=== PATIENT | female | born 1935 | race Caucasian/White ===

== ENCOUNTER 2017-08-26 08:40 | Emergency (ER) | payer MEDICARE, OTHER ==
--- NOTE | 2017-08-26 09:28 | RAD ---
indication: Trauma to forehead COMPARISON: None A CT scan of the brain and c-spine was performed without intravenous contrast enhancement. Contiguous axial sections were obtained from the lung apices through the vertex. BRAIN: The ventricles, cisterns and sulci exhibit age-appropriate symmetrical involutional changes. No significant focal abnormality or mass effect is seen. There is mild periventricular and subcortical white matter hypoattenuation most consistent with mild microvascular disease. Otherwise the yeung-white differentiation is adequately maintained. There is no intracranial hemorrhage. No significant bony abnormality is present. The mastoid air cells are appropriately aerated. The visualized paranasal sinuses are clear. C-SPINE: On the sagittal view there is straightening of the normal cervical lordosis. The vertebral bodies and facet joints are otherwise appropriately aligned. The dens is intact. There is narrowing not widening of the atlantodental interval. Degenerative changes include coarse calcification of the ligament surrounding the dens. There is loss of intervertebral disc height and marginal osteophyte formation. The most severe degenerative changes are seen at C5/C6 and C6/C7 where there is a tour-ro-[id number] degree of endplate sclerosis. There is no hyperdense material in the cervical canal to indicate hemorrhage. The visualized musculature and soft tissues are normal. There is no gross lymphadenopathy visualized. The visualized lung apices exhibit centrilobular emphysematous changes. IMPRESSION: 1. No calvarial fracture or acute intracranial hemorrhage. 2. No acute fracture or dislocation of the cervical spine. 3. Age-appropriate chronic and degenerative changes as described in the body of the report.
[2017-08-26 10:02] VITALS: BP 153/83
--- NOTE | 2017-08-26 15:10 | ED ---
Head Injury - HPI Summary HPI Summary: Patient is a 82-year-old female who presents emergency department for head injury that occurred early this morning. Patient states she got up to go to the bathroom around 0200 when she fell asleep on the toilet. Patient states she fell asleep and fell forward and was awoken by fall. She states she struck her head on a stand. Patient denies loss of consciousness. She denies recent illness, fever, chest pain, shortness breath, lightheadedness, dizziness, abdominal pain and vomiting, diarrhea. Patient complains of some mild neck pain and contusion to forehead. She is anticoagulated with Coumadin for a history of A. fib. She states she just had her INR checked and it was 2.6. Symptoms are mild to moderate in severity. No current modifying factors. - History Of Current Complaint Chief Complaint: EDHeadInjury Stated Complaint: HEAD INJURY Time Seen by Provider: 08/26/17 08:47 Hx Obtained From: Patient Pain Intensity: 0 Pain Scale Used: 0-10 Numeric - Allergies/Home Medications Allergies/Adverse Reactions: Allergies Allergy/AdvReac Type Severity Reaction Status Date / Time amoxicillin [From Augmentin] Allergy Rash Verified 08/26/17 09:08 clavulanic acid Allergy Rash Verified 08/26/17 09:08 [From Augmentin] lisinopril Allergy Coughing Verified 08/26/17 09:08 metronidazole Allergy Rash Verified 08/26/17 09:08 omeprazole [From Prilosec] Allergy Diarrhea Verified 08/26/17 09:08 PMH/Surg Hx/FS Hx/Imm Hx Previously Healthy: Yes Endocrine/Hematology History: Reports: Hx Anticoagulant Therapy, Hx Diabetes - DM I insulin pump, Hx Thyroid Disease - Graves' disease + thyroidectomy 1971, hypothyroid Cardiovascular History: Reports: Hx Deep Vein Thrombosis - 1971 (right) calf, secondary to control pills, Hx Hypercholesterolemia, Hx Hypertension Denies: Hx Pacemaker/ICD Respiratory History: Reports: 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, Hx Pulmonary Embolism - secondary to control pills, Hx Sleep Apnea - hold on CPAP d/t eye surgery, Other Respiratory Problems/Disorders - ex- smoker QUIT 16 YEARS AGO; Patient uses oxygen at night GI History: Reports: Other GI Disorders - s/p appendectomy History: Reports: Other Problems/Disorders - hematuria Denies: Hx Renal Disease Musculoskeletal History: Reports: Hx Back Problems - lower back disc problems, Hx Osteoporosis Sensory History: Reports: Hx Cataracts, Hx Contacts or Glasses, Other Sensory Impairments - bilateral corneal transplants Denies: Hx Hearing Aid Opthamlomology History: Reports: Hx Cataracts, Hx Contacts or Glasses, Other Sensory Impairments - bilateral corneal transplants Psychiatric History: Denies: Hx Panic Disorder - Cancer History Cancer Type, Location and Year: BASAL CELL Hx Chemotherapy: No Hx Radiation Therapy: No - Surgical History Surgery Procedure, Year, and Place: 1971 thyroidectomy,. basal cell carcinoma removed (left) cruz, basal cell carcinoma removed scalp,. X2,. & 12/18 cornea transplant,. 12/21 [facility] [place]- lap appendectomy,. 2008 retina detachment & repair (right) eye-42 BAND SCLERAL BUCKLE-SILICONE -OK UP TO 3T- INFO IN OTH OP REPORTS. HERNIA REPAIR Infectious Disease History: No Infectious Disease History: Denies: Traveled Outside the [place] in Last 30 Days - Social History Occupation: Retired Lives: With Family Alcohol Use: Daily Substance Use Type: Reports: None Hx Tobacco Use: Yes Smoking Status (MU): Former Smoker Review of Systems Constitutional: Negative Eyes: Negative ENT: Negative Cardiovascular: Negative Negative: Palpitations, Chest Pain Respiratory: Negative Negative: Shortness Of Breath, Cough Gastrointestinal: Negative Genitourinary: Negative Positive: Other - neck pain Positive: Other - contusion forehead Positive: Headache. Negative: Weakness, Paresthesia, Numbness, Syncope All Other Systems Reviewed And Are Negative: Yes Physical Exam Triage Information Reviewed: Yes Vital Signs On Initial Exam: Initial Vitals Temp Pulse Resp BP Pulse Ox 97.4 F 83 19 156/72 92 08/26/17 08:41 08/26/17 08:41 08/26/17 08:41 08/26/17 08:41 08/26/17 08:41 Vital Signs Reviewed: Yes Appearance: Positive: Well-Appearing - Patient sitting on bed in no acute distress. Well appearing. Pleasant. Daughter present. Skin: Positive: Warm, Dry Head/Face: Positive: Other - Small superficial contusion noted to the left upper forehead. No laceration. Eyes: Positive: Normal, EOMI, KERRY Neck: Positive: Supple, Other: - No midline tenderness. Pain with rotation. Respiratory/Lung Sounds: Positive: Clear to Auscultation, Breath Sounds Present Cardiovascular: Positive: Normal, RRR Musculoskeletal: Positive: Normal, Strength/ROM Intact Neurological: Positive: Normal, CN Intact II-III Psychiatric: Positive: Affect/Mood Appropriate Diagnostics - Vital Signs Vital Signs Temp Pulse Resp BP Pulse Ox 08/26/17 10:01 97.4 F 72 20 153/83 94 08/26/17 09:00 83 19 95 08/26/17 08:51 79 26 156/86 93 08/26/17 08:41 97.4 F 83 19 156/72 92 - Laboratory Lab Statement: Any lab studies that have been ordered have been reviewed, and results considered in the medical decision making process. Head Injury Course/Dx Course Of Treatment: Patient presenting to the ER for minor head and neck injury. No neurological deficits. Stable vital signs. She is very well- appearing on exam. Did obtain CT scan given anticoagulation. CT scan of head and neck are negative for acute medical injuries, reading per radiology. Results discussed. Advised Tylenol for pain as directed. To follow-up with PCP and return to the ear symptoms change or worsen. Patient and daughter understand and agree with plan. - Diagnoses Provider Diagnoses: Head contusion, Cervical strain Discharge - Sign-Out/Discharge Documenting (check all that apply): Patient Departure - Discharge Plan Condition: Good Disposition: HOME Patient Education Materials: Cervical Strain (ED), Head Injury (ED) Referrals: Marcelo Sesay MD [Primary Care Provider] - Additional Instructions: Follow up with your PCP Return to ER if symptoms change or worsen - Billing Disposition and Condition Condition: GOOD Disposition: Home
== END 2017-08-26 10:01 | disposition home or self-care (01) ==
LOC: ED 08:40
DX: S00.93XA Contusion of unspecified part of head, initial encounter (principal); S16.1XXA Strain of muscle, fascia and tendon at neck level, initial encounter; W18.12XA Fall from or off toilet with subsequent striking against object, initial encounter; Y92.002 Bathroom of unspecified non-institutional (private) residence as the place of occurrence of the external cause; I48.91 Unspecified atrial fibrillation; E10.9 Type 1 diabetes mellitus without complications; Z79.01 Long term (current) use of anticoagulants; Z96.41 Presence of insulin pump (external) (internal); Z79.4 Long term (current) use of insulin; Z86.718 Personal history of other venous thrombosis and embolism; Z87.891 Personal history of nicotine dependence; Z88.3 Allergy status to other anti-infective agents; Z88.8 Allergy status to other drugs, medicaments and biological substances
CPT/HCPCS: 70450; 72125; 99282

== ENCOUNTER 2018-01-16 16:56 | Inpatient (IN) | payer MEDICARE, OTHER ==
[2018-01-16] MEDS ORDERED: NS 0.9% 1000 ML* 1,000 ML IV ONE (17:18)
--- NOTE | 2018-01-16 17:24 | ED ---
Lower Extremity - HPI Summary HPI Summary: Patient is a 82 y/o F brought in by ambulance after patient slipped and fell on ice today. She reports pain at left leg and left hip. EMS reports good neurovascular exam, BG of 170. PMHx of afib, blood clot in lungs, and diabetes. Fall was unwitnessed. No head injury, no neck pain is reported. Patient is on Coumadin. She rates pain 6/10. On triage, it is noted that position flat, pillow under left hip alleviates Sx, nothing is noted to aggravate Sx. Home medications and allergies are reviewed. - History of Current Complaint Chief Complaint: EDHipPelvisInjury Stated Complaint: FALL/LT HIP INJURY Time Seen by Provider: 01/16/18 17:15 Hx Obtained From: Patient Mechanism Of Injury: Fall From A Standing Position Onset of Pain: Prior to Arrival Onset/Duration: Still Present Severity Currently: Moderate - 6/10 Pain Intensity: 6 Pain Scale Used: 0-10 Numeric - 6/10 Timing: Constant Location: Is Discrete @ - left leg, left hip Associated Signs And Symptoms: Positive: Other - Negative - neck pain, head injury Aggravating Factor(s): Nothing Alleviating Factor(s): Rest, Elevation - Allergies/Home Medications Allergies/Adverse Reactions: Allergies Allergy/AdvReac Type Severity Reaction Status Date / Time amoxicillin [From Augmentin] Allergy Rash Verified 01/16/18 17:21 clavulanic acid Allergy Rash Verified 01/16/18 17:21 [From Augmentin] lisinopril Allergy Coughing Verified 01/16/18 17:21 metronidazole Allergy Rash Verified 01/16/18 17:21 omeprazole [From Prilosec] Allergy Diarrhea Verified 01/16/18 17:21 PMH/Surg Hx/FS Hx/Imm Hx Endocrine/Hematology History: Reports: Hx Anticoagulant Therapy, Hx Diabetes - DM I insulin pump, Hx Thyroid Disease - Graves' disease + thyroidectomy 1971, hypothyroid Cardiovascular History: Reports: Hx Deep Vein Thrombosis - 1971 (right) calf, secondary to control pills, Hx Hypercholesterolemia, Hx Hypertension Denies: Hx Pacemaker/ICD Respiratory History: Reports: 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, Hx Pulmonary Embolism - secondary to control pills, Hx Sleep Apnea - hold on CPAP d/t eye surgery, Other Respiratory Problems/Disorders - ex- smoker QUIT 16 YEARS AGO; Patient uses oxygen at night GI History: Reports: Other GI Disorders - s/p appendectomy History: Reports: Other Problems/Disorders - hematuria Denies: Hx Renal Disease Musculoskeletal History: Reports: Hx Back Problems - lower back disc problems, Hx Osteoporosis Sensory History: Reports: Hx Cataracts, Hx Contacts or Glasses, Other Sensory Impairments - bilateral corneal transplants Opthamlomology History: Reports: Hx Cataracts, Hx Contacts or Glasses, Other Sensory Impairments - bilateral corneal transplants Psychiatric History: Denies: Hx Panic Disorder - Cancer History Cancer Type, Location and Year: BASAL CELL Hx Chemotherapy: No Hx Radiation Therapy: No - Surgical History Surgery Procedure, Year, and Place: 1971 thyroidectomy,. basal cell carcinoma removed (left) cruz, basal cell carcinoma removed scalp,. X2,. & 12/18 cornea transplant,. 12/21 [facility] [place] appendectomy,. 2008 retina detachment & repair (right) eye-42 BAND SCLERAL BUCKLE-SILICONE -OK UP TO 3T- INFO IN OTH OP REPORTS. HERNIA REPAIR Infectious Disease History: No Infectious Disease History: Denies: Traveled Outside the [place] in Last 30 Days - Family History Known Family History: Negative: Blood Disorder - Social History Alcohol Use: Daily Substance Use Type: Reports: None Hx Tobacco Use: Yes Smoking Status (MU): Former Smoker Review of Systems Positive: Other - POSITIVE - MECHANICAL FALL . Negative: Fever - on vitals, temp is 98.1 F Positive: Other - POSITIVE - LEFT HIP PAIN, LEFT LEG PAIN; NEGATIVE - NECK PAIN Neurological: Other - NEGATIVE - HEAD INJURY All Other Systems Reviewed And Are Negative: Yes Physical Exam - Summary Physical Exam Summary: Appearance: Well-appearing, Well-nourished, lying in bed comfortably Skin: Warm, dry, no obvious rash Eyes: sclera anicteric, no conjunctival pallor ENT: mucous membranes moist, pharynx appears normal Neck: Supple, nontender Respiratory: Clear to auscultation, no signs of respiratory distress Cardiovascular: Normal S1, S2. No murmurs. Normal distal pulses in tibial and radial bilaterally. Abdomen: Soft, nontender, normal active bowel sounds present Musculoskeletal: Left proximal thigh, swelling consistent with femoral shaft fracture. No signs of head trauma. Neurological: A&Ox3, awake and alert, mentation is normal, speech is fluent and appropriate Psychiatric: affect is normal, does not appear anxious or depressed Triage Information Reviewed: Yes Vital Signs On Initial Exam: Initial Vitals Temp Pulse Resp BP Pulse Ox 98.1 F 92 16 162/88 94 01/16/18 17:10 01/16/18 17:10 01/16/18 17:10 01/16/18 17:10 01/16/18 17:10 Vital Signs Reviewed: Yes Diagnostics - Vital Signs Vital Signs Temp Pulse Resp BP Pulse Ox 01/16/18 17:13 92 94 01/16/18 17:11 92 162/88 93 01/16/18 17:10 98.1 F 92 16 162/88 94 - Laboratory Result Diagrams: 01/17/18 05:22 01/17/18 05:22 Lab Statement: Any lab studies that have been ordered have been reviewed, and results considered in the medical decision making process. - Radiology CXR Radiology Interpretation Completed By: ED Physician Summary of Radiographic Findings: NAD Left Femur X-ray Radiology Interpretation Completed By: ED Physician Summary of Radiographic Findings: subtrochanteric fractureof left hip - CT pelvic ct CT Interpretation Completed By: Radiologist Summary of CT Findings: PELVIC CT IMPRESSION: Comminuted and displaced fracture involving the intertrochanteric region of the. left proximal femur. Study obtained to assist with surgical planning. THIS REPORT WAS REVIEWED BY ED PHYSICIAN. - EKG 1733 Cardiac Rate: NL - rate of 91 bpm EKG Rhythm: Sinus Rhythm Summary of EKG Findings: Normal EKG: NSR at 91 BPM, P waves, QRS complex, and T waves are within normal limits, T waves and intervals are normal, no ischemic changes. This is a normal EKG Lower Extremity Course/Dx - Course Course Of Treatment: Patient is a 82 y/o F brought in by ambulance after patient slipped and fell on ice today. She reports pain at left thigh and left hip. EMS reports good neurovascular exam, BG of 170. PMHx of afib, blood clot in lungs, and diabetes. Fall was unwitnessed. She was able to call for help on her cell phone. No head injury, no neck pain is reported. Patient is on Coumadin. On physical exam, left proximal thigh, swelling consistent with femoral shaft fracture. No signs of head trauma. Labs showed RBC 3.93, MCH 33, INR 2.54, BUN/creatinine ratio 23.9, glucose 151, blood type O negative. Normal EKG: NSR at 91 BPM, P waves, QRS complex, and T waves are within normal limits, T waves and intervals are normal, no ischemic changes. This is a normal EKG. During ED course, patient received fluids, morphine, zofran and Vitamin K Oral Solution 5 mg PO ONCE ONE. CXR was NAD, Left femur x-ray showed subtrochanteric fracture of left hip. PELVIC CT IMPRESSION: Comminuted and displaced fracture involving the intertrochanteric region of the. left proximal femur. Study obtained to assist with surgical planning. Dr. Rollins was consulted on patient's case at 1822, recommends admission to hospitalist. 1849 - Dr. Sesay was consulted on patient's case as he is patient's PCP, asks that patient be admitted to hospitalist. 1850 - Dr. Mcwilliams was consulted on patient's case. Dr. Mcwilliams accepts patient for admission. - Diagnoses Provider Diagnoses: Hip fracture, left, Warfarin anticoagulation - Physician Notifications Discussed Care Of Patient With: Lazarus Rollins Time Discussed With Above Provider: 18:22 Instructed by Provider To: Other - Dr. Rollins was consulted on patient's case at 182, recommends admission to hospitalist. 1849 - Dr. Sesay was consulted on patient's case as he is patient's PCP, asks that patient be admitted to hospitalist. 1850 - Dr. Mcwilliams was consulted on patient's case. Dr. Mcwilliams accepts patient for admission. Discharge - Sign-Out/Discharge Documenting (check all that apply): Patient Departure - admit All imaging exams completed and their final reports reviewed: Yes - Discharge Plan Condition: Stable Disposition: ADMITTED TO [facility] - Billing Disposition and Condition Condition: STABLE Disposition: Admitted to [facility] - Attestation Statements Document Initiated by Marilynnibe: Yes Documenting Scribe: TRINY BLANCA Provider For Whom Naheed is Documenting (Include Credential): STU BRIONES MD Scribe Attestation: ITRINY , scribed for STU BRIONES MD on 01/17/18 at 1020. Scribe Documentation Reviewed: Yes Provider Attestation: The documentation as recorded by the TRINY pollock accurately reflects the service I personally performed and the decisions made by me, STU BRIONES MD Status of Scribe Document: Viewed
[2018-01-16] MEDS ORDERED: Morphine VIAL* 4 MG/ML VIAL (1 ml vial) IV ONE ×2 (17:28→19:31)
[2018-01-16 17:34] LABS: ABS Basophils 0.1 10^3/ul (0-0.2); ABS Eosinophils 0.1 10^3/ul (0-0.6); ABS Lymphocytes 1.9 10^3/ul (1.0-4.8); ABS Monocytes 0.6 10^3/ul (0-0.8); ABS Nucleated RBC 0 10^3/ul; Eosinophil % 2.1 %; Hematocrit 38 % (35-47); Hemoglobin 12.8 g/dl (12.0-16.0); Mean Corpuscular HGB Conc 34 g/dl (31-36); Mean Corpuscular Hemoglobin 33 pg (27-31); Mean Corpuscular Volume 97 fL (80-97); Nucleated Red Blood Cells % 0.2; Platelet Count 270 10^3/ul (150-450); Red Blood Count 3.93 10^6/ul (4.00-5.40); Red Cell Distribution Width 13 % (10.5-15); White Blood Count 5.7 10^3/ul (3.5-10.8)
[2018-01-16 17:43] LABS: INR 2.54 (0.77-1.02)
[2018-01-16 17:53] LABS: EGFR Non-African American 58.7 (>60)
[2018-01-16] MEDS ORDERED: Phytonadione Oral Solution* 5 MG/25 ML UDC PO ONE (18:20)
[2018-01-16] MEDS ORDERED: Al Hydrox/Mg Hydrox/Simet LIQ* 30 ML UDC PO PRN (20:01)
[2018-01-16] MEDS ORDERED: Dextrose 50% Syringe 50 ML* 25 GM/50 ML SYRINGE IV PUSH PRN (20:06)
[2018-01-16] MEDS ORDERED: NS 0.9% 1000 ML* 1,000 ML IV SCH (20:15)
[2018-01-16] MEDS ORDERED: Albuterol 2.5 MG/3 ML NEB.SOL* (0.083%) INH PRN (20:25)
[2018-01-16] MEDS ORDERED: Albuterol/Ipratropium NEB.SOL* Albuterol 2.5 MG/Ipratropium 0.5 MG 3 ML INH PRN (20:25)
[2018-01-16] MEDS: Mometasone 220 MCG MDI INH SCH (21:00)
[2018-01-16] MEDS ORDERED: Insulin GLARGINE(*) 1 UNITS UNIT SUBCUT SCH (21:00)
[2018-01-16] MEDS ORDERED: Ondansetron INJ* 2 MG/ML VIAL IV ONE (21:17)
[2018-01-16] MEDS ORDERED: Ondansetron INJ* 2 MG/ML VIAL ONE (21:19)
[2018-01-16] MEDS: Morphine VIAL* 4 MG/ML VIAL (1 ml vial) IV PRN (23:57)
[2018-01-17] MEDS ORDERED: Insulin LISPRO* 1 UNITS UNIT SUBCUT ONE (01:11)
[2018-01-17] MEDS ORDERED: Dextrose 50% Syringe 50 ML* 25 GM/50 ML SYRINGE IV PUSH PRN ×2 (01:11→09:12)
--- NOTE | 2018-01-17 02:48 | HP ---
CC: Marcelo Sesay MD * HISTORY AND PHYSICAL: DATE OF ADMISSION: 01/16/18 TIME OF EVALUATION: 1999. PRIMARY CARE PHYSICIAN: Marcelo Sesay MD CHIEF COMPLAINT: Fall with left hip injury. HISTORY OF PRESENT ILLNESS: This is an 82-year-old female who is independent of her ADLs, with a past medical history of type 1 diabetes, on insulin pump; and atrial fibrillation, on anticoagulation, who presented to the emergency room after slipping on the ice on her driveway and landing on her left side. The patient was found to have had a left hip fracture. Ortho was contacted. They recommended admission for further management. The patient is very upset and stressed. She cannot provide her entire history. She knows that she has diabetes and atrial fibrillation, but could not elaborate much more. She is very worried about her and having the ability to manage him at home with his dementia as he is home alone right now. She did state she was in her usual state of health. She denied any presyncopal symptoms. She denies hitting her head, no loss of consciousness. She denies any other pain after falling. She states she has been having some issues with short of breath and having some dyspnea on exertion. She is planning to follow up with Dr. Sesay to see if she should go back to follow up with Cardiology. She states every now and then, she had some nagging in her chest when she gets upset. No chest pain at this time. She can ambulate up and down the stairs, but she does get short of breath when she does that. She denies any recent stress test. She denies any nausea, vomiting, diarrhea. No abdominal pain. No urinary symptoms. No recent changes in her medications or weight changes. Otherwise, review of systems negative. In the emergency room, the patient had labs, imaging. She was given 2 units of FFP, vitamin K 5 mg, 1 L of normal saline, 10 mg of morphine and referred to the hospitalist service for further evaluation. PAST MEDICAL HISTORY: 1. History of paroxysmal atrial fibrillation, on Coumadin. 2. Type 1 diabetic, on insulin pump. 3. History of Graves' disease, status post thyroidectomy in 1971, now with hypothyroidism. 4. History of DVT in 1971 and a PE secondary to control pills. 5. History of hyperlipidemia. 6. Hypertension. 7. History of COPD, on oxygen at bedtime. 8. History of obstructive sleep apnea, is not on CPAP. 9. History of appendectomy. 10. History of chronic low back pain. 11. History of osteoporosis. 12. History of cataract. 13. History of bilateral corneal transplants. MEDICATIONS: The patient is not sure what medications she takes. There is no med rec in there. She does take warfarin and she is on insulin pump, which she had discontinued in the emergency room. ALLERGIES: AMOXICILLIN, CLAVULANIC ACID, LISINOPRIL, METRONIDAZOLE, OMEPRAZOLE. FAMILY HISTORY: Mother from cancer at age 92. Father unknown. SOCIAL HISTORY: The patient lives at home with her , who has early onset dementia. She helps care for him. She is independent of her ADLs. She quit smoking 20 years ago, 2 pack per day for 45 years. She drinks 1 to 2 glasses of wine in the evening. Her daughter and her [id number] are healthcare proxy. Code status is full code. REVIEW OF SYSTEMS: A 14-point review of systems as mentioned in the HPI, otherwise negative. PHYSICAL EXAMINATION GENERAL: No acute distress, appears mildly anxious, concerned about her . VITALS: Temp 98.8, pulse rate is 95, respiratory rate 20, oxygen saturation 98 % on room air, blood pressure 145/79. HEENT: Head normocephalic. Pupils are equal and reactive. She has erythema on her bilateral eye lids. Oropharynx: Mucous membranes are moist. NECK: Supple. No lymphadenopathy. RESPIRATORY: Diminished breath sounds. No wheezes, rhonchi, or rales. CARDIAC: Regular rate and rhythm. Soft systolic murmur heard throughout. ABDOMEN: Soft, nontender and nondistended. EXTREMITIES: The patient with significant lower extremity varicosities. Her left lower extremity is short and externally rotated. +1 DPs. Sensation is intact. She is able to move her toes. NEUROLOGIC: Alert and oriented x3. No gross focal neurologic deficits. DIAGNOSTIC STUDIES/LAB DATA: White count 5.7, hemoglobin 12.8, hematocrit 38, platelets 270. INR is 2.54. Sodium 136, potassium 3.9, chloride 100, bicarb 29 , BUN 22, creatinine 0.92, glucose 151. RADIOGRAPHIC DATA: EKG shows sinus rhythm with LVH. Some nonspecific ST changes. Chest x-ray shows some mild prominent interstitial markings compared to prior x - ray. Femur film has been canceled awaiting film of CT of the pelvis. ASSESSMENT AND PLAN: This is an 82-year-old female with past medical history of diabetes; atrial fibrillation, on anticoagulation, who presents to the emergency room after having a mechanical fall. Mechanical fall. Assessment: Awaiting on the CAT scan. The film for her femur appeared to be canceled. The orthopedic surgeon, Dr. Davidson, and the ER doc stated that she suffered a left hip fracture. Regarding preoperative evaluation, she has an INR of 2.54, that needs to be reversed. She did get 2 units of FFP and vitamin K down in the emergency room. Her EKG shows nonspecific ST changes and chest x- ray on my wet read showed some findings of possible increase in interstitial markings, which may be contributed to her shortness of breath. There is also concern for this new onset of dyspnea on exertion. Plan: Need to get her med rec and more thorough cardiac history. Dr. Sesay will be taking over in the morning. He can review this. I am going to put in for an echo, trops x2, and consider Cardiology evaluation in the morning depending on her work up and further history. If her INR has normalized, potentially she could go tomorrow afternoon if she is optimized preoperatively. We will repeat her labs and her INRs as well in the morning. We will continue pain management , bowel regimen, and place a Morgan catheter for her hip fracture and follow up with Orthopedics. Will start NPO status in AM. CHRONIC MEDICAL PROBLEMS: 1. Diabetes, on insulin pump. I discussed continuing her on the insulin pump. She got very stressed about being able to change it while lying flat and not having all of the equipment that she needs to change it out tomorrow. She got very tearful about this. So I discussed stopping the insulin pump and we will place her on lispro and Lantus and monitor her sugars that way. We will continue her on a diabetic diet until she is n.p.o. in the morning and we will start her on gentle IV fluids. 2. Chronic medical problems, as mentioned need to get a home med rec list so her current medications can be started accordingly. We will continue her on her inhaler regimens. 3. FEN. Consistent carbohydrate diet, n.p.o. starting in the morning. 4. DVT prophylaxis. The patient is therapeutic with her Coumadin and we will place her on SCDs as we are reversing this. 5. Code status is full code. TIME SPENT: Greater than 60 minutes spent doing the history and physical, more than half the time spent in direct patient contact. [id number]/CPS #: [id number] DEANGELO
[2018-01-17] MEDS ORDERED: Magnesium Sulfate 2 GM IV* 2 GM/50 ML BAG IVPB ONE (03:41)
[2018-01-17] MEDS ORDERED: Metoprolol Tartrate IV* 1 MG/ML 5 ML VIAL IV PRN (03:58)
[2018-01-17] MEDS: Morphine VIAL* 4 MG/ML VIAL (1 ml vial) IV PRN ×3 (04:45→19:30)
[2018-01-17 05:31] LABS: ABS Basophils 0 10^3/ul (0-0.2); ABS Eosinophils 0 10^3/ul (0-0.6); ABS Lymphocytes 0.8 10^3/ul (1.0-4.8); ABS Monocytes 0.9 10^3/ul (0-0.8); ABS Neutrophils 6.8 10^3/ul (1.5-7.7); ABS Nucleated RBC 0 10^3/ul; Eosinophil % 0 %; Hematocrit 29 % (35-47); Hemoglobin 9.9 g/dl (12.0-16.0); Mean Corpuscular HGB Conc 34 g/dl (31-36); Mean Corpuscular Hemoglobin 33 pg (27-31); Mean Corpuscular Volume 96 fL (80-97); Mean Platelet Volume 7.5 fL (7.4-10.4); Nucleated Red Blood Cells % 0; Platelet Count 219 10^3/ul (150-450); Red Blood Count 3.03 10^6/ul (4.00-5.40); Red Cell Distribution Width 13 % (10.5-15); White Blood Count 8.4 10^3/ul (3.5-10.8)
[2018-01-17 05:36] LABS: INR 1.7 (0.77-1.02)
[2018-01-17 05:50] LABS: EGFR Non-African American 81.9 (>60)
[2018-01-17] MEDS ORDERED: Potassium Chlor TAB* 10 MEQ TAB.ER PO ONE (06:17)
[2018-01-17] MEDS: Mometasone 220 MCG MDI INH SCH ×2 (07:40→21:05)
[2018-01-17] MEDS: Ondansetron INJ* 2 MG/ML VIAL IV PRN ×2 (07:53→19:31)
[2018-01-17] MEDS: Insulin LISPRO* 1 UNITS UNIT SUBCUT SCH ×7 (08:53→22:02)
--- NOTE | 2018-01-17 08:53 | PN ---
Subjective - Subjective Reason for Note: Progress Note History: Internal medicine/endocrinology note: Lucy Costa is an 82 year old WF who is a primary care and endocrine patient of [facility]. She has T1D that is labile and uses an insulin pump. She has COPD. She also has chronic atrial fibrillation and is anticoagulated with warfarin She fell on ice and fractured her left hip. She is hoping to have surgery today. She was given some vitamin K to reverse her warfarin. This morning she has pain and nausea from the opioid. Active Problems: Active Problems Anemia (Acute) D64.9 Fracture, intertrochanteric, left femur (Acute) S72.142A Uncontrolled type 1 diabetes mellitus (Acute) E10.65 Warfarin anticoagulation (Acute) Z79.01 Anxiety disorder (Chronic) F41.9 Atrial fibrillation (Chronic) I48.91 COPD (chronic obstructive pulmonary disease) (Chronic) J44.9 Charcot's arthropathy (Chronic) M14.60 Diabetic retinopathy (Chronic) E11.319 Emphysema of lung (Chronic) J43.9 Essential hypertension (Chronic) I10 History of falling (Chronic) Z91.81 Hypercholesteremia (Chronic) E78.00 Insulin pump status (Chronic) Z96.41 Osteoarthritis (Chronic) M19.90 Primary hypothyroidism (Chronic) E03.9 Psoriasis (Chronic) L40.9 Sleep apnea (Chronic) G47.30 Type 1 diabetes, uncontrolled, with retinopathy (Chronic) E10.319, E10.65 Current Medications: Current Medications Acetaminophen (Tylenol Tab*) 650 mg PO Q4H PRN PRN Reason: FEVER/PAIN Al Hydrox/Mg Hydrox/Simethicone (Maalox Plus*) 30 ml PO Q6H PRN PRN Reason: INDIGESTION Albuterol (Ventolin 2.5 Mg/3 Ml Neb.Jennifer*) 2.5 mg INH Q4H PRN PRN Reason: SOB/WHEEZING Albuterol/Ipratropium (Duoneb (Albuterol 2.5 Mg/Ipratropium 0.5 Mg)) 1 neb INH Q4H PRN PRN Reason: SOB/WHEEZING Dextrose (D50w Syringe 50 Ml*) 12.5 gm IV PUSH .FOR FS < 60 - SS PRN PRN Reason: FS < 60 Docusate Sodium (Colace Cap*) 100 mg PO BID PRN PRN Reason: CONSTIPATION Sodium Chloride (Ns 0.9% 1000 Ml*) 1,000 mls @ 100 mls/hr IV PER RATE [facility] Last Admin: 01/17/18 01:43 Dose: 100 mls/hr Insulin Glargine (Lantus(*)) 10 units SUBCUT Q24H [facility] Last Admin: 01/17/18 01:27 Dose: 10 units Insulin Human Lispro (Humalog*) 0 units SUBCUT AC [facility]; Protocol Metoprolol Tartrate (Lopressor Iv*) 5 mg IV Q4HR PRN PRN Reason: HEART RATE/PULSE Last Admin: 01/17/18 04:09 Dose: 5 mg Mometasone Furoate (Asmanex 220 Mcg Mdi *) 2 puff INH RT.BID [facility] Last Admin: 01/17/18 07:40 Dose: 2 puff Morphine Sulfate (Morphine Vial*) 4 mg IV Q4H PRN PRN Reason: PAIN Last Admin: 01/17/18 04:45 Dose: 4 mg Ondansetron HCl (Zofran Inj*) 4 mg IV Q4H PRN PRN Reason: NAUSEA/VOMITING Last Admin: 01/17/18 07:53 Dose: 4 mg Oxycodone/Acetaminophen (Percocet 5/325 Tab*) 1 tab PO Q4H PRN PRN Reason: Pain Senna (Senokot Tab*) 1 tab PO BID PRN PRN Reason: CONSTIPATION - Review of Systems Constitutional Symptoms: No: Fever Pulmonary: Positive: COPD Negative: Cough, Sputum, Respiratory Distress, Shortness of Breath Cardiology: Negative: Chest Pain, Shortness of Breath, Palpitations, Swelling of Ankles Gastroenterology: Positive: Nausea, Vomiting Negative: Abdominal Pain, Change in Bowel Habits Genital - Urinary: Negative: Dysuria Psychiatry: Positive: Anxiety Home Medications: Home Medications Medication Instructions Recorded Confirmed Type Albuterol/Ipratropium INH(NF) 2 puff .SEE ORDER Q4HR PRN 04/05/12 08/26/17 History [Combivent Inhaler*] Alendronate Sodium [Fosamax] 70 mg PO SEE INSTRUCTIONS 04/05/12 08/26/17 History Aspirin [Aspir-81] 81 mg PO DAILY 04/05/12 08/26/17 History Brimonidine P 0.15%(NF) [Alphagan 0.15 % OP SEE INSTRUCTIONS 04/05/12 08/26/17 History P] Cholecalciferol [Vitamin D3] 2,000 unit PO DAILY 04/05/12 08/26/17 History Citalopram TAB* [Celexa TAB*] 20 mg PO DAILY 04/05/12 08/26/17 History Dapsone 25 mg PO DAILY 04/05/12 08/26/17 History Fluticasone HFA 220 mcg(NF) 2 puff .SEE ORDER DAILY 04/05/12 08/26/17 History [Flovent Hfa 220 Mcg*] Irbesartan TAB* [Avapro TAB*] 300 mg PO QPM 04/05/12 08/26/17 History Levothyroxine TAB* [Synthroid TAB*] 137 mcg PO QAM 04/05/12 08/26/17 History Multivit-Mins/FA/Lycop/Lut/Ala 1 tab PO DAILY 04/05/12 08/26/17 History [Multi-Betic] Simvastatin 10 mg PO BEDTIME 04/05/12 08/26/17 History Subcutaneous Insulin Pump [Insulin 1 kit SUBCUT QID 04/05/12 08/26/17 History Pump [id number] Black] Timolol 0.25% OPHTH.SOLN* 1 drop .SEE ORDER BID 04/05/12 08/26/17 History [Timoptic Ophth.soln 0.25%*] Warfarin TAB(*) [Coumadin(*)] 5 mg PO SEE INSTRUCTIONS 04/05/12 08/26/17 History Warfarin TAB(*) [Coumadin(*)] 7.5 mg PO SEE INSTRUCTIONS 04/05/12 08/26/17 History dilTIAZem HCl [Dilt-Xr] 180 mg PO DAILY 04/05/12 08/26/17 History prednisoLONE 1% OPHTH.SUSP* [Pred 1 drop .SEE ORDER DAILY 04/05/12 08/26/17 History Forte 1%*] zzInsulin GLARGINE(*) [Lantus(*)] 18 units .SEE ORDER SEE 04/05/12 08/26/17 History INSTRUCTIONS Allergies: Allergies Allergy/AdvReac Type Severity Reaction Status Date / Time amoxicillin [From Augmentin] Allergy Rash Verified 01/16/18 17:21 clavulanic acid Allergy Rash Verified 01/16/18 17:21 [From Augmentin] lisinopril Allergy Coughing Verified 01/16/18 17:21 metronidazole Allergy Rash Verified 01/16/18 17:21 omeprazole [From Prilosec] Allergy Diarrhea Verified 01/16/18 17:21 Objective - Vital Signs Vital Signs: Vital Signs 01/16/18 01/16/18 01/16/18 17:10 17:11 17:13 Temperature 98.1 F Pulse Rate 92 92 92 Respiratory 16 Rate Blood Pressure 162/88 162/88 (mmHg) O2 Sat by Pulse 94 93 94 Oximetry 01/16/18 01/16/18 01/16/18 17:35 17:58 18:00 Temperature Pulse Rate 88 89 Respiratory 18 Rate Blood Pressure 140/78 (mmHg) O2 Sat by Pulse 94 95 Oximetry 01/16/18 01/16/18 01/16/18 18:11 18:41 19:00 Temperature Pulse Rate 95 100 108 Respiratory Rate Blood Pressure 156/81 162/85 (mmHg) O2 Sat by Pulse 97 95 98 Oximetry 01/16/18 01/16/18 01/16/18 19:41 20:00 20:06 Temperature Pulse Rate 104 103 Respiratory 20 Rate Blood Pressure 145/79 (mmHg) O2 Sat by Pulse 94 94 Oximetry 01/16/18 01/16/18 01/16/18 20:11 20:41 21:00 Temperature Pulse Rate 106 109 110 Respiratory Rate Blood Pressure 134/65 141/77 (mmHg) O2 Sat by Pulse 90 98 97 Oximetry 01/16/18 01/16/18 01/16/18 21:11 21:40 21:41 Temperature Pulse Rate 109 105 104 Respiratory Rate Blood Pressure 127/72 120/57 123/60 (mmHg) O2 Sat by Pulse 98 99 98 Oximetry 01/16/18 01/16/18 01/16/18 21:52 22:00 22:11 Temperature Pulse Rate 105 102 105 Respiratory Rate Blood Pressure 125/65 123/60 (mmHg) O2 Sat by Pulse 98 97 99 Oximetry 01/16/18 01/16/18 01/16/18 22:23 22:49 23:26 Temperature 97.4 F 97.9 F 98.2 F Pulse Rate 105 106 108 Respiratory 18 16 16 Rate Blood Pressure 123/60 127/64 126/53 (mmHg) O2 Sat by Pulse 99 98 98 Oximetry 01/16/18 01/17/18 01/17/18 23:57 00:37 00:39 Temperature 97.8 F Pulse Rate 111 Respiratory 16 16 16 Rate Blood Pressure 111/46 (mmHg) O2 Sat by Pulse 96 Oximetry 01/17/18 01/17/18 01/17/18 01:29 01:35 03:36 Temperature 97.9 F Pulse Rate 114 109 Respiratory 16 16 14 Rate Blood Pressure 104/45 120/61 (mmHg) O2 Sat by Pulse 95 Oximetry 01/17/18 01/17/18 01/17/18 04:45 06:08 07:06 Temperature Pulse Rate 101 Respiratory 16 12 Rate Blood Pressure (mmHg) O2 Sat by Pulse 97 Oximetry - Intake and Output Intake and Output: Intake & Output 01/14/18 01/15/18 01/16/18 01/17/18 11:59 11:59 11:59 11:59 Intake Total 1723 Output Total 1000 Balance 723 Weight 138 lb Intake: IV Fluids 1723 FF Plasma 599 NS (0.9%) 124 Oral 0 Output: Morgan 1000 ADLs: Meal Record Start: 01/16/18 20: 57 Freq: Status: Active Protocol: Created 01/16/18 20:57 System (Rec: 01/16/18 20:57 System [id number]) Intake and Output Start: 01/16/18 17: 13 Freq: Status: Active Protocol: Created 01/16/18 17:13 System (Rec: 01/16/18 17:13 System [id number]) Intake and Output Start: 01/16/18 20: 57 Freq: DAILY@0600,1400,2200 Status: Active Protocol: Created 01/16/18 20:57 System (Rec: 01/16/18 20:57 System [id number]) Document 01/17/18 05:56 [id number] (Rec: 01/17/18 05:57 [id number] [facility]-M17) - Physical Exam General Physical Exam Comment: alert and oriented, warm and well perfused. Nauseated General: No Cyanosis, No Anemia, No Jaundice, No Clubbing Lungs and Chest: Yes: Chest Expansion Full, Chest Expansion Symetrica, Percussion Note Resonant. No: Vessicular Breath Sounds - emphysematous, Crackles, Wheezes Heart Rate and Rhythm: Irregular Additional Cardiovascular: Yes: Normal Heart Sounds. No: Heart Murmur, Pedal Edema Abdominal Exam: Yes: Soft, Bowel Sounds Present. No: Distention, Abdominal Mass , Hepatomegaly, Abdominal Tenderness - Extremities Cranial Nerves II-XII Intact: Yes Limbs: Normal Power - Neuro Orientation: A/O x3 Speech: Normal Results - Results Lab Results: Laboratory Results - last 24 hr 01/16/18 01/16/18 01/16/18 17:22 17:22 17:22 WBC 5.7 RBC 3.93 L Hgb 12.8 Hct 38 MCV 97 MCH 33 H MCHC 34 RDW 13 Plt Count 270 MPV 8.0 Neut % (Auto) 53.7 Lymph % (Auto) 33.0 Crane % (Auto) 10.3 Eos % (Auto) 2.1 Baso % (Auto) 0.9 Absolute Neuts (auto) 3.0 Absolute Lymphs (auto) 1.9 Absolute Monos (auto) 0.6 Absolute Eos (auto) 0.1 Absolute Basos (auto) 0.1 Absolute Nucleated RBC 0 Nucleated RBC % 0.2 INR (Anticoag Therapy) 2.54 H Sodium 136 Potassium 3.9 Chloride 100 L Carbon Dioxide 29 Anion Gap 7 BUN 22 Creatinine 0.92 Est GFR ( Amer) 71.1 Est GFR (Non-Af Amer) 58.7 BUN/Creatinine Ratio 23.9 H Glucose 151 H POC Glucose (mg/dL) Calcium 9.4 Magnesium 1.8 L Troponin I 0.01 Blood Type 01/16/18 01/17/18 01/17/18 17:22 00:45 02:28 WBC RBC Hgb Hct MCV MCH MCHC RDW Plt Count MPV Neut % (Auto) Lymph % (Auto) Crane % (Auto) Eos % (Auto) Baso % (Auto) Absolute Neuts (auto) Absolute Lymphs (auto) Absolute Monos (auto) Absolute Eos (auto) Absolute Basos (auto) Absolute Nucleated RBC Nucleated RBC % INR (Anticoag Therapy) Sodium Potassium Chloride Carbon Dioxide Anion Gap BUN Creatinine Est GFR ( Amer) Est GFR (Non-Af Amer) BUN/Creatinine Ratio Glucose POC Glucose (mg/dL) 314 H 312 H Calcium Magnesium Troponin I Blood Type O Negative 01/17/18 01/17/18 01/17/18 03:41 05:22 05:22 WBC 8.4 RBC 3.03 L Hgb 9.9 L Hct 29 L MCV 96 MCH 33 H MCHC 34 RDW 13 Plt Count 219 MPV 7.5 Neut % (Auto) 80.3 Lymph % (Auto) 9.0 Crane % (Auto) 10.3 Eos % (Auto) 0 Baso % (Auto) 0.4 Absolute Neuts (auto) 6.8 Absolute Lymphs (auto) 0.8 L Absolute Monos (auto) 0.9 H Absolute Eos (auto) 0 Absolute Basos (auto) 0 Absolute Nucleated RBC 0 Nucleated RBC % 0 INR (Anticoag Therapy) Sodium 135 Potassium 3.5 Chloride 103 Carbon Dioxide 28 Anion Gap 4 BUN 23 Creatinine 0.69 Est GFR ( Amer) 99.1 Est GFR (Non-Af Amer) 81.9 BUN/Creatinine Ratio 33.3 H Glucose 174 H POC Glucose (mg/dL) 236 H Calcium 8.7 Magnesium Troponin I Blood Type 01/17/18 01/17/18 05:22 07:44 WBC RBC Hgb Hct MCV MCH MCHC RDW Plt Count MPV Neut % (Auto) Lymph % (Auto) Crane % (Auto) Eos % (Auto) Baso % (Auto) Absolute Neuts (auto) Absolute Lymphs (auto) Absolute Monos (auto) Absolute Eos (auto) Absolute Basos (auto) Absolute Nucleated RBC Nucleated RBC % INR (Anticoag Therapy) 1.70 H Sodium Potassium Chloride Carbon Dioxide Anion Gap BUN Creatinine Est GFR ( Amer) Est GFR (Non-Af Amer) BUN/Creatinine Ratio Glucose POC Glucose (mg/dL) 239 H Calcium Magnesium Troponin I Blood Type Radiology Results: Patient Name: LUCY COSTA Medical Record#: [id number] Ordering Physician: Norberto Patterson MD Acct.#: [id number] : 1935 Age: 82 Sex: F Location: SURGICAL STAY UNIT Exam Date: 01/16/181717 ADM Status: ADM IN Order Information: CHEST 1 VW Accession Number: [id number] CPT: 24054 Indication: LEFT hip fracture. Preoperative assessment. Comparison: April 14, 2014 Technique: Supine AP 1753 hours Report: Elevated lung volumes and coarse interstitial markings as well as patchy rarefaction of interstitial markings. Grossly clear pleural spaces. Cardiomegaly. Prominent central pulmonary vasculature with peripheral attenuation. No thoracic fractures visualized. IMPRESSION: #. Stigmata of advanced chronic obstructive pulmonary disease and probable pulmonary arterial hypertension. <Electronically signed by Riley Garcia MD in OV> 01/17/18634 Dictated By: Riley Garcia MD Dictated Date/Time: 01/17/18634 Transcribed Date/Time: 01/17/18632 Copy to: CC:Marcelo Sesay MD; Stephanie Davidson MD; Rachelle Rehman DO; Norberto Patterson MD Imaging - [facility] [address] [address] ph ([phone]) ph ([phone]) ph ([phone]) Patient Name: LUCY COSTA Medical Record#: [id number] Ordering Physician: Norberto Patterson MD Acct.#: [id number] : 1935 Age: 82 Sex: F Location: SURGICAL STAY UNIT Exam Date: 01/16/181823 ADM Status: ADM IN Order Information: CT PELVIS W/O Accession Number: [id number] CPT: 92277 EXAM: CT Pelvis Without Intravenous Contrast, Skeletal EXAM DATE/TIME: 01/16/2018 8:57 PM CLINICAL HISTORY: 82 years old, female; Signs and symptoms; Other: Known left hip FX; Additional info: Fracture, assess for preop: Left hip TECHNIQUE: Axial computed tomography images of the pelvis without intravenous contrast. Exam focused on the skeletal structures. All CT scans at this facility use at least one of these dose optimization techniques: automated exposure control; mA and/or kV adjustment per patient size (includes targeted exams where dose is matched to clinical indication); or iterative reconstruction. Coronal and sagittal reformatted images were created and reviewed. COMPARISON: PEL/TRANS US PELVIS/TRANSVAG 09/27/2013 11:12 AM FINDINGS: Bladder: Morgan catheter in place. Vasculature: Atherosclerotic calcification. Bones/joints: Comminuted and displaced fracture involving the intertrochanteric region of the left proximal femur. Small enchondroma present adjacent to the fracture. No other acute fractures. Degenerative changes of the lower lumbosacral spine. Soft tissues: Soft tissue swelling adjacent to the fracture. Small fat containing inguinal hernias bilaterally. IMPRESSION: Comminuted and displaced fracture involving the intertrochanteric region of the left proximal femur. Study obtained to assist with surgical planning. To contact [facility] with a general question: Operations Center - [phone] For direct physician to physician contact: Physician Hotline - [phone] [facility] ([facility] Facility ID #[id number]) <Electronically signed by Manohar Jay MD in OV> 01/16/182140 Dictated By: Manohar Jay MD Dictated Date/Time: 01/16/182140 Transcribed Date/Time: EKG Report: 01/17/18 Atrial fibrillation rapid rate 141 QTc 507 QRS axis 73 long QTc Assessment - Problem List Assessment: Patient Problems Anemia (Acute) Fracture, intertrochanteric, left femur (Acute) Uncontrolled type 1 diabetes mellitus (Acute) Warfarin anticoagulation (Acute) Anxiety disorder (Chronic) Atrial fibrillation (Chronic) COPD (chronic obstructive pulmonary disease) (Chronic) Charcot's arthropathy (Chronic) Diabetic retinopathy (Chronic) Emphysema of lung (Chronic) Essential hypertension (Chronic) History of falling (Chronic) Hypercholesteremia (Chronic) Insulin pump status (Chronic) Osteoarthritis (Chronic) Primary hypothyroidism (Chronic) Psoriasis (Chronic) Sleep apnea (Chronic) Type 1 diabetes, uncontrolled, with retinopathy (Chronic) Sleep apnea assessment (Chronic) Plan: intertrochanteric, left femur (Acute) She is due for surgery today. She has some medical problems requiring close attention and I recommend she is sent to the ICU following surgery. She requires no further cardiovascular risk stratification. Anemia - may require transfusion. Uncontrolled T1D Insulin pump status (Chronic) Her insulin pump has been removed. I will adjust her to a basal/bolus regimen based upon her usual insulin pump basal rate and boluses Warfarin anticoagulation (Acute) She has received vitamin K. 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 Charcot's arthropathy (Chronic) no problems with her feet at present Diabetic retinopathy (Chronic) secondary diagnosis Essential hypertension (Chronic) Her BP is on target History of falling (Chronic) She will need rehab after surgery - a great candidate for PMRU Hypercholesteremia (Chronic) secondary diagnosis Osteoarthritis (Chronic) secondary diagnosis Primary hypothyroidism (Chronic) secondary diagnosis Psoriasis (Chronic) secondary diagnosis Sleep apnea (Chronic) can't tolerate CPAP. May need this following surgery per COPD Type 1 diabetes, uncontrolled, with retinopathy (Chronic) ongoing She requires no further risk stratification prior to surgery. I recommend anesthesiology are aware of her emphysema/sleep apnea. We will watch her cardiac rate. I will write instructions for T1D management.I discussed the above with the patient and she agrees with the management plan
[2018-01-17] MEDS ORDERED: Insulin GLARGINE(*) 1 UNITS UNIT SUBCUT SCH (09:10)
--- NOTE | 2018-01-17 10:12 | CONS ---
ORTHOPEDIC CONSULTATION REPORT: DATE OF CONSULT: 01/16/18 CHIEF COMPLAINT: Left hip pain. HISTORY OF PRESENT ILLNESS: Mrs. Hudson is an 82-year-old female who fell on some ice in her driveway today, landing on the left side. She immediately had 10/10 pain in the left hip. Any attempt to st and or bear weight increased her pain. She was brought to [facility] [place] by ambulance. She i s noted to have a comminuted fracture of the proximal femur and Orthopedics is consulted. 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 PAST SURGICAL HISTORY: Corneal transplant, appendectomy, thyroidectomy. CURRENT MEDICATIONS: 1. Coumadin unknown dose. 2. Insulin pump unknown dose. Hospitalist team is working on her home medication list from Dr. Sesay's office. ALLERGIES: AMOXICILLIN, CLAVULANIC ACID, LISINOPRIL, METRONIDAZOLE, OMEPRAZOLE. FAMILY HISTORY: Maternal cancer. SOCIAL HISTORY: The patient lives with her . She cares for her who recently had the onset of quite severe dementia and she is concerned about him. She is normally an independent ambulat or and independent of ADLs. She has a 2-pack history of smoking cigarettes for 45 years but quit 20 years ago. She has 2 alcoholic beverages per day. Her daughter and [id number] are healthcare p roxies. Full code status. REVIEW OF SYSTEMS: Positive for left hip pain, anxiety. Negative for fevers, chills, chest pain, sh ortness of breath, nausea, vomiting, headache, or dizziness. Otherwise, the patient reports review of systems is negative or not relevant. PHYSICAL EXAM: Vitals at the time of physical exam show pulse of 104, blood pressure 145/79, O2 satu ration 94% on room air. General: The patient is a thin female, in no apparent distress. Alert and oriented x3, anxious mood with appropriate affect. Gait and balance are not assessed. HEENT: Atrau matic, normocephalic. Pupils equal and reactive to light. Chest: Unlabored breathing. Bilateral up per extremities: The patient's skin is intact. No abrasions or open wounds. Forward flexion at the shoulders causes no pain. No bony tenderness to palpation. 2+ palpable radial pulses. 5/[address] rength. Right lower extremity: The patient's skin is intact. No visible deformity. No bony tendern ess to palpation. Distally, she can dorsiflex and plantarflex. 2+ palpable DP pulse. Significant va ricosities. Full sensation to light touch. Left lower extremity: The patient has a visible signific ant deformity and swelling along the proximal femur. Tenderness to palpation here. Thigh is swollen but compressible. Distally, no bony tenderness to palpation. She dorsiflexes and plantarflexes. Ful l sensation to light touch in all nerve distributions. 2+ palpable DP pulse. Extensive varicosities. RADIOGRAPHS: Multiple views of the patient's left femur are reviewed. These show a displaced commin uted proximal femur fracture that is intertrochanteric, involves the greater trochanter in multiple p ieces and extends nearly to the subtrochanteric region. Radiographs of the distal femur show no exte nsion distally at the knee. Pelvis CT has been requested. ASSESSMENT AND PLAN: Mrs. Hudson is an 82-year-old female with multiple medical comorbidities. She i s an independent community ambulator who had a fall on some ice today. She has significant osteoporo sis and a comminuted displaced fracture of the left proximal femur. At this time, I see no other obv ious areas of orthopedic trauma. The patient is being admitted to the hospitalist currently. She wi ll be optimized for surgery. Current INR is 2.45 and they will attempt to reverse this. The patient may need further cardiac workup before we proceed. Dr. Rehman plans to contact Dr. Sesay for final alee nevaeh. For now, she will be on bedrest, made comfortable with p.r.n. analgesia. A Morgan catheter should be placed. We will obtain a CT scan of the pelvis for better understanding of the fracture pattern for preop planning. Dr. Rollins is the orthopedic surgeon on-call. We have discussed this case and he is tentatively saba diallo to schedule her for a long cephalomedullary device in the left femur on 01/18/18. Orthopedic team to follow. [id number]/[facility] #: [id number]
[2018-01-17] MEDS ORDERED: Phytonadione Oral Solution* 5 MG/25 ML UDC PO ONE (10:32)
--- NOTE | 2018-01-17 10:32 | PN ---
Progress Note - Progress Note Date of Service: 01/17/18 SOAP: Subjective: []Patient seen and examined at bedside. She is comfortable at rest. Denies CP, SOB, dizziness. She has slight nausea and lacks an appetite. Objective: []General: NAD LLE: Skin envelope intact. Sensation intact distally, DP2+ Calves supple and nontender without erythema, edema or palpable cords Assessment: []comminuted displaced fracture of the left proximal femur. Plan: [] -bedrest -p.r.n. analgesia. -Plan for long cephalomedullary device in the left femur on 01/18/[address] Rollins at approx 1330 01/18/18 - Dr Sesay has optimized her for surgery, I have made him aware that she will go to surgery tomorrow. - DVT prophylaxis: I will give her 5mg Vit K today as her INR remains elevated and heparin DVT prophylaxis until midnight when her anticoag will be held - Diet: She may eat as tolerated today, we will keep her on IV fluids as she has not been eating and drinking well. No change in insulin or fluids ordered by Dr Sesay - 6am 01/18 repeat pt/inr, H&H, plt, bmp Vital Signs Temp 97.9 F 01/17/18 01:35 Pulse 101 01/17/18 07:06 Resp 18 01/17/18 09:33 BP 120/61 01/17/18 03:36 Pulse Ox 97 01/17/18 07:06 Intake & Output 01/16/18 01/17/18 01/17/18 18:59 06:59 18:59 Intake Total 1723 Output Total 1000 Balance 723 Weight 138 lb 138 lb Intake: IV Fluids 1723 FF Plasma 599 NS (0.9%) 124 Oral 0 Output: Morgan 1000 Laboratory Last Values WBC 8.4 10^3/ul (3.5-10.8) 01/17/18 05:22 RBC 3.03 10^6/ul (4.00-5.40) L 01/17/18 05:22 Hgb 9.9 g/dl (12.0-16.0) L 01/17/18 05:22 Hct 29 % (35-47) L 01/17/18 05:22 MCV 96 fL (80-97) 01/17/18 05:22 MCH 33 pg (27-31) H 01/17/18 05:22 MCHC 34 g/dl (31-36) 01/17/18 05:22 RDW 13 % (10.5-15) 01/17/18 05:22 Plt Count 219 10^3/ul (150-450) 01/17/18 05:22 MPV 7.5 fL (7.4-10.4) 01/17/18 05:22 Neut % (Auto) 80.3 % 01/17/18 05:22 Lymph % (Auto) 9.0 % 01/17/18 05:22 [place] % (Auto) 10.3 % 01/17/18 05:22 Eos % (Auto) 0 % 01/17/18 05:22 Baso % (Auto) 0.4 % 01/17/18 05:22 Absolute Neuts (auto) 6.8 10^3/ul (1.5-7.7) 01/17/18 05:22 Absolute Lymphs (auto) 0.8 10^3/ul (1.0-4.8) L 01/17/18 05:22 Absolute Monos (auto) 0.9 10^3/ul (0-0.8) H 01/17/18 05:22 Absolute Eos (auto) 0 10^3/ul (0-0.6) 01/17/18 05:22 Absolute Basos (auto) 0 10^3/ul (0-0.2) 01/17/18 05:22 Absolute Nucleated RBC 0 10^3/ul 01/17/18 05:22 Nucleated RBC % 0 01/17/18 05:22 INR (Anticoag Therapy) 1.70 (0.77-1.02) H 01/17/18 05:22 Sodium 135 mmol/L (135-145) 01/17/18 05:22 Potassium 3.5 mmol/L (3.5-5.0) 01/17/18 05:22 Chloride 103 mmol/L (101-111) 01/17/18 05:22 Carbon Dioxide 28 mmol/L (22-32) 01/17/18 05:22 Anion Gap 4 mmol/L (2-11) 01/17/18 05:22 BUN 23 mg/dL (6-24) 01/17/18 05:22 Creatinine 0.69 mg/dL (0.51-0.95) 01/17/18 05:22 Est GFR ( Amer) 99.1 (>60) 01/17/18 05:22 Est GFR (Non-Af Amer) 81.9 (>60) 01/17/18 05:22 BUN/Creatinine Ratio 33.3 (8-20) H 01/17/18 05:22 Glucose 174 mg/dL (70-100) H 01/17/18 05:22 POC Glucose (mg/dL) 239 mg/dL (70-100) H 01/17/18 07:44 Calcium 8.7 mg/dL (8.6-10.3) 01/17/18 05:22 Magnesium 1.8 mg/dL (1.9-2.7) L 01/16/18 17:22 Troponin I 0.01 ng/mL (<0.04) 01/16/18 17:22 Blood Type O Negative 01/16/18 17:22
[2018-01-17] MEDS: D5LR 1000 ML BAG* 1,000 ML IV SCH ×2 (10:56→21:31)
[2018-01-17 11:18] LABS: ABS Basophils 0 10^3/ul (0-0.2); ABS Eosinophils 0 10^3/ul (0-0.6); ABS Lymphocytes 1.1 10^3/ul (1.0-4.8); ABS Neutrophils 5.8 10^3/ul (1.5-7.7); ABS Nucleated RBC 0 10^3/ul; Eosinophil % 0 %; Hematocrit 29 % (35-47); Hemoglobin 10.1 g/dl (12.0-16.0); Lymphocyte % 14.3 %; Mean Corpuscular HGB Conc 35 g/dl (31-36); Mean Corpuscular Hemoglobin 33 pg (27-31); Mean Corpuscular Volume 96 fL (80-97); Mean Platelet Volume 7.5 fL (7.4-10.4); Nucleated Red Blood Cells % 0; Platelet Count 246 10^3/ul (150-450); Red Blood Count 3.03 10^6/ul (4.00-5.40); Red Cell Distribution Width 13 % (10.5-15); White Blood Count 7.9 10^3/ul (3.5-10.8)
[2018-01-17] MEDS: oxyCODONE/Acetamin 5/325 MG* TAB PO PRN ×3 (11:23→21:47)
[2018-01-17 11:29] LABS: INR 1.7 (0.77-1.02)
[2018-01-17 11:35] LABS: EGFR Non-African American 77.9 (>60)
[2018-01-17] MEDS: Heparin VIAL(*) 5000 UNITS/ML VIAL (FIVE THOUSAND) SUBCUT SCH ×2 (14:29→21:48)
--- NOTE | 2018-01-17 14:51 | ECHO ---
Patient: LUCY COSTA Rec#: [id number] : 1935 Date: 01/17/2018 Age: 82y Height: 162.56 cm / 64.0 in Weight: 62.6 kg / 138.0 lbs Sex: F BSA: 1.67 Room#: 351 Admit Date#: 01/17/2018 Type: Inpatient Referring: Rachelle Rehman Reading: Porsha Zayas MD Accredited Farm Manager: Nanette Banerjee RDCS CC: Marcelo Sesay MD Transthoracic Echocardiogram Indication: SOB BP: 120/61 HR: 101 Rhythm: Tachycardia Findings History: PAF,DM,PE and DVT in the past('72),HLD,HTN,COPD,KIMI,former smoker,murmur. Technical Comments: The study was technically limited due to the patient's inability to lay in the left lateral decubitus position. Due to fractured hip. Completed at 0915. Left Ventricle: The left ventricular chamber size is decreased. Mild to moderate concentric left ventricular hypertrophy is observed. Global left ventricular wall motion and contractility are within normal limits. The left ventricle appears hyperdynamic. The estimated ejection fraction is 60-65%. Abnormal left ventricular diastolic function is observed. The left ventricular diastolic filling pattern is consistent with elevated left ventricular end-diastolic pressure. Left Atrium: The left atrial chamber size is normal. Right Ventricle: The right ventricular cavity size is normal. The right ventricular global systolic function is normal. Right Atrium: The right atrial cavity size is normal. There is evidence of an atrial septal aneurysm. Aortic Valve: The aortic valve is trileaflet. The aortic valve leaflets are mildly thickened. Mild aortic leaflet calcification is visualized. Systolic excursion of the aortic valve cusps is reduced. There is mild aortic stenosis. The mean gradient of the aortic valve is 10.66 mmHg. The aortic valve area, by VTI's, is calculated at 1.2 cm2. The highest aortic valve velocity was obtained with the standard probe from the A5C view. Mitral Valve: The mitral valve leaflets are mildly thickened. There is mild mitral regurgitation. There is no evidence of mitral stenosis. Tricuspid Valve: The tricuspid valve leaflets are normal. There is moderate tricuspid regurgitation. The tricuspid regurgitant jet is directed toward the septum. The right ventricular systolic pressure is estimated at 61 mmHg. There is evidence of moderate to severe pulmonary hypertension. There is no tricuspid stenosis. Pulmonic Valve: The pulmonic valve appears normal. There is no evidence of pulmonic regurgitation. There is no pulmonic stenosis. Pericardium: The pericardium appears normal. Aorta: There is no dilatation of the ascending aorta. There is no dilatation of the aortic arch. There is no dilation of the aortic root. Pulmonary Artery: The main pulmonary artery appears normal. Venous: The inferior vena cava appears normal in size. There is an approximate 50% respiratory change in the inferior vena cava dimension. Conclusions The study was technically limited due to the patient's inability to lay in the left lateral decubitus position. Secondary to fractured hop. - Mild to moderate concentric left ventricular hypertrophy is observed. Global left ventricular wall motion and contractility are within normal limits. The left ventricle appears hyperdynamic. The estimated ejection fraction is 60-65%. Abnormal left ventricular diastolic function is observed. The right ventricular global systolic function is normal. There is mild aortic stenosis. -The mean gradient of the aortic valve is 10.66 mmHg. -The aortic valve area, by VTI's, is calculated at 1.2 cm2. -DI 0.6-0.6. There is mild mitral regurgitation. There is moderate tricuspid regurgitation. There is evidence of moderate to severe pulmonary hypertension estimated at 61 mmHg. Compared with prior study of 08/30/10, is new, MR and TR have increased, PA pressure previously 55 mmHg. Measurements Name Value Normal Range RVIDd (AP) 2D 2.8 cm (0.9 - 2.6) RVDdMajor (2D) 3.8 cm (2.2 - 4.4) RAd ISD 4CH 4.2 cm (3.4 - 4.9) RA (A4C)W 3.8 cm (2.9 - 4.6) IVSd (2D) 1.7 cm (0.6 - 1) LVPWd (2D) 1.3 cm (0.6 - 1) LVIDd (2D) 3.3 cm (3.6 - 5.4) LVIDs (2D) 2.7 cm - LV FS (2D) 17 % (25 - 45) Aortic Annulus 1.9 cm (1.4 - 2.6) Ao root diameter (2D) 2.8 cm (2.1 - 3.5) Ascending Ao 3.4 cm (2.1 - 3.4) Aortic arch 2.3 cm (1.8 - 3.4) LA dimension (AP) 2D 3.5 cm (2.3 - 3.8) LAd ISD 4CH 4.9 cm (2.9 - 5.3) LA ISD 4CH W 4.4 cm (2.5 - 4.5) Name Value Normal Range LA ESV SP 4CH (A/L) 87 ml - LA ESV SP 2CH (A/L) 51 ml - LA ESV BP (A/L) 71 ml - LA ESV BP (A/L) index 42 ml/m2 - LA ESV SP 4CH (MOD) 80 ml - LA ESV SP 2CH (MOD) 47 ml - Name Value Normal Range MV E-wave Vmax 1.3 m/sec - MV deceleration time 117 msec - MV A-wave Vmax 1.6 m/sec - MV E:A ratio 0.8 ratio - LV septal e' Vmax 0.1 m/sec - LV lateral e' Vmax 0.08 m/sec - LV E:e' septal ratio 13 ratio - LV E:e' lateral ratio 16.25 ratio - Name Value Normal Range AV Vmax 2.4 m/sec - AV VTI 45.8 cm - AV peak gradient 22.02 mmHg - AV mean gradient 10.66 mmHg - LVOT diameter 1.6 cm - LVOT Vmax 1.2 m/sec - LVOT VTI 28 cm - LVOT peak gradient 5.7 mmHg - LVOT mean gradient 3.17 mmHg - JAMIR (continuity Vmax) 1 cm2 - JAMIR (continuity VTI) 1.2 cm2 - Name Value Normal Range TR Vmax 3.7 m/sec - TR peak gradient 53 mmHg - RAP 8 mmHg - RVSP 61 mmHg - IVC diameter 1.8 cm - Name Value Normal Range PV Vmax 0.9 m/sec - PV peak gradient 3.59 mmHg -
[2018-01-18] MEDS: Insulin LISPRO* 1 UNITS UNIT SUBCUT SCH ×9 (02:01→22:26)
[2018-01-18 05:29] LABS: ABS Basophils 0 10^3/ul (0-0.2); ABS Eosinophils 0 10^3/ul (0-0.6); ABS Lymphocytes 0.9 10^3/ul (1.0-4.8); ABS Monocytes 0.7 10^3/ul (0-0.8); ABS Neutrophils 5.2 10^3/ul (1.5-7.7); ABS Nucleated RBC 0 10^3/ul; Eosinophil % 0 %; Hematocrit 29 % (35-47); Hemoglobin 9.6 g/dl (12.0-16.0); Lymphocyte % 13.1 %; Mean Corpuscular HGB Conc 34 g/dl (31-36); Mean Corpuscular Hemoglobin 33 pg (27-31); Mean Corpuscular Volume 97 fL (80-97); Mean Platelet Volume 7.9 fL (7.4-10.4); Nucleated Red Blood Cells % 0.1; Platelet Count 211 10^3/ul (150-450); Red Blood Count 2.95 10^6/ul (4.00-5.40); Red Cell Distribution Width 13 % (10.5-15); White Blood Count 6.8 10^3/ul (3.5-10.8)
[2018-01-18 05:40] LABS: INR 2.11 (0.77-1.02)
[2018-01-18 05:43] LABS: EGFR Non-African American 96.2 (>60)
[2018-01-18] MEDS: Morphine VIAL* 4 MG/ML VIAL (1 ml vial) IV PRN ×3 (05:46→14:18)
[2018-01-18] MEDS: Ondansetron INJ* 2 MG/ML VIAL IV PRN ×2 (05:46→14:18)
--- NOTE | 2018-01-18 07:57 | PN ---
Subjective - Subjective Reason for Note: Progress Note History: She is anxious about her upcoming surgery today. She had some nausea yesterday evening, now it is not so bad. Her glucose levels have been in the 200 range consistently despite basal/bolus regimen. She is receiving IVF D5/LR at 100 mls per hour to prevent ketosis and hypoglycemia. She is not dyspneic, but is wearing an O2 NC. Active Problems: Active Problems Anemia (Acute) D64.9 Fracture, intertrochanteric, left femur (Acute) S72.142A Uncontrolled type 1 diabetes mellitus (Acute) E10.65 Warfarin anticoagulation (Acute) Z79.01 Anxiety disorder (Chronic) F41.9 Atrial fibrillation (Chronic) I48.91 COPD (chronic obstructive pulmonary disease) (Chronic) J44.9 Charcot's arthropathy (Chronic) M14.60 Diabetic retinopathy (Chronic) E11.319 Emphysema of lung (Chronic) J43.9 Essential hypertension (Chronic) I10 History of falling (Chronic) Z91.81 Hypercholesteremia (Chronic) E78.00 Insulin pump status (Chronic) Z96.41 Osteoarthritis (Chronic) M19.90 Primary hypothyroidism (Chronic) E03.9 Psoriasis (Chronic) L40.9 Sleep apnea (Chronic) G47.30 Type 1 diabetes, uncontrolled, with retinopathy (Chronic) E10.319, E10.65 Current Medications: Current Medications Acetaminophen (Tylenol Tab*) 650 mg PO Q4H PRN PRN Reason: FEVER/PAIN Al Hydrox/Mg Hydrox/Simethicone (Maalox Plus*) 30 ml PO Q6H PRN PRN Reason: INDIGESTION Albuterol (Ventolin 2.5 Mg/3 Ml Neb.Jennifer*) 2.5 mg INH Q4H PRN PRN Reason: SOB/WHEEZING Albuterol/Ipratropium (Duoneb (Albuterol 2.5 Mg/Ipratropium 0.5 Mg)) 1 neb INH Q4H PRN PRN Reason: SOB/WHEEZING Dextrose (D50w Syringe 50 Ml*) 12.5 gm IV PUSH .FOR FS < 60 - SS PRN PRN Reason: FS < 60 Docusate Sodium (Colace Cap*) 100 mg PO BID PRN PRN Reason: CONSTIPATION Dextrose/Lactated Ringer's (D5lr 1000 Ml Bag*) 1,000 mls @ 100 mls/hr IV PER RATE [facility] Last Admin: 01/17/18 21:31 Dose: 100 mls/hr Insulin Glargine (Lantus(*)) 15 units SUBCUT 0900 [facility] Last Admin: 01/17/18 09:33 Dose: 15 units Insulin Human Lispro (Humalog*) 0 units SUBCUT AC [facility]; Protocol Last Admin: 01/17/18 16:26 Dose: Not Given Insulin Human Lispro (Humalog*) 0 units SUBCUT Q4HR [facility]; Protocol Last Admin: 01/18/18 05:47 Dose: 3 units Metoprolol Tartrate (Lopressor Iv*) 5 mg IV Q4HR PRN PRN Reason: HEART RATE/PULSE Last Admin: 01/17/18 04:09 Dose: 5 mg Mometasone Furoate (Asmanex 220 Mcg Mdi *) 2 puff INH RT.BID [facility] Last Admin: 01/17/18 21:05 Dose: 2 puff Morphine Sulfate (Morphine Vial*) 4 mg IV Q4H PRN PRN Reason: PAIN Last Admin: 01/18/18 05:46 Dose: 4 mg Ondansetron HCl (Zofran Inj*) 4 mg IV Q4H PRN PRN Reason: NAUSEA/VOMITING Last Admin: 01/18/18 05:46 Dose: 4 mg Oxycodone/Acetaminophen (Percocet 5/325 Tab*) 1 tab PO Q4H PRN PRN Reason: Pain Last Admin: 01/17/18 21:47 Dose: 1 tab Senna (Senokot Tab*) 1 tab PO BID PRN PRN Reason: CONSTIPATION Home Medications: Home Medications Medication Instructions Recorded Confirmed Type Albuterol/Ipratropium INH(NF) 2 puff .SEE ORDER Q4HR PRN 04/05/12 08/26/17 History [Combivent Inhaler*] Alendronate Sodium [Fosamax] 70 mg PO SEE INSTRUCTIONS 04/05/12 08/26/17 History Aspirin [Aspir-81] 81 mg PO DAILY 04/05/12 08/26/17 History Brimonidine P 0.15%(NF) [Alphagan 0.15 % OP SEE INSTRUCTIONS 04/05/12 08/26/17 History P] Cholecalciferol [Vitamin D3] 2,000 unit PO DAILY 04/05/12 08/26/17 History Citalopram TAB* [Celexa TAB*] 20 mg PO DAILY 04/05/12 08/26/17 History Dapsone 25 mg PO DAILY 04/05/12 08/26/17 History Fluticasone HFA 220 mcg(NF) 2 puff .SEE ORDER DAILY 04/05/12 08/26/17 History [Flovent Hfa 220 Mcg*] Irbesartan TAB* [Avapro TAB*] 300 mg PO QPM 04/05/12 08/26/17 History Levothyroxine TAB* [Synthroid TAB*] 137 mcg PO QAM 04/05/12 08/26/17 History Multivit-Mins/FA/Lycop/Lut/Ala 1 tab PO DAILY 04/05/12 08/26/17 History [Multi-Betic] Simvastatin 10 mg PO BEDTIME 04/05/12 08/26/17 History Subcutaneous Insulin Pump [Insulin 1 kit SUBCUT QID 04/05/12 08/26/17 History Pump [id number] Black] Timolol 0.25% OPHTH.SOLN* 1 drop .SEE ORDER BID 04/05/12 08/26/17 History [Timoptic Ophth.soln 0.25%*] Warfarin TAB(*) [Coumadin(*)] 5 mg PO SEE INSTRUCTIONS 04/05/12 08/26/17 History Warfarin TAB(*) [Coumadin(*)] 7.5 mg PO SEE INSTRUCTIONS 04/05/12 08/26/17 History dilTIAZem HCl [Dilt-Xr] 180 mg PO DAILY 04/05/12 08/26/17 History prednisoLONE 1% OPHTH.SUSP* [Pred 1 drop .SEE ORDER DAILY 04/05/12 08/26/17 History Forte 1%*] zzInsulin GLARGINE(*) [Lantus(*)] 18 units .SEE ORDER SEE 04/05/12 08/26/17 History INSTRUCTIONS Allergies: Allergies Allergy/AdvReac Type Severity Reaction Status Date / Time amoxicillin [From Augmentin] Allergy Rash Verified 01/16/18 17:21 clavulanic acid Allergy Rash Verified 01/16/18 17:21 [From Augmentin] lisinopril Allergy Coughing Verified 01/16/18 17:21 metronidazole Allergy Rash Verified 01/16/18 17:21 omeprazole [From Prilosec] Allergy Diarrhea Verified 01/16/18 17:21 Objective - Vital Signs Vital Signs: Vital Signs 01/17/18 01/17/18 01/17/18 08:00 09:33 10:58 Temperature Pulse Rate Respiratory 14 18 18 Rate Blood Pressure (mmHg) O2 Sat by Pulse Oximetry 01/17/18 01/17/18 01/17/18 11:06 11:23 14:29 Temperature 98.7 F Pulse Rate 99 Respiratory 16 16 16 Rate Blood Pressure 126/60 (mmHg) O2 Sat by Pulse 98 Oximetry 01/17/18 01/17/18 01/17/18 15:52 16:19 18:02 Temperature 98.6 F Pulse Rate 91 Respiratory 16 14 18 Rate Blood Pressure 102/44 (mmHg) O2 Sat by Pulse 99 Oximetry 01/17/18 01/17/18 01/17/18 19:30 20:00 20:33 Temperature 99.2 F Pulse Rate 102 Respiratory 17 18 16 Rate Blood Pressure 126/55 (mmHg) O2 Sat by Pulse 97 Oximetry 01/17/18 01/17/18 01/17/18 21:07 21:47 21:48 Temperature Pulse Rate 101 Respiratory 20 17 17 Rate Blood Pressure (mmHg) O2 Sat by Pulse 91 Oximetry 01/18/18 01/18/18 01/18/18 01:00 02:02 05:46 Temperature 97.4 F Pulse Rate 108 Respiratory 18 20 22 Rate Blood Pressure 114/51 (mmHg) O2 Sat by Pulse 97 Oximetry - Intake and Output Intake and Output: Intake & Output 01/15/18 01/16/18 01/17/18 01/18/18 11:59 11:59 11:59 11:59 Intake Total 2568 1830 Output Total 1000 1050 Balance 1568 780 Weight 138 lb Intake: IV Fluids 2515 990 D5W LR 990 FF Plasma 599 NS (0.9%) 916 Medicated IV 53 Magnesium 53 Oral 0 840 Output: Morgan 1000 1050 ADLs: Meal Record Start: 01/16/18 20: 57 Freq: Status: Active Protocol: Created 01/16/18 20:57 System (Rec: 01/16/18 20:57 System [id number]) Document 01/17/18 20:38 [id number] (Rec: 01/17/18 20:43 [id number]) Intake and Output Start: 01/16/18 17: 13 Freq: Status: Active Protocol: Created 01/16/18 17:13 System (Rec: 01/16/18 17:13 System [id number]) Intake and Output Start: 01/16/18 20: 57 Freq: DAILY@0600,1400,2200 Status: Active Protocol: Created 01/16/18 20:57 System (Rec: 01/16/18 20:57 System [id number]) Document 01/17/18 05:56 [id number] (Rec: 01/17/18 05:57 [id number]) Document 01/17/18 14:17 [id number] (Rec: 01/17/18 14:18 [id number] [id number]) Document 01/17/18 18:27 [id number] (Rec: 01/17/18 18:28 [id number] SSU-M16) Document 01/17/18 22:00 [id number] (Rec: 01/17/18 22:20 [id number] SSU-L02) Document 01/18/18 06:00 [id number] (Rec: 01/18/18 06:31 [id number]) - Physical Exam General: No Cyanosis, No Anemia, No Jaundice, No Clubbing Lungs and Chest: Yes: Chest Expansion Full, Chest Expansion Symetrica, Percussion Note Resonant. No: Vessicular Breath Sounds - emphysematous, Crackles, Wheezes, Respiratory Distress, Use of Accessory Muscles Heart Rate and Rhythm: Irregular Additional Cardiovascular: Yes: Normal Heart Sounds. No: Heart Murmur, Pedal Edema Abdominal Exam: Yes: Soft, Bowel Sounds Present. No: Distention, Abdominal Tenderness - Neuro Orientation: A/O x3 Speech: Normal Results - Results Lab Results: Laboratory Results - last 24 hr 01/17/18 01/17/18 01/17/18 07:44 10:58 11:10 WBC 7.9 RBC 3.03 L Hgb 10.1 L Hct 29 L MCV 96 MCH 33 H MCHC 35 RDW 13 Plt Count 246 MPV 7.5 Neut % (Auto) 73.2 Lymph % (Auto) 14.3 [place] % (Auto) 12.1 Eos % (Auto) 0 Baso % (Auto) 0.4 Absolute Neuts (auto) 5.8 Absolute Lymphs (auto) 1.1 Absolute Monos (auto) 1.0 H Absolute Eos (auto) 0 Absolute Basos (auto) 0 Absolute Nucleated RBC 0 Nucleated RBC % 0 INR (Anticoag Therapy) APTT Sodium Potassium Chloride Carbon Dioxide Anion Gap BUN Creatinine Est GFR ( Amer) Est GFR (Non-Af Amer) BUN/Creatinine Ratio Glucose POC Glucose (mg/dL) 239 H 206 H Calcium Blood Type Antibody Screen Antibody Identification Direct Antiglob Test 01/17/18 01/17/18 01/17/18 11:10 11:10 11:10 WBC RBC Hgb Hct MCV MCH MCHC RDW Plt Count MPV Neut % (Auto) Lymph % (Auto) [place] % (Auto) Eos % (Auto) Baso % (Auto) Absolute Neuts (auto) Absolute Lymphs (auto) Absolute Monos (auto) Absolute Eos (auto) Absolute Basos (auto) Absolute Nucleated RBC Nucleated RBC % INR (Anticoag Therapy) 1.70 H APTT 39.4 H Sodium Potassium Chloride Carbon Dioxide Anion Gap BUN 23 Creatinine 0.72 Est GFR ( Amer) 94.3 Est GFR (Non-Af Amer) 77.9 BUN/Creatinine Ratio Glucose POC Glucose (mg/dL) Calcium Blood Type O Negative Antibody Screen Positive Antibody Identification Anti-S Direct Antiglob Test Negative 01/17/18 01/17/18 01/17/18 14:12 17:57 21:40 WBC RBC Hgb Hct MCV MCH MCHC RDW Plt Count MPV Neut % (Auto) Lymph % (Auto) [place] % (Auto) Eos % (Auto) Baso % (Auto) Absolute Neuts (auto) Absolute Lymphs (auto) Absolute Monos (auto) Absolute Eos (auto) Absolute Basos (auto) Absolute Nucleated RBC Nucleated RBC % INR (Anticoag Therapy) APTT Sodium Potassium Chloride Carbon Dioxide Anion Gap BUN Creatinine Est GFR ( Amer) Est GFR (Non-Af Amer) BUN/Creatinine Ratio Glucose POC Glucose (mg/dL) 270 H 183 H 147 H Calcium Blood Type Antibody Screen Antibody Identification Direct Antiglob Test 01/18/18 01/18/18 01/18/18 01:57 05:04 05:04 WBC 6.8 RBC 2.95 L Hgb 9.6 L Hct 29 L MCV 97 MCH 33 H MCHC 34 RDW 13 Plt Count 211 MPV 7.9 Neut % (Auto) 76.2 Lymph % (Auto) 13.1 [place] % (Auto) 10.5 Eos % (Auto) 0 Baso % (Auto) 0.2 Absolute Neuts (auto) 5.2 Absolute Lymphs (auto) 0.9 L Absolute Monos (auto) 0.7 Absolute Eos (auto) 0 Absolute Basos (auto) 0 Absolute Nucleated RBC 0 Nucleated RBC % 0.1 INR (Anticoag Therapy) APTT Sodium 136 Potassium 4.1 Chloride 100 L Carbon Dioxide 32 Anion Gap 4 BUN 17 Creatinine 0.60 Est GFR ( Amer) 116.4 Est GFR (Non-Af Amer) 96.2 BUN/Creatinine Ratio 28.3 H Glucose 232 H POC Glucose (mg/dL) 232 H Calcium 8.6 Blood Type Antibody Screen Antibody Identification Direct Antiglob Test 01/18/18 01/18/18 05:04 05:39 WBC RBC Hgb Hct MCV MCH MCHC RDW Plt Count MPV Neut % (Auto) Lymph % (Auto) [place] % (Auto) Eos % (Auto) Baso % (Auto) Absolute Neuts (auto) Absolute Lymphs (auto) Absolute Monos (auto) Absolute Eos (auto) Absolute Basos (auto) Absolute Nucleated RBC Nucleated RBC % INR (Anticoag Therapy) 2.11 H APTT Sodium Potassium Chloride Carbon Dioxide Anion Gap BUN Creatinine Est GFR ( Amer) Est GFR (Non-Af Amer) BUN/Creatinine Ratio Glucose POC Glucose (mg/dL) 244 H Calcium Blood Type Antibody Screen Antibody Identification Direct Antiglob Test Assessment - Problem List Assessment: Patient Problems Anemia (Acute) Fracture, intertrochanteric, left femur (Acute) Uncontrolled type 1 diabetes mellitus (Acute) Warfarin anticoagulation (Acute) Anxiety disorder (Chronic) Atrial fibrillation (Chronic) COPD (chronic obstructive pulmonary disease) (Chronic) Charcot's arthropathy (Chronic) Diabetic retinopathy (Chronic) Emphysema of lung (Chronic) Essential hypertension (Chronic) History of falling (Chronic) Hypercholesteremia (Chronic) Insulin pump status (Chronic) Osteoarthritis (Chronic) Primary hypothyroidism (Chronic) Psoriasis (Chronic) Sleep apnea (Chronic) Type 1 diabetes, uncontrolled, with retinopathy (Chronic) Sleep apnea assessment (Chronic) Plan: Fracture, intertrochanteric, left femur (Acute) We are waiting for her INR to normalize. She has had Vit K. She is scheduled for surgery today. There is fresh frozen plasma available Anemia (Acute) This does not require transfusion Uncontrolled type 1 diabetes mellitus (Acute) I will increase her lantus insulin Warfarin anticoagulation (Acute) consider further vitamin K Anxiety disorder (Chronic) She may benefit from anxiolytics Atrial fibrillation (Chronic) rate controlled COPD (chronic obstructive pulmonary disease) (Chronic)Emphysema of lung (Chronic ) She is not dyspneic - I am wary about volume status to prevent overload Charcot's arthropathy (Chronic) I discussed the above with the patient.
[2018-01-18] MEDS ORDERED: Phytonadione IV (Adult)* 10 MG/ML 1 ML AMP IV ONE (08:05)
[2018-01-18] MEDS: D5LR 1000 ML BAG* 1,000 ML IV SCH ×2 (08:16→19:24)
[2018-01-18] MEDS ORDERED: Phytonadione Oral Solution* 5 MG/25 ML UDC PO ONE (09:00)
[2018-01-18] MEDS: Insulin GLARGINE(*) 1 UNITS UNIT SUBCUT SCH (09:00)
[2018-01-18] MEDS: Mometasone 220 MCG MDI INH SCH ×2 (09:00→18:45)
[2018-01-18] MEDS ORDERED: Phytonadione 10 mg in 50 mL NS over 30 min IV ONE (09:00)
--- NOTE | 2018-01-18 10:46 | PN ---
Progress Note - Progress Note Date of Service: 01/18/18 SOAP: Subjective: []Patient seen and examined at bedside. She has pain of her left hip. Denies CP , SOB, dizziness. Confirms lack of appetite and nausea. Objective: []General: NAD LLE: Skin envelope intact. Sensation intact distally, DP2+ Calves supple and nontender without erythema, edema or palpable cords Assessment: []comminuted displaced fracture of the left proximal femur. Plan: []After discussion with Dr Rollins and anesthesia, it is felt safest option is to delay case until INR shows a consistent downward trend. Anticipate surgery tomorrow at approx 1700. - bedrest - p.r.n. analgesia. - Plan for long cephalomedullary device in the left femur on 01/19/[address] Rollins at approx 1700 on 01/19 - Dr Sesay has optimized her for surgery - DVT prophylaxis: restart heparin until midnight. INR has gone up today despite vitamin K. Continue vitamin K, surgery rescheduled for tomorrow. Optimally want to see a continuous downward tend of INR with INR below 1.0 - Diet: She may eat as tolerated today, we will keep her on IV fluids as she has not been eating and drinking well. No change in insulin or fluids ordered by Dr Sesay - 6am 01/19 repeat pt/inr, H&H, plt, bmp Vital Signs Temp 98.6 F 01/18/18 07:51 Pulse 100 01/18/18 07:51 Resp 18 01/18/18 09:58 BP 132/64 01/18/18 07:51 Pulse Ox 100 01/18/18 07:51 Intake & Output 01/17/18 01/18/18 01/18/18 18:59 06:59 18:59 Intake Total 845 1830 1020 Output Total 450 600 Balance 395 1230 1020 Intake: IV Fluids 481 724 3224 D5W LR 990 1020 NS (0.9%) 792 Medicated IV 53 Magnesium 53 Oral 0 840 Output: Morgan 450 600 Laboratory Last Values WBC 6.8 10^3/ul (3.5-10.8) 01/18/18 05:04 RBC 2.95 10^6/ul (4.00-5.40) L 01/18/18 05:04 Hgb 9.6 g/dl (12.0-16.0) L 01/18/18 05:04 Hct 29 % (35-47) L 01/18/18 05:04 MCV 97 fL (80-97) 01/18/18 05:04 MCH 33 pg (27-31) H 01/18/18 05:04 MCHC 34 g/dl (31-36) 01/18/18 05:04 RDW 13 % (10.5-15) 01/18/18 05:04 Plt Count 211 10^3/ul (150-450) 01/18/18 05:04 MPV 7.9 fL (7.4-10.4) 01/18/18 05:04 Neut % (Auto) 76.2 % 01/18/18 05:04 Lymph % (Auto) 13.1 % 01/18/18 05:04 [place] % (Auto) 10.5 % 01/18/18 05:04 Eos % (Auto) 0 % 01/18/18 05:04 Baso % (Auto) 0.2 % 01/18/18 05:04 Absolute Neuts (auto) 5.2 10^3/ul (1.5-7.7) 01/18/18 05:04 Absolute Lymphs (auto) 0.9 10^3/ul (1.0-4.8) L 01/18/18 05:04 Absolute Monos (auto) 0.7 10^3/ul (0-0.8) 01/18/18 05:04 Absolute Eos (auto) 0 10^3/ul (0-0.6) 01/18/18 05:04 Absolute Basos (auto) 0 10^3/ul (0-0.2) 01/18/18 05:04 Absolute Nucleated RBC 0 10^3/ul 01/18/18 05:04 Nucleated RBC % 0.1 01/18/18 05:04 INR (Anticoag Therapy) 1.88 (0.77-1.02) H 01/18/18 10:26 APTT 39.4 seconds (26.0-36.3) H 01/17/18 11:10 Sodium 136 mmol/L (135-145) 01/18/18 05:04 Potassium 4.1 mmol/L (3.5-5.0) 01/18/18 05:04 Chloride 100 mmol/L (101-111) L 01/18/18 05:04 Carbon Dioxide 32 mmol/L (22-32) 01/18/18 05:04 Anion Gap 4 mmol/L (2-11) 01/18/18 05:04 BUN 17 mg/dL (6-24) 01/18/18 05:04 Creatinine 0.60 mg/dL (0.51-0.95) 01/18/18 05:04 Est GFR ( Amer) 116.4 (>60) 01/18/18 05:04 Est GFR (Non-Af Amer) 96.2 (>60) 01/18/18 05:04 BUN/Creatinine Ratio 28.3 (8-20) H 01/18/18 05:04 Glucose 232 mg/dL (70-100) H 01/18/18 05:04 POC Glucose (mg/dL) 219 mg/dL (70-100) H 01/18/18 10:14 Calcium 8.6 mg/dL (8.6-10.3) 01/18/18 05:04 Magnesium 1.8 mg/dL (1.9-2.7) L 01/16/18 17:22 Troponin I 0.01 ng/mL (<0.04) 01/16/18 17:22 Blood Type O Negative 01/17/18 11:10 Antibody Screen Positive 01/17/18 11:10 Antibody Identification Anti-S 01/17/18 11:10 Direct Antiglob Test Negative 01/17/18 11:10
[2018-01-18 10:50] LABS: INR 1.88 (0.77-1.02)
[2018-01-18] MEDS: Heparin VIAL(*) 5000 UNITS/ML VIAL (FIVE THOUSAND) SUBCUT SCH ×2 (11:39→18:45)
[2018-01-18] MEDS: oxyCODONE/Acetamin 5/325 MG* TAB PO PRN ×2 (13:12→22:29)
[2018-01-18] MEDS ORDERED: SODIUM CHLORIDE 0.9% ONE (15:54)
[2018-01-18] MEDS ORDERED: Naloxone* 0.4 MG/ML 1 ML VIAL ONE (15:54)
--- NOTE | 2018-01-18 15:57 | PN ---
Progress Note - Progress Note Date of Service: 01/18/18 Note: I was sitting on the floor as an ABC alert was called. When I entered the patient's room she was found unresponsive breathing very shallowly and with a slow respiratory rate. She had received 4mg of IV morphine about 30min prior. Prior to the morphine she had received a percocet. The patient had a strong regular pulse. She was bagged with oral airway in place and received 0.4mg IV narcan. After 30-60 seconds the patient began to arouse. Her speech was slightly garbled though she was still sleepy appearing. Likely slurred speech secondary to narcotic overdose with subsequent withdrawal from narcan. Will follow up in 15min.
[2018-01-18] MEDS ORDERED: Morphine VIAL* 4 MG/ML VIAL (1 ml vial) IV PRN (16:44)
--- NOTE | 2018-01-18 17:16 | PN ---
Progress Note - Progress Note Date of Service: 01/17/18 SOAP: Subjective: Mrs. Hudson is an 82 yo female who fell in her driveway on some ice. She sustained a segmental proximal femur fx, with a basicervical fx and a subtroch fx. Prior to the fall, she had no troubles with her hip. Other than the hip, she reports no other injuries. Objective: Elderly female in the bed, NAD. VSS. Left LE is shortened and rotated. Has sensation over the dorsum of the foot and FDWS. Can wiggle the toes a little bit as well. Assessment: Left hip fx Plan: I discussed with her that her INR is still high today at 1.7. I would be comfortable doing surgery with the INR under 1.4, and likely she would need the INR under 1.3 for spinal anesthesia, which would likely be optimal considering her COPD. She has been given Vit K today and I expect her INR to be lowered enough tomorrow to proceed with surgery. I am available after 12 noon and the OR has a room available at approximately 1:30. Risks of surgery such as infection, scar formation, stiffness, hardware failure, non-healing of the bone, DVT/PE and weakness were some of the risks of surgery discussed and she would like to proceed.
[2018-01-18] MEDS: prednisoLONE 1% OPHTH.SUSP* 5 ML OPHTH.SUSP BOTH EYES SCH (22:24)
[2018-01-19] MEDS: Insulin LISPRO* 1 UNITS UNIT SUBCUT SCH ×9 (02:23→22:20)
[2018-01-19] MEDS: oxyCODONE/Acetamin 5/325 MG* TAB PO PRN (04:44)
[2018-01-19] MEDS: Ondansetron INJ* 2 MG/ML VIAL IV PRN (04:46)
[2018-01-19] MEDS: D5LR 1000 ML BAG* 1,000 ML IV SCH ×2 (05:18→23:24)
[2018-01-19 06:43] LABS: ABS Basophils 0 10^3/ul (0-0.2); ABS Eosinophils 0 10^3/ul (0-0.6); ABS Lymphocytes 1.1 10^3/ul (1.0-4.8); ABS Monocytes 1.1 10^3/ul (0-0.8); ABS Neutrophils 4.9 10^3/ul (1.5-7.7); ABS Nucleated RBC 0 10^3/ul; Eosinophil % 0.3 %; Hematocrit 27 % (35-47); Hemoglobin 8.9 g/dl (12.0-16.0); Lymphocyte % 15.6 %; Mean Corpuscular HGB Conc 33 g/dl (31-36); Mean Corpuscular Hemoglobin 32 pg (27-31); Mean Corpuscular Volume 98 fL (80-97); Mean Platelet Volume 8.2 fL (7.4-10.4); Nucleated Red Blood Cells % 0; Platelet Count 189 10^3/ul (150-450); Red Blood Count 2.76 10^6/ul (4.00-5.40); Red Cell Distribution Width 13 % (10.5-15); White Blood Count 7.3 10^3/ul (3.5-10.8)
[2018-01-19 06:53] LABS: INR 1.13 (0.77-1.02)
[2018-01-19 06:58] LABS: EGFR Non-African American 118.7 (>60)
--- NOTE | 2018-01-19 07:46 | PN ---
Subjective - Subjective Reason for Note: Progress Note History: Surgery is delayed by her prolonged INR. Yesterday she had an episode of acute respiratory failure 30 mins after receiving morphine 4 mg IV. She required naloxone and has recovered. This morning she has severe pain in her fractured hip. She has no nausea or vomiting. Her glucose is 200 mg/dl. Otherwise, no new symptoms - no fevers, sweats. She is not coughing/bringing up sputum. Active Problems: Active Problems Anemia (Acute) D64.9 Fracture, intertrochanteric, left femur (Acute) S72.142A Uncontrolled type 1 diabetes mellitus (Acute) E10.65 Warfarin anticoagulation (Acute) Z79.01 Anxiety disorder (Chronic) F41.9 Atrial fibrillation (Chronic) I48.91 COPD (chronic obstructive pulmonary disease) (Chronic) J44.9 Charcot's arthropathy (Chronic) M14.60 Diabetic retinopathy (Chronic) E11.319 Emphysema of lung (Chronic) J43.9 Essential hypertension (Chronic) I10 History of falling (Chronic) Z91.81 Hypercholesteremia (Chronic) E78.00 Insulin pump status (Chronic) Z96.41 Osteoarthritis (Chronic) M19.90 Primary hypothyroidism (Chronic) E03.9 Psoriasis (Chronic) L40.9 Sleep apnea (Chronic) G47.30 Type 1 diabetes, uncontrolled, with retinopathy (Chronic) E10.319, E10.65 Current Medications: Current Medications Acetaminophen (Tylenol Tab*) 650 mg PO Q4H PRN PRN Reason: FEVER/PAIN Al Hydrox/Mg Hydrox/Simethicone (Maalox Plus*) 30 ml PO Q6H PRN PRN Reason: INDIGESTION Albuterol (Ventolin 2.5 Mg/3 Ml Neb.Jennifer*) 2.5 mg INH Q4H PRN PRN Reason: SOB/WHEEZING Albuterol/Ipratropium (Duoneb (Albuterol 2.5 Mg/Ipratropium 0.5 Mg)) 1 neb INH Q4H PRN PRN Reason: SOB/WHEEZING Dextrose (D50w Syringe 50 Ml*) 12.5 gm IV PUSH .FOR FS < 60 - SS PRN PRN Reason: FS < 60 Docusate Sodium (Colace Cap*) 100 mg PO BID PRN PRN Reason: CONSTIPATION Famotidine (Pepcid Iv*) 20 mg IV ONCE ONE Stop: 12/07/18 08:01 Dextrose/Lactated Ringer's (D5lr 1000 Ml Bag*) 1,000 mls @ 100 mls/hr IV PER RATE [facility] Last Admin: 01/19/18 05:18 Dose: 100 mls/hr Insulin Glargine (Lantus(*)) 25 units SUBCUT 0900 [facility] Last Admin: 01/18/18 09:00 Dose: 25 units Insulin Human Lispro (Humalog*) 0 units SUBCUT AC [facility]; Protocol Last Admin: 01/18/18 16:16 Dose: Not Given Insulin Human Lispro (Humalog*) 0 units SUBCUT Q4HR [facility]; Protocol Last Admin: 01/19/18 06:12 Dose: 3 units Metoprolol Tartrate (Lopressor Iv*) 5 mg IV Q4HR PRN PRN Reason: HEART RATE/PULSE Last Admin: 01/17/18 04:09 Dose: 5 mg Mometasone Furoate (Asmanex 220 Mcg Mdi *) 2 puff INH RT.BID [facility] Last Admin: 01/18/18 18:45 Dose: 2 puff Morphine Sulfate (Morphine Vial*) 2 mg IV Q4H PRN PRN Reason: PAIN Ondansetron HCl (Zofran Inj*) 4 mg IV Q4H PRN PRN Reason: NAUSEA/VOMITING Last Admin: 01/19/18 04:46 Dose: 4 mg Oxycodone/Acetaminophen (Percocet 5/325 Tab*) 1 tab PO Q6H PRN PRN Reason: Pain Last Admin: 01/19/18 04:44 Dose: 1 tab Prednisolone Acetate (Pred Forte 1%*) 1 drop BOTH EYES BID [facility] Last Admin: 01/18/18 22:24 Dose: 1 drop Senna (Senokot Tab*) 1 tab PO BID PRN PRN Reason: CONSTIPATION Home Medications: Home Medications Medication Instructions Recorded Confirmed Type Albuterol/Ipratropium INH(NF) 2 puff .SEE ORDER Q4HR PRN 04/05/12 01/18/18 History [Combivent Inhaler*] Alendronate Sodium [Fosamax] 70 mg PO SEE INSTRUCTIONS 04/05/12 01/18/18 History Aspirin [Aspir-81] 81 mg PO DAILY 04/05/12 01/18/18 History Cholecalciferol [Vitamin D3] 2,000 unit PO DAILY 04/05/12 01/18/18 History Citalopram TAB* [Celexa TAB*] 20 mg PO DAILY 04/05/12 01/18/18 History Dapsone 25 mg PO DAILY 04/05/12 01/18/18 History Fluticasone HFA 220 mcg(NF) 2 puff .SEE ORDER DAILY 04/05/12 01/18/18 History [Flovent Hfa 220 Mcg*] Irbesartan TAB* [Avapro TAB*] 300 mg PO DAILY 04/05/12 01/18/18 History Levothyroxine TAB* [Synthroid TAB*] 125 mcg PO QAM 04/05/12 01/18/18 History Multivit-Mins/FA/Lycop/Lut/Ala 1 tab PO DAILY 04/05/12 01/18/18 History [Multi-Betic] Simvastatin 10 mg PO QAM 04/05/12 01/18/18 History Subcutaneous Insulin Pump [Insulin 1 kit SUBCUT QID 04/05/12 01/18/18 History Pump [id number] Black] Warfarin TAB(*) [Coumadin(*)] 5 mg PO SEE INSTRUCTIONS 04/05/12 01/18/18 History Warfarin TAB(*) [Coumadin(*)] 7.5 mg PO SEE INSTRUCTIONS 04/05/12 01/18/18 History dilTIAZem HCl [Dilt-Xr] 180 mg PO DAILY 04/05/12 01/18/18 History prednisoLONE 1% OPHTH.SUSP* [Pred 1 drop .SEE ORDER BID 04/05/12 01/18/18 History Forte 1%*] zzInsulin GLARGINE(*) [Lantus(*)] 18 units .SEE ORDER SEE 04/05/12 01/18/18 History INSTRUCTIONS Triamterene/HCTZ 37.5-25 MG* 1 tab PO QAM 01/18/18 01/18/18 History Allergies: Allergies Allergy/AdvReac Type Severity Reaction Status Date / Time amoxicillin [From Augmentin] Allergy Rash Verified 01/16/18 17:21 clavulanic acid Allergy Rash Verified 01/16/18 17:21 [From Augmentin] lisinopril Allergy Coughing Verified 01/16/18 17:21 metronidazole Allergy Rash Verified 01/16/18 17:21 omeprazole [From Prilosec] Allergy Diarrhea Verified 01/16/18 17:21 Objective - Vital Signs Vital Signs: Vital Signs 01/18/18 01/18/18 01/18/18 07:51 08:00 08:40 Temperature 98.6 F Pulse Rate 100 Respiratory 14 18 18 Rate Blood Pressure 132/64 (mmHg) O2 Sat by Pulse 100 Oximetry 01/18/18 01/18/18 01/18/18 09:58 11:16 13:12 Temperature 98.3 F Pulse Rate 96 Respiratory 18 14 18 Rate Blood Pressure 110/55 (mmHg) O2 Sat by Pulse 99 Oximetry 01/18/18 01/18/18 01/18/18 14:18 15:54 17:42 Temperature 99.5 F 98.4 F Pulse Rate 101 98 Respiratory 18 18 16 Rate Blood Pressure 128/54 109/46 (mmHg) O2 Sat by Pulse 99 99 Oximetry 01/18/18 01/18/18 01/18/18 18:19 19:30 19:35 Temperature 98.8 F Pulse Rate 96 Respiratory 18 16 18 Rate Blood Pressure 109/53 (mmHg) O2 Sat by Pulse 98 Oximetry 01/18/18 01/19/18 01/19/18 22:29 00:30 00:33 Temperature 99.2 F Pulse Rate 99 Respiratory 16 18 16 Rate Blood Pressure 110/50 (mmHg) O2 Sat by Pulse 100 Oximetry 01/19/18 01/19/18 01/19/18 04:18 04:44 06:54 Temperature 98.0 F Pulse Rate 96 Respiratory 16 16 16 Rate Blood Pressure 132/62 (mmHg) O2 Sat by Pulse 100 Oximetry - Intake and Output Intake and Output: Intake & Output 01/16/18 01/17/18 01/18/18 01/19/18 11:59 11:59 11:59 11:59 Intake Total 2568 2850 1874 Output Total 1000 1050 1000 Balance 1568 1800 874 Weight 138 lb Intake: IV Fluids 2514 2009 1504 D5W LR 2009 1449 FF Plasma 599 NS (0.9%) 916 zofran 55 Medicated IV 53 Magnesium 53 Oral 0 840 370 Output: Morgan 1000 1050 1000 Other: # Bowel Movements 0 ADLs: Meal Record Start: 01/16/18 20: 57 Freq: Status: Active Protocol: Created 01/16/18 20:57 System (Rec: 01/16/18 20:57 System [id number]) Document 01/17/18 20:38 [id number] (Rec: 01/17/18 20:43 [id number] [id number]) Intake and Output Start: 01/16/18 17: 13 Freq: Status: Active Protocol: Created 01/16/18 17:13 System (Rec: 01/16/18 17:13 System [id number]) Intake and Output Start: 01/16/18 20: 57 Freq: DAILY@0600,1400,2200 Status: Active Protocol: Created 01/16/18 20:57 System (Rec: 01/16/18 20:57 System [id number]) Document 01/17/18 05:56 [id number] (Rec: 01/17/18 05:57 [id number] SSU-M17) Document 01/17/18 14:17 [id number] (Rec: 01/17/18 14:18 [id number] SSU-C11) Document 01/17/18 18:27 [id number] (Rec: 01/17/18 18:28 [id number] SSU-M16) Document 01/17/18 22:00 [id number] (Rec: 01/17/18 22:20 [id number] SSU-L02) Document 01/18/18 06:00 [id number] (Rec: 01/18/18 06:31 [id number] SSU-L02) Document 01/18/18 14:00 [id number] (Rec: 01/18/18 14:46 [id number] SSU-C08) Document 01/18/18 21:55 [id number] (Rec: 01/18/18 21:56 [id number] SSU-M17) Document 01/19/18 05:03 [id number] (Rec: 01/19/18 05:04 [id number] SSU-M17) Document 01/19/18 06:23 [id number] (Rec: 01/19/18 06:23 [id number] SSU-M16) - Physical Exam General: No Cyanosis, No Jaundice, No Clubbing Lungs and Chest: Yes: Chest Expansion Full, Chest Expansion Symetrica, Percussion Note Resonant. No: Vessicular Breath Sounds - emphysematous, Crackles, Wheezes Heart Rate and Rhythm: Tachycardia - irregular Additional Cardiovascular: Yes: Normal Heart Sounds. No: Heart Murmur, Pedal Edema Abdominal Exam: Yes: Soft, Bowel Sounds Present. No: Distention, Abdominal Tenderness - Neuro Orientation: A/O x3 Speech: Normal Results - Results Lab Results: Laboratory Results - last 24 hr 01/18/18 01/18/18 01/18/18 10:14 10:26 14:15 WBC RBC Hgb Hct MCV MCH MCHC RDW Plt Count MPV Neut % (Auto) Lymph % (Auto) [place] % (Auto) Eos % (Auto) Baso % (Auto) Absolute Neuts (auto) Absolute Lymphs (auto) Absolute Monos (auto) Absolute Eos (auto) Absolute Basos (auto) Absolute Nucleated RBC Nucleated RBC % INR (Anticoag Therapy) 1.88 H APTT 35.5 Sodium Potassium Chloride Carbon Dioxide Anion Gap BUN Creatinine Est GFR ( Amer) Est GFR (Non-Af Amer) BUN/Creatinine Ratio Glucose POC Glucose (mg/dL) 219 H 185 H Calcium 01/18/18 01/18/18 01/18/18 15:44 18:13 22:20 WBC RBC Hgb Hct MCV MCH MCHC RDW Plt Count MPV Neut % (Auto) Lymph % (Auto) [place] % (Auto) Eos % (Auto) Baso % (Auto) Absolute Neuts (auto) Absolute Lymphs (auto) Absolute Monos (auto) Absolute Eos (auto) Absolute Basos (auto) Absolute Nucleated RBC Nucleated RBC % INR (Anticoag Therapy) APTT Sodium Potassium Chloride Carbon Dioxide Anion Gap BUN Creatinine Est GFR ( Amer) Est GFR (Non-Af Amer) BUN/Creatinine Ratio Glucose POC Glucose (mg/dL) 335 H 361 H 238 H Calcium 01/19/18 01/19/18 01/19/18 06:18 06:18 06:18 WBC 7.3 RBC 2.76 L Hgb 8.9 L Hct 27 L MCV 98 H MCH 32 H MCHC 33 RDW 13 Plt Count 189 MPV 8.2 Neut % (Auto) 68.0 Lymph % (Auto) 15.6 [place] % (Auto) 15.6 Eos % (Auto) 0.3 Baso % (Auto) 0.5 Absolute Neuts (auto) 4.9 Absolute Lymphs (auto) 1.1 Absolute Monos (auto) 1.1 H Absolute Eos (auto) 0 Absolute Basos (auto) 0 Absolute Nucleated RBC 0 Nucleated RBC % 0 INR (Anticoag Therapy) 1.13 H APTT Sodium 136 Potassium 4.0 Chloride 98 L Carbon Dioxide 34 H Anion Gap 4 BUN 11 Creatinine 0.50 L Est GFR ( Amer) 143.6 Est GFR (Non-Af Amer) 118.7 BUN/Creatinine Ratio 22.0 H Glucose 200 H POC Glucose (mg/dL) Calcium 8.6 Assessment - Problem List Assessment: Patient Problems Anemia (Acute) Fracture, intertrochanteric, left femur (Acute) Uncontrolled type 1 diabetes mellitus (Acute) Warfarin anticoagulation (Acute) Anxiety disorder (Chronic) Atrial fibrillation (Chronic) COPD (chronic obstructive pulmonary disease) (Chronic) Charcot's arthropathy (Chronic) Diabetic retinopathy (Chronic) Emphysema of lung (Chronic) Essential hypertension (Chronic) History of falling (Chronic) Hypercholesteremia (Chronic) Insulin pump status (Chronic) Osteoarthritis (Chronic) Primary hypothyroidism (Chronic) Psoriasis (Chronic) Sleep apnea (Chronic) Type 1 diabetes, uncontrolled, with retinopathy (Chronic) Sleep apnea assessment (Chronic) Plan: Fracture, intertrochanteric, left femur (Acute) She is due for surgery today COPD (chronic obstructive pulmonary disease) (Chronic)Emphysema of lung (Chronic ) She likely is a C02 retainer and had an episode of acute apnea following IV morphine yesterday. The anesthesiologist should be aware of this. We need to be cautious in the use of opioids Uncontrolled type 1 diabetes mellitus (Acute) Her glucose levels are coming down. I will increase the lantus again today Warfarin anticoagulation (Acute) Her INR is 1.13 - she is ready for surgery - I agree with Dr. Rollins's note - spinal anesthesia makes a lot of sense. Anemia (Acute) ongoing - she may require transfusion post-op Anxiety disorder (Chronic) The pain is exacerbating her anxiety. Atrial fibrillation (Chronic) She has a tachycardia, most likely due to pain I discussed the above with the patient. In particular, I explained why we are in a bind with pain management as there is a poor therapeutic ratio with opioids owing to her respiratory failure/emphysema. I wonder if the spinal anesthesia could be started earlier for pain relief.
[2018-01-19] MEDS ORDERED: Famotidine IV* 10 MG/ML 2 ML (20 mg) IV ONE (08:00)
[2018-01-19] MEDS: Mometasone 220 MCG MDI INH SCH ×2 (08:42→20:16)
[2018-01-19] MEDS: prednisoLONE 1% OPHTH.SUSP* 5 ML OPHTH.SUSP BOTH EYES SCH ×2 (09:32→23:31)
[2018-01-19] MEDS: Insulin GLARGINE(*) 1 UNITS UNIT SUBCUT SCH (09:32)
[2018-01-19 12:47] LABS: INR 1.1 (0.77-1.02)
[2018-01-19] MEDS ORDERED: Clindamycin 900 MG/D5W BAG(*) 900 MG/50 ML BAG IVPB ONE (13:14)
[2018-01-19] MEDS ORDERED: fentaNYL* 50 MCG/ML 2 ML VIAL (100 MCG VIAL) ONE (13:35)
[2018-01-19] MEDS ORDERED: Midazolam* 1 MG/ML 2 ML VIAL (2 MG) ONE (13:35)
[2018-01-19] MEDS ORDERED: KETAMINE HCL* 50 MG/ML 10 ML VIAL ONE (13:46)
[2018-01-19] MEDS ORDERED: Dexamethasone IV* 4 MG/ML 1 ML (4 MG) ONE (13:47)
[2018-01-19] MEDS ORDERED: DiMENhydriNATE IV* 50 MG/ML VIAL ONE (13:47)
[2018-01-19] MEDS ORDERED: Propofol* 10 MG/ML 20 ML BTL ONE (13:47)
[2018-01-19] MEDS ORDERED: Lidocaine 2% PF * 5 ML VIAL ONE (13:47)
[2018-01-19] MEDS ORDERED: Ondansetron INJ* 2 MG/ML VIAL ONE (13:47)
[2018-01-19] MEDS ORDERED: ROPIVACAINE 5 MG/ML 30 ML BTL (0.5%) ONE (14:29)
[2018-01-19] MEDS ORDERED: Bupivacaine 0.5% PF 10 ML VIAL INJ ONE (14:35)
--- NOTE | 2018-01-19 14:39 | PN ---
Progress Note - Progress Note Date of Service: 01/19/18 SOAP: Subjective: Spoke with Dr. Rollins about this patient and I agreed to do the surgery based on my availability. Mechanical fall on 01/17/[address] with resultant L hip intertroch/subtroch fx, comminuted, with much anterior apex and varus angulation. Objective: LLE: - externally rotated, swollen, NVID Selected Entries 01/19/18 12:23 Temperature 98.4 F Pulse Rate 93 Respiratory 16 Rate Blood Pressure 123/57 (mmHg) O2 Sat by Pulse 100 Oximetry Laboratory Tests 01/19/18 01/19/18 01/19/18 06:18 06:18 12:13 Hct 27 L INR (Anticoag Therapy) 1.10 H Creatinine 0.50 L POC Glucose (mg/dL) 01/19/18 13:13 Hct INR (Anticoag Therapy) Creatinine POC Glucose (mg/dL) 182 H Assessment: HD 3 L hip hip intertroch/subtroch fx Plan: - Optimized by medicine - to OR for ORIF with celso URENA
[2018-01-19] MEDS ORDERED: HYDROmorphone INJ1* 1 MG/ML SYRINGE ONE (17:06)
[2018-01-19] MEDS ORDERED: Warfarin TAB(*) 4 MG PO ONE (18:45)
[2018-01-19] MEDS ORDERED: HYDROmorphone INJ1* 1 MG/ML SYRINGE IV PRN (18:55)
[2018-01-19] MEDS ORDERED: Acetaminophen TAB* 325 MG PO PRN (18:55)
[2018-01-19] MEDS ORDERED: DiMENhydriNATE IV* 50 MG/ML VIAL IV PUSH PRN (18:55)
[2018-01-19] MEDS ORDERED: Naloxone* 0.4 MG/ML 1 ML VIAL IV PRN (18:55)
[2018-01-19] MEDS ORDERED: oxyCODONE/Acetamin 5/325 MG* TAB PO PRN (18:55)
[2018-01-19] MEDS ORDERED: Clindamycin 600 MG IVPREMIX(* 600 MG/50 ML SDV IV SCH (19:30)
[2018-01-19] MEDS: Clindamycin 600 MG IVPREMIX(* 600 MG/50 ML SDV IV SCH (23:29)
[2018-01-20] MEDS: Insulin LISPRO* 1 UNITS UNIT SUBCUT SCH ×9 (02:20→21:49)
[2018-01-20] MEDS: Acetaminophen TAB* 325 MG PO PRN ×2 (04:04→11:43)
[2018-01-20] MEDS: Docusate CAP* 100 MG PO PRN (04:04)
[2018-01-20] MEDS: Senna TAB PO PRN (04:05)
[2018-01-20 05:23] LABS: ABS Basophils 0 10^3/ul (0-0.2); ABS Eosinophils 0 10^3/ul (0-0.6); ABS Lymphocytes 0.8 10^3/ul (1.0-4.8); ABS Monocytes 1.3 10^3/ul (0-0.8); ABS Neutrophils 5.8 10^3/ul (1.5-7.7); ABS Nucleated RBC 0 10^3/ul; Eosinophil % 0 %; Hematocrit 24 % (35-47); Lymphocyte % 10.1 %; Mean Corpuscular HGB Conc 34 g/dl (31-36); Mean Corpuscular Hemoglobin 33 pg (27-31); Mean Corpuscular Volume 97 fL (80-97); Mean Platelet Volume 7.9 fL (7.4-10.4); Nucleated Red Blood Cells % 0; Platelet Count 228 10^3/ul (150-450); Red Blood Count 2.45 10^6/ul (4.00-5.40); Red Cell Distribution Width 13 % (10.5-15); White Blood Count 7.9 10^3/ul (3.5-10.8)
[2018-01-20] MEDS: Clindamycin 600 MG IVPREMIX(* 600 MG/50 ML SDV IV SCH ×3 (08:34→23:47)
[2018-01-20] MEDS: Insulin GLARGINE(*) 1 UNITS UNIT SUBCUT SCH (10:29)
[2018-01-20] MEDS: prednisoLONE 1% OPHTH.SUSP* 5 ML OPHTH.SUSP BOTH EYES SCH ×2 (10:30→21:47)
[2018-01-20] MEDS: Mometasone 220 MCG MDI INH SCH ×2 (10:31→20:17)
--- NOTE | 2018-01-20 11:08 | PN ---
Subjective - Subjective Reason for Note: Progress Note History: She tolerated the surgery well. She has a poor appetite, but is eating and drinking. Her glucose remains high - but she is receiving IVF with D5. She is not febrile, and has no cough/sputum. At rest she is not dyspneic - she has O2 NC at 2 L. She denies chest pain, palpitations - her heart rate is around 100 bpm. Her pain control is much improved since surgery - she is only using acetaminophen. She has not yet had a bowel movement. Active Problems: Active Problems Anemia (Acute) D64.9 Status post closed fracture of left femur (Acute) Z87.81 Uncontrolled type 1 diabetes mellitus (Acute) E10.65 Warfarin anticoagulation (Acute) Z79.01 Anxiety disorder (Chronic) F41.9 Atrial fibrillation (Chronic) I48.91 COPD (chronic obstructive pulmonary disease) (Chronic) J44.9 Charcot's arthropathy (Chronic) M14.60 Diabetic retinopathy (Chronic) E11.319 Emphysema of lung (Chronic) J43.9 Essential hypertension (Chronic) I10 History of falling (Chronic) Z91.81 Hypercholesteremia (Chronic) E78.00 Insulin pump status (Chronic) Z96.41 Osteoarthritis (Chronic) M19.90 Primary hypothyroidism (Chronic) E03.9 Psoriasis (Chronic) L40.9 Sleep apnea (Chronic) G47.30 Type 1 diabetes, uncontrolled, with retinopathy (Chronic) E10.319, E10.65 Current Medications: Current Medications Acetaminophen (Tylenol Tab*) 650 mg PO Q4H PRN PRN Reason: FEVER/PAIN Last Admin: 01/20/18 04:04 Dose: 650 mg Al Hydrox/Mg Hydrox/Simethicone (Maalox Plus*) 30 ml PO Q6H PRN PRN Reason: INDIGESTION Albuterol (Ventolin 2.5 Mg/3 Ml Neb.Jennifer*) 2.5 mg INH Q4H PRN PRN Reason: SOB/WHEEZING Albuterol/Ipratropium (Duoneb (Albuterol 2.5 Mg/Ipratropium 0.5 Mg)) 1 neb INH Q4H PRN PRN Reason: SOB/WHEEZING Ascorbic Acid (Vitamin C Tab*) 500 mg PO EVERY OTHER DAY [facility] Atorvastatin Calcium (Lipitor*) 10 mg PO 1700 [facility] Cholecalciferol (Vitamin D Tab*) 1,000 units PO DAILY [facility] Citalopram Hydrobromide (Celexa Tab*) 20 mg PO DAILY [facility] Dextrose (D50w Syringe 50 Ml*) 12.5 gm IV PUSH .FOR FS < 60 - SS PRN PRN Reason: FS < 60 Diltiazem HCl (Cardizem Cd Cap*) 180 mg PO DAILY [facility] Docusate Sodium (Colace Cap*) 100 mg PO BID PRN PRN Reason: CONSTIPATION Last Admin: 01/20/18 04:04 Dose: 100 mg Ferrous Gluconate (Fergon Tab*) 324 mg PO EVERY OTHER DAY [facility] Clindamycin HCl/Dextrose (Cleocin 600 Mg Ivpremix(*) Sdv) 600 mg in 50 mls @ 100 mls/hr IV 0730,1530,2330 [facility] Stop: 01/20/18 23:31 Last Admin: 01/20/18 08:34 Dose: 100 mls/hr Insulin Glargine (Lantus(*)) 25 units SUBCUT 0900 [facility] Last Admin: 01/20/18 10:29 Dose: 25 units Insulin Human Lispro (Humalog*) 0 units SUBCUT AC [facility]; Protocol Insulin Human Lispro (Humalog*) 1 units SUBCUT ACHS [facility]; Protocol Levothyroxine Sodium (Synthroid Tab*) 125 mcg PO DAILY@0600 [facility] Losartan Potassium (Cozaar Tab*) 100 mg PO DAILY [facility] Metoprolol Tartrate (Lopressor Iv*) 5 mg IV Q4HR PRN PRN Reason: HEART RATE/PULSE Last Admin: 01/17/18 04:09 Dose: 5 mg Mometasone Furoate (Asmanex 220 Mcg Mdi *) 2 puff INH RT.BID [facility] Last Admin: 01/20/18 10:31 Dose: 2 puff Oxycodone/Acetaminophen (Percocet 5/325 Tab*) 1 tab PO Q6H PRN PRN Reason: Pain Last Admin: 01/19/18 04:44 Dose: 1 tab Prednisolone Acetate (Pred Forte 1%*) 1 drop BOTH EYES BID [facility] Last Admin: 01/20/18 10:30 Dose: 1 drop Rivaroxaban (Xarelto(*)) 20 mg PO DAILY [facility] Senna (Senokot Tab*) 1 tab PO BID PRN PRN Reason: CONSTIPATION Last Admin: 01/20/18 04:05 Dose: 1 tab Home Medications: Home Medications Medication Instructions Recorded Confirmed Type Albuterol/Ipratropium INH(NF) 2 puff .SEE ORDER Q4HR PRN 04/05/12 01/18/18 History [Combivent Inhaler*] Alendronate Sodium [Fosamax] 70 mg PO SEE INSTRUCTIONS 04/05/12 01/18/18 History Aspirin [Aspir-81] 81 mg PO DAILY 04/05/12 01/18/18 History Cholecalciferol [Vitamin D3] 2,000 unit PO DAILY 04/05/12 01/18/18 History Citalopram TAB* [Celexa TAB*] 20 mg PO DAILY 04/05/12 01/18/18 History Dapsone 25 mg PO DAILY 04/05/12 01/18/18 History Fluticasone HFA 220 mcg(NF) 2 puff .SEE ORDER DAILY 04/05/12 01/18/18 History [Flovent Hfa 220 Mcg*] Irbesartan TAB* [Avapro TAB*] 300 mg PO DAILY 04/05/12 01/18/18 History Levothyroxine TAB* [Synthroid TAB*] 125 mcg PO QAM 04/05/12 01/18/18 History Multivit-Mins/FA/Lycop/Lut/Ala 1 tab PO DAILY 04/05/12 01/18/18 History [Multi-Betic] Simvastatin 10 mg PO QAM 04/05/12 01/18/18 History Subcutaneous Insulin Pump [Insulin 1 kit SUBCUT QID 04/05/12 01/18/18 History Pump [id number] Black] Warfarin TAB(*) [Coumadin(*)] 5 mg PO SEE INSTRUCTIONS 04/05/12 01/18/18 History Warfarin TAB(*) [Coumadin(*)] 7.5 mg PO SEE INSTRUCTIONS 04/05/12 01/18/18 History dilTIAZem HCl [Dilt-Xr] 180 mg PO DAILY 04/05/12 01/18/18 History prednisoLONE 1% OPHTH.SUSP* [Pred 1 drop .SEE ORDER BID 04/05/12 01/18/18 History Forte 1%*] zzInsulin GLARGINE(*) [Lantus(*)] 18 units .SEE ORDER SEE 04/05/12 01/18/18 History INSTRUCTIONS Triamterene/HCTZ 37.5-25 MG* 1 tab PO QAM 01/18/18 01/18/18 History Allergies: Allergies Allergy/AdvReac Type Severity Reaction Status Date / Time amoxicillin [From Augmentin] Allergy Rash Verified 01/16/18 17:21 clavulanic acid Allergy Rash Verified 01/16/18 17:21 [From Augmentin] lisinopril Allergy Coughing Verified 01/16/18 17:21 metronidazole Allergy Rash Verified 01/16/18 17:21 omeprazole [From Prilosec] Allergy Diarrhea Verified 01/16/18 17:21 Objective - Vital Signs Vital Signs: Vital Signs 01/19/18 01/19/18 01/19/18 12:23 18:15 18:25 Temperature 98.4 F 97.7 F Pulse Rate 93 103 Respiratory 16 16 16 Rate Blood Pressure 123/57 118/67 (mmHg) O2 Sat by Pulse 100 97 Oximetry 01/19/18 01/19/18 01/19/18 18:27 18:30 18:35 Temperature Pulse Rate 104 97 98 Respiratory 24 15 17 Rate Blood Pressure 147/61 122/73 (mmHg) O2 Sat by Pulse 97 98 94 Oximetry 01/19/18 01/19/18 01/19/18 18:40 18:45 18:50 Temperature Pulse Rate 104 103 102 Respiratory 12 18 13 Rate Blood Pressure 125/81 120/71 119/65 (mmHg) O2 Sat by Pulse 97 98 98 Oximetry 01/19/18 01/19/18 01/19/18 19:00 19:01 19:15 Temperature Pulse Rate 103 102 102 Respiratory 14 14 14 Rate Blood Pressure 127/72 114/66 (mmHg) O2 Sat by Pulse 98 96 95 Oximetry 01/19/18 01/19/18 01/19/18 19:30 19:47 20:19 Temperature 97.1 F Pulse Rate 107 108 112 Respiratory 15 20 20 Rate Blood Pressure 126/85 138/61 (mmHg) O2 Sat by Pulse 96 100 98 Oximetry 01/19/18 01/19/18 01/19/18 20:51 22:00 22:16 Temperature 98.7 F 99.1 F Pulse Rate 105 101 Respiratory 16 16 16 Rate Blood Pressure 132/65 138/67 (mmHg) O2 Sat by Pulse 100 99 Oximetry 01/19/18 01/20/18 01/20/18 23:55 02:11 04:12 Temperature 98.2 F 98.2 F 99.0 F Pulse Rate 100 104 99 Respiratory 16 16 16 Rate Blood Pressure 127/62 139/64 128/58 (mmHg) O2 Sat by Pulse 96 100 97 Oximetry - Intake and Output Intake and Output: Intake & Output 01/17/18 01/18/18 01/19/18 01/20/18 11:59 11:59 11:59 11:59 Intake Total 2568 2850 1874 2820 Output Total 1000 1050 1000 1500 Balance 1568 8664 732 4022 Weight 138 lb Intake: IV Fluids 2514 2009 1504 2700 D5W LR 2009 1449 1000 FF Plasma 599 LR 1700 NS (0.9%) 916 zofran 55 Medicated IV 53 Magnesium 53 Oral 0 840 370 120 Output: Morgan 1000 1050 1000 1250 Estimated Blood Loss 250 Other: # Bowel Movements 0 ADLs: Meal Record Start: 01/16/18 20: 57 Freq: Status: Active Protocol: Created 01/16/18 20:57 System (Rec: 01/16/18 20:57 System [id number]) Document 01/17/18 20:38 [id number] (Rec: 01/17/18 20:43 [id number] SSU-L02) Document 01/19/18 08:20 [id number] (Rec: 01/19/18 08:20 [id number] SSU-C04) Document 01/19/18 12:51 [id number] (Rec: 01/19/18 12:52 [id number] SSU-C04) Intake and Output Start: 01/16/18 17: 13 Freq: Status: Active Protocol: Created 01/16/18 17:13 System (Rec: 01/16/18 17:13 System [id number]) Intake and Output Start: 01/16/18 20: 57 Freq: DAILY@0600,1400,2200 Status: Active Protocol: Created 01/16/18 20:57 System (Rec: 01/16/18 20:57 System [id number]) Document 01/17/18 05:56 [id number] (Rec: 01/17/18 05:57 [id number] SSU-M17) Document 01/17/18 14:17 [id number] (Rec: 01/17/18 14:18 [id number] SSU-C11) Document 01/17/18 18:27 [id number] (Rec: 01/17/18 18:28 [id number] SSU-M16) Document 01/17/18 22:00 [id number] (Rec: 01/17/18 22:20 [id number] SSU-L02) Document 01/18/18 06:00 [id number] (Rec: 01/18/18 06:31 [id number] SSU-L02) Document 01/18/18 14:00 [id number] (Rec: 01/18/18 14:46 [id number] SSU-C08) Document 01/18/18 21:55 [id number] (Rec: 01/18/18 21:56 [id number] SSU-M17) Document 01/19/18 05:03 [id number] (Rec: 01/19/18 05:04 [id number] U-M17) Document 01/19/18 06:23 [id number] (Rec: 01/19/18 06:23 [id number] SSU-M16) Document 01/19/18 22:39 [id number] (Rec: 01/19/18 22:40 [id number] SSU-M18) Document 01/20/18 06:00 [id number] (Rec: 01/20/18 06:30 [id number] SSU-M18) - Physical Exam General: No Cyanosis, Yes Anemia, No Jaundice, No Clubbing Lungs and Chest: Yes: Chest Expansion Full, Chest Expansion Symetrica, Percussion Note Resonant, Vessicular Breath Sounds. No: Crackles, Wheezes, Use of Accessory Muscles Heart Rate and Rhythm: Irregular Additional Cardiovascular: Yes: Normal Heart Sounds. No: Heart Murmur, Pedal Edema Abdominal Exam: Yes: Soft, Bowel Sounds Present. No: Distention, Abdominal Mass , Hepatomegaly, Abdominal Tenderness, Guarding, Rebound Tenderness - Neuro Orientation: A/O x3 Speech: Normal Results - Results Lab Results: Laboratory Results - last 24 hr 01/19/18 01/19/18 01/19/18 12:13 13:13 21:39 WBC RBC Hgb Hct MCV MCH MCHC RDW Plt Count MPV Neut % (Auto) Lymph % (Auto) [place] % (Auto) Eos % (Auto) Baso % (Auto) Absolute Neuts (auto) Absolute Lymphs (auto) Absolute Monos (auto) Absolute Eos (auto) Absolute Basos (auto) Absolute Nucleated RBC Nucleated RBC % INR (Anticoag Therapy) 1.10 H POC Glucose (mg/dL) 182 H 240 H 01/20/18 01/20/18 01/20/18 02:13 04:56 06:23 WBC 7.9 RBC 2.45 L Hgb 8.0 L Hct 24 L MCV 97 MCH 33 H MCHC 34 RDW 13 Plt Count 228 MPV 7.9 Neut % (Auto) 73.6 Lymph % (Auto) 10.1 [place] % (Auto) 16.1 Eos % (Auto) 0 Baso % (Auto) 0.2 Absolute Neuts (auto) 5.8 Absolute Lymphs (auto) 0.8 L Absolute Monos (auto) 1.3 H Absolute Eos (auto) 0 Absolute Basos (auto) 0 Absolute Nucleated RBC 0 Nucleated RBC % 0 INR (Anticoag Therapy) POC Glucose (mg/dL) 259 H 255 H Assessment - Problem List Assessment: Patient Problems Anemia (Acute) Status post closed fracture of left femur (Acute) Uncontrolled type 1 diabetes mellitus (Acute) Warfarin anticoagulation (Acute) Anxiety disorder (Chronic) Atrial fibrillation (Chronic) COPD (chronic obstructive pulmonary disease) (Chronic) Charcot's arthropathy (Chronic) Diabetic retinopathy (Chronic) Emphysema of lung (Chronic) Essential hypertension (Chronic) History of falling (Chronic) Hypercholesteremia (Chronic) Insulin pump status (Chronic) Osteoarthritis (Chronic) Primary hypothyroidism (Chronic) Psoriasis (Chronic) Sleep apnea (Chronic) Type 1 diabetes, uncontrolled, with retinopathy (Chronic) Sleep apnea assessment (Chronic) Plan: Status post closed fracture of left femur (Acute) She is doing well post- surgically with pain control. Anemia (Acute) I will watch her hemoglobin - now she doesn't require transfusion Uncontrolled type 1 diabetes mellitus (Acute) I have stopped D5LR and changed her to a basal/bolus regimen with carb counting. She is not yet ready to restart her CSII device (insulin pump) Warfarin anticoagulation (Acute) History - I am starting her on rivaroxaban 20 mg qdaily Anxiety disorder (Chronic) she is peaceful Atrial fibrillation (Chronic) Rate will be controlled now we have restarted her diltiazem COPD (chronic obstructive pulmonary disease) (Chronic)Emphysema of lung (Chronic ) Stable - I will wean her off NC Charcot's arthropathy (Chronic) needs rehab Diabetic retinopathy (Chronic) stable Essential hypertension (Chronic) stable History of falling (Chronic) for rehab Hypercholesteremia (Chronic) restart statin Insulin pump status (Chronic) holding for the moment Osteoarthritis (Chronic) ongoing Primary hypothyroidism (Chronic) restart levothyroxine Psoriasis (Chronic) secondary diagnosis Sleep apnea (Chronic) Doesn't use CPAP Type 1 diabetes, uncontrolled, with retinopathy (Chronic) secondary diagnosis Osteoporosis - deal with this as an outpatient. I will give her calcium and vit D I discussed the above with the patient. She is an ideal patient for PMRU - she has OT/PT and PMRU referrals
[2018-01-20] MEDS ORDERED: Insulin LISPRO* 1 UNITS UNIT SUBCUT SCH (11:30)
--- NOTE | 2018-01-20 11:38 | PN ---
Progress Note - Progress Note Date of Service: 01/20/18 SOAP: Subjective: Pt seen and examined sitting in chair. Complains of left hip pain. Pain controlled with pain meds. Denies CP, SOB. Vital Signs: Temp Pulse Resp BP Pulse Ox 98.3 F 105 16 136/41 96 01/20/18 11:32 01/20/18 11:32 01/20/18 11:32 01/20/18 11:32 01/20/18 11:32 Laboratory Last Values WBC 7.9 10^3/ul (3.5-10.8) 01/20/18 04:56 RBC 2.45 10^6/ul (4.00-5.40) L 01/20/18 04:56 Hgb 8.0 g/dl (12.0-16.0) L 01/20/18 04:56 Hct 24 % (35-47) L 01/20/18 04:56 MCV 97 fL (80-97) 01/20/18 04:56 MCH 33 pg (27-31) H 01/20/18 04:56 MCHC 34 g/dl (31-36) 01/20/18 04:56 RDW 13 % (10.5-15) 01/20/18 04:56 Plt Count 228 10^3/ul (150-450) 01/20/18 04:56 MPV 7.9 fL (7.4-10.4) 01/20/18 04:56 Neut % (Auto) 73.6 % 01/20/18 04:56 Lymph % (Auto) 10.1 % 01/20/18 04:56 Gilchrist % (Auto) 16.1 % 01/20/18 04:56 Eos % (Auto) 0 % 01/20/18 04:56 Baso % (Auto) 0.2 % 01/20/18 04:56 Absolute Neuts (auto) 5.8 10^3/ul (1.5-7.7) 01/20/18 04:56 Absolute Lymphs (auto) 0.8 10^3/ul (1.0-4.8) L 01/20/18 04:56 Absolute Monos (auto) 1.3 10^3/ul (0-0.8) H 01/20/18 04:56 Absolute Eos (auto) 0 10^3/ul (0-0.6) 01/20/18 04:56 Absolute Basos (auto) 0 10^3/ul (0-0.2) 01/20/18 04:56 Absolute Nucleated RBC 0 10^3/ul 01/20/18 04:56 Nucleated RBC % 0 01/20/18 04:56 INR (Anticoag Therapy) 1.10 (0.77-1.02) H 01/19/18 12:13 APTT 35.5 seconds (26.0-36.3) 01/18/18 10:26 Sodium 136 mmol/L (135-145) 01/19/18 06:18 Potassium 4.0 mmol/L (3.5-5.0) 01/19/18 06:18 Chloride 98 mmol/L (101-111) L 01/19/18 06:18 Carbon Dioxide 34 mmol/L (22-32) H 01/19/18 06:18 Anion Gap 4 mmol/L (2-11) 01/19/18 06:18 BUN 11 mg/dL (6-24) 01/19/18 06:18 Creatinine 0.50 mg/dL (0.51-0.95) L 01/19/18 06:18 Est GFR ( Amer) 143.6 (>60) 01/19/18 06:18 Est GFR (Non-Af Amer) 118.7 (>60) 01/19/18 06:18 BUN/Creatinine Ratio 22.0 (8-20) H 01/19/18 06:18 Glucose 200 mg/dL (70-100) H 01/19/18 06:18 POC Glucose (mg/dL) 255 mg/dL (70-100) H 01/20/18 06:23 Calcium 8.6 mg/dL (8.6-10.3) 01/19/18 06:18 Magnesium 1.8 mg/dL (1.9-2.7) L 01/16/18 17:22 Troponin I 0.01 ng/mL (<0.04) 01/16/18 17:22 Blood Type O Negative 01/17/18 11:10 Antibody Screen Positive 01/17/18 11:10 Antibody Identification Anti-S 01/17/18 11:10 Direct Antiglob Test Negative 12/05/18 11:10 Objective: A&Ox3 Dressing C/D/I. Calves soft, nontender. Mild edema LLE, Sensation intact to light touch distally. 2+ DP pulses. Assessment: 82 yo female s/p ORIF left hip fracture Plan: OOB PT/OT Partial WB 50% Pain control DVT prophylaxis - Coumadin D/C Planning
[2018-01-20] MEDS: Citalopram TAB* 20 MG PO SCH (11:41)
[2018-01-20] MEDS: Losartan TAB* 25 MG PO SCH (11:41)
[2018-01-20] MEDS: Diltiazem CD CAP* 180 MG PO SCH (11:41)
[2018-01-20] MEDS: Rivaroxaban TAB(*) 20 MG TAB PO SCH (11:41)
[2018-01-20] MEDS: Calcium Carbonate CHEW TAB* 500 MG (TUMS) PO SCH ×2 (14:00→21:46)
[2018-01-20] MEDS ORDERED: Bisacodyl SUPP* 10 MG SUPP PR PRN (16:09)
[2018-01-20] MEDS ORDERED: Atorvastatin* 10 MG TAB PO SCH (17:00)
[2018-01-20] MEDS: oxyCODONE/Acetamin 5/325 MG* TAB PO PRN (21:46)
[2018-01-21] MEDS: Acetaminophen TAB* 325 MG PO PRN (03:33)
[2018-01-21] MEDS ORDERED: Levothyroxine TAB* 125 MCG TAB PO SCH (06:00)
[2018-01-21 06:27] LABS: ABS Basophils 0 10^3/ul (0-0.2); ABS Eosinophils 0 10^3/ul (0-0.6); ABS Lymphocytes 1.4 10^3/ul (1.0-4.8); ABS Neutrophils 4.1 10^3/ul (1.5-7.7); ABS Nucleated RBC 0 10^3/ul; Eosinophil % 0.3 %; Hematocrit 22 % (35-47); Hemoglobin 7.3 g/dl (12.0-16.0); Lymphocyte % 21.7 %; Mean Corpuscular HGB Conc 34 g/dl (31-36); Mean Corpuscular Hemoglobin 33 pg (27-31); Mean Corpuscular Volume 96 fL (80-97); Mean Platelet Volume 7.8 fL (7.4-10.4); Nucleated Red Blood Cells % 0; Platelet Count 250 10^3/ul (150-450); Red Blood Count 2.24 10^6/ul (4.00-5.40); Red Cell Distribution Width 13 % (10.5-15); White Blood Count 6.5 10^3/ul (3.5-10.8)
[2018-01-21 06:47] LABS: EGFR Non-African American 89.3 (>60)
[2018-01-21] MEDS: Docusate CAP* 100 MG PO PRN (07:56)
[2018-01-21] MEDS: oxyCODONE/Acetamin 5/325 MG* TAB PO PRN (07:56)
[2018-01-21] MEDS: Senna TAB PO PRN (07:56)
[2018-01-21] MEDS: Mometasone 220 MCG MDI INH SCH (07:57)
[2018-01-21] MEDS ORDERED: Cholecalciferol TAB* 1000 UNITS PO SCH (09:00)
[2018-01-21] MEDS: Citalopram TAB* 20 MG PO SCH (09:44)
[2018-01-21] MEDS: Diltiazem CD CAP* 180 MG PO SCH (09:44)
[2018-01-21] MEDS: Calcium Carbonate CHEW TAB* 500 MG (TUMS) PO SCH (09:44)
[2018-01-21] MEDS: Insulin LISPRO* 1 UNITS UNIT SUBCUT SCH ×4 (09:45→13:27)
[2018-01-21] MEDS: Insulin GLARGINE(*) 1 UNITS UNIT SUBCUT SCH (09:45)
[2018-01-21] MEDS: Rivaroxaban TAB(*) 20 MG TAB PO SCH (09:45)
[2018-01-21] MEDS: prednisoLONE 1% OPHTH.SUSP* 5 ML OPHTH.SUSP BOTH EYES SCH (09:47)
[2018-01-21] MEDS ORDERED: diPHENhydraMINE PO* 25 MG PO PRN (10:11)
[2018-01-21] MEDS: Losartan TAB* 25 MG PO SCH (10:23)
[2018-01-21] MEDS ORDERED: Magnesium Hydroxide LIQ* 30 ML UDC PO ONE (11:00)
--- NOTE | 2018-01-21 12:04 | PN ---
Progress Note - Progress Note Date of Service: 01/21/18 SOAP: Subjective: Pt seen sitting up in chair. States she has less pain in her hip today. No complaints otherwise. Denies CP, SOB, F/C, Dizziness. Vital Signs: Temp Pulse Resp BP Pulse Ox 99.1 F 80 16 112/52 93 01/21/18 07:44 01/21/18 07:44 01/21/18 11:01 01/21/18 09:23 01/21/18 11:54 Laboratory Last Values WBC 6.5 10^3/ul (3.5-10.8) 01/21/18 05:56 RBC 2.24 10^6/ul (4.00-5.40) L 01/21/18 05:56 Hgb 7.3 g/dl (12.0-16.0) L 01/21/18 05:56 Hct 22 % (35-47) L 01/21/18 05:56 MCV 96 fL (80-97) 01/21/18 05:56 MCH 33 pg (27-31) H 01/21/18 05:56 MCHC 34 g/dl (31-36) 01/21/18 05:56 RDW 13 % (10.5-15) 01/21/18 05:56 Plt Count 250 10^3/ul (150-450) 01/21/18 05:56 MPV 7.8 fL (7.4-10.4) 01/21/18 05:56 Neut % (Auto) 62.9 % 01/21/18 05:56 Lymph % (Auto) 21.7 % 01/21/18 05:56 Mckean % (Auto) 14.9 % 01/21/18 05:56 Eos % (Auto) 0.3 % 01/21/18 05:56 Baso % (Auto) 0.2 % 01/21/18 05:56 Absolute Neuts (auto) 4.1 10^3/ul (1.5-7.7) 01/21/18 05:56 Absolute Lymphs (auto) 1.4 10^3/ul (1.0-4.8) 01/21/18 05:56 Absolute Monos (auto) 1.0 10^3/ul (0-0.8) H 01/21/18 05:56 Absolute Eos (auto) 0 10^3/ul (0-0.6) 01/21/18 05:56 Absolute Basos (auto) 0 10^3/ul (0-0.2) 01/21/18 05:56 Absolute Nucleated RBC 0 10^3/ul 01/21/18 05:56 Nucleated RBC % 0 01/21/18 05:56 INR (Anticoag Therapy) 1.10 (0.77-1.02) H 01/19/18 12:13 APTT 35.5 seconds (26.0-36.3) 01/18/18 10:26 Sodium 137 mmol/L (135-145) 01/21/18 05:56 Potassium 3.9 mmol/L (3.5-5.0) 01/21/18 05:56 Chloride 97 mmol/L (101-111) L 01/21/18 05:56 Carbon Dioxide 37 mmol/L (22-32) H 01/21/18 05:56 Anion Gap 3 mmol/L (2-11) 01/21/18 05:56 BUN 16 mg/dL (6-24) 01/21/18 05:56 Creatinine 0.64 mg/dL (0.51-0.95) 01/21/18 05:56 Est GFR ( Amer) 108.0 (>60) 01/21/18 05:56 Est GFR (Non-Af Amer) 89.3 (>60) 01/21/18 05:56 BUN/Creatinine Ratio 25.0 (8-20) H 01/21/18 05:56 Glucose 150 mg/dL (70-100) H 01/21/18 05:56 POC Glucose (mg/dL) 162 mg/dL (70-100) H 01/21/18 07:47 Calcium 8.2 mg/dL (8.6-10.3) L 01/21/18 05:56 Magnesium 1.8 mg/dL (1.9-2.7) L 01/16/18 17:22 Troponin I 0.01 ng/mL (<0.04) 01/16/18 17:22 Blood Type O Negative 01/21/18 05:53 Antibody Screen Positive 01/21/18 05:53 Antibody Identification Anti-S 01/21/18 05:53 Direct Antiglob Test Negative 01/21/18 05:53 Crossmatch See Detail 01/21/18 05:53 Objective: A&Ox3, NAD. Dressing C/D/I. Calves soft, nontender. Mild edema LLE. Sensation intact to light touch distally. 2+ DP pulses. Assessment: 82 yo female s/p ORIF Left hip fx POD #2 Plan: OOB PT/OT Partial WB Pain control DVT prophylaxis - Xarelto IV Abx - 48hours postop Agree with transfusion PMRU today after transfusion per hospitalist
[2018-01-21 14:59] VITALS: BP 99/41
[2018-01-21] MEDS ORDERED: Magnesium Hydroxide LIQ* 30 ML UDC PO SCH (21:00)
--- NOTE | 2018-01-22 04:13 | DS ---
CC: Dr. Colby Quinones; Dr. Lazarus Rollins.* DISCHARGE SUMMARY: DATE OF ADMISSION: 01/16/18 DATE OF DISCHARGE: 01/21/18 DISCHARGE DIAGNOSES: Left femur segmental fracture with basicervical fracture and subtrochanteric fracture for procedure open reduction and internal fixation of left hip fracture 01/19/18. COMORBIDITIES: 1. Type I diabetes mellitus, labile, insulin pump user. 2. Emphysema, chronic obstructive pulmonary disease, CO2 retainer. 3. Acute urinary retention after removing Morgan catheter. 4. Warfarin anticoagulation. 6. Atrial fibrillation. SECONDARY DIAGNOSES: 1. Primary hypothyroidism. 2. Sleep apnea. 3. Hypercholesterolemia. 4. History of falling. 5. Essential hypertension. 6. Diabetic retinopathy. 7. Peripheral neuropathy. 8. Charcot arthropathy. 9. Anxiety disorder. HISTORY: Anusha Hudson is an 82-year-old white female her presentation is documented in [facility] Gomez, admitting history and physical. In short, she slipped on the ice outside her home in her driveway and fractured her left femur. INITIAL EXAMINATION: Temperature 98.8, pulse 95, respirations 20, oxygen saturation 98% on room air, blood pressure 145/79. Left leg was externally rotated, otherwise benign exam. Labs: White count 5.7, hemoglobin 12.8, hematocrit 38, platelets 279, INR 2.54. Sodium 136, potassium 3.9, chloride 100, bicarbonate 29, BUN 22, creatinine 0.92, glucose 151. Chest x-ray showed emphysema. CT scan of the pelvis comminuted and displaced fracture involving the intertrochanteric region of the left proximal femur. ASSESSMENT: She was admitted for surgery and this was planned for when her INR was reversed by vitamin K. HOSPITAL COURSE: Initial hospital course was one of stabilizing her INR for surgery. This required repeated doses, both orally and parenterally, with vitamin K and surgery was delayed until 01/19/18. During this period her glycemic control was improved by stopping her insulin pump and putting her on a basal-bolus regimen. Pain management was complicated by an episode of hypopnea and acute respiratory failure caused by a morphine injection. She recovered from this with the help from the naloxone. Surgery was formed by Dr. Lazarus Rollins on 01/19/18. The operative report is part of the electronic medical records. POSTOPERATIVE COURSE: She developed urinary retention after removing the Morgan catheter. Her glycemic control remained good. I started her on rivaroxaban ( Xarelto). On the day of discharge pain is controlled with acetaminophen. She is anemic and requires 1 unit of packed red cells. She is in urinary retention, although she is able to void small volumes. Her bladder shows 400 mL with bladder scan. Her blood pressure is a little on the lower side, she requires 1 unit of packed red cells transfusion. PHYSICAL EXAMINATION: On the day of discharge, vital signs: Temperature 99.1, heart rate 80, respirations 16, oxygen saturation 97% in room air, blood pressure 109/39. No cyanosis, jaundice, clubbing, or adenopathy. She is pale. Cardiovascular System: Her pulse was regular. Heart sounds were normal with a 2/6 systolic murmur in the aortic area. No pedal edema. No carotid bruits. Respiratory System: She has emphysematous breath sounds. Abdominal Examination : There is no distention, masses, tenderness or organomegaly. Nervous System: She is alert and orientated. Conjugate eye movements. Cranial nerves are intact. She is moving her arms and legs. INVESTIGATIONS: On the day of discharge, white count 6.5, hemoglobin 7.3, hematocrit 22, platelets 250. Chemistry: Abnormal CO2 37, calcium 8.2, glucose 162. ASSESSMENT AND PLAN: 1. Post open reduction internal fixation of left hip fracture. She is doing very well. She is being accepted by [facility] for inpatient rehabilitation, which is very appropriate. Her pain control is good. She is feeling weak. 2. Anemia. We will give her 1 unit of packed red cells and every other day ferrous gluconate 325 mg and vitamin C 500 mg simultaneously. 3. Urinary retention. We will use intermittent straight catheterization until she has returned control of bladder emptying. 4. Type 1 diabetes mellitus. She is not ready yet to reassume the use of her insulin pump. I have increased her basal insulin to 35 units of glargine insulin a day. This may need to be tapered over time; at the present time her glucose is on target. She is also continuing with her carbohydrate counting with insulin carbohydrate ratio of 1:15, add approximately 1 unit for every 50 mg/dL above 150 correction bolus. 5. Anticoagulation. I have transferred her from warfarin to a rivaroxaban ( Xarelto) 20 mg a day. She has had large doses of vitamin K if she prefers warfarin we can do this at a later date once the vitamin K levels have diminished. 6. Anemia. She is receiving 1 unit of packed cells today. This will need to be followed. 7. Atrial fibrillation. Today her pulse is regular and her rate is controlled ; after the transfusion this may improve some more. 8. Hypertension. Her blood pressure actually is low today. We are holding her losartan. 9. Emphysema chronic obstructive pulmonary disease. She is managing on room air. She is very sensitive to opioids and had an episode of acute respiratory failure, having received IV morphine 4 mg. We will avoid this. 10. History of falling. She needs the attention of PT and OT. OTHER COMORBIDITIES: Hypercholesterolemia, osteoarthritis, osteoporosis, primary hypothyroidism, psoriasis, sleep apnea, peripheral neuropathy with Charcot arthropathy, diabetic retinopathy; all of these will be managed as per usual. DISCHARGE MEDICATION: 1. Acetaminophen 650 mg q.4 hours p.r.n. for fever or pain. 2. Milk of magnesia 30 mL q.6 hours p.r.n. for constipation. 3. Albuterol 2.5 mg inhaled every 4 hours as needed by nebulizer. 4. Albuterol ipratropium bromide 1 nebulizer every 4 hours as needed. 5. Vitamin C 500 mg p.o. every other day, alongside ferrous gluconate 325 mg every other day. 6. Atorvastatin 10 mg q.h.s. 7. Bisacodyl 10 mg daily p.r.n. for constipation. 8. Calcium carbonate (Tums) 500 mg twice daily. 9. Cholecalciferol 1000 units daily. 10. Citalopram 20 mg q. daily. 11. Diltiazem CD 180 mg daily for rate control and blood pressure control. 12. Diphenhydramine 25 mg prior to blood transfusion. 13. Docusate capsules 100 mg twice daily as needed. 14. Glargine insulin 25 units daily. 15. Lispro insulin 1 unit for every 15 g of carbohydrate plus correction of 1 unit for every 50 mg/dL greater than 150 mg/dL. 17. Levothyroxine 125 mcg daily. 18. Losartan 100 mg daily holding today. 19. Rivaroxaban 20 mg daily. 20. Senna 1 tablet twice daily as needed. SPECIAL ISSUES: 1. She will require intermittent of straight catheterization for her urinary retention and may benefit also from oxybutynin; I will leave this to the [facility] doctors. 2. Insulin pump use. She is not yet ready to reassume this. She understands how to use very well and it would be alexander to start this again 1 or 2 days prior to her discharge. [id number]/[facility] #: [id number] DEANGELO
--- NOTE | 2018-01-22 07:25 | OP ---
DATE OF OPERATION: 01/19/18 - ROOM #337 DATE OF : 39 SURGEON: Fransico Saba MD C D STRIPPER: MARY Barth. A physician curriculum assistant was required for the length of the procedure for assistance with positioning, retraction, and closure. ANESTHESIOLOGIST: Dr. Estephanie Holland. ANESTHESIA: General anesthesia. PRE-OP DIAGNOSIS: Left hip fracture, intertrochanteric, subtrochanteric, proximal femur. POST-OP DIAGNOSIS: Left hip fracture, intertrochanteric, subtrochanteric, proximal femur. OPERATIVE PROCEDURE: 1. Open reduction internal fixation, left hip intertrochanteric, subtrochanteric fracture with a long intramedullary nail and cerclage. 2. Unusual procedure, given added complexity of reduction, necessitated an additional incision and cerclage wiring about the proximal femur just distal to the lesser trochanter. This added significant time and complexity to what is ordinarily a very straight forward procedure. INDICATIONS: The patient is an 82-year-old woman, who lives with her and some in-laws, who sustained a mechanical fall 2 days prior to procedure, on 01/17/18, in her driveway with resultant left hip pain and swelling. The patient was taken to [facility] where x-rays diagnosed her with a left hip intertrochanteric, subtrochanteric fracture, comminuted, with significant anterior apex and varus angulation. CT scan confirmed the location of the fracture line and there was significant segmental nature to the fracture, large fracture fragment between intertrochanteric and subtrochanteric fracture lines. The patient's physical exam was consistent with her hip fracture. She was optimized by the hospitalist service, cleared by Anesthesia. My colleague, Dr. Rollins, saw the patient first, although as I was available to do the surgery, I volunteered to do so. The patient was taken to the operating room for open reduction internal fixation surgery. Discussed with the patient and her , risks and potential complications of surgery. IV FLUIDS: 1400 cc crystalloid. ANTIBIOTICS: Clindamycin 900 mg IV. [id number] TIME: 119 minutes. RADIATION EXPOSURE: C-arm. 99 seconds. 0.583 milligray meters squared. SPECIMEN: None. IMPLANTS: Dyer gamma nail, left, long. Dimensions 11 x 380 mm x 125 degrees. Lag screw was 10.5 x 100 mm. Locking screw distally was 5 x 42.5 mm. I also used a Dall-Windeln.de 2.0-mm cable with a sleeve, also from [employer] COMPLICATIONS: None. ESTIMATED BLOOD LOSS: Minimal. DESCRIPTION OF PROCEDURE: The patient signed a written consent in preoperative holding. Operative extremity was marked in preoperative holding. The patient was taken back to the operating room, sedated, and intubated on the bed. The patient was next slid on to the fracture table. Fracture table was assembled appropriately with perineal post. Mini time-out was performed. Large C-arm was brought in. Closed reduction was performed with traction and some minimal rotation of the left lower extremity. This significantly reduced the anterior apex deformity at the fracture, eliminating it. There was still, however, displacement immediately in the coronal plane. The left hip was prepped and draped with a shower curtain. Surgical time-out was performed. I made a stab incision on the skin, 8 cm proximal to the greater trochanter, in line with the femoral fat. I placed a pin to the greater trochanter. I placed it into the proximal femur. I liked its position. I made a skin incision distally, along the pin. I deepened that incision with a separate knife through the hip abductor fascia. I was able to palpate the greater trochanter with my finger. I perfected the position of that pin. I placed proximal reamer and guide and reamed the proximal femur. I noted that there was still medial displacement at the distal most aspect of the fracture, the subtrochanteric area. I placed a reduction shanna down the femur. This significantly improved the coronal plane, alignment of the fracture. This large straight reduction instrument nicely went from the greater trochanter down the femoral canal. There was still some deformity at the subtrochanteric fracture site. Although there was no varus overall deformity, there was clearly some lateral displacement of the bone just proximal to the subtrochanteric fracture line. I wanted to improve this. Therefore, I made a longitudinal skin incision at that level of the proximal femur. I dissected through skin and subcutaneous tissue and iliotibial band. I was able to palpate that bone fragment and I was able to use a Christine to reduce that fragment. There was comminution splayed out laterally. I decided to try to perfect the reduction by closing up that area of the proximal femur. I asked for Dall-Miles cable and sleeve set. I dissected with my fingers around the femur from anterior and posterior to make sure that I was along the bone, not endanger any nerves or blood vessels. I then placed a C-shaped guide around the proximal femur from anterior to posterior. I placed one cable, 2.0 mm. I applied a sleeve after tightening the wires. I tightened the wires again and then synched the sleeve in place. With C-arm imaging, I confirmed excellent reduction of the intercalary segment of bone with this placement of cable. Having gotten reduction anatomic or nearly anatomic, I decided it was time to place the nail. I placed a long guidewire down the length of the femur. I measured it for the appropriate length of nail. I used long reamers to ream the femoral canal up to a 13 mm. I next placed my nail, 11 x 380 mm x 125 degrees. I placed a lag screw into the femoral head and neck using the gamma guide. I dynamized and then locked with a set screw. I then placed my locking screw distally. Obtained final x-ray images, AP and lateral, proximal and distal. I liked the reduction and the position of the hardware. Irrigation of all skin incisions. Closure of the hip abductor fascia and the iliotibial band in the proximal 2 incisions with running stitches using Vicryl 0 suture. Closure of the subcutaneous tissue in all 3 incisions with buried simple stitches using Vicryl 2-0 suture. Closure of the skin with manuel. Dressing consisted of Xeroform followed by 4x4s followed by ABDs followed by significant amount of foam tape. The patient was transferred to the bed, awakened, and extubated, and transferred to the PACU. A decision was going to be made in the PACU whether the patient would return to the floor or be taken to the ICU. DISPOSITION: Postoperatively, the patient was readmitted to the hospitalist service with Orthopedic Surgery consulting. Due to the subtrochanteric nature part of her fracture, I plan to make her partial weightbearing for at least 2 weeks before advancing her to weightbearing as tolerated. The patient was on Coumadin preoperatively, but hospitalist decided to place her on Xarelto postoperatively. The patient was to receive clindamycin 600 mg IV q.8 hours x48 hours post-operatively. Pain control. Physical Therapy. The patient will follow with me in approximately 14 days postoperatively for wound check, x-rays , and removal of manuel. [id number]/[facility] #: [id number] MTDD
[2018-01-22] MEDS ORDERED: Ferrous Gluconate TAB* 324 MG TAB PO SCH (09:00)
[2018-01-22] MEDS ORDERED: Ascorbic Acid TAB* 500 MG PO SCH (09:00)
== END 2018-01-21 15:17 | DRG 480 ==
LOC: ED 16:56 → SSU 20:01
PROVIDERS: ADMIT Pediatrics; ATTEND Internal Medicine
PROC: 30233K1 Transfusion of Nonautologous Frozen Plasma into Peripheral Vein, Percutaneous Approach (ICD-10-PCS; 2018-01-16)
PROC: 0QSC04Z Reposition Left Lower Femur with Internal Fixation Device, Open Approach (ICD-10-PCS; 2018-01-19)
PROC: 0QS736Z Reposition Left Upper Femur with Intramedullary Internal Fixation Device, Percutaneous Approach (ICD-10-PCS; principal; 2018-01-19 17:00)
PROC: 30233N1 Transfusion of Nonautologous Red Blood Cells into Peripheral Vein, Percutaneous Approach (ICD-10-PCS; 2018-01-21)
DX: S72.142A Displaced intertrochanteric fracture of left femur, initial encounter for closed fracture (principal); J96.00 Acute respiratory failure, unspecified whether with hypoxia or hypercapnia; S72.22XA Displaced subtrochanteric fracture of left femur, initial encounter for closed fracture; W00.2XXA Other fall from one level to another due to ice and snow, initial encounter; Y92.007 Garden or yard of unspecified non-institutional (private) residence as the place of occurrence of the external cause; I27.20 Pulmonary hypertension, unspecified; J44.9 Chronic obstructive pulmonary disease, unspecified; E10.65 Type 1 diabetes mellitus with hyperglycemia; E10.42 Type 1 diabetes mellitus with diabetic polyneuropathy; E10.610 Type 1 diabetes mellitus with diabetic neuropathic arthropathy; E10.319 Type 1 diabetes mellitus with unspecified diabetic retinopathy without macular edema; I07.1 Rheumatic tricuspid insufficiency; E05.00 Thyrotoxicosis with diffuse goiter without thyrotoxic crisis or storm; I48.91 Unspecified atrial fibrillation; Z96.41 Presence of insulin pump (external) (internal); E89.0 Postprocedural hypothyroidism; E78.5 Hyperlipidemia, unspecified; I10 Essential (primary) hypertension; T40.2X1A Poisoning by other opioids, accidental (unintentional), initial encounter; G47.33 Obstructive sleep apnea (adult) (pediatric); F41.9 Anxiety disorder, unspecified; M54.5 Low back pain; R33.9 Retention of urine, unspecified; M19.90 Unspecified osteoarthritis, unspecified site; M81.0 Age-related osteoporosis without current pathological fracture; L40.9 Psoriasis, unspecified; Y92.230 Patient room in hospital as the place of occurrence of the external cause; Z79.01 Long term (current) use of anticoagulants; Z79.4 Long term (current) use of insulin; Z88.1 Allergy status to other antibiotic agents; Z88.8 Allergy status to other drugs, medicaments and biological substances; Z80.9 Family history of malignant neoplasm, unspecified; Z87.891 Personal history of nicotine dependence; Z91.81 History of falling
CPT/HCPCS: 36415; 71045; 72192; 80048; 82565; 83735; 84484; 84520; 85025; 85610; 85730; 86850; 86870; 86880; 86900; 86901; 86922; 86927; 92950; 93005; 93306; 94640; 99284; A9270-GY; G8978-GP-CM; G8979-GP-CI; J1100; J1170; J1240; J1644; J2250; J2270; J2310; J2405; J2704; J2795; J3010; J3430; J3475; J3490; P9017; P9040

== ENCOUNTER 2018-01-21 11:55 | Inpatient (IN) | payer MEDICARE, OTHER ==
[2018-01-21] MEDS ORDERED: Albuterol/Ipratropium NEB.SOL* Albuterol 2.5 MG/Ipratropium 0.5 MG 3 ML INH PRN (15:54)
[2018-01-21] MEDS ORDERED: diPHENhydraMINE PO* 25 MG PO PRN (15:58)
[2018-01-21] MEDS ORDERED: Dextrose 50% Syringe 50 ML* 25 GM/50 ML SYRINGE IV PUSH PRN (16:04)
[2018-01-21] MEDS: Atorvastatin* 10 MG TAB PO SCH (16:52)
[2018-01-21] MEDS: Insulin LISPRO* 1 UNITS UNIT SUBCUT SCH (16:53)
[2018-01-21] MEDS: oxyCODONE/Acetamin 5/325 MG* TAB PO PRN (18:40)
[2018-01-21] MEDS ORDERED: Calcium Carbonate TAB* 1250 MG (CALCIUM 500 MG) PO SCH (21:00)
[2018-01-21] MEDS: Docusate CAP* 100 MG PO SCH (21:08)
[2018-01-21] MEDS: Senna TAB PO SCH (21:08)
[2018-01-21] MEDS: Calcium Carbonate CHEW TAB* 500 MG (TUMS) PO SCH (21:10)
[2018-01-21] MEDS: prednisoLONE 1% OPHTH.SUSP* 5 ML OPHTH.SUSP BOTH EYES SCH (21:12)
[2018-01-21] MEDS: Mometasone 220 MCG MDI INH SCH (21:58)
--- NOTE | 2018-01-22 02:23 | HP ---
ADMISSION HISTORY AND PHYSICAL: DATE OF ADMISSION: 01/21/18. REASON FOR ADMISSION: Left hip fracture. HISTORY OF PRESENT ILLNESS: Anusha Hudson is an 82-year-old white female. She has a medical history significant for diabetes mellitus as well as atrial fibrillation. Normally, she is on chronic Coumadin therapy for her AFib. She also has a history apparently of a pulmonary embolus in the past as well. The patient was getting the mail on 01/16/18, and she slipped on some ice and fell. She screamed for her , who was unable to hear her as all the windows and doors were shut. The patient took out her cell phone and called her , who then called 911. The patient was brought by ambulance to [facility]. She had x-rays done showing an intertrochanteric fracture of her left hip. She went to the operating room on 01/19/18, after her INR had normalized, and she underwent an open reduction internal fixation of her left hip fracture done by Dr. Saba. She was made 50% weightbearing postop. The patient had an intramedullary nail done. The patient postoperatively was also seen by her primary care doctor, Dr. Sesay. Dr. Sesay held her insulin pump and put her on subcutaneous Lantus for now. The patient did have acute blood loss anemia. Her hemoglobin this morning was 7.3 with a hematocrit of 22. She received 1 unit of packed cells. She is felt to have physical therapy and occupational therapy needs. She is now being admitted for inpatient rehab, so that she might return to independent living. PAST MEDICAL HISTORY: Significant for atrial fibrillation, as well as diabetes mellitus type 1. She has COPD as well. She has a history of anxiety, and sleep apnea, but she does not use a CPAP machine. CURRENT MEDICATIONS: Include: 1. DuoNeb inhaler. 2. Lipitor. 3. Celexa. 4. Cardizem. 5. Benadryl. 6. Lantus insulin. 7. Humalog sliding scale coverage. 8. Synthroid. 9. Cozaar. 10. Asmanex. 11. Percocet. 12. Xarelto. 13. Senokot. ALLERGIES: To AMOXICILLIN, AUGMENTIN, LISINOPRIL, FLAGYL and OMEPRAZOLE. SOCIAL HISTORY: She is a nonsmoker, nondrinker. She lives in a basement apartment in her daughter's house. There are several steps down. REVIEW OF SYSTEMS: The patient reports no current shortness of breath or chest pain. She is wearing oxygen at the present time. The patient reports her last bowel movement was Monday. PHYSICAL EXAMINATION VITAL SIGNS: The patient's temperature is 98.4, blood pressure is 102/40, pulses is 74, respirations 20. HEENT: Her extraocular movements were intact. She is wearing oxygen via nasal cannula. LUNGS: Sounds clear to auscultation. HEART: Sounds were regular. S1 and S2 are audible. ABDOMEN: Soft and distended. Her bowel sounds are audible. EXTREMITIES: Her left hip has a wound, which is clean and dry. She has 1+ edema in the left foot. NEUROLOGIC: She was awake, alert, oriented. Muscle strength appears to be 3/5 in the left leg, otherwise 5/5 in the right and upper extremities. FUNCTIONAL EXAM: She transfers with moderate amount of assistance. ASSESSMENT: 1. Left hip fracture. 2. Acute blood loss anemia. 3. Diabetes mellitus. 4. Atrial fibrillation. PLAN: Integrate her into a comprehensive and therapeutic rehab program with the following goals: 1. Physical Therapy will work with the patient. They are going to work on functional transfer training, ambulation training with a walker. 2. Occupational Therapy will see the patient, work on her activities of daily living including toileting and toilet transfers. 3. Continue Xarelto for DVT prophylaxis and for atrial fibrillation. 4. For her atrial fibrillation, we will continue her on Cardizem and Xarelto. 5. For her COPD, we will continue Asmanex and DuoNeb. We will consider a Spiriva trial. 6. For her diabetes mellitus, we will continue Lantus insulin for now. We will ask Dr. Sesay when he thinks we should resume her pump. 7. For anxiety, we will continue Celexa. 8. For her coronary artery disease. we will continue her Lipitor and Cozaar as well as Cardizem. 9. For hypothyroidism, continue Synthroid. 10. Office Services Associate will be closely involved to make sure that any services and equipment the patient requires are in place prior to discharge. 11. Home with appropriate services. ESTIMATED LENGTH OF STAY: 12 to 14 days. [id number]/[facility] #: [id number] [facility]
[2018-01-22] MEDS: Acetaminophen TAB* 325 MG PO PRN (03:05)
[2018-01-22] MEDS: Levothyroxine TAB* 125 MCG TAB PO SCH (04:47)
[2018-01-22 06:54] LABS: ABS Basophils 0 10^3/ul (0-0.2); ABS Eosinophils 0.1 10^3/ul (0-0.6); ABS Lymphocytes 1.3 10^3/ul (1.0-4.8); ABS Monocytes 0.9 10^3/ul (0-0.8); ABS Neutrophils 4.4 10^3/ul (1.5-7.7); ABS Nucleated RBC 0 10^3/ul; Eosinophil % 1.3 %; Hematocrit 24 % (35-47); Hemoglobin 8.3 g/dl (12.0-16.0); Lymphocyte % 19.5 %; Mean Corpuscular HGB Conc 34 g/dl (31-36); Mean Corpuscular Hemoglobin 33 pg (27-31); Mean Corpuscular Volume 95 fL (80-97); Mean Platelet Volume 7.4 fL (7.4-10.4); Nucleated Red Blood Cells % 0; Platelet Count 281 10^3/ul (150-450); Red Blood Count 2.56 10^6/ul (4.00-5.40); Red Cell Distribution Width 14 % (10.5-15); White Blood Count 6.7 10^3/ul (3.5-10.8)
[2018-01-22 07:07] LABS: Albumin 2.8 g/dL (3.2-5.2); BUN/Creatinine Ratio 32.2 (8-20); Calcium 8.2 mg/dL (8.6-10.3); EGFR African American 118.7 (>60); EGFR Non-African American 98.1 (>60); Globulin 2.8 g/dL (2-4); Total Bilirubin 0.9 mg/dL (0.2-1.0); Total Protein 5.6 g/dL (6.4-8.9)
[2018-01-22] MEDS: Calcium Carbonate CHEW TAB* 500 MG (TUMS) PO SCH ×2 (08:21→20:17)
[2018-01-22] MEDS: Cholecalciferol TAB* 1000 UNITS PO SCH (08:21)
[2018-01-22] MEDS: Docusate CAP* 100 MG PO SCH ×2 (08:22→20:16)
[2018-01-22] MEDS: Citalopram TAB* 20 MG PO SCH (08:22)
[2018-01-22] MEDS: Insulin GLARGINE(*) 1 UNITS UNIT SUBCUT SCH (08:22)
[2018-01-22] MEDS: Insulin LISPRO* 1 UNITS UNIT SUBCUT SCH ×4 (08:23→16:51)
[2018-01-22] MEDS: Losartan TAB* 25 MG PO SCH (08:23)
[2018-01-22] MEDS: oxyCODONE/Acetamin 5/325 MG* TAB PO PRN (08:24)
[2018-01-22] MEDS: Ascorbic Acid TAB* 500 MG PO SCH (08:24)
[2018-01-22] MEDS: Rivaroxaban TAB(*) 20 MG TAB PO SCH (08:25)
[2018-01-22] MEDS: Diltiazem CD CAP* 180 MG PO SCH (08:25)
[2018-01-22] MEDS: Mometasone 220 MCG MDI INH SCH ×2 (08:25→20:17)
[2018-01-22] MEDS: prednisoLONE 1% OPHTH.SUSP* 5 ML OPHTH.SUSP BOTH EYES SCH ×2 (08:31→20:24)
[2018-01-22] MEDS ORDERED: HYDROcodone/ACETAMIN 5-325 MG* 1 TAB PO PRN (11:29)
[2018-01-22] MEDS: HYDROcodone/ACETAMIN 5-325 MG* 1 TAB PO PRN (12:54)
[2018-01-22] MEDS: Atorvastatin* 10 MG TAB PO SCH (16:51)
[2018-01-22] MEDS: Magnesium Hydroxide LIQ* 30 ML UDC PO PRN (17:42)
[2018-01-22] MEDS ORDERED: Bisacodyl SUPP* 10 MG SUPP PR PRN (17:51)
--- NOTE | 2018-01-22 17:56 | PN ---
Progress Note Date of Service: 01/22/18 Note: LUCY COSTA was visited. Therapy notes read and reviewed. She has still not had a BM. She had 2 doses of Lactulose and definitely feels like her bowels are active. Her blood sugars were fairly high. I increased her SSI coverage. She may be getting a little confused from Percocet-switched to [place] or Tramadol Current Medications: Active Medications Generic Name Dose Route Start Last Admin Trade Name Freq PRN Reason Stop Dose Admin Acetaminophen 650 mg 01/21/18 15:47 01/22/18 03:05 Tylenol Tab* PO 650 mg Q6H PRN Administration FEVER/PAIN Hydrocodone Bitart/Acetaminophen 0.5 tab 01/22/18 11:30 01/22/18 12:54 [place] 5-325 Tab* PO 0.5 tab Q4H PRN Administration PAIN - MODERATE TO SEVERE Albuterol/Ipratropium 1 neb 01/21/18 15:54 Duoneb (Albuterol 2.5 Mg/Ipratropium 0.5 Mg) INH Q6H PRN SOB/WHEEZING Ascorbic Acid 500 mg 01/22/18 09:00 01/22/18 08:24 Vitamin C Tab* PO 500 mg Q48H WADE Administration Atorvastatin Calcium 10 mg 01/21/18 17:00 01/22/18 16:51 Lipitor* PO 10 mg 1700 WADE Administration Bisacodyl 10 mg 01/22/18 17:51 Dulcolax Supp* FL DAILY PRN CONSTIPATION Calcium Carbonate 500 mg 01/21/18 21:00 01/22/18 08:21 Tums* PO 500 mg BID WADE Administration Cholecalciferol 1,000 units 01/22/18 09:00 01/22/18 08:21 Vitamin D Tab* PO 1,000 units DAILY WADE Administration Citalopram Hydrobromide 20 mg 01/22/18 09:00 01/22/18 08:22 Celexa Tab* PO 20 mg DAILY WADE Administration Dextrose 12.5 gm 01/21/18 16:04 D50w Syringe 50 Ml* IV PUSH .FOR FS < 60 - SS PRN FS < 60 Diltiazem HCl 180 mg 01/22/18 09:00 01/22/18 08:25 Cardizem Cd Cap* PO 180 mg DAILY WADE Administration Diphenhydramine HCl 25 mg 01/21/18 15:58 Benadryl Po* PO Q6H PRN ITCHING Docusate Sodium 100 mg 01/21/18 21:00 01/22/18 08:22 Colace Cap* PO 100 mg BID WADE Administration Insulin Glargine 25 units 01/22/18 09:00 01/22/18 08:22 Lantus(*) SUBCUT 25 unit Q24H WADE Administration Insulin Human Lispro 0 - 15 units 01/22/18 11:31 01/22/18 16:51 Humalog* SUBCUT 3 unit AC WADE Administration Protocol Lactulose 30 ml 01/21/18 16:57 01/22/18 08:22 Lactulose* PO 30 ml Q8H PRN Administration CONSTIPATION Levothyroxine Sodium 125 mcg 01/22/18 06:00 01/22/18 04:47 Synthroid Tab* PO 125 mcg DAILY@0600 WADE Administration Losartan Potassium 100 mg 01/22/18 09:00 01/22/18 08:23 Cozaar Tab* PO 100 mg DAILY WADE Administration Magnesium Hydroxide 30 ml 01/21/18 16:56 01/22/18 17:42 Milk Of Magnesia Liq* PO 30 ml Q6H PRN Administration CONSTIPATION Mometasone Furoate 2 puff 01/21/18 21:00 01/22/18 08:25 Asmanex 220 Mcg Mdi * INH 2 puff BID WADE Administration Protocol Prednisolone Acetate 1 drop 01/21/18 21:00 01/22/18 08:31 Pred Forte 1%* BOTH EYES 1 drp BID WADE Administration Rivaroxaban 20 mg 01/22/18 09:00 01/22/18 08:25 Xarelto(*) PO 20 mg DAILY WADE Administration Senna 2 tab 01/21/18 21:00 01/21/18 21:08 Senokot Tab* PO 2 tab BEDTIME WADE Administration Tramadol HCl 50 mg 01/22/18 11:29 Ultram* PO Q6H PRN PAIN - MODERATE Vital Signs: Vital Signs Temp Pulse Resp BP Pulse Ox 97.8 F 75 16 107/41 95 01/22/18 15:47 01/22/18 15:47 01/22/18 15:47 01/22/18 15:47 01/22/18 15:47 Lab Results: Laboratory Results - last 24 hr 01/21/18 01/22/18 01/22/18 20:31 06:36 06:36 WBC 6.7 RBC 2.56 L Hgb 8.3 L Hct 24 L MCV 95 MCH 33 H MCHC 34 RDW 14 Plt Count 281 MPV 7.4 Neut % (Auto) 65.7 Lymph % (Auto) 19.5 Chaves % (Auto) 13.0 Eos % (Auto) 1.3 Baso % (Auto) 0.5 Absolute Neuts (auto) 4.4 Absolute Lymphs (auto) 1.3 Absolute Monos (auto) 0.9 H Absolute Eos (auto) 0.1 Absolute Basos (auto) 0 Absolute Nucleated RBC 0 Nucleated RBC % 0 Sodium 136 Potassium 4.0 Chloride 96 L Carbon Dioxide 36 H Anion Gap 4 BUN 19 Creatinine 0.59 Est GFR ( Amer) 118.7 Est GFR (Non-Af Amer) 98.1 BUN/Creatinine Ratio 32.2 H Glucose 207 H POC Glucose (mg/dL) 258 H Calcium 8.2 L Total Bilirubin 0.90 AST 21 ALT 19 Alkaline Phosphatase 48 Total Protein 5.6 L Albumin 2.8 L Globulin 2.8 Albumin/Globulin Ratio 1.0 01/22/18 01/22/18 11:42 16:32 WBC RBC Hgb Hct MCV MCH MCHC RDW Plt Count MPV Neut % (Auto) Lymph % (Auto) Chaves % (Auto) Eos % (Auto) Baso % (Auto) Absolute Neuts (auto) Absolute Lymphs (auto) Absolute Monos (auto) Absolute Eos (auto) Absolute Basos (auto) Absolute Nucleated RBC Nucleated RBC % Sodium Potassium Chloride Carbon Dioxide Anion Gap BUN Creatinine Est GFR ( Amer) Est GFR (Non-Af Amer) BUN/Creatinine Ratio Glucose POC Glucose (mg/dL) 244 H 196 H Calcium Total Bilirubin AST ALT Alkaline Phosphatase Total Protein Albumin Globulin Albumin/Globulin Ratio Exam: GENERAL: In no distress LUNGS: Mostly clear HEART: Reg rhythm ABDOMEN: Distended EXTREMITIES: Wound clean NEUROLOGIC: alert and oriented. Moves all 4 extremities. Assessment/Plan: 1. Left Hip Fracture: 50% WB LLE. Follow up with Dr. Saba 2 weeks post-op. New x-rays 2 weeks post-op. PT/OT 2. Diabetes: Increased SSI. Will ask Dr. Sesay about pump restart. May increase Lantus 3. Atrial Fibrillation: Xarelto/Cardizem 4. COPD: Supplemental O2. Duoneb, Asmanex 5. Hypothyroidism: Synthroid 6. DVT Prophylaxis: Xarelto 7. Constipation: Lactulose. Dulcolax 8. CAD: Lipitor/Cozaar/Cardizem CD 9. Advanced Directives: Full Code 01/22/18 18:00 01/22/18 18:05
[2018-01-22] MEDS: traMADol TAB* 50 MG PO PRN (19:21)
[2018-01-22] MEDS: Senna TAB PO SCH (20:16)
[2018-01-23] MEDS: traMADol TAB* 50 MG PO PRN ×3 (05:21→18:51)
[2018-01-23] MEDS: Levothyroxine TAB* 125 MCG TAB PO SCH (05:30)
[2018-01-23] MEDS: Insulin LISPRO* 1 UNITS UNIT SUBCUT SCH ×3 (07:53→16:40)
[2018-01-23] MEDS: Rivaroxaban TAB(*) 20 MG TAB PO SCH (08:01)
[2018-01-23] MEDS: Citalopram TAB* 20 MG PO SCH (08:02)
[2018-01-23] MEDS: Docusate CAP* 100 MG PO SCH ×2 (08:02→21:09)
[2018-01-23] MEDS: Cholecalciferol TAB* 1000 UNITS PO SCH (08:02)
[2018-01-23] MEDS: Diltiazem CD CAP* 180 MG PO SCH (08:02)
[2018-01-23] MEDS: Losartan TAB* 25 MG PO SCH (08:02)
[2018-01-23] MEDS: prednisoLONE 1% OPHTH.SUSP* 5 ML OPHTH.SUSP BOTH EYES SCH ×2 (08:04→20:19)
[2018-01-23] MEDS: Insulin GLARGINE(*) 1 UNITS UNIT SUBCUT SCH (08:55)
[2018-01-23] MEDS: HYDROcodone/ACETAMIN 5-325 MG* 1 TAB PO PRN ×2 (09:01→14:08)
[2018-01-23] MEDS: Mometasone 220 MCG MDI INH SCH ×2 (10:30→20:19)
--- NOTE | 2018-01-23 12:27 | PMRUTEAM ---
PMRU: Team Meeting Current Status: Nursing: Current Status Skin Deviations [Left Shoulder Other ] Skin Deviations [Right Abdomen Other ] Skin Deviations [Left Hip] Incision Skin Deviation Description [ scratch sandoval on L lower shoulder area Left Shoulder] Skin Deviation Description [ scratch sandoval Right Abdomen] Skin Deviation Description [ x3. proximal incision large amount serous drainage Left Hip] . middle and distal inciisons with scant drainage Bladder Current Status sheikh Bowel Current Status bowel meds given Nutrition Current Status appetite fair Medication Current Status needs reinforcement Physical Therapy: Current Status Bed Mobility Assistance Mod Assist x 2 Transfer Moblility Assistance Min Assist x2 Transfer/Bed Mobility Rolling Walker Recommended Devices Ambulation Assistance Min Assist x 2 Ambulation Assistive Devices Rolling Walker Number of Feet Patient 5 Ambulated Stairs Assistance NT Stairs Recommended Devices Two Rails Number of Stairs 6 Occupational Therapy: Current Status Upper Body Dressing Supervision Lower Body Dressing Max Asst,2 Person Assist Bathing Mod Assist,2 Person Assist Toileting Total Assist,2 Person Assist Toilet Transfer Mod Assist,2 Person Assist Shower Transfer Mod Assist,2 Person Assist Eating Independent Rec Therapy: Current Status Summary of Assessment and RT assessment complete and pt. is aware services. Clinical Impression Pt. is pleasant, cooperative and open to continued leisure visits while on the unit. Treatment Goals Pt. will engage in leisure activities while on the unit. Treatment Plan Provide RT services and encourage involvement. Social Work: Current Status Discharge Plan return home with home care svs and family support Potential for Family Training pt's daughter is involved and supportive Anticipated Discharge Home Destination Discharge With return home with home care svs and family support Nutrition: Current Status Monitoring ORIF left hip 01/19. Post-op po intake improving in past couple of days, from avg 40% of meals to ~ 60% of meals. Consistent carb diet appropriate. FS only 128 this a.m.; A1c n/a. Pt w/insulin pump . Pt lives with and takes care of her spouse. Will follow for any diet education needs prior to d/c. Full assessment planned 01/28. Goals: Physical Therapy: Initial Goals Bed Mobility Assistance Independent Transfer Mobility Assistance Independent Transfer/Bed Mobility Rolling Walker Recommended Devices Ambulation Independent Ambulation Recommended Devices Rolling Walker Ambulation Distance 150 Stairs Assistance Supervision Stair Recommended Devices Crutches,One Rail Number of Stairs flight Home Exercise Program Independent Assistance Physical Therapy: Updated Goals Transfer/Bed Mobility Rolling Walker Recommended Devices Occupational Therapy: Initial Goals Goals to be Completed in (Days 14-18 days ) Upper Body Bathing Routine Modified Independent with Lower Body Bathing Routine Modified Independent with Upper Body Dressing Routine Independent Lower Body Dressing Routine Modified Independent with Toilet Hygeine and Clothing Modified Independent with Management Routine Toilet Transfer Routine Modified Independent with Tub Transfer Routine Modified Independent with Functional Transfers for ADL Modified Independent with Grooming Routine Independent Feeding Routine Modified Independent with Nursing: Goals Bladder Goal independent Bowel Goal independent Nutrition Goal 100% of all meals consumed Medication Goal independent Nutrition: Goals Intervention Goals 1. Adequate PO intake to maintain lean body mass and hydration while promoting post-op healing 2. Improved glycemic control w/ appropriate insulin regimen and diet considerations 3. Electrolytes will be maintained WNL w/ adequate hydration 4. Achieve bowel regularity w/o additional post-op constipation Social Work: Goals Discharge Plan return home with home care svs and family support Potential for Family Training pt's daughter is involved and supportive Anticipated Discharge Home Destination Discharge With return home with home care svs and family support Care Plan: Care Plan ADL's - Improve/Maintain Start: 01/22/18 14:40 Freq: DAILY Status: Active Target: Protocol: Activity Type Activity Date Activity User E-Sign Co-Sign Detail Recorded Client Recorded Date Recorded By Document 01/23/18 11:17 [id number] 01/23/18 11:17 [id number] 01/23/18 11:17 PMRU Outcome: ADL's/ADL Transfers Orders/Interventions Occupational Therapy Evaluation & Treatment Communication Tool in Patient Room Device Yes Address Deficits Secondary To: left hip ORIF Patient to receive OT 5x/wk for 60-120 Therex min/day Self Care Management Group Therapy UE/LE ADL's with Assist Yes: [place] ADL Transfers with Assist Yes: [place] Toileting: Transfers,Clothing Management Yes: [place] ,Hygeine w/Assist Progression Toward Outcome/Goals Progressing Outcome/Goals Met Pt demonstrates increased independence with STS and SPT this date. 2 assist for standing to pull pants over buttocks and hygiene. Cardiovascular- Improve/Maintain Start: 01/21/18 18:28 Freq: QSHIFT Status: Active Target: Protocol: Activity Type Activity Date Activity User E-Sign Co-Sign Detail Recorded Client Recorded Date Recorded By Document 01/23/18 10:41 [id number] 01/23/18 10:43 [id number] 01/23/18 10:41 PMRU Outcome: Cardiovascular Vital Signs q Shift for 48hrs Then BID Yes Daily Weight Ordered No Current Cardiovascular Outcome/Goal Maintain/ Achieve Baseline HR, BP , Perfusion Maintain/ Achieve Hemodynamic Stability Free of Abnormal Cardiac Symptoms Progression Toward Outcome/Goal Progressing DVT Prophylaxis- Improve/Maintain Start: 01/21/18 18:28 Freq: QSHIFT Status: Active Target: Protocol: Activity Type Activity Date Activity User E-Sign Co-Sign Detail Recorded Client Recorded Date Recorded By Document 01/23/18 10:41 [id number] 01/23/18 10:43 [id number] 01/23/18 10:41 PMRU Outcome: DVT Prophylaxis Outcome/Goals Remains Free of DVT Complies with DVT Prophylaxis /Treatment Progression Toward Outcome/Goals Progressing Outcome/Goals Met Comment angelo wraps applied bilaterally Education-Improve/Maintain Start: 01/21/18 18:28 Freq: QSHIFT Status: Active Target: Protocol: Activity Type Activity Date Activity User E-Sign Co-Sign Detail Recorded Client Recorded Date Recorded By Document 01/23/18 10:41 [id number] 01/23/18 10:43 [id number] 01/23/18 10:41 PMRU Outcome: Education Outcome/Goals Encourage Questions Progression Toward Outcome/Goals Progressing /GI-Improve/Maintain Start: 01/21/18 18:28 Freq: QSHIFT Status: Active Target: Protocol: Activity Type Activity Date Activity User E-Sign Co-Sign Detail Recorded Client Recorded Date Recorded By Document 01/23/18 10:41 [id number] 01/23/18 10:43 [id number] 01/23/18 10:41 PMRU Outcome: Genitourinary/ Gastrointestinal Genitourinary- Outcome/Goals Maintain/ Achieve Adequate Urinary Output Remain Free of Hospital- Acquired UTI Gastrointestinal-Outcome/Goals Maintain/ Achieve Bowel Regularity in Accordance with Pt's Baseline Prevent Constipation Laxatives as Ordered Progression Toward Outcome/Goals - Progressing Progression Toward Outcome/Goals - GI Progressing Metabolic Status- Improve/Maintain Start: 01/21/18 18:28 Freq: QSHIFT Status: Active Target: Protocol: Activity Type Activity Date Activity User E-Sign Co-Sign Detail Recorded Client Recorded Date Recorded By Document 01/23/18 10:41 [id number] 01/23/18 10:43 [id number] 01/23/18 10:41 PMRU Outcome: Metabolic Status Have Fingersticks Been Ordered Yes Fingerstick Order Frequency Other Outcome/Goals Maintain/ Improve Metabolic Status Progression Toward Outcome/Goals Progressing Outcome/Goals Met Comment finger sticks AC Pain/Comfort- Improve/Maintain Start: 01/21/18 18:28 Freq: QSHIFT Status: Active Target: Protocol: Activity Type Activity Date Activity User E-Sign Co-Sign Detail Recorded Client Recorded Date Recorded By Document 01/23/18 10:41 [id number] PMRU[facility] [employer] 01/23/18 10:43 [id number] 01/23/18 10:41 PMRU Outcome: Pain/Comfort Outcome/Goals Demonstrates Knowledge and Use of Available Comfort Measures Achieves Acceptable Comfort/Pain Level as Determined by Patient/Condit Maintain Comfort Level Allowing Patient to Fully Participate in Rehab Progression Toward Outcome/Goals Progressing Respiratory - Improve/Maintain Start: 01/21/18 18:28 Freq: QSHIFT Status: Active Target: Protocol: Activity Type Activity Date Activity User E-Sign Co-Sign Detail Recorded Client Recorded Date Recorded By Document 01/23/18 10:41 [id number] RU[facility] [employer] 01/23/18 10:43 [id number] 01/23/18 10:41 PMRU Outcome: Respiratory Does Patient Have a Trach No Outcome/Goals Maintain/ Improve O2 Sat per MD Order Maintain/ Improve Baseline Respiratory Status Maintain/ Improve Activity Tolerance Prevent Pneumonia/ Atelectasis Progression Toward Outcome/Goals Progressing Outcome/Goals Met Comment [address] Safety- Improve/Maintain Start: 01/21/18 18:28 Freq: QSHIFT Status: Active Target: Protocol: Activity Type Activity Date Activity User E-Sign Co-Sign Detail Recorded Client Recorded Date Recorded By Document 01/23/18 10:41 [id number] RU[facility] [employer] 01/23/18 10:43 [id number] 01/23/18 10:41 PMRU Outcome: Safety Outcome/Goals Remain Free of Injury or Harm Cooperates with Safety Measures for Least Restrictive Environment Prevent Falls/ Injury Progression Toward Outcome/Goals Progressing Outcome/Goals Met Comment rings appropriately Medicine Note: Length of Stay: 16 days Anticipated Discharge Destination: Home Tentative Discharge Date: 02/08/18 Discharged to: Home
[2018-01-23] MEDS: Atorvastatin* 10 MG TAB PO SCH (16:40)
--- NOTE | 2018-01-23 16:43 | PN ---
Progress Note Date of Service: 01/23/18 Note: LUCY COSTA was visited. Therapy notes read and reviewed. She was discussed in interdisciplinary plan of care rounds. SHe had urinary retention and had to have a sheikh placed yesterday. Will begin sheikh clamping tomorrow. Her BS are better usually sub-200. Have changed from Percocet to 1/2 [place]. She is clearer but in more pain Current Medications: Active Medications Generic Name Dose Route Start Last Admin Trade Name Freq PRN Reason Stop Dose Admin Acetaminophen 650 mg 01/21/18 15:47 01/22/18 03:05 Tylenol Tab* PO 650 mg Q6H PRN Administration FEVER/PAIN Hydrocodone Bitart/Acetaminophen 0.5 tab 01/22/18 11:30 01/23/18 14:08 [place] 5-325 Tab* PO 0.5 tab Q4H PRN Administration PAIN - MODERATE TO SEVERE Albuterol/Ipratropium 1 neb 01/21/18 15:54 Duoneb (Albuterol 2.5 Mg/Ipratropium 0.5 Mg) INH Q6H PRN SOB/WHEEZING Ascorbic Acid 500 mg 01/22/18 09:00 01/22/18 08:24 Vitamin C Tab* PO 500 mg Q48H WADE Administration Atorvastatin Calcium 10 mg 01/21/18 17:00 01/22/18 16:51 Lipitor* PO 10 mg 1700 WADE Administration Bisacodyl 10 mg 01/22/18 17:51 01/22/18 18:45 Dulcolax Supp* [place] 10 mg DAILY PRN Administration CONSTIPATION Cholecalciferol 1,000 units 01/22/18 09:00 01/23/18 08:02 Vitamin D Tab* PO 1,000 units DAILY WADE Administration Citalopram Hydrobromide 20 mg 01/22/18 09:00 01/23/18 08:02 Celexa Tab* PO 20 mg DAILY WADE Administration Dextrose 12.5 gm 01/21/18 16:04 D50w Syringe 50 Ml* IV PUSH .FOR FS < 60 - SS PRN FS < 60 Diltiazem HCl 180 mg 01/22/18 09:00 01/23/18 08:02 Cardizem Cd Cap* PO 180 mg DAILY WADE Administration Diphenhydramine HCl 25 mg 01/21/18 15:58 Benadryl Po* PO Q6H PRN ITCHING Docusate Sodium 100 mg 01/21/18 21:00 01/23/18 08:02 Colace Cap* PO 100 mg BID WADE Administration Insulin Glargine 25 units 01/22/18 09:00 01/23/18 08:55 Lantus(*) SUBCUT 25 unit Q24H WADE Administration Insulin Human Lispro 0 - 15 units 01/22/18 11:31 01/23/18 12:18 Humalog* SUBCUT 6 unit AC WADE Administration Protocol Lactulose 30 ml 01/21/18 16:57 01/23/18 15:53 Lactulose* PO 30 ml Q8H PRN Administration CONSTIPATION Levothyroxine Sodium 125 mcg 01/22/18 06:00 01/23/18 05:30 Synthroid Tab* PO 125 mcg DAILY@0600 WADE Administration Losartan Potassium 100 mg 01/22/18 09:00 01/23/18 08:02 Cozaar Tab* PO 100 mg DAILY WADE Administration Magnesium Hydroxide 30 ml 01/21/18 16:56 01/22/18 17:42 Milk Of Magnesia Liq* PO 30 ml Q6H PRN Administration CONSTIPATION Mometasone Furoate 2 puff 01/21/18 21:00 01/23/18 10:30 Asmanex 220 Mcg Mdi * INH 2 puff BID WADE Administration Protocol Prednisolone Acetate 1 drop 01/21/18 21:00 01/23/18 08:04 Pred Forte 1%* BOTH EYES 1 drp BID WADE Administration Rivaroxaban 20 mg 01/22/18 09:00 01/23/18 08:01 Xarelto(*) PO 20 mg DAILY WADE Administration Senna 2 tab 01/21/18 21:00 01/22/18 20:16 Senokot Tab* PO 2 tab BEDTIME WADE Administration Tramadol HCl 50 mg 01/22/18 11:29 01/23/18 12:23 Ultram* PO 50 mg Q6H PRN Administration PAIN - MODERATE Vital Signs: Vital Signs Temp Pulse Resp BP Pulse Ox 98.2 F 75 18 117/52 95 01/23/18 15:52 01/23/18 15:52 01/23/18 16:10 01/23/18 15:52 01/23/18 15:52 Lab Results: Laboratory Results - last 24 hr 01/22/18 01/22/18 01/23/18 16:32 20:14 07:45 POC Glucose (mg/dL) 196 H 192 H 128 H 01/23/18 11:59 POC Glucose (mg/dL) 219 H Exam: GENERAL: In no distress LUNGS: Mostly clear HEART: Reg rhythm ABDOMEN: Distended EXTREMITIES: Wound on left leg clean NEUROLOGIC: alert and oriented. Moves all 4 extremities. Assessment/Plan: 1. Left Hip Fracture: 50% WB LLE. Follow up with Dr. Saba 2 weeks post-op. New x-rays 2 weeks post-op. PT/OT 2. Diabetes: Increased SSI. Will ask Dr. Sesay about pump restart. May increase Lantus 3. Atrial Fibrillation: Xarelto/Cardizem 4. COPD: Supplemental O2. Duoneb, Asmanex 5. Hypothyroidism: Synthroid 6. DVT Prophylaxis: Xarelto 7. Constipation: Lactulose. Dulcolax 8. CAD: Lipitor/Cozaar/Cardizem CD 9. Urinary Retention: Sheikh. Clamp tomorrow 10. Advanced Directives: Full Code 01/23/18 16:44
[2018-01-23] MEDS: Senna TAB PO SCH (21:09)
[2018-01-24] MEDS: traMADol TAB* 50 MG PO PRN ×3 (03:41→19:01)
[2018-01-24] MEDS: Levothyroxine TAB* 125 MCG TAB PO SCH (05:50)
[2018-01-24] MEDS: Insulin LISPRO* 1 UNITS UNIT SUBCUT SCH ×3 (07:57→16:44)
[2018-01-24] MEDS: HYDROcodone/ACETAMIN 5-325 MG* 1 TAB PO PRN ×2 (08:18→20:28)
[2018-01-24] MEDS: Cholecalciferol TAB* 1000 UNITS PO SCH (10:24)
[2018-01-24] MEDS: Ascorbic Acid TAB* 500 MG PO SCH (10:24)
[2018-01-24] MEDS: Citalopram TAB* 20 MG PO SCH (10:25)
[2018-01-24] MEDS: Diltiazem CD CAP* 180 MG PO SCH (10:25)
[2018-01-24] MEDS: Insulin GLARGINE(*) 1 UNITS UNIT SUBCUT SCH (10:25)
[2018-01-24] MEDS: prednisoLONE 1% OPHTH.SUSP* 5 ML OPHTH.SUSP BOTH EYES SCH ×2 (10:26→20:48)
[2018-01-24] MEDS: Losartan TAB* 25 MG PO SCH (10:26)
[2018-01-24] MEDS: Rivaroxaban TAB(*) 20 MG TAB PO SCH (10:26)
[2018-01-24] MEDS: Docusate CAP* 100 MG PO SCH ×2 (10:29→20:44)
[2018-01-24] MEDS: Mometasone 220 MCG MDI INH SCH ×2 (11:30→20:45)
--- NOTE | 2018-01-24 16:30 | PN ---
Progress Note Date of Service: 01/24/18 Note: LUCY COSTA was visited. Therapy notes read and reviewed. I spoke with Dr. Sesay 's office. They said when patient feels comfortable resuming pump, she can turn it back on. For now, she says her vision is blurry secondary to pain meds and wishes to continue with Lantus and sliding scale. Her sheikh has started clamping. Current Medications: Active Medications Generic Name Dose Route Start Last Admin Trade Name Freq PRN Reason Stop Dose Admin Acetaminophen 650 mg 01/21/18 15:47 01/22/18 03:05 Tylenol Tab* PO 650 mg Q6H PRN Administration FEVER/PAIN Hydrocodone Bitart/Acetaminophen 0.5 tab 01/22/18 11:30 01/24/18 08:18 [place] 5-325 Tab* PO 0.5 tab Q4H PRN Administration PAIN - MODERATE TO SEVERE Albuterol/Ipratropium 1 neb 01/21/18 15:54 Duoneb (Albuterol 2.5 Mg/Ipratropium 0.5 Mg) INH Q6H PRN SOB/WHEEZING Ascorbic Acid 500 mg 01/22/18 09:00 01/24/18 10:24 Vitamin C Tab* PO 500 mg Q48H WADE Administration Atorvastatin Calcium 10 mg 01/21/18 17:00 01/23/18 16:40 Lipitor* PO 10 mg 1700 WADE Administration Bisacodyl 10 mg 01/22/18 17:51 01/22/18 18:45 Dulcolax Supp* [place] 10 mg DAILY PRN Administration CONSTIPATION Cholecalciferol 1,000 units 01/22/18 09:00 01/24/18 10:24 Vitamin D Tab* PO 1,000 units DAILY WADE Administration Citalopram Hydrobromide 20 mg 01/22/18 09:00 01/24/18 10:25 Celexa Tab* PO 20 mg DAILY WADE Administration Dextrose 12.5 gm 01/21/18 16:04 D50w Syringe 50 Ml* IV PUSH .FOR FS < 60 - SS PRN FS < 60 Diltiazem HCl 180 mg 01/22/18 09:00 01/24/18 10:25 Cardizem Cd Cap* PO 180 mg DAILY WADE Administration Diphenhydramine HCl 25 mg 01/21/18 15:58 Benadryl Po* PO Q6H PRN ITCHING Docusate Sodium 100 mg 01/21/18 21:00 01/24/18 10:29 Colace Cap* PO Not Given BID WADE Insulin Glargine 25 units 01/22/18 09:00 01/24/18 10:25 Lantus(*) SUBCUT 25 unit Q24H WADE Administration Insulin Human Lispro 0 - 15 units 01/22/18 11:31 01/24/18 12:45 Humalog* SUBCUT 6 unit AC WADE Administration Protocol Lactulose 30 ml 01/21/18 16:57 01/23/18 15:53 Lactulose* PO 30 ml Q8H PRN Administration CONSTIPATION Levothyroxine Sodium 125 mcg 01/22/18 06:00 01/24/18 05:50 Synthroid Tab* PO 125 mcg DAILY@0600 WADE Administration Losartan Potassium 100 mg 01/22/18 09:00 01/24/18 10:26 Cozaar Tab* PO 100 mg DAILY WADE Administration Magnesium Hydroxide 30 ml 01/21/18 16:56 01/22/18 17:42 Milk Of Magnesia Liq* PO 30 ml Q6H PRN Administration CONSTIPATION Mometasone Furoate 2 puff 01/21/18 21:00 01/24/18 11:30 Asmanex 220 Mcg Mdi * INH 2 puff BID [facility] Administration Protocol Prednisolone Acetate 1 drop 01/21/18 21:00 01/24/18 10:26 Pred Forte 1%* BOTH EYES 1 drp BID WADE Administration Rivaroxaban 20 mg 01/22/18 09:00 01/24/18 10:26 Xarelto(*) PO 20 mg DAILY WADE Administration Senna 2 tab 01/21/18 21:00 01/23/18 21:09 Senokot Tab* PO Not Given BEDTIME WADE Tramadol HCl 50 mg 01/22/18 11:29 01/24/18 11:57 Ultram* PO 50 mg Q6H PRN Administration PAIN - MODERATE Vital Signs: Vital Signs Temp Pulse Resp BP Pulse Ox 98.0 F 73 16 105/46 95 01/24/18 15:28 01/24/18 15:28 01/24/18 15:28 01/24/18 15:28 01/24/18 15:30 Lab Results: Laboratory Results - last 24 hr 01/23/18 01/23/18 01/24/18 16:27 20:22 07:31 POC Glucose (mg/dL) 131 H 169 H 132 H 01/24/18 12:00 POC Glucose (mg/dL) 204 H Exam: GENERAL: In no distress LUNGS: Mostly clear HEART: Reg rhythm ABDOMEN: Distended EXTREMITIES: Wound on left leg clean NEUROLOGIC: alert and oriented. Moves all 4 extremities. Assessment/Plan: 1. Left Hip Fracture: 50% WB LLE. Follow up with Dr. Saba 2 weeks post-op. New x-rays 2 weeks post-op. PT/OT 2. Diabetes: Increased SSI. May increase Lantus 3. Atrial Fibrillation: Xarelto/Cardizem 4. COPD: Supplemental O2. Duoneb, Asmanex 5. Hypothyroidism: Synthroid 6. DVT Prophylaxis: Xarelto 7. Constipation: Lactulose. Dulcolax 8. CAD: Lipitor/Cozaar/Cardizem CD 9. Urinary Retention: Sheikh. Clamp today 10. Advanced Directives: Full Code 01/24/18 16:31
[2018-01-24] MEDS: Atorvastatin* 10 MG TAB PO SCH (16:32)
[2018-01-24] MEDS: Senna TAB PO SCH (20:44)
[2018-01-25] MEDS: traMADol TAB* 50 MG PO PRN (05:40)
[2018-01-25] MEDS: Levothyroxine TAB* 125 MCG TAB PO SCH (05:41)
[2018-01-25] MEDS: HYDROcodone/ACETAMIN 5-325 MG* 1 TAB PO PRN ×4 (07:08→20:18)
[2018-01-25] MEDS: Insulin LISPRO* 1 UNITS UNIT SUBCUT SCH ×3 (07:30→17:17)
[2018-01-25] MEDS: Losartan TAB* 25 MG PO SCH (08:18)
[2018-01-25] MEDS: Docusate CAP* 100 MG PO SCH ×2 (08:18→20:19)
[2018-01-25] MEDS: Diltiazem CD CAP* 180 MG PO SCH (08:18)
[2018-01-25] MEDS: Rivaroxaban TAB(*) 20 MG TAB PO SCH (08:18)
[2018-01-25] MEDS: Mometasone 220 MCG MDI INH SCH ×2 (08:18→20:03)
[2018-01-25] MEDS: Citalopram TAB* 20 MG PO SCH (08:18)
[2018-01-25] MEDS: Cholecalciferol TAB* 1000 UNITS PO SCH (08:18)
[2018-01-25] MEDS: prednisoLONE 1% OPHTH.SUSP* 5 ML OPHTH.SUSP BOTH EYES SCH ×2 (08:20→20:20)
[2018-01-25] MEDS: Insulin GLARGINE(*) 1 UNITS UNIT SUBCUT SCH (09:19)
[2018-01-25] MEDS: Atorvastatin* 10 MG TAB PO SCH (16:57)
--- NOTE | 2018-01-25 18:59 | PN ---
Progress Note Date of Service: 01/25/18 Note: LUCY COSTA was visited. Therapy notes read and reviewed. Now off oxygen. She is doing ok, will remove sheikh in am. Her pain was not being controlled with 0.5 [place], now has 1 [place] for pain control, does not seem confused. Current Medications: Active Medications Generic Name Dose Route Start Last Admin Trade Name Freq PRN Reason Stop Dose Admin Acetaminophen 650 mg 01/21/18 15:47 01/22/18 03:05 Tylenol Tab* PO 650 mg Q6H PRN Administration FEVER/PAIN Hydrocodone Bitart/Acetaminophen 1 tab 01/25/18 10:54 01/25/18 16:18 [place] 5-325 Tab* PO 1 tab Q4H PRN Administration PAIN - MODERATE TO SEVERE Albuterol/Ipratropium 1 neb 01/21/18 15:54 Duoneb (Albuterol 2.5 Mg/Ipratropium 0.5 Mg) INH Q6H PRN SOB/WHEEZING Ascorbic Acid 500 mg 01/22/18 09:00 01/24/18 10:24 Vitamin C Tab* PO 500 mg Q48H WADE Administration Atorvastatin Calcium 10 mg 01/21/18 17:00 01/25/18 16:57 Lipitor* PO 10 mg 1700 WADE Administration Bisacodyl 10 mg 01/22/18 17:51 01/22/18 18:45 Dulcolax Supp* [place] 10 mg DAILY PRN Administration CONSTIPATION Cholecalciferol 1,000 units 01/22/18 09:00 01/25/18 08:18 Vitamin D Tab* PO 1,000 units DAILY WADE Administration Citalopram Hydrobromide 20 mg 01/22/18 09:00 01/25/18 08:18 Celexa Tab* PO 20 mg DAILY WADE Administration Dextrose 12.5 gm 01/21/18 16:04 D50w Syringe 50 Ml* IV PUSH .FOR FS < 60 - SS PRN FS < 60 Diltiazem HCl 180 mg 01/22/18 09:00 01/25/18 08:18 Cardizem Cd Cap* PO 180 mg DAILY WADE Administration Diphenhydramine HCl 25 mg 01/21/18 15:58 Benadryl Po* PO Q6H PRN ITCHING Docusate Sodium 100 mg 01/21/18 21:00 01/25/18 08:18 Colace Cap* PO 100 mg BID WADE Administration Insulin Glargine 25 units 01/22/18 09:00 01/25/18 09:19 Lantus(*) SUBCUT 25 unit Q24H WADE Administration Insulin Human Lispro 0 - 15 units 01/22/18 11:31 01/25/18 17:17 Humalog* SUBCUT 3 unit AC WADE Administration Protocol Lactulose 30 ml 01/21/18 16:57 01/23/18 15:53 Lactulose* PO 30 ml Q8H PRN Administration CONSTIPATION Levothyroxine Sodium 125 mcg 01/22/18 06:00 01/25/18 05:41 Synthroid Tab* PO 125 mcg DAILY@0600 WADE Administration Losartan Potassium 100 mg 01/22/18 09:00 01/25/18 08:18 Cozaar Tab* PO 100 mg DAILY WADE Administration Magnesium Hydroxide 30 ml 01/21/18 16:56 01/22/18 17:42 Milk Of Magnesia Liq* PO 30 ml Q6H PRN Administration CONSTIPATION Mometasone Furoate 2 puff 01/21/18 21:00 01/25/18 08:18 Asmanex 220 Mcg Mdi * INH 2 puff BID WADE Administration Protocol Prednisolone Acetate 1 drop 01/21/18 21:00 01/25/18 08:20 Pred Forte 1%* BOTH EYES 1 drp BID WADE Administration Rivaroxaban 20 mg 01/22/18 09:00 01/25/18 08:18 Xarelto(*) PO 20 mg DAILY WADE Administration Senna 2 tab 01/21/18 21:00 01/24/18 20:44 Senokot Tab* PO 2 tab BEDTIME WADE Administration Tramadol HCl 50 mg 01/22/18 11:29 01/25/18 05:40 Ultram* PO 50 mg Q6H PRN Administration PAIN - MODERATE Vital Signs: Vital Signs Temp Pulse Resp BP Pulse Ox 98.3 F 77 16 123/53 93 01/25/18 15:55 01/25/18 15:55 01/25/18 18:20 01/25/18 15:55 01/25/18 15:55 Lab Results: Laboratory Results - last 24 hr 01/24/18 01/25/18 01/25/18 20:44 07:27 11:50 POC Glucose (mg/dL) 259 H 172 H 193 H 01/25/18 16:58 POC Glucose (mg/dL) 151 H Exam: GENERAL: In no distress LUNGS: Mostly clear HEART: Reg rhythm ABDOMEN: Distended EXTREMITIES: Wound on left leg clean NEUROLOGIC: alert and oriented. Moves all 4 extremities. Assessment/Plan: 1. Left Hip Fracture: 50% WB LLE. Follow up with Dr. Saba 2 weeks post-op. New x-rays 2 weeks post-op. PT/OT 2. Diabetes: Increased SSI. May increase Lantus. Can restart Insulin pump when she feels ready, per Dr. Sesay 3. Atrial Fibrillation: Xarelto/Cardizem 4. COPD: Supplemental O2. Duoneb, Asmanex 5. Hypothyroidism: Synthroid 6. DVT Prophylaxis: Xarelto 7. Constipation: Lactulose. Dulcolax 8. CAD: Lipitor/Cozaar/Cardizem CD 9. Urinary Retention: Sheikh. Clamp today, d/c in am 10. Advanced Directives: Full Code 01/25/18 18:59
[2018-01-25] MEDS: Senna TAB PO SCH (20:19)
[2018-01-26] MEDS: HYDROcodone/ACETAMIN 5-325 MG* 1 TAB PO PRN ×4 (05:30→19:33)
[2018-01-26] MEDS: Levothyroxine TAB* 125 MCG TAB PO SCH (05:30)
[2018-01-26] MEDS: Losartan TAB* 25 MG PO SCH (09:35)
[2018-01-26] MEDS: Diltiazem CD CAP* 180 MG PO SCH (09:36)
[2018-01-26] MEDS: Ascorbic Acid TAB* 500 MG PO SCH (09:36)
[2018-01-26] MEDS: Cholecalciferol TAB* 1000 UNITS PO SCH (09:36)
[2018-01-26] MEDS: Rivaroxaban TAB(*) 20 MG TAB PO SCH (09:36)
[2018-01-26] MEDS: Citalopram TAB* 20 MG PO SCH (09:36)
[2018-01-26] MEDS: Mometasone 220 MCG MDI INH SCH ×2 (09:37→21:09)
[2018-01-26] MEDS: Docusate CAP* 100 MG PO SCH ×2 (09:38→21:12)
[2018-01-26] MEDS: Insulin LISPRO* 1 UNITS UNIT SUBCUT SCH ×3 (09:39→16:42)
[2018-01-26] MEDS: Insulin GLARGINE(*) 1 UNITS UNIT SUBCUT SCH (09:40)
[2018-01-26] MEDS: prednisoLONE 1% OPHTH.SUSP* 5 ML OPHTH.SUSP BOTH EYES SCH ×2 (09:41→21:14)
--- NOTE | 2018-01-26 10:15 | PN ---
Progress Note Date of Service: 01/26/18 Note: LUCY COSTA was visited. Nursing and therapy notes read and reviewed. No chest pain, shortness of breath or abdominal pain. Morgan out this morning. No void yet. Current Medications: Active Medications Generic Name Dose Route Start Last Admin Trade Name Freq PRN Reason Stop Dose Admin Acetaminophen 650 mg 01/21/18 15:47 01/22/18 03:05 Tylenol Tab* PO 650 mg Q6H PRN Administration FEVER/PAIN Hydrocodone Bitart/Acetaminophen 1 tab 01/25/18 10:54 01/25/18 20:18 [place] 5-325 Tab* PO 1 tab Q4H PRN Administration PAIN - MODERATE TO SEVERE Hydrocodone Bitart/Acetaminophen 2 tab 01/25/18 22:34 01/26/18 09:37 [place] 5-325 Tab* PO 2 tab Q4H PRN Administration PAIN Albuterol/Ipratropium 1 neb 01/21/18 15:54 Duoneb (Albuterol 2.5 Mg/Ipratropium 0.5 Mg) INH Q6H PRN SOB/WHEEZING Ascorbic Acid 500 mg 01/22/18 09:00 01/26/18 09:36 Vitamin C Tab* PO 500 mg Q48H WADE Administration Atorvastatin Calcium 10 mg 01/21/18 17:00 01/25/18 16:57 Lipitor* PO 10 mg 1700 WADE Administration Bisacodyl 10 mg 01/22/18 17:51 01/22/18 18:45 Dulcolax Supp* [place] 10 mg DAILY PRN Administration CONSTIPATION Cholecalciferol 1,000 units 01/22/18 09:00 01/26/18 09:36 Vitamin D Tab* PO 1,000 units DAILY WADE Administration Citalopram Hydrobromide 20 mg 01/22/18 09:00 01/26/18 09:36 Celexa Tab* PO 20 mg DAILY WADE Administration Dextrose 12.5 gm 01/21/18 16:04 D50w Syringe 50 Ml* IV PUSH .FOR FS < 60 - SS PRN FS < 60 Diltiazem HCl 180 mg 01/22/18 09:00 01/26/18 09:36 Cardizem Cd Cap* PO 180 mg DAILY WADE Administration Diphenhydramine HCl 25 mg 01/21/18 15:58 Benadryl Po* PO Q6H PRN ITCHING Docusate Sodium 100 mg 01/21/18 21:00 01/26/18 09:38 Colace Cap* PO Not Given BID WADE Insulin Glargine 25 units 01/22/18 09:00 01/26/18 09:40 Lantus(*) SUBCUT 25 unit Q24H WADE Administration Insulin Human Lispro 0 - 15 units 01/22/18 11:31 01/26/18 09:39 Humalog* SUBCUT 2 unit AC WADE Administration Protocol Lactulose 30 ml 01/21/18 16:57 01/23/18 15:53 Lactulose* PO 30 ml Q8H PRN Administration CONSTIPATION Levothyroxine Sodium 125 mcg 01/22/18 06:00 01/26/18 05:30 Synthroid Tab* PO 125 mcg DAILY@0600 WADE Administration Losartan Potassium 100 mg 01/22/18 09:00 01/26/18 09:35 Cozaar Tab* PO 100 mg DAILY WADE Administration Magnesium Hydroxide 30 ml 01/21/18 16:56 01/22/18 17:42 Milk Of Magnesia Liq* PO 30 ml Q6H PRN Administration CONSTIPATION Mometasone Furoate 2 puff 01/21/18 21:00 01/26/18 09:37 Asmanex 220 Mcg Mdi * INH 2 puff BID [facility] Administration Protocol Prednisolone Acetate 1 drop 01/21/18 21:00 01/26/18 09:41 Pred Forte 1%* BOTH EYES 1 drp BID WADE Administration Rivaroxaban 20 mg 01/22/18 09:00 01/26/18 09:36 Xarelto(*) PO 20 mg DAILY WADE Administration Senna 2 tab 01/21/18 21:00 01/25/18 20:19 Senokot Tab* PO 2 tab BEDTIME WADE Administration Vital Signs: Vital Signs Temp Pulse Resp BP Pulse Ox 99.5 F 85 16 140/61 90 01/26/18 05:26 01/26/18 05:26 01/26/18 09:37 01/26/18 05:26 01/26/18 05:26 Lab Results: Laboratory Results - last 24 hr 01/25/18 01/25/18 01/25/18 11:50 16:58 20:23 POC Glucose (mg/dL) 193 H 151 H 183 H 01/26/18 07:41 POC Glucose (mg/dL) 143 H Exam: GENERAL: No acute distress LUNGS: clear to auscultation bilaterally HEART: Regular rate and rhythm ABDOMEN: + bowel sounds, soft, non-tender, non-distended EXTREMITIES: Left leg edema. No calf pain. Negative Ruddy's. Calf soft. NEUROLOGIC: 5/5 BLE with limited testing of left hip/knee due to pain. Sensation intact. Assessment/Plan: 1. Left Hip Fracture: 50% WB LLE. Follow up with Dr. Saba 2 weeks post-op. New x-rays 2 weeks post-op. PT/OT 2. Diabetes: FS stable on increased SSI. Also on Lantus. Can restart Insulin pump when she feels ready, per Dr. Sesay 3. Atrial Fibrillation: Xarelto/Cardizem 4. COPD: Supplemental O2. Duoneb, Asmanex 5. Hypothyroidism: Synthroid 6. DVT Prophylaxis: Xarelto at anti-coagulation dose. Given leg edema check venous doppler LLE. 7. Constipation: Lactulose. Dulcolax 8. CAD: Lipitor/Cozaar/Cardizem CD 9. Urinary Retention: Morgan out this AM. No void yet. Encouraged po fluids. Bladder scan if no void in 8hrs. 10. Advanced Directives: Full Code 01/26/18 10:13
[2018-01-26] MEDS: Atorvastatin* 10 MG TAB PO SCH (16:50)
[2018-01-26] MEDS: Acetaminophen TAB* 325 MG PO PRN ×2 (16:51→22:40)
[2018-01-26] MEDS: Senna TAB PO SCH (21:12)
[2018-01-27] MEDS: HYDROcodone/ACETAMIN 5-325 MG* 1 TAB PO PRN ×6 (00:36→23:26)
[2018-01-27] MEDS: Levothyroxine TAB* 125 MCG TAB PO SCH (04:58)
[2018-01-27] MEDS: Mometasone 220 MCG MDI INH SCH ×2 (08:14→20:56)
[2018-01-27] MEDS: Insulin LISPRO* 1 UNITS UNIT SUBCUT SCH ×3 (08:39→18:05)
[2018-01-27] MEDS: Docusate CAP* 100 MG PO SCH ×2 (08:40→21:05)
[2018-01-27] MEDS: Losartan TAB* 25 MG PO SCH (08:40)
[2018-01-27] MEDS: Cholecalciferol TAB* 1000 UNITS PO SCH (08:40)
[2018-01-27] MEDS: Citalopram TAB* 20 MG PO SCH (08:40)
[2018-01-27] MEDS: Diltiazem CD CAP* 180 MG PO SCH (08:40)
[2018-01-27] MEDS: Insulin GLARGINE(*) 1 UNITS UNIT SUBCUT SCH (08:40)
[2018-01-27] MEDS: prednisoLONE 1% OPHTH.SUSP* 5 ML OPHTH.SUSP BOTH EYES SCH ×2 (08:41→21:05)
[2018-01-27] MEDS: Rivaroxaban TAB(*) 20 MG TAB PO SCH (08:41)
--- NOTE | 2018-01-27 09:47 | PN ---
Progress Note Date of Service: 01/27/18 Note: LUCY COSTA was visited. Nursing and therapy notes read and reviewed. Has had some serous drainage from left hip. No chest pain, shortness of breath or abdominal pain. Voiding on her own. Current Medications: Active Medications Generic Name Dose Route Start Last Admin Trade Name Freq PRN Reason Stop Dose Admin Acetaminophen 650 mg 01/21/18 15:47 01/26/18 22:40 Tylenol Tab* PO 650 mg Q6H PRN Administration FEVER/PAIN Hydrocodone Bitart/Acetaminophen 1 tab 01/25/18 10:54 01/27/18 09:31 [place] 5-325 Tab* PO 1 tab Q4H PRN Administration PAIN - MODERATE TO SEVERE Hydrocodone Bitart/Acetaminophen 2 tab 01/25/18 22:34 01/27/18 04:58 Normal 5-325 Tab* PO 2 tab Q4H PRN Administration PAIN Albuterol/Ipratropium 1 neb 01/21/18 15:54 Duoneb (Albuterol 2.5 Mg/Ipratropium 0.5 Mg) INH Q6H PRN SOB/WHEEZING Ascorbic Acid 500 mg 01/22/18 09:00 01/26/18 09:36 Vitamin C Tab* PO 500 mg Q48H WADE Administration Atorvastatin Calcium 10 mg 01/21/18 17:00 01/26/18 16:50 Lipitor* PO 10 mg 1700 WADE Administration Bisacodyl 10 mg 01/22/18 17:51 01/22/18 18:45 Dulcolax Supp* [place] 10 mg DAILY PRN Administration CONSTIPATION Cholecalciferol 1,000 units 01/22/18 09:00 01/27/18 08:40 Vitamin D Tab* PO 1,000 units DAILY WADE Administration Citalopram Hydrobromide 20 mg 01/22/18 09:00 01/27/18 08:40 Celexa Tab* PO 20 mg DAILY WADE Administration Dextrose 12.5 gm 01/21/18 16:04 D50w Syringe 50 Ml* IV PUSH .FOR FS < 60 - SS PRN FS < 60 Diltiazem HCl 180 mg 01/22/18 09:00 01/27/18 08:40 Cardizem Cd Cap* PO 180 mg DAILY WADE Administration Diphenhydramine HCl 25 mg 01/21/18 15:58 Benadryl Po* PO Q6H PRN ITCHING Docusate Sodium 100 mg 01/21/18 21:00 01/27/18 08:40 Colace Cap* PO 100 mg BID WADE Administration Insulin Glargine 25 units 01/22/18 09:00 01/27/18 08:40 Lantus(*) SUBCUT 25 unit Q24H WADE Administration Insulin Human Lispro 0 - 15 units 01/22/18 11:31 01/27/18 08:39 Humalog* SUBCUT 3 unit AC WADE Administration Protocol Lactulose 30 ml 01/21/18 16:57 01/23/18 15:53 Lactulose* PO 30 ml Q8H PRN Administration CONSTIPATION Levothyroxine Sodium 125 mcg 01/22/18 06:00 01/27/18 04:58 Synthroid Tab* PO 125 mcg DAILY@0600 WADE Administration Losartan Potassium 100 mg 01/22/18 09:00 01/27/18 08:40 Cozaar Tab* PO 100 mg DAILY WADE Administration Magnesium Hydroxide 30 ml 01/21/18 16:56 01/22/18 17:42 Milk Of Magnesia Liq* PO 30 ml Q6H PRN Administration CONSTIPATION Mometasone Furoate 2 puff 01/21/18 21:00 01/27/18 08:14 Asmanex 220 Mcg Mdi * INH 2 puff BID WADE Administration Protocol Prednisolone Acetate 1 drop 01/21/18 21:00 01/27/18 08:41 Pred Forte 1%* BOTH EYES 1 drp BID WADE Administration Rivaroxaban 20 mg 01/22/18 09:00 01/27/18 08:41 Xarelto(*) PO 20 mg DAILY WADE Administration Senna 2 tab 01/21/18 21:00 01/26/18 21:12 Senokot Tab* PO 2 tab BEDTIME WADE Administration Vital Signs: Vital Signs Temp Pulse Resp BP Pulse Ox 97.8 F 74 16 133/53 100 01/27/18 05:03 01/27/18 05:03 01/27/18 09:31 01/27/18 05:03 01/27/18 05:03 Lab Results: Laboratory Results - last 24 hr 01/26/18 01/26/18 01/26/18 11:59 16:40 21:17 POC Glucose (mg/dL) 225 H 107 H 264 H 01/27/18 07:51 POC Glucose (mg/dL) 162 H Exam: GENERAL: No acute distress LUNGS: clear to auscultation bilaterally HEART: Regular rate and rhythm ABDOMEN: + bowel sounds, soft, non-tender, non-distended EXTREMITIES: Left leg edema. No calf pain. Negative Ruddy's. Calf soft. NEUROLOGIC: 5/5 BLE with limited testing of left hip/knee due to pain. Sensation intact. SKIN: manuel intact. Mild serous drainage. No erythema. LLE venous doppler on 01/26/18 showed no DVT. Has chery's cyst. Assessment/Plan: 1. Left Hip Fracture: 50% WB LLE. Follow up with Dr. Saba 2 weeks post-op. New x-rays 2 weeks post-op (02/02). PT/OT 2. Diabetes: On SSI. Also on Lantus; consider increase. Can restart Insulin pump when she feels ready, per Dr. Sesay 3. Atrial Fibrillation: Xarelto/Cardizem 4. COPD: Supplemental O2. Duoneb, Asmanex 5. Hypothyroidism: Synthroid 6. DVT Prophylaxis: Xarelto at anti-coagulation dose. LLE venous doppler on showed no DVT. Has chery's cyst. 7. Constipation: Lactulose. Dulcolax 8. CAD: Lipitor/Cozaar/Cardizem CD 9. Urinary Retention: Morgan out 01/26 and voiding on own. 10. Advanced Directives: Full Code 01/27/18 09:44
[2018-01-27] MEDS: Acetaminophen TAB* 325 MG PO PRN (15:42)
[2018-01-27] MEDS: Atorvastatin* 10 MG TAB PO SCH (18:06)
[2018-01-27] MEDS: Senna TAB PO SCH (21:05)
[2018-01-28] MEDS: Levothyroxine TAB* 125 MCG TAB PO SCH (05:31)
[2018-01-28] MEDS: HYDROcodone/ACETAMIN 5-325 MG* 1 TAB PO PRN ×4 (05:32→21:24)
--- NOTE | 2018-01-28 07:09 | PN ---
Progress Note Date of Service: 01/28/18 Note: LUCY Love COSTA was visited. Nursing notes read and reviewed. No new issues overnight. No chest pain, shortness of breath or abdominal pain. Pain medications and cryo packs help control pain but stiff at night. Current Medications: Active Medications Generic Name Dose Route Start Last Admin Trade Name Freq PRN Reason Stop Dose Admin Acetaminophen 650 mg 01/21/18 15:47 01/27/18 15:42 Tylenol Tab* PO 650 mg Q6H PRN Administration FEVER/PAIN Hydrocodone Bitart/Acetaminophen 1 tab 01/25/18 10:54 01/27/18 18:29 [place] 5-325 Tab* PO 1 tab Q4H PRN Administration PAIN - MODERATE TO SEVERE Hydrocodone Bitart/Acetaminophen 2 tab 01/25/18 22:34 01/28/18 05:32 [place] 5-325 Tab* PO 2 tab Q4H PRN Administration PAIN Albuterol/Ipratropium 1 neb 01/21/18 15:54 Duoneb (Albuterol 2.5 Mg/Ipratropium 0.5 Mg) INH Q6H PRN SOB/WHEEZING Ascorbic Acid 500 mg 01/22/18 09:00 01/26/18 09:36 Vitamin C Tab* PO 500 mg Q48H WADE Administration Atorvastatin Calcium 10 mg 01/21/18 17:00 01/27/18 18:06 Lipitor* PO 10 mg 1700 WADE Administration Bisacodyl 10 mg 01/22/18 17:51 01/22/18 18:45 Dulcolax Supp* [place] 10 mg DAILY PRN Administration CONSTIPATION Cholecalciferol 1,000 units 01/22/18 09:00 01/27/18 08:40 Vitamin D Tab* PO 1,000 units DAILY WADE Administration Citalopram Hydrobromide 20 mg 01/22/18 09:00 01/27/18 08:40 Celexa Tab* PO 20 mg DAILY WADE Administration Dextrose 12.5 gm 01/21/18 16:04 D50w Syringe 50 Ml* IV PUSH .FOR FS < 60 - SS PRN FS < 60 Diltiazem HCl 180 mg 01/22/18 09:00 01/27/18 08:40 Cardizem Cd Cap* PO 180 mg DAILY WADE Administration Diphenhydramine HCl 25 mg 12/09/18 15:58 Benadryl Po* PO Q6H PRN ITCHING Docusate Sodium 100 mg 01/21/18 21:00 01/27/18 21:05 Colace Cap* PO 100 mg BID WADE Administration Insulin Glargine 25 units 01/22/18 09:00 01/27/18 08:40 Lantus(*) SUBCUT 25 unit Q24H WADE Administration Insulin Human Lispro 0 - 15 units 01/22/18 11:31 01/27/18 18:05 Humalog* SUBCUT 2 unit AC WADE Administration Protocol Lactulose 30 ml 01/21/18 16:57 01/23/18 15:53 Lactulose* PO 30 ml Q8H PRN Administration CONSTIPATION Levothyroxine Sodium 125 mcg 01/22/18 06:00 01/28/18 05:31 Synthroid Tab* PO 125 mcg DAILY@0600 WADE Administration Losartan Potassium 100 mg 01/22/18 09:00 01/27/18 08:40 Cozaar Tab* PO 100 mg DAILY WADE Administration Magnesium Hydroxide 30 ml 01/21/18 16:56 01/22/18 17:42 Milk Of Magnesia Liq* PO 30 ml Q6H PRN Administration CONSTIPATION Mometasone Furoate 2 puff 01/21/18 21:00 01/27/18 20:56 Asmanex 220 Mcg Mdi * INH 2 puff BID WADE Administration Protocol Prednisolone Acetate 1 drop 01/21/18 21:00 01/27/18 21:05 Pred Forte 1%* BOTH EYES 1 drp BID WADE Administration Rivaroxaban 20 mg 01/22/18 09:00 01/27/18 08:41 Xarelto(*) PO 20 mg DAILY WADE Administration Senna 2 tab 01/21/18 21:00 01/27/18 21:05 Senokot Tab* PO 2 tab BEDTIME WADE Administration Vital Signs: Vital Signs Temp Pulse Resp BP Pulse Ox 98.8 F 85 20 132/58 95 01/28/18 05:10 01/28/18 05:10 01/28/18 05:32 01/28/18 05:10 01/28/18 05:10 Lab Results: Laboratory Results - last 24 hr 01/27/18 01/27/18 01/27/18 07:51 12:36 16:59 POC Glucose (mg/dL) 162 H 180 H 132 H 01/27/18 21:03 POC Glucose (mg/dL) 135 H Exam: GENERAL: No acute distress LUNGS: clear to auscultation bilaterally HEART: Regular rate and rhythm ABDOMEN: + bowel sounds, soft, non-tender, non-distended EXTREMITIES: Left leg edema. No calf pain. Negative Ruddy's. Calf soft. NEUROLOGIC: 5/5 BLE with limited testing of left hip/knee due to pain. Sensation intact. SKIN: manuel intact. Mild serous drainage. No erythema. Assessment/Plan: 1. Left Hip Fracture: 50% WB LLE. Follow up with Dr. Saba 2 weeks post-op. New x-rays 2 weeks post-op (02/02). PT/OT 2. Diabetes: On SSI. Also on Lantus and seems reasonable. Can restart Insulin pump when she feels ready, per Dr. Sesay 3. Atrial Fibrillation: Xarelto/Cardizem 4. COPD: Supplemental O2. Duoneb, Asmanex 5. Hypothyroidism: Synthroid 6. DVT Prophylaxis: Xarelto at anti-coagulation dose. LLE venous doppler on showed no DVT. Has chery's cyst. 7. Constipation: Lactulose. Dulcolax 8. CAD: Lipitor/Cozaar/Cardizem CD 9. Urinary Retention: Morgan out 01/26 and voiding on own. 10. Advanced Directives: Full Code 01/28/18 07:08
[2018-01-28] MEDS: Mometasone 220 MCG MDI INH SCH ×2 (07:54→20:27)
[2018-01-28] MEDS: Insulin LISPRO* 1 UNITS UNIT SUBCUT SCH ×3 (08:44→17:02)
[2018-01-28] MEDS: Ascorbic Acid TAB* 500 MG PO SCH (08:45)
[2018-01-28] MEDS: Cholecalciferol TAB* 1000 UNITS PO SCH (08:46)
[2018-01-28] MEDS: Citalopram TAB* 20 MG PO SCH (08:46)
[2018-01-28] MEDS: Diltiazem CD CAP* 180 MG PO SCH (08:46)
[2018-01-28] MEDS: Insulin GLARGINE(*) 1 UNITS UNIT SUBCUT SCH (08:47)
[2018-01-28] MEDS: Docusate CAP* 100 MG PO SCH ×2 (08:47→21:11)
[2018-01-28] MEDS: prednisoLONE 1% OPHTH.SUSP* 5 ML OPHTH.SUSP BOTH EYES SCH ×2 (08:48→21:15)
[2018-01-28] MEDS: Losartan TAB* 25 MG PO SCH (08:48)
[2018-01-28] MEDS: Rivaroxaban TAB(*) 20 MG TAB PO SCH (08:48)
[2018-01-28] MEDS: Magnesium Hydroxide LIQ* 30 ML UDC PO PRN (12:48)
[2018-01-28] MEDS: Atorvastatin* 10 MG TAB PO SCH (17:02)
[2018-01-28] MEDS: Senna TAB PO SCH (21:11)
[2018-01-29] MEDS: HYDROcodone/ACETAMIN 5-325 MG* 1 TAB PO PRN ×5 (03:29→22:09)
[2018-01-29 05:30] LABS: ABS Basophils 0.1 10^3/ul (0-0.2); ABS Eosinophils 0.1 10^3/ul (0-0.6); ABS Lymphocytes 1.4 10^3/ul (1.0-4.8); ABS Monocytes 0.9 10^3/ul (0-0.8); ABS Neutrophils 5.7 10^3/ul (1.5-7.7); ABS Nucleated RBC 0 10^3/ul; Eosinophil % 1.6 %; Hematocrit 26 % (35-47); Hemoglobin 8.9 g/dl (12.0-16.0); Lymphocyte % 17.1 %; Mean Corpuscular HGB Conc 34 g/dl (31-36); Mean Corpuscular Hemoglobin 32 pg (27-31); Mean Corpuscular Volume 95 fL (80-97); Mean Platelet Volume 6.4 fL (7.4-10.4); Nucleated Red Blood Cells % 0; Platelet Count 610 10^3/ul (150-450); Red Blood Count 2.75 10^6/ul (4.00-5.40); Red Cell Distribution Width 14 % (10.5-15); White Blood Count 8.2 10^3/ul (3.5-10.8)
[2018-01-29] MEDS: Levothyroxine TAB* 125 MCG TAB PO SCH (05:40)
[2018-01-29 05:47] LABS: Albumin 2.9 g/dL (3.2-5.2); Albumin/Globulin Ratio 0.9 (1-3); Calcium 8.3 mg/dL (8.6-10.3); EGFR African American 114.2 (>60); EGFR Non-African American 94.4 (>60); Globulin 3.3 g/dL (2-4); Potassium 4.1 mmol/L (3.5-5.0); Total Bilirubin 0.8 mg/dL (0.2-1.0); Total Protein 6.2 g/dL (6.4-8.9)
[2018-01-29] MEDS: Insulin LISPRO* 1 UNITS UNIT SUBCUT SCH ×3 (07:21→17:23)
[2018-01-29] MEDS: Mometasone 220 MCG MDI INH SCH ×2 (07:41→19:21)
[2018-01-29] MEDS: Cholecalciferol TAB* 1000 UNITS PO SCH (08:26)
[2018-01-29] MEDS: Losartan TAB* 25 MG PO SCH (08:26)
[2018-01-29] MEDS: Docusate CAP* 100 MG PO SCH ×2 (08:26→20:24)
[2018-01-29] MEDS: prednisoLONE 1% OPHTH.SUSP* 5 ML OPHTH.SUSP BOTH EYES SCH ×2 (08:27→20:24)
[2018-01-29] MEDS: Diltiazem CD CAP* 180 MG PO SCH (08:27)
[2018-01-29] MEDS: Citalopram TAB* 20 MG PO SCH (08:27)
[2018-01-29] MEDS: Rivaroxaban TAB(*) 20 MG TAB PO SCH (08:28)
[2018-01-29] MEDS: Insulin GLARGINE(*) 1 UNITS UNIT SUBCUT SCH (08:42)
[2018-01-29] MEDS: Atorvastatin* 10 MG TAB PO SCH (17:24)
--- NOTE | 2018-01-29 18:04 | PN ---
Progress Note Date of Service: 01/29/18 Note: LUCY COSTA was visited. Therapy notes read and reviewed. She has complained of a lot of groin pain and thigh pain today. X-rays were taken which look good to me. I discussed this with her surgeon Dr. Saba. Current Medications: Active Medications Generic Name Dose Route Start Last Admin Trade Name Freq PRN Reason Stop Dose Admin Acetaminophen 650 mg 01/21/18 15:47 01/27/18 15:42 Tylenol Tab* PO 650 mg Q6H PRN Administration FEVER/PAIN Hydrocodone Bitart/Acetaminophen 1 tab 01/25/18 10:54 01/29/18 16:31 [place] 5-325 Tab* PO 1 tab Q4H PRN Administration PAIN - MODERATE TO SEVERE Hydrocodone Bitart/Acetaminophen 2 tab 01/25/18 22:34 01/28/18 21:24 [place] 5-325 Tab* PO 2 tab Q4H PRN Administration PAIN Albuterol/Ipratropium 1 neb 01/21/18 15:54 Duoneb (Albuterol 2.5 Mg/Ipratropium 0.5 Mg) INH Q6H PRN SOB/WHEEZING Ascorbic Acid 500 mg 01/22/18 09:00 01/28/18 08:45 Vitamin C Tab* PO 500 mg Q48H WADE Administration Atorvastatin Calcium 10 mg 01/21/18 17:00 01/29/18 17:24 Lipitor* PO 10 mg 1700 WADE Administration Bisacodyl 10 mg 01/22/18 17:51 01/22/18 18:45 Dulcolax Supp* [place] 10 mg DAILY PRN Administration CONSTIPATION Cholecalciferol 1,000 units 01/22/18 09:00 01/29/18 08:26 Vitamin D Tab* PO 1,000 units DAILY WADE Administration Citalopram Hydrobromide 20 mg 01/22/18 09:00 01/29/18 08:27 Celexa Tab* PO 20 mg DAILY WADE Administration Dextrose 12.5 gm 01/21/18 16:04 D50w Syringe 50 Ml* IV PUSH .FOR FS < 60 - SS PRN FS < 60 Diltiazem HCl 180 mg 01/22/18 09:00 01/29/18 08:27 Cardizem Cd Cap* PO 180 mg DAILY WADE Administration Diphenhydramine HCl 25 mg 01/21/18 15:58 Benadryl Po* PO Q6H PRN ITCHING Docusate Sodium 100 mg 01/21/18 21:00 01/29/18 08:26 Colace Cap* PO 100 mg BID WADE Administration Insulin Glargine 25 units 01/22/18 09:00 01/29/18 08:42 Lantus(*) SUBCUT 25 unit Q24H WADE Administration Insulin Human Lispro 0 - 15 units 01/22/18 11:31 01/29/18 17:23 Humalog* SUBCUT 3 unit AC WADE Administration Protocol Lactulose 30 ml 01/21/18 16:57 01/28/18 15:22 Lactulose* PO 30 ml Q8H PRN Administration CONSTIPATION Levothyroxine Sodium 125 mcg 01/22/18 06:00 01/29/18 05:40 Synthroid Tab* PO 125 mcg DAILY@0600 WADE Administration Losartan Potassium 100 mg 01/22/18 09:00 01/29/18 08:26 Cozaar Tab* PO 100 mg DAILY WADE Administration Magnesium Hydroxide 30 ml 01/21/18 16:56 01/28/18 12:48 Milk Of Magnesia Liq* PO 30 ml Q6H PRN Administration CONSTIPATION Mometasone Furoate 2 puff 01/21/18 21:00 01/29/18 07:41 Asmanex 220 Mcg Mdi * INH 2 puff BID [facility] Administration Protocol Prednisolone Acetate 1 drop 01/21/18 21:00 01/29/18 08:27 Pred Forte 1%* BOTH EYES 1 drp BID WADE Administration Rivaroxaban 20 mg 01/22/18 09:00 01/29/18 08:28 Xarelto(*) PO 20 mg DAILY WADE Administration Senna 2 tab 01/21/18 21:00 01/28/18 21:11 Senokot Tab* PO Not Given BEDTIME [facility] Vital Signs: Vital Signs Temp Pulse Resp BP Pulse Ox 98.5 F 79 18 126/56 90 01/29/18 15:23 01/29/18 15:23 01/29/18 16:31 01/29/18 15:23 01/29/18 15:23 Lab Results: Laboratory Results - last 24 hr 01/28/18 01/29/18 01/29/18 21:29 05:06 05:06 WBC 8.2 RBC 2.75 L Hgb 8.9 L Hct 26 L MCV 95 MCH 32 H MCHC 34 RDW 14 Plt Count 610 H D MPV 6.4 L Neut % (Auto) 69.4 Lymph % (Auto) 17.1 Alexander % (Auto) 11.0 Eos % (Auto) 1.6 Baso % (Auto) 0.9 Absolute Neuts (auto) 5.7 Absolute Lymphs (auto) 1.4 Absolute Monos (auto) 0.9 H Absolute Eos (auto) 0.1 Absolute Basos (auto) 0.1 Absolute Nucleated RBC 0 Nucleated RBC % 0 Sodium 134 L Potassium 4.1 Chloride 98 L Carbon Dioxide 32 Anion Gap 4 BUN 11 Creatinine 0.61 Est GFR ( Amer) 114.2 Est GFR (Non-Af Amer) 94.4 BUN/Creatinine Ratio 18.0 Glucose 127 H POC Glucose (mg/dL) 182 H Calcium 8.3 L Total Bilirubin 0.80 AST 13 ALT 13 Alkaline Phosphatase 64 Total Protein 6.2 L Albumin 2.9 L Globulin 3.3 Albumin/Globulin Ratio 0.9 L 01/29/18 01/29/18 11:27 17:09 WBC RBC Hgb Hct MCV MCH MCHC RDW Plt Count MPV Neut % (Auto) Lymph % (Auto) Alexander % (Auto) Eos % (Auto) Baso % (Auto) Absolute Neuts (auto) Absolute Lymphs (auto) Absolute Monos (auto) Absolute Eos (auto) Absolute Basos (auto) Absolute Nucleated RBC Nucleated RBC % Sodium Potassium Chloride Carbon Dioxide Anion Gap BUN Creatinine Est GFR ( Amer) Est GFR (Non-Af Amer) BUN/Creatinine Ratio Glucose POC Glucose (mg/dL) 192 H 170 H Calcium Total Bilirubin AST ALT Alkaline Phosphatase Total Protein Albumin Globulin Albumin/Globulin Ratio Exam: GENERAL: No acute distress LUNGS: clear to auscultation bilaterally HEART: Regular rate and rhythm ABDOMEN: + bowel sounds, soft, non-tender, non-distended EXTREMITIES: Left leg edema. No calf pain. NEUROLOGIC: 5/5 BLE with limited testing of left hip/knee due to pain. Sensation intact. SKIN: manuel intact. Mild serous drainage. No erythema. Assessment/Plan: 1. Left Hip Fracture: 50% WB LLE. Follow up with Dr. Saba 2 weeks post-op. X- rays today looked good. PT/OT 2. Diabetes: On SSI/Lantus. Can restart Insulin pump when she feels ready, per Dr. Sesay 3. Atrial Fibrillation: Xarelto/Cardizem 4. COPD: Supplemental O2. Duoneb, Asmanex 5. Hypothyroidism: Synthroid 6. DVT Prophylaxis: Xarelto. Has chery's cyst. 7. Constipation: Lactulose. Dulcolax 8. CAD: Lipitor/Cozaar/Cardizem CD 9. Urinary Retention: voiding on own. 10. Advanced Directives: Full Code 01/29/18 18:05
[2018-01-29] MEDS: Senna TAB PO SCH (20:24)
[2018-01-30] MEDS: Acetaminophen TAB* 325 MG PO PRN (01:07)
[2018-01-30] MEDS: Levothyroxine TAB* 125 MCG TAB PO SCH (05:47)
[2018-01-30] MEDS: Mometasone 220 MCG MDI INH SCH ×2 (07:11→21:07)
[2018-01-30] MEDS: Rivaroxaban TAB(*) 20 MG TAB PO SCH (08:10)
[2018-01-30] MEDS: Docusate CAP* 100 MG PO SCH ×2 (08:10→21:24)
[2018-01-30] MEDS: Ascorbic Acid TAB* 500 MG PO SCH (08:10)
[2018-01-30] MEDS: Diltiazem CD CAP* 180 MG PO SCH (08:10)
[2018-01-30] MEDS: Citalopram TAB* 20 MG PO SCH (08:10)
[2018-01-30] MEDS: Losartan TAB* 25 MG PO SCH (08:11)
[2018-01-30] MEDS: Cholecalciferol TAB* 1000 UNITS PO SCH (08:11)
[2018-01-30] MEDS: HYDROcodone/ACETAMIN 5-325 MG* 1 TAB PO PRN ×4 (08:12→21:23)
[2018-01-30] MEDS: Insulin GLARGINE(*) 1 UNITS UNIT SUBCUT SCH (08:14)
[2018-01-30] MEDS: Insulin LISPRO* 1 UNITS UNIT SUBCUT SCH ×3 (08:15→17:40)
[2018-01-30] MEDS: prednisoLONE 1% OPHTH.SUSP* 5 ML OPHTH.SUSP BOTH EYES SCH ×2 (08:16→21:24)
--- NOTE | 2018-01-30 12:30 | PMRUTEAM ---
PMRU: Team Meeting Current Status: Nursing: Current Status Skin Deviations [L medial Incision thigh] Skin Deviations [Posterior Bruise left leg] Skin Deviations [Left Shoulder Abrasion ] Skin Deviations [Right Abdomen Other ] Skin Deviations [Left Hip] Incision Skin Deviation Description [L intact medial thigh] Skin Deviation Description [ extensive ecchymosis Posterior left leg] Skin Deviation Description [ scratch sandoval on L lower shoulder area Left Shoulder] Skin Deviation Description [ scratch sandoval Right Abdomen] Skin Deviation Description [ Well approximated. [place] intact. No drainage or Left Hip] redness noted. Bladder Current Status voiding Bowel Current Status bowel meds given.last bm 01/28 Nutrition Current Status appetite fair Medication Current Status needs reinforcement. norco given Physical Therapy: Current Status Bed Mobility Assistance Min Assist Transfer Mobility Assistance Contact Guard Assist Transfer/Bed Mobility Rolling Walker Recommended Devices Ambulation Assistance Contact Guard Assist Ambulation Assistive Devices Rolling Walker Number of Feet Patient 55 Ambulated Stairs Assistance Min Assist Stairs Recommended Devices Two Rails Number of Stairs 6 Occupational Therapy: Current Status Upper Body Dressing Supervision Lower Body Dressing Min Assist Bathing Min Assist Toileting Supervision Toilet Transfer Supervision Shower Transfer Supervision Eating Ind with Adaptive Equip Rec Therapy: Current Status Summary of Assessment and RT assessment complete and pt. is aware services. Clinical Impression Pt. is pleasant, cooperative and open to continued leisure visits while on the unit. Treatment Goals Pt. will engage in leisure activities while on the unit. Treatment Plan Provide RT services and encourage involvement. Social Work: Current Status Discharge Plan return home with home care svs and family support Potential for Family Training pt's daughter and daughter in law are involved and supportive Anticipated Discharge Home Destination Discharge With home care svs and family support Nutrition: Current Status Monitoring Note attempted X 2 to visit pt but still n/a. Will visit 01/31. Occasional BG >200 but overall reasonable control. Plan is for insulin pump to be restarted when pt feels ready. Intake has been fair (25-85%) and will be meeting with pt to determine if any other interventions. Continuing glucerna shake for now. BM 01/28. Receiving appropriate bowel meds. Follow pt to encourage maximization of intake. Goals: Physical Therapy: Initial Goals Bed Mobility Assistance Independent Transfer Mobility Assistance Independent Transfer/Bed Mobility Rolling Walker Recommended Devices Ambulation Independent Ambulation Recommended Devices Rolling Walker Ambulation Distance 150 Stairs Assistance Supervision Stair Recommended Devices Crutches,One Rail Number of Stairs flight Home Exercise Program Independent Assistance Physical Therapy: Updated Goals Transfer/Bed Mobility Rolling Walker Recommended Devices Occupational Therapy: Initial Goals Goals to be Completed in (Days 14-18 days ) Upper Body Bathing Routine Modified Independent with Lower Body Bathing Routine Modified Independent with Upper Body Dressing Routine Independent Lower Body Dressing Routine Modified Independent with Toilet Hygeine and Clothing Modified Independent with Management Routine Toilet Transfer Routine Modified Independent with Tub Transfer Routine Modified Independent with Functional Transfers for ADL Modified Independent with Grooming Routine Independent Feeding Routine Modified Independent with Nursing: Goals Bladder Goal independent Bowel Goal independent Nutrition Goal 100% of all meals consumed Medication Goal independent Nutrition: Goals Intervention Goals 1. Adequate PO intake to maintain lean body mass and hydration while promoting post-op healing 2. Adequate glycemic control per inpatient parameters and w/consideration of advanced age 3. Electrolytes will be maintained WNL w/ adequate hydration 4. Achieve bowel regularity w/o additional post-op constipation Social Work: Goals Discharge Plan return home with home care svs and family support Potential for Family Training pt's daughter and daughter in law are involved and supportive Anticipated Discharge Home Destination Discharge With home care svs and family support Care Plan: Care Plan ADL's - Improve/Maintain Start: 01/22/18 14:40 Freq: DAILY Status: Active Target: Protocol: Activity Type Activity Date Activity User E-Sign Co-Sign Detail Recorded Client Recorded Date Recorded By Document 01/30/18 11:08 [id number] 01/30/18 11:08 [id number] 01/30/18 11:08 PMRU Outcome: ADL's/ADL Transfers Orders/Interventions Occupational Therapy Evaluation & Treatment Communication Tool in Patient Room Device Yes Address Deficits Secondary To: left hip ORIF Patient to receive OT 5x/wk for 60-120 Therex min/day Self Care Management Group Therapy UE/LE ADL's with Assist Yes: [place] ADL Transfers with Assist Yes: [place] Toileting: Transfers,Clothing Management Yes: [place] ,Hygeine w/Assist Progression Toward Outcome/Goals Progressing Outcome/Goals Met Pt continues to be limited by difficulty lifting LLE in order to complete LB with increased independence. Pt using AE well without verbal cues but since she is unable to life LLE independently, she is having a difficult time threading LLE through brief and pants. Pt demonstrates increased dynamic standing balance. Cardiovascular- Improve/Maintain Start: 01/21/18 18:28 Freq: QSHIFT Status: Active Target: Protocol: Activity Type Activity Date Activity User E-Sign Co-Sign Detail Recorded Client Recorded Date Recorded By Document 01/30/18 09:00 [id number] 01/30/18 10:35 [id number] 01/30/18 09:00 PMRU Outcome: Cardiovascular Vital Signs q Shift for 48hrs Then BID Yes Daily Weight Ordered No Current Cardiovascular Outcome/Goal Maintain/ Achieve Baseline HR, BP , Perfusion Maintain/ Achieve Hemodynamic Stability Free of Abnormal Cardiac Symptoms Progression Toward Outcome/Goal Progressing DVT Prophylaxis- Improve/Maintain Start: 01/21/18 18:28 Freq: QSHIFT Status: Active Target: Protocol: Activity Type Activity Date Activity User E-Sign Co-Sign Detail Recorded Client Recorded Date Recorded By Document 01/30/18 09:00 [id number] 01/30/18 10:35 [id number] 01/30/18 09:00 PMRU Outcome: DVT Prophylaxis Outcome/Goals Remains Free of DVT Complies with DVT Prophylaxis /Treatment Progression Toward Outcome/Goals Progressing Outcome/Goals Met Comment bilateral angelo wraps applied Education-Improve/Maintain Start: 01/21/18 18:28 Freq: QSHIFT Status: Active Target: Protocol: Activity Type Activity Date Activity User E-Sign Co-Sign Detail Recorded Client Recorded Date Recorded By Document 01/30/18 09:00 [id number] 01/30/18 10:35 [id number] 01/30/18 09:00 PMRU Outcome: Education Outcome/Goals Encourage Questions Progression Toward Outcome/Goals Progressing /GI-Improve/Maintain Start: 01/21/18 18:28 Freq: QSHIFT Status: Active Target: Protocol: Activity Type Activity Date Activity User E-Sign Co-Sign Detail Recorded Client Recorded Date Recorded By Document 01/30/18 09:00 [id number] 01/30/18 10:35 [id number] 01/30/18 09:00 PMRU Outcome: Genitourinary/ Gastrointestinal Genitourinary- Outcome/Goals Maintain/ Achieve Adequate Urinary Output Remain Free of Hospital- Acquired UTI Gastrointestinal-Outcome/Goals Maintain/ Achieve Bowel Regularity in Accordance with Pt's Baseline Prevent Constipation Laxatives as Ordered Progression Toward Outcome/Goals - Progressing Progression Toward Outcome/Goals - GI Progressing Outcome/Goals Met Comment pt up to BR. colace given this am Metabolic Status- Improve/Maintain Start: 01/21/18 18:28 Freq: QSHIFT Status: Active Target: Protocol: Activity Type Activity Date Activity User E-Sign Co-Sign Detail Recorded Client Recorded Date Recorded By Document 01/30/18 09:00 [id number] 01/30/18 10:35 [id number] 01/30/18 09:00 PMRU Outcome: Metabolic Status Have Fingersticks Been Ordered Yes Fingerstick Order Frequency AC & HS Outcome/Goals Maintain/ Improve Metabolic Status Progression Toward Outcome/Goals Progressing Pain/Comfort- Improve/Maintain Start: 01/21/18 18:28 Freq: QSHIFT Status: Active Target: Protocol: Activity Type Activity Date Activity User E-Sign Co-Sign Detail Recorded Client Recorded Date Recorded By Document 01/30/18 09:00 [id number] 01/30/18 10:35 [id number] 01/30/18 09:00 PMRU Outcome: Pain/Comfort Outcome/Goals Demonstrates Knowledge and Use of Available Comfort Measures Achieves Acceptable Comfort/Pain Level as Determined by Patient/Condit Maintain Comfort Level Allowing Patient to Fully Participate in Rehab Progression Toward Outcome/Goals Progressing Outcome/Goals Met Comment norco given Respiratory - Improve/Maintain Start: 01/21/18 18:28 Freq: QSHIFT Status: Active Target: Protocol: Activity Type Activity Date Activity User E-Sign Co-Sign Detail Recorded Client Recorded Date Recorded By Document 01/30/18 09:00 [id number] 01/30/18 10:35 [id number] 01/30/18 09:00 PMRU Outcome: Respiratory Does Patient Have a Trach No Outcome/Goals Maintain/ Improve O2 Sat per MD Order Maintain/ Improve Baseline Respiratory Status Maintain/ Improve Activity Tolerance Prevent Pneumonia/ Atelectasis Progression Toward Outcome/Goals Progressing Outcome/Goals Met Comment 1L O2 at night Safety- Improve/Maintain Start: 01/21/18 18:28 Freq: QSHIFT Status: Active Target: Protocol: Activity Type Activity Date Activity User E-Sign Co-Sign Detail Recorded Client Recorded Date Recorded By Document 01/30/18 09:00 [id number] 01/30/18 10:35 [id number] 01/30/18 09:00 PMRU Outcome: Safety Outcome/Goals Remain Free of Injury or Harm Cooperates with Safety Measures for Least Restrictive Environment Prevent Falls/ Injury Progression Toward Outcome/Goals Progressing Medicine Note: Length of Stay: 9 days Anticipated Discharge Destination: Home Tentative Discharge Date: 02/08/18 Discharged to: home
[2018-01-30] MEDS: Methocarbamol TAB* 500 MG PO PRN (13:30)
[2018-01-30] MEDS: Atorvastatin* 10 MG TAB PO SCH (17:42)
--- NOTE | 2018-01-30 18:22 | PN ---
Progress Note Date of Service: 01/30/18 Note: LUCY COSTA was visited. Therapy notes read and reviewed. Ongoing pain in groin on left side. Her legs are swollen. She was on Dyazide at home and will re -start this. She does have more pain in afternoon than in the morning. She was discussed in interdisciplinary team rounds. Current Medications: Active Medications Generic Name Dose Route Start Last Admin Trade Name Freq PRN Reason Stop Dose Admin Acetaminophen 650 mg 01/21/18 15:47 01/30/18 01:07 Tylenol Tab* PO 650 mg Q6H PRN Administration FEVER/PAIN Hydrocodone Bitart/Acetaminophen 1 tab 01/25/18 10:54 01/30/18 11:50 [place] 5-325 Tab* PO 1 tab Q4H PRN Administration PAIN - MODERATE TO SEVERE Hydrocodone Bitart/Acetaminophen 2 tab 01/25/18 22:34 01/30/18 16:21 [place] 5-325 Tab* PO 2 tab Q4H PRN Administration PAIN Albuterol/Ipratropium 1 neb 01/21/18 15:54 Duoneb (Albuterol 2.5 Mg/Ipratropium 0.5 Mg) INH Q6H PRN SOB/WHEEZING Ascorbic Acid 500 mg 01/22/18 09:00 01/30/18 08:10 Vitamin C Tab* PO 500 mg Q48H WADE Administration Atorvastatin Calcium 10 mg 01/21/18 17:00 01/30/18 17:42 Lipitor* PO 10 mg 1700 WADE Administration Bisacodyl 10 mg 01/22/18 17:51 01/22/18 18:45 Dulcolax Supp* NV 10 mg DAILY PRN Administration CONSTIPATION Cholecalciferol 1,000 units 01/22/18 09:00 01/30/18 08:11 Vitamin D Tab* PO 1,000 units DAILY WADE Administration Citalopram Hydrobromide 20 mg 01/22/18 09:00 01/30/18 08:10 Celexa Tab* PO 20 mg DAILY WADE Administration Dextrose 12.5 gm 01/21/18 16:04 D50w Syringe 50 Ml* IV PUSH .FOR FS < 60 - SS PRN FS < 60 Diltiazem HCl 180 mg 01/22/18 09:00 01/30/18 08:10 Cardizem Cd Cap* PO 180 mg DAILY WADE Administration Diphenhydramine HCl 25 mg 01/21/18 15:58 Benadryl Po* PO Q6H PRN ITCHING Docusate Sodium 100 mg 01/21/18 21:00 01/30/18 08:10 Colace Cap* PO 100 mg BID WADE Administration Insulin Glargine 25 units 01/22/18 09:00 01/30/18 08:14 Lantus(*) SUBCUT 25 unit Q24H WADE Administration Insulin Human Lispro 0 - 15 units 01/22/18 11:31 01/30/18 17:40 Humalog* SUBCUT 3 unit AC WADE Administration Protocol Lactulose 30 ml 01/21/18 16:57 01/28/18 15:22 Lactulose* PO 30 ml Q8H PRN Administration CONSTIPATION Levothyroxine Sodium 125 mcg 01/22/18 06:00 01/30/18 05:47 Synthroid Tab* PO 125 mcg DAILY@0600 WADE Administration Losartan Potassium 100 mg 01/22/18 09:00 01/30/18 08:11 Cozaar Tab* PO 100 mg DAILY WADE Administration Magnesium Hydroxide 30 ml 01/21/18 16:56 01/28/18 12:48 Milk Of Magnesia Liq* PO 30 ml Q6H PRN Administration CONSTIPATION Methocarbamol 750 mg 01/30/18 12:01 01/30/18 13:30 Robaxin Tab* PO 750 mg Q6H PRN Administration SPASMS Mometasone Furoate 2 puff 01/21/18 21:00 01/30/18 07:11 Asmanex 220 Mcg Mdi * INH 2 puff BID WADE Administration Protocol Prednisolone Acetate 1 drop 01/21/18 21:00 01/30/18 08:16 Pred Forte 1%* BOTH EYES 1 drp BID WADE Administration Rivaroxaban 20 mg 01/22/18 09:00 01/30/18 08:10 Xarelto(*) PO 20 mg DAILY WADE Administration Senna 2 tab 01/21/18 21:00 01/29/18 20:24 Senokot Tab* PO 2 tab BEDTIME WADE Administration Triamterene/HCTZ 1 cap 01/31/18 09:00 Dyazide Cap* PO DAILY WADE Vital Signs: Vital Signs Temp Pulse Resp BP Pulse Ox 98.3 F 80 16 136/65 96 01/30/18 16:09 01/30/18 16:09 01/30/18 17:35 01/30/18 16:09 01/30/18 16:09 Lab Results: Laboratory Results - last 24 hr 01/29/18 01/30/18 01/30/18 20:25 07:45 11:51 POC Glucose (mg/dL) 128 H 148 H 216 H 01/30/18 16:24 POC Glucose (mg/dL) 182 H Exam: GENERAL: No acute distress LUNGS: clear to auscultation bilaterally HEART: Regular rate and rhythm ABDOMEN: + bowel sounds, soft, non-tender, non-distended EXTREMITIES: Bilateral leg edema, worse on left. No calf pain. NEUROLOGIC: 5/5 BLE with limited testing of left hip/knee due to pain. Sensation intact. SKIN: manuel intact. Mild serous drainage. No erythema. Assessment/Plan: 1. Left Hip Fracture: 50% WB LLE. Follow up with Dr. Saba 2 weeks post-op. X- rays 01/29 looked good. PT/OT 2. Diabetes: On SSI/Lantus. Can restart Insulin pump when she feels ready, per Dr. Sesay 3. Atrial Fibrillation: Xarelto/Cardizem 4. COPD: Supplemental O2. Duoneb, Asmanex 5. Hypothyroidism: Synthroid 6. DVT Prophylaxis: Xarelto. Has chery's cyst. 7. Constipation: Lactulose. Dulcolax 8. CAD: Lipitor/Cozaar/Cardizem CD 9. Bilateral Edema: Re-start Dyazide 10. Advanced Directives: Full Code 01/30/18 18:23
[2018-01-30] MEDS: Senna TAB PO SCH (21:24)
[2018-01-31] MEDS: HYDROcodone/ACETAMIN 5-325 MG* 1 TAB PO PRN ×5 (01:15→21:17)
[2018-01-31] MEDS: Levothyroxine TAB* 125 MCG TAB PO SCH (05:46)
[2018-01-31] MEDS: Acetaminophen TAB* 325 MG PO PRN ×2 (05:46→14:13)
[2018-01-31] MEDS: Insulin LISPRO* 1 UNITS UNIT SUBCUT SCH ×3 (08:01→17:24)
[2018-01-31] MEDS: Diltiazem CD CAP* 180 MG PO SCH (08:01)
[2018-01-31] MEDS: Docusate CAP* 100 MG PO SCH ×2 (08:01→20:19)
[2018-01-31] MEDS: Cholecalciferol TAB* 1000 UNITS PO SCH (08:01)
[2018-01-31] MEDS: Citalopram TAB* 20 MG PO SCH (08:01)
[2018-01-31] MEDS: Losartan TAB* 25 MG PO SCH (08:02)
[2018-01-31] MEDS: Insulin GLARGINE(*) 1 UNITS UNIT SUBCUT SCH (08:02)
[2018-01-31] MEDS: prednisoLONE 1% OPHTH.SUSP* 5 ML OPHTH.SUSP BOTH EYES SCH ×2 (08:03→20:21)
[2018-01-31] MEDS: Rivaroxaban TAB(*) 20 MG TAB PO SCH (08:03)
[2018-01-31] MEDS: Triamterene/HCTZ 37.5-25 MG* CAP PO SCH (08:04)
[2018-01-31] MEDS: Methocarbamol TAB* 500 MG PO PRN ×2 (09:36→17:56)
[2018-01-31] MEDS: Mometasone 220 MCG MDI INH SCH ×2 (09:56→20:27)
[2018-01-31] MEDS: Atorvastatin* 10 MG TAB PO SCH (17:23)
[2018-01-31] MEDS: Senna TAB PO SCH (20:19)
--- NOTE | 2018-01-31 22:20 | PN ---
Progress Note Date of Service: 01/31/18 Note: LUCY COSTA was visited. Therapy notes read and reviewed. She has re-started Dyazide without difficulty. She feels a little better today. Otherwise ok. Current Medications: Active Medications Generic Name Dose Route Start Last Admin Trade Name Freq PRN Reason Stop Dose Admin Acetaminophen 650 mg 01/21/18 15:47 01/31/18 14:13 Tylenol Tab* PO 650 mg Q6H PRN Administration FEVER/PAIN Hydrocodone Bitart/Acetaminophen 1 tab 01/25/18 10:54 01/31/18 16:47 [place] 5-325 Tab* PO 1 tab Q4H PRN Administration PAIN - MODERATE TO SEVERE Hydrocodone Bitart/Acetaminophen 2 tab 01/25/18 22:34 01/31/18 21:17 [place] 5-325 Tab* PO 2 tab Q4H PRN Administration PAIN Albuterol/Ipratropium 1 neb 01/21/18 15:54 Duoneb (Albuterol 2.5 Mg/Ipratropium 0.5 Mg) INH Q6H PRN SOB/WHEEZING Ascorbic Acid 500 mg 01/22/18 09:00 01/30/18 08:10 Vitamin C Tab* PO 500 mg Q48H WADE Administration Atorvastatin Calcium 10 mg 01/21/18 17:00 01/31/18 17:23 Lipitor* PO 10 mg 1700 WADE Administration Bisacodyl 10 mg 01/22/18 17:51 01/22/18 18:45 Dulcolax Supp* [place] 10 mg DAILY PRN Administration CONSTIPATION Cholecalciferol 1,000 units 01/22/18 09:00 01/31/18 08:01 Vitamin D Tab* PO 1,000 units DAILY WADE Administration Citalopram Hydrobromide 20 mg 01/22/18 09:00 01/31/18 08:01 Celexa Tab* PO 20 mg DAILY WADE Administration Dextrose 12.5 gm 01/21/18 16:04 D50w Syringe 50 Ml* IV PUSH .FOR FS < 60 - SS PRN FS < 60 Diltiazem HCl 180 mg 01/22/18 09:00 01/31/18 08:01 Cardizem Cd Cap* PO 180 mg DAILY WADE Administration Diphenhydramine HCl 25 mg 01/21/18 15:58 Benadryl Po* PO Q6H PRN ITCHING Docusate Sodium 100 mg 01/21/18 21:00 01/31/18 20:19 Colace Cap* PO 100 mg BID WADE Administration Insulin Glargine 25 units 01/22/18 09:00 01/31/18 08:02 Lantus(*) SUBCUT 25 unit Q24H WADE Administration Insulin Human Lispro 0 - 15 units 01/22/18 11:31 01/31/18 17:24 Humalog* SUBCUT 3 unit AC WADE Administration Protocol Lactulose 30 ml 01/21/18 16:57 01/28/18 15:22 Lactulose* PO 30 ml Q8H PRN Administration CONSTIPATION Levothyroxine Sodium 125 mcg 01/22/18 06:00 01/31/18 05:46 Synthroid Tab* PO 125 mcg DAILY@0600 WADE Administration Losartan Potassium 100 mg 01/22/18 09:00 01/31/18 08:02 Cozaar Tab* PO 100 mg DAILY WADE Administration Magnesium Hydroxide 30 ml 01/21/18 16:56 01/28/18 12:48 Milk Of Magnesia Liq* PO 30 ml Q6H PRN Administration CONSTIPATION Methocarbamol 750 mg 01/30/18 12:01 01/31/18 17:56 Robaxin Tab* PO 750 mg Q6H PRN Administration SPASMS Mometasone Furoate 2 puff 01/21/18 21:00 01/31/18 20:27 Asmanex 220 Mcg Mdi * INH 2 puff BID WADE Administration Protocol Prednisolone Acetate 1 drop 01/21/18 21:00 01/31/18 20:21 Pred Forte 1%* BOTH EYES 1 drp BID WADE Administration Rivaroxaban 20 mg 01/22/18 09:00 01/31/18 08:03 Xarelto(*) PO 20 mg DAILY WADE Administration Senna 2 tab 01/21/18 21:00 01/31/18 20:19 Senokot Tab* PO 2 tab BEDTIME WADE Administration Triamterene/HCTZ 1 cap 01/31/18 09:00 01/31/18 08:04 Dyazide Cap* PO 1 cap DAILY WADE Administration Vital Signs: Vital Signs Temp Pulse Resp BP Pulse Ox 97.8 F 64 18 118/50 94 01/31/18 15:12 01/31/18 15:12 01/31/18 22:01 01/31/18 15:12 01/31/18 15:12 Lab Results: Laboratory Results - last 24 hr 01/31/18 01/31/18 01/31/18 07:46 12:11 16:49 POC Glucose (mg/dL) 161 H 139 H 158 H 01/31/18 20:53 POC Glucose (mg/dL) 134 H Exam: GENERAL: No acute distress LUNGS: clear to auscultation bilaterally HEART: Regular rate and rhythm ABDOMEN: + bowel sounds, soft, non-tender, non-distended EXTREMITIES: Bilateral leg edema, worse on left. No calf pain. NEUROLOGIC: 5/5 BLE with limited testing of left hip/knee due to pain. Sensation intact. SKIN: manuel intact. Mild serous drainage. No erythema. Assessment/Plan: 1. Left Hip Fracture: 50% WB LLE. Follow up with Dr. Saba 2 weeks post-op. X- rays 01/29 looked good. PT/OT 2. Diabetes: On SSI/Lantus. Can restart Insulin pump when she feels ready, per Dr. Sesay 3. Atrial Fibrillation: Xarelto/Cardizem 4. COPD: Duoneb, Asmanex 5. Hypothyroidism: Synthroid 6. DVT Prophylaxis: Xarelto. Has chery's cyst. 7. Constipation: Lactulose. Dulcolax 8. CAD: Lipitor/Cozaar/Cardizem CD 9. Bilateral Edema: Re-started Dyazide 10. Advanced Directives: Full Code 01/31/18 22:20
[2018-02-01] MEDS: Acetaminophen TAB* 325 MG PO PRN (00:47)
[2018-02-01] MEDS: HYDROcodone/ACETAMIN 5-325 MG* 1 TAB PO PRN ×5 (03:54→21:10)
[2018-02-01] MEDS: Levothyroxine TAB* 125 MCG TAB PO SCH (05:32)
[2018-02-01] MEDS: Mometasone 220 MCG MDI INH SCH ×2 (07:36→21:12)
[2018-02-01] MEDS: Insulin LISPRO* 1 UNITS UNIT SUBCUT SCH ×3 (08:10→17:30)
[2018-02-01] MEDS: Docusate CAP* 100 MG PO SCH ×2 (08:30→21:09)
[2018-02-01] MEDS: Ascorbic Acid TAB* 500 MG PO SCH (08:30)
[2018-02-01] MEDS: Losartan TAB* 25 MG PO SCH (08:30)
[2018-02-01] MEDS: prednisoLONE 1% OPHTH.SUSP* 5 ML OPHTH.SUSP BOTH EYES SCH ×2 (08:30→21:16)
[2018-02-01] MEDS: Triamterene/HCTZ 37.5-25 MG* CAP PO SCH (08:30)
[2018-02-01] MEDS: Citalopram TAB* 20 MG PO SCH (08:30)
[2018-02-01] MEDS: Rivaroxaban TAB(*) 20 MG TAB PO SCH (08:30)
[2018-02-01] MEDS: Diltiazem CD CAP* 180 MG PO SCH (08:30)
[2018-02-01] MEDS: Insulin GLARGINE(*) 1 UNITS UNIT SUBCUT SCH (08:30)
[2018-02-01] MEDS: Cholecalciferol TAB* 1000 UNITS PO SCH (08:30)
[2018-02-01] MEDS: Methocarbamol TAB* 500 MG PO PRN (10:38)
[2018-02-01] MEDS: Atorvastatin* 10 MG TAB PO SCH (17:13)
[2018-02-01] MEDS: Senna TAB PO SCH (21:09)
--- NOTE | 2018-02-01 23:03 | PN ---
Progress Note Date of Service: 02/01/18 Note: LUCY COSTA was visited. Therapy notes read and reviewed. Her pain is a little bit better and her feet seem a little less swollen. She is moving better Current Medications: Active Medications Generic Name Dose Route Start Last Admin Trade Name Freq PRN Reason Stop Dose Admin Acetaminophen 650 mg 01/21/18 15:47 02/01/18 00:47 Tylenol Tab* PO 650 mg Q6H PRN Administration FEVER/PAIN Hydrocodone Bitart/Acetaminophen 1 tab 01/25/18 10:54 01/31/18 16:47 [place] 5-325 Tab* PO 1 tab Q4H PRN Administration PAIN - MODERATE TO SEVERE Hydrocodone Bitart/Acetaminophen 2 tab 01/25/18 22:34 02/01/18 21:10 [place] 5-325 Tab* PO 2 tab Q4H PRN Administration PAIN Albuterol/Ipratropium 1 neb 01/21/18 15:54 Duoneb (Albuterol 2.5 Mg/Ipratropium 0.5 Mg) INH Q6H PRN SOB/WHEEZING Ascorbic Acid 500 mg 01/22/18 09:00 02/01/18 08:30 Vitamin C Tab* PO 500 mg Q48H WADE Administration Atorvastatin Calcium 10 mg 01/21/18 17:00 02/01/18 17:13 Lipitor* PO 10 mg 1700 WADE Administration Bisacodyl 10 mg 01/22/18 17:51 01/22/18 18:45 Dulcolax Supp* [place] 10 mg DAILY PRN Administration CONSTIPATION Cholecalciferol 1,000 units 01/22/18 09:00 02/01/18 08:30 Vitamin D Tab* PO 1,000 units DAILY WADE Administration Citalopram Hydrobromide 20 mg 01/22/18 09:00 02/01/18 08:30 Celexa Tab* PO 20 mg DAILY WADE Administration Dextrose 12.5 gm 01/21/18 16:04 D50w Syringe 50 Ml* IV PUSH .FOR FS < 60 - SS PRN FS < 60 Diltiazem HCl 180 mg 01/22/18 09:00 02/01/18 08:30 Cardizem Cd Cap* PO 180 mg DAILY WADE Administration Diphenhydramine HCl 25 mg 01/21/18 15:58 Benadryl Po* PO Q6H PRN ITCHING Docusate Sodium 100 mg 01/21/18 21:00 02/01/18 21:09 Colace Cap* PO 100 mg BID WADE Administration Insulin Glargine 25 units 01/22/18 09:00 02/01/18 08:30 Lantus(*) SUBCUT 25 unit Q24H WADE Administration Insulin Human Lispro 0 - 15 units 01/22/18 11:31 02/01/18 17:30 Humalog* SUBCUT Not Given AC [facility] Protocol Lactulose 30 ml 01/21/18 16:57 01/28/18 15:22 Lactulose* PO 30 ml Q8H PRN Administration CONSTIPATION Levothyroxine Sodium 125 mcg 01/22/18 06:00 02/01/18 05:32 Synthroid Tab* PO 125 mcg DAILY@0600 WADE Administration Losartan Potassium 100 mg 01/22/18 09:00 02/01/18 08:30 Cozaar Tab* PO 100 mg DAILY WADE Administration Magnesium Hydroxide 30 ml 01/21/18 16:56 01/28/18 12:48 Milk Of Magnesia Liq* PO 30 ml Q6H PRN Administration CONSTIPATION Methocarbamol 750 mg 01/30/18 12:01 02/01/18 10:38 Robaxin Tab* PO 750 mg Q6H PRN Administration SPASMS Mometasone Furoate 2 puff 01/21/18 21:00 02/01/18 21:12 Asmanex 220 Mcg Mdi * INH 2 puff BID WADE Administration Protocol Prednisolone Acetate 1 drop 01/21/18 21:00 02/01/18 21:16 Pred Forte 1%* BOTH EYES 1 drp BID AWDE Administration Rivaroxaban 20 mg 01/22/18 09:00 02/01/18 08:30 Xarelto(*) PO 20 mg DAILY WADE Administration Senna 2 tab 01/21/18 21:00 02/01/18 21:09 Senokot Tab* PO 2 tab BEDTIME WADE Administration Triamterene/HCTZ 1 cap 01/31/18 09:00 02/01/18 08:30 Dyazide Cap* PO 1 cap DAILY WADE Administration Vital Signs: Vital Signs Temp Pulse Resp BP Pulse Ox 98.1 F 71 16 115/51 94 02/01/18 15:39 02/01/18 15:39 02/01/18 21:10 02/01/18 15:39 02/01/18 15:39 Lab Results: Laboratory Results - last 24 hr 02/01/18 02/01/18 02/01/18 08:08 12:18 16:54 POC Glucose (mg/dL) 90 209 H 100 02/01/18 20:36 POC Glucose (mg/dL) 224 H Exam: GENERAL: No acute distress LUNGS: clear to auscultation bilaterally HEART: Regular rate and rhythm ABDOMEN: + bowel sounds, soft, non-tender, non-distended EXTREMITIES: Bilateral leg edema, worse on left. No calf pain. NEUROLOGIC: 5/5 BLE with limited testing of left hip/knee due to pain. Sensation intact. SKIN: manuel intact. Mild serous drainage. No erythema. Assessment/Plan: 1. Left Hip Fracture: 50% WB LLE. Follow up with Dr. Saba 2 weeks post-op. X- rays 01/29 looked good. PT/OT 2. Diabetes: On SSI/Lantus. Can restart Insulin pump when she feels ready, per Dr. Sesay 3. Atrial Fibrillation: Xarelto/Cardizem 4. COPD: Duoneb, Asmanex 5. Hypothyroidism: Synthroid 6. DVT Prophylaxis: Xarelto. Has chery's cyst. 7. Constipation: Lactulose. Dulcolax 8. CAD: Lipitor/Cozaar/Cardizem CD 9. Bilateral Edema: Re-started Dyazide 10. Advanced Directives: Full Code 02/01/18 23:03
[2018-02-02] MEDS: HYDROcodone/ACETAMIN 5-325 MG* 1 TAB PO PRN ×4 (03:07→20:46)
[2018-02-02] MEDS: Levothyroxine TAB* 125 MCG TAB PO SCH (05:18)
[2018-02-02] MEDS: Methocarbamol TAB* 500 MG PO PRN (05:22)
[2018-02-02] MEDS: Citalopram TAB* 20 MG PO SCH (08:32)
[2018-02-02] MEDS: Cholecalciferol TAB* 1000 UNITS PO SCH (08:32)
[2018-02-02] MEDS: Diltiazem CD CAP* 180 MG PO SCH (08:32)
[2018-02-02] MEDS: Losartan TAB* 25 MG PO SCH (08:32)
[2018-02-02] MEDS: Docusate CAP* 100 MG PO SCH ×2 (08:32→20:47)
[2018-02-02] MEDS: Triamterene/HCTZ 37.5-25 MG* CAP PO SCH (08:33)
[2018-02-02] MEDS: Rivaroxaban TAB(*) 20 MG TAB PO SCH (08:33)
[2018-02-02] MEDS: prednisoLONE 1% OPHTH.SUSP* 5 ML OPHTH.SUSP BOTH EYES SCH ×2 (08:33→20:47)
[2018-02-02] MEDS: Insulin LISPRO* 1 UNITS UNIT SUBCUT SCH ×3 (08:37→17:10)
[2018-02-02] MEDS: Insulin GLARGINE(*) 1 UNITS UNIT SUBCUT SCH (08:49)
[2018-02-02] MEDS: Mometasone 220 MCG MDI INH SCH ×2 (12:47→20:13)
[2018-02-02] MEDS: Magnesium Hydroxide LIQ* 30 ML UDC PO PRN (16:31)
[2018-02-02] MEDS: Atorvastatin* 10 MG TAB PO SCH (17:10)
--- NOTE | 2018-02-02 20:10 | PN ---
Progress Note Date of Service: 02/02/18 Note: LUCY COSTA was visited. Therapy notes read and reviewed. Her spirits are slowly improving and she is doing better. Her feet swelling is slowly going down and her confidence is building slowly. She is not as negative as she was Current Medications: Active Medications Generic Name Dose Route Start Last Admin Trade Name Freq PRN Reason Stop Dose Admin Acetaminophen 650 mg 01/21/18 15:47 02/01/18 00:47 Tylenol Tab* PO 650 mg Q6H PRN Administration FEVER/PAIN Hydrocodone Bitart/Acetaminophen 1 tab 01/25/18 10:54 01/31/18 16:47 [place] 5-325 Tab* PO 1 tab Q4H PRN Administration PAIN - MODERATE TO SEVERE Hydrocodone Bitart/Acetaminophen 2 tab 01/25/18 22:34 02/02/18 12:40 [place] 5-325 Tab* PO 2 tab Q4H PRN Administration PAIN Albuterol/Ipratropium 1 neb 01/21/18 15:54 Duoneb (Albuterol 2.5 Mg/Ipratropium 0.5 Mg) INH Q6H PRN SOB/WHEEZING Ascorbic Acid 500 mg 01/22/18 09:00 02/01/18 08:30 Vitamin C Tab* PO 500 mg Q48H WADE Administration Atorvastatin Calcium 10 mg 01/21/18 17:00 02/02/18 17:10 Lipitor* PO 10 mg 1700 WADE Administration Bisacodyl 10 mg 01/22/18 17:51 01/22/18 18:45 Dulcolax Supp* [place] 10 mg DAILY PRN Administration CONSTIPATION Cholecalciferol 1,000 units 01/22/18 09:00 02/02/18 08:32 Vitamin D Tab* PO 1,000 units DAILY WADE Administration Citalopram Hydrobromide 20 mg 01/22/18 09:00 02/02/18 08:32 Celexa Tab* PO 20 mg DAILY WADE Administration Dextrose 12.5 gm 01/21/18 16:04 D50w Syringe 50 Ml* IV PUSH .FOR FS < 60 - SS PRN FS < 60 Diltiazem HCl 180 mg 01/22/18 09:00 02/02/18 08:32 Cardizem Cd Cap* PO 180 mg DAILY WADE Administration Diphenhydramine HCl 25 mg 01/21/18 15:58 Benadryl Po* PO Q6H PRN ITCHING Docusate Sodium 100 mg 01/21/18 21:00 02/02/18 08:32 Colace Cap* PO 100 mg BID WADE Administration Insulin Glargine 25 units 01/22/18 09:00 02/02/18 08:49 Lantus(*) SUBCUT 25 unit Q24H WADE Administration Insulin Human Lispro 0 - 15 units 01/22/18 11:31 02/02/18 17:10 Humalog* SUBCUT 3 unit AC WADE Administration Protocol Lactulose 30 ml 01/21/18 16:57 01/28/18 15:22 Lactulose* PO 30 ml Q8H PRN Administration CONSTIPATION Levothyroxine Sodium 125 mcg 01/22/18 06:00 02/02/18 05:18 Synthroid Tab* PO 125 mcg DAILY@0600 WADE Administration Losartan Potassium 100 mg 01/22/18 09:00 02/02/18 08:32 Cozaar Tab* PO 100 mg DAILY WADE Administration Magnesium Hydroxide 30 ml 01/21/18 16:56 02/02/18 16:31 Milk Of Magnesia Liq* PO 30 ml Q6H PRN Administration CONSTIPATION Methocarbamol 750 mg 01/30/18 12:01 02/02/18 05:22 Robaxin Tab* PO 750 mg Q6H PRN Administration SPASMS Mometasone Furoate 2 puff 01/21/18 21:00 02/02/18 12:47 Asmanex 220 Mcg Mdi * INH 2 puff BID WADE Administration Protocol Prednisolone Acetate 1 drop 01/21/18 21:00 02/02/18 08:33 Pred Forte 1%* BOTH EYES 1 drp BID WADE Administration Rivaroxaban 20 mg 01/22/18 09:00 02/02/18 08:33 Xarelto(*) PO 20 mg DAILY WADE Administration Senna 2 tab 01/21/18 21:00 02/01/18 21:09 Senokot Tab* PO 2 tab BEDTIME WADE Administration Triamterene/HCTZ 1 cap 01/31/18 09:00 02/02/18 08:33 Dyazide Cap* PO 1 cap DAILY WADE Administration Vital Signs: Vital Signs Temp Pulse Resp BP Pulse Ox 98.1 F 76 22 127/53 93 02/02/18 17:16 02/02/18 17:16 02/02/18 17:16 02/02/18 17:16 02/02/18 17:16 Lab Results: Laboratory Results - last 24 hr 02/01/18 02/02/18 02/02/18 20:36 07:26 11:42 POC Glucose (mg/dL) 224 H 97 172 H 02/02/18 16:34 POC Glucose (mg/dL) 180 H Exam: GENERAL: No acute distress LUNGS: clear to auscultation bilaterally HEART: Regular rate and rhythm ABDOMEN: + bowel sounds, soft, non-tender, non-distended EXTREMITIES: Bilateral leg edema, worse on left. No calf pain. NEUROLOGIC: 5/5 BLE with limited testing of left hip/knee due to pain. Sensation intact. SKIN: manuel intact. Mild serous drainage. No erythema. Assessment/Plan: 1. Left Hip Fracture: 50% WB LLE. Follow up with Dr. Saba 2 weeks post-op. X- rays 01/29 looked good. PT/OT. 2. Diabetes: On SSI/Lantus. Can restart Insulin pump when she feels ready, per Dr. Sesay 3. Atrial Fibrillation: Xarelto/Cardizem 4. COPD: Duoneb, Asmanex 5. Hypothyroidism: Synthroid 6. DVT Prophylaxis: Xarelto. Has chery's cyst. 7. Constipation: Lactulose. Dulcolax 8. CAD: Lipitor/Cozaar/Cardizem CD 9. Bilateral Edema: Re-started Dyazide 10. Advanced Directives: Full Code 02/02/18 20:10
[2018-02-02] MEDS: Senna TAB PO SCH (20:46)
[2018-02-03] MEDS: HYDROcodone/ACETAMIN 5-325 MG* 1 TAB PO PRN ×4 (02:54→21:08)
[2018-02-03] MEDS: Levothyroxine TAB* 125 MCG TAB PO SCH (05:38)
[2018-02-03] MEDS: Insulin LISPRO* 1 UNITS UNIT SUBCUT SCH ×3 (07:19→17:14)
[2018-02-03] MEDS: Mometasone 220 MCG MDI INH SCH ×2 (08:01→19:27)
[2018-02-03] MEDS: Ascorbic Acid TAB* 500 MG PO SCH (09:25)
[2018-02-03] MEDS: Cholecalciferol TAB* 1000 UNITS PO SCH (09:25)
[2018-02-03] MEDS: Citalopram TAB* 20 MG PO SCH (09:26)
[2018-02-03] MEDS: Docusate CAP* 100 MG PO SCH ×2 (09:27→21:08)
[2018-02-03] MEDS: Diltiazem CD CAP* 180 MG PO SCH (09:27)
[2018-02-03] MEDS: Rivaroxaban TAB(*) 20 MG TAB PO SCH (09:27)
[2018-02-03] MEDS: Losartan TAB* 25 MG PO SCH (09:28)
[2018-02-03] MEDS: Triamterene/HCTZ 37.5-25 MG* CAP PO SCH (09:30)
[2018-02-03] MEDS: prednisoLONE 1% OPHTH.SUSP* 5 ML OPHTH.SUSP BOTH EYES SCH ×2 (09:31→21:08)
[2018-02-03] MEDS: Insulin GLARGINE(*) 1 UNITS UNIT SUBCUT SCH (09:32)
[2018-02-03] MEDS: Methocarbamol TAB* 500 MG PO PRN (12:36)
--- NOTE | 2018-02-03 13:39 | PN ---
Progress Note Date of Service: 02/03/18 Note: LUCY COSTA was visited. Therapy notes read and reviewed. Her manuel were removed without incident. She feels like she is moving better and offers no other complaints. Current Medications: Active Medications Generic Name Dose Route Start Last Admin Trade Name Freq PRN Reason Stop Dose Admin Acetaminophen 650 mg 01/21/18 15:47 02/01/18 00:47 Tylenol Tab* PO 650 mg Q6H PRN Administration FEVER/PAIN Hydrocodone Bitart/Acetaminophen 1 tab 01/25/18 10:54 02/03/18 02:54 [place] 5-325 Tab* PO 1 tab Q4H PRN Administration PAIN - MODERATE TO SEVERE Hydrocodone Bitart/Acetaminophen 2 tab 01/25/18 22:34 02/03/18 09:30 [place] 5-325 Tab* PO 2 tab Q4H PRN Administration PAIN Albuterol/Ipratropium 1 neb 01/21/18 15:54 Duoneb (Albuterol 2.5 Mg/Ipratropium 0.5 Mg) INH Q6H PRN SOB/WHEEZING Ascorbic Acid 500 mg 01/22/18 09:00 02/03/18 09:25 Vitamin C Tab* PO 500 mg Q48H WADE Administration Atorvastatin Calcium 10 mg 01/21/18 17:00 02/02/18 17:10 Lipitor* PO 10 mg 1700 WADE Administration Bisacodyl 10 mg 01/22/18 17:51 01/22/18 18:45 Dulcolax Supp* [place] 10 mg DAILY PRN Administration CONSTIPATION Cholecalciferol 1,000 units 01/22/18 09:00 02/03/18 09:25 Vitamin D Tab* PO 1,000 units DAILY WADE Administration Citalopram Hydrobromide 20 mg 01/22/18 09:00 02/03/18 09:26 Celexa Tab* PO 20 mg DAILY WADE Administration Dextrose 12.5 gm 01/21/18 16:04 D50w Syringe 50 Ml* IV PUSH .FOR FS < 60 - SS PRN FS < 60 Diltiazem HCl 180 mg 01/22/18 09:00 02/03/18 09:27 Cardizem Cd Cap* PO 180 mg DAILY WADE Administration Diphenhydramine HCl 25 mg 01/21/18 15:58 Benadryl Po* PO Q6H PRN ITCHING Docusate Sodium 100 mg 01/21/18 21:00 02/03/18 09:27 Colace Cap* PO 100 mg BID WADE Administration Insulin Glargine 25 units 01/22/18 09:00 02/03/18 09:32 Lantus(*) SUBCUT 25 unit Q24H WADE Administration Insulin Human Lispro 0 - 15 units 01/22/18 11:31 02/03/18 11:55 Humalog* SUBCUT 2 unit AC WADE Administration Protocol Lactulose 30 ml 01/21/18 16:57 01/28/18 15:22 Lactulose* PO 30 ml Q8H PRN Administration CONSTIPATION Levothyroxine Sodium 125 mcg 01/22/18 06:00 02/03/18 05:38 Synthroid Tab* PO 125 mcg DAILY@0600 WADE Administration Losartan Potassium 100 mg 01/22/18 09:00 02/03/18 09:28 Cozaar Tab* PO 100 mg DAILY WADE Administration Magnesium Hydroxide 30 ml 01/21/18 16:56 02/02/18 16:31 Milk Of Magnesia Liq* PO 30 ml Q6H PRN Administration CONSTIPATION Methocarbamol 750 mg 01/30/18 12:01 02/03/18 12:36 Robaxin Tab* PO 750 mg Q6H PRN Administration SPASMS Mometasone Furoate 2 puff 01/21/18 21:00 02/03/18 08:01 Asmanex 220 Mcg Mdi * INH 2 puff BID WADE Administration Protocol Prednisolone Acetate 1 drop 01/21/18 21:00 02/03/18 09:31 Pred Forte 1%* BOTH EYES 1 drp BID WADE Administration Rivaroxaban 20 mg 01/22/18 09:00 02/03/18 09:27 Xarelto(*) PO 20 mg DAILY WADE Administration Senna 2 tab 01/21/18 21:00 02/02/18 20:46 Senokot Tab* PO 2 tab BEDTIME WADE Administration Triamterene/HCTZ 1 cap 01/31/18 09:00 02/03/18 09:30 Dyazide Cap* PO 1 cap DAILY WADE Administration Vital Signs: Vital Signs Temp Pulse Resp BP Pulse Ox 98.1 F 93 20 125/50 91 02/03/18 05:38 02/03/18 08:00 02/03/18 12:36 02/03/18 05:38 02/03/18 08:00 Lab Results: Laboratory Results - last 24 hr 02/02/18 02/02/18 02/03/18 16:34 20:52 07:05 POC Glucose (mg/dL) 180 H 194 H 127 H 02/03/18 11:40 POC Glucose (mg/dL) 143 H Exam: GENERAL: No acute distress LUNGS: clear to auscultation bilaterally HEART: Regular rate and rhythm ABDOMEN: + bowel sounds, soft, non-tender, non-distended EXTREMITIES: Bilateral leg edema, worse on left. No calf pain. NEUROLOGIC: 5/5 BLE with limited testing of left hip/knee due to pain. Sensation intact. SKIN: manuel intact. Mild serous drainage. No erythema. Assessment/Plan: 1. Left Hip Fracture: 50% WB LLE. X-rays 01/29 looked good. PT/OT. Removed manuel 2. Diabetes: On SSI/Lantus. Can restart Insulin pump when she feels ready, per Dr. Sesay 3. Atrial Fibrillation: Xarelto/Cardizem 4. COPD: Duoneb, Asmanex 5. Hypothyroidism: Synthroid 6. DVT Prophylaxis: Xarelto. Has chery's cyst. 7. Constipation: Lactulose. Dulcolax 8. CAD: Lipitor/Cozaar/Cardizem CD 9. Bilateral Edema: Re-started Dyazide 10. Advanced Directives: Full Code 02/03/18 13:41
[2018-02-03] MEDS: Atorvastatin* 10 MG TAB PO SCH (17:22)
[2018-02-03] MEDS: Senna TAB PO SCH (21:08)
[2018-02-04] MEDS: HYDROcodone/ACETAMIN 5-325 MG* 1 TAB PO PRN ×5 (00:58→21:14)
[2018-02-04] MEDS: Levothyroxine TAB* 125 MCG TAB PO SCH (06:43)
[2018-02-04] MEDS: Losartan TAB* 25 MG PO SCH (08:04)
[2018-02-04] MEDS: Mometasone 220 MCG MDI INH SCH ×2 (08:04→19:27)
[2018-02-04] MEDS: Insulin GLARGINE(*) 1 UNITS UNIT SUBCUT SCH (08:05)
[2018-02-04] MEDS: Rivaroxaban TAB(*) 20 MG TAB PO SCH (08:05)
[2018-02-04] MEDS: Citalopram TAB* 20 MG PO SCH (08:05)
[2018-02-04] MEDS: Cholecalciferol TAB* 1000 UNITS PO SCH (08:05)
[2018-02-04] MEDS: Diltiazem CD CAP* 180 MG PO SCH (08:05)
[2018-02-04] MEDS: Triamterene/HCTZ 37.5-25 MG* CAP PO SCH (08:05)
[2018-02-04] MEDS: Docusate CAP* 100 MG PO SCH ×2 (08:05→21:15)
[2018-02-04] MEDS: prednisoLONE 1% OPHTH.SUSP* 5 ML OPHTH.SUSP BOTH EYES SCH ×2 (08:06→21:14)
[2018-02-04] MEDS: Insulin LISPRO* 1 UNITS UNIT SUBCUT SCH ×3 (08:06→17:13)
--- NOTE | 2018-02-04 16:35 | PN ---
Progress Note Date of Service: 02/04/18 Note: ANUSHA COSTA was visited. Nursing notes read and reviewed. I met with Anusha and her daughter. She is nervous about going home but is doing a lot better. Her feet are less swollen. She may be ready to resume insulin pump on Monday. Current Medications: Active Medications Generic Name Dose Route Start Last Admin Trade Name Freq PRN Reason Stop Dose Admin Acetaminophen 650 mg 01/21/18 15:47 02/01/18 00:47 Tylenol Tab* PO 650 mg Q6H PRN Administration FEVER/PAIN Hydrocodone Bitart/Acetaminophen 1 tab 01/25/18 10:54 02/03/18 21:08 [place] 5-325 Tab* PO 1 tab Q4H PRN Administration PAIN - MODERATE TO SEVERE Hydrocodone Bitart/Acetaminophen 2 tab 01/25/18 22:34 02/04/18 12:40 [place] 5-325 Tab* PO 2 tab Q4H PRN Administration PAIN Albuterol/Ipratropium 1 neb 01/21/18 15:54 Duoneb (Albuterol 2.5 Mg/Ipratropium 0.5 Mg) INH Q6H PRN SOB/WHEEZING Ascorbic Acid 500 mg 01/22/18 09:00 02/03/18 09:25 Vitamin C Tab* PO 500 mg Q48H WADE Administration Atorvastatin Calcium 10 mg 01/21/18 17:00 02/03/18 17:22 Lipitor* PO 10 mg 1700 WADE Administration Bisacodyl 10 mg 01/22/18 17:51 01/22/18 18:45 Dulcolax Supp* [place] 10 mg DAILY PRN Administration CONSTIPATION Cholecalciferol 1,000 units 01/22/18 09:00 02/04/18 08:05 Vitamin D Tab* PO 1,000 units DAILY WADE Administration Citalopram Hydrobromide 20 mg 01/22/18 09:00 02/04/18 08:05 Celexa Tab* PO 20 mg DAILY WADE Administration Dextrose 12.5 gm 01/21/18 16:04 D50w Syringe 50 Ml* IV PUSH .FOR FS < 60 - SS PRN FS < 60 Diltiazem HCl 180 mg 01/22/18 09:00 02/04/18 08:05 Cardizem Cd Cap* PO 180 mg DAILY WADE Administration Diphenhydramine HCl 25 mg 01/21/18 15:58 Benadryl Po* PO Q6H PRN ITCHING Docusate Sodium 100 mg 01/21/18 21:00 02/04/18 08:05 Colace Cap* PO 100 mg BID WADE Administration Insulin Glargine 25 units 01/22/18 09:00 02/04/18 08:05 Lantus(*) SUBCUT 25 unit Q24H WADE Administration Insulin Human Lispro 0 - 15 units 01/22/18 11:31 02/04/18 12:04 Humalog* SUBCUT 3 unit AC WADE Administration Protocol Lactulose 30 ml 01/21/18 16:57 01/28/18 15:22 Lactulose* PO 30 ml Q8H PRN Administration CONSTIPATION Levothyroxine Sodium 125 mcg 01/22/18 06:00 02/04/18 06:43 Synthroid Tab* PO 125 mcg DAILY@0600 WADE Administration Losartan Potassium 100 mg 01/22/18 09:00 02/04/18 08:04 Cozaar Tab* PO 100 mg DAILY WADE Administration Magnesium Hydroxide 30 ml 01/21/18 16:56 02/02/18 16:31 Milk Of Magnesia Liq* PO 30 ml Q6H PRN Administration CONSTIPATION Methocarbamol 750 mg 01/30/18 12:01 02/03/18 12:36 Robaxin Tab* PO 750 mg Q6H PRN Administration SPASMS Mometasone Furoate 2 puff 01/21/18 21:00 02/04/18 08:04 Asmanex 220 Mcg Mdi * INH 2 puff BID WADE Administration Protocol Prednisolone Acetate 1 drop 01/21/18 21:00 02/04/18 08:06 Pred Forte 1%* BOTH EYES 1 drp BID WADE Administration Rivaroxaban 20 mg 01/22/18 09:00 02/04/18 08:05 Xarelto(*) PO 20 mg DAILY WADE Administration Senna 2 tab 01/21/18 21:00 02/03/18 21:08 Senokot Tab* PO 2 tab BEDTIME WADE Administration Triamterene/HCTZ 1 cap 01/31/18 09:00 02/04/18 08:05 Dyazide Cap* PO 1 cap DAILY WADE Administration Vital Signs: Vital Signs Temp Pulse Resp BP Pulse Ox 97.5 F 78 16 126/51 98 02/04/18 15:50 02/04/18 15:50 02/04/18 15:50 02/04/18 15:50 02/04/18 16:00 Lab Results: Laboratory Results - last 24 hr 02/03/18 02/03/18 02/04/18 16:30 21:20 07:51 POC Glucose (mg/dL) 108 H 147 H 143 H 02/04/18 11:13 POC Glucose (mg/dL) 195 H Exam: GENERAL: No acute distress LUNGS: clear to auscultation bilaterally HEART: Regular rate and rhythm ABDOMEN: + bowel sounds, soft, non-tender, non-distended EXTREMITIES: Bilateral leg edema, worse on left. No calf pain. NEUROLOGIC: 5/5 BLE with limited testing of left hip/knee due to pain. Sensation intact. SKIN: manuel intact. Mild serous drainage. No erythema. Assessment/Plan: 1. Left Hip Fracture: 50% WB LLE. X-rays 01/29 looked good. PT/OT. Removed manuel 2. Diabetes: On SSI/Lantus. Can restart Insulin pump when she feels ready, per Dr. Sesay 3. Atrial Fibrillation: Xarelto/Cardizem 4. COPD: Duoneb, Asmanex 5. Hypothyroidism: Synthroid 6. DVT Prophylaxis: Xarelto. Has chery's cyst. 7. Constipation: Lactulose. Dulcolax 8. CAD: Lipitor/Cozaar/Cardizem CD 9. Bilateral Edema: Re-started Dyazide 10. Advanced Directives: Full Code 02/04/18 16:35
[2018-02-04] MEDS: Atorvastatin* 10 MG TAB PO SCH (17:13)
[2018-02-04] MEDS: Senna TAB PO SCH (21:15)
[2018-02-05] MEDS: HYDROcodone/ACETAMIN 5-325 MG* 1 TAB PO PRN ×5 (00:59→23:44)
[2018-02-05 05:19] LABS: ABS Basophils 0.1 10^3/ul (0-0.2); ABS Eosinophils 0.2 10^3/ul (0-0.6); ABS Lymphocytes 1.5 10^3/ul (1.0-4.8); ABS Monocytes 0.8 10^3/ul (0-0.8); ABS Neutrophils 3.4 10^3/ul (1.5-7.7); ABS Nucleated RBC 0 10^3/ul; Eosinophil % 2.7 %; Hematocrit 27 % (35-47); Hemoglobin 9.4 g/dl (12.0-16.0); Lymphocyte % 25.7 %; Mean Corpuscular HGB Conc 34 g/dl (31-36); Mean Corpuscular Hemoglobin 32 pg (27-31); Mean Corpuscular Volume 94 fL (80-97); Mean Platelet Volume 6.2 fL (7.4-10.4); Nucleated Red Blood Cells % 0; Platelet Count 616 10^3/ul (150-450); Red Blood Count 2.91 10^6/ul (4.00-5.40); Red Cell Distribution Width 14 % (10.5-15)
[2018-02-05 05:35] LABS: Albumin/Globulin Ratio 0.8 (1-3); BUN/Creatinine Ratio 21.1 (8-20); Calcium 8.6 mg/dL (8.6-10.3); EGFR African American 123.5 (>60); EGFR Non-African American 102.1 (>60); Globulin 3.6 g/dL (2-4); Potassium 4.2 mmol/L (3.5-5.0); Total Bilirubin 0.7 mg/dL (0.2-1.0); Total Protein 6.6 g/dL (6.4-8.9)
[2018-02-05] MEDS: Acetaminophen TAB* 325 MG PO PRN (06:26)
[2018-02-05] MEDS: Levothyroxine TAB* 125 MCG TAB PO SCH (06:26)
[2018-02-05] MEDS: Mometasone 220 MCG MDI INH SCH ×2 (08:12→19:33)
[2018-02-05] MEDS: Insulin LISPRO* 1 UNITS UNIT SUBCUT SCH ×3 (08:27→16:54)
[2018-02-05] MEDS: Ascorbic Acid TAB* 500 MG PO SCH (08:28)
[2018-02-05] MEDS: Diltiazem CD CAP* 180 MG PO SCH (08:28)
[2018-02-05] MEDS: Cholecalciferol TAB* 1000 UNITS PO SCH (08:28)
[2018-02-05] MEDS: Citalopram TAB* 20 MG PO SCH (08:28)
[2018-02-05] MEDS: Insulin GLARGINE(*) 1 UNITS UNIT SUBCUT SCH (08:29)
[2018-02-05] MEDS: Docusate CAP* 100 MG PO SCH ×2 (08:29→20:12)
[2018-02-05] MEDS: Losartan TAB* 25 MG PO SCH (08:29)
[2018-02-05] MEDS: Rivaroxaban TAB(*) 20 MG TAB PO SCH (08:30)
[2018-02-05] MEDS: Triamterene/HCTZ 37.5-25 MG* CAP PO SCH (08:30)
[2018-02-05] MEDS: prednisoLONE 1% OPHTH.SUSP* 5 ML OPHTH.SUSP BOTH EYES SCH ×2 (09:53→20:12)
[2018-02-05] MEDS: Methocarbamol TAB* 500 MG PO PRN (12:00)
--- NOTE | 2018-02-05 12:43 | PMRUTEAM ---
PMRU: Team Meeting Current Status: Nursing: Current Status Skin Deviations [L medial Incision thigh] Skin Deviations [Posterior Incision left leg] Skin Deviations [Left Shoulder Abrasion ] Skin Deviations [Right Abdomen Other ] Skin Deviations [Left Hip] Incision Skin Deviation Description [L healing medial thigh] Skin Deviation Description [ healing Posterior left leg] Skin Deviation Description [ scratch sandoval on L lower shoulder area Left Shoulder] Skin Deviation Description [ scratch sandoval Right Abdomen] Skin Deviation Description [ x2 a few steri strips intact, well approximated, Left Hip] small amount of pick on proximal incision. No drainage seen Bladder Current Status voiding Bowel Current Status bowel meds given.last bm 01/28 Nutrition Current Status appetite fair Medication Current Status needs reinforcement. norco given Physical Therapy: Current Status Bed Mobility Assistance Min Assist Transfer Mobility Assistance Supervision Transfer/Bed Mobility Rolling Walker Recommended Devices Ambulation Assistance Supervision Ambulation Assistive Devices Rolling Walker Number of Feet Patient 60 Ambulated Stairs Assistance Contact Guard Assist Stairs Recommended Devices Two Rails Number of Stairs 5 Objective Comments step to pattern ascend/descending stairs, able to perform on full-size stairs today rather than small steps. Occupational Therapy: Current Status Upper Body Dressing Supervision Lower Body Dressing Supervision Bathing Supervision Toileting Supervision Toilet Transfer Supervision Shower Transfer Supervision Eating Independent Rec Therapy: Current Status Summary of Assessment and RT assessment complete and pt. is aware services. Clinical Impression Pt. is pleasant, cooperative and open to continued leisure visits while on the unit. Treatment Goals Pt. will engage in leisure activities while on the unit. Treatment Plan Provide RT services and encourage involvement. Social Work: Current Status Discharge Plan return home with home care svs and family support Potential for Family Training pt's daughter and daughter in law are involved and supportive Anticipated Discharge Home Destination Discharge With home care svs and family support Nutrition: Current Status Monitoring Visited pt early this AM. Pt states her appetite is improved somewhat although not normal. Has tended to have an aversion to meats and is tending to order sandwiches, yogurt. States has not received the glucerna shakes being sent, but admits that she does not drink liquids well so declines it. Injections of insulin continue as pt does not yet feel ready for insulin pump. FS 148 -216. BM 01/28 - thought she was going to have one today but no results yet. Ongoing constipation may be impacting appetite as well or exacerbated by her reduced intake. Note attempted X 2 to visit pt but still n/a. Will visit 01/31. Occasional BG >200 but overall reasonable control. Plan is for insulin pump to be restarted when pt feels ready. Intake has been fair (25-85%) and will be meeting with pt to determine if any other interventions. Continuing glucerna shake for now. BM 01/28. Receiving appropriate bowel meds. Follow pt to encourage maximization of intake. Goals: Physical Therapy: Initial Goals Bed Mobility Assistance Independent Transfer Mobility Assistance Independent Transfer/Bed Mobility Rolling Walker Recommended Devices Ambulation Independent Ambulation Recommended Devices Rolling Walker Ambulation Distance 150 Stairs Assistance Supervision Stair Recommended Devices Crutches,One Rail Number of Stairs flight Home Exercise Program Independent Assistance Physical Therapy: Updated Goals Transfer/Bed Mobility Rolling Walker Recommended Devices Occupational Therapy: Initial Goals Goals to be Completed in (Days 14-18 days ) Upper Body Bathing Routine Modified Independent with Lower Body Bathing Routine Modified Independent with Upper Body Dressing Routine Independent Lower Body Dressing Routine Modified Independent with Toilet Hygeine and Clothing Modified Independent with Management Routine Toilet Transfer Routine Modified Independent with Tub Transfer Routine Modified Independent with Functional Transfers for ADL Modified Independent with Grooming Routine Independent Feeding Routine Modified Independent with Nursing: Goals Bladder Goal independent Bowel Goal independent Nutrition Goal 100% of all meals consumed Medication Goal independent Nutrition: Goals Intervention Goals 1. Adequate PO intake to maintain lean body mass and hydration while promoting post-op healing 2. Adequate glycemic control per inpatient parameters and w/consideration of advanced age 3. Electrolytes will be maintained WNL w/ adequate hydration 4. Achieve bowel regularity w/o additional post-op constipation Social Work: Goals Discharge Plan return home with home care svs and family support Potential for Family Training pt's daughter and daughter in law are involved and supportive Anticipated Discharge Home Destination Discharge With home care svs and family support Care Plan: Care Plan ADL's - Improve/Maintain Start: 01/22/18 14:40 Freq: DAILY Status: Active Target: Protocol: Activity Type Activity Date Activity User E-Sign Co-Sign Detail Recorded Client Recorded Date Recorded By Document 01/30/18 11:08 [id number] [id number] 01/30/18 11:08 [id number] 01/30/18 11:08 PMRU Outcome: ADL's/ADL Transfers Orders/Interventions Occupational Therapy Evaluation & Treatment Communication Tool in Patient Room Device Yes Address Deficits Secondary To: left hip ORIF Patient to receive OT 5x/wk for 60-120 Therex min/day Self Care Management Group Therapy UE/LE ADL's with Assist Yes: [place] ADL Transfers with Assist Yes: [place] Toileting: Transfers,Clothing Management Yes: [place] ,Hygeine w/Assist Progression Toward Outcome/Goals Progressing Outcome/Goals Met Pt continues to be limited by difficulty lifting LLE in order to complete LB with increased independence. Pt using AE well without verbal cues but since she is unable to life LLE independently, she is having a difficult time threading LLE through brief and pants. Pt demonstrates increased dynamic standing balance. Cardiovascular- Improve/Maintain Start: 01/21/18 18:28 Freq: QSHIFT Status: Active Target: Protocol: Activity Type Activity Date Activity User E-Sign Co-Sign Detail Recorded Client Recorded Date Recorded By Document 02/05/18 01:09 [id number] 02/05/18 01:09 [id number] 02/05/18 01:09 PMRU Outcome: Cardiovascular Vital Signs q Shift for 48hrs Then BID Yes Daily Weight Ordered No Current Cardiovascular Outcome/Goal Maintain/ Achieve Baseline HR, BP , Perfusion Maintain/ Achieve Hemodynamic Stability Free of Abnormal Cardiac Symptoms Progression Toward Outcome/Goal Progressing DVT Prophylaxis- Improve/Maintain Start: 01/21/18 18:28 Freq: QSHIFT Status: Active Target: Protocol: Activity Type Activity Date Activity User E-Sign Co-Sign Detail Recorded Client Recorded Date Recorded By Document 02/05/18 01:09 [id number] [id number] 02/05/18 01:09 [id number] 02/05/18 01:09 PMRU Outcome: DVT Prophylaxis Outcome/Goals Remains Free of DVT Complies with DVT Prophylaxis /Treatment Progression Toward Outcome/Goals Progressing Education-Improve/Maintain Start: 01/21/18 18:28 Freq: QSHIFT Status: Active Target: Protocol: Activity Type Activity Date Activity User E-Sign Co-Sign Detail Recorded Client Recorded Date Recorded By Document 02/05/18 01:09 [id number] [id number] 02/05/18 01:09 [id number] 02/05/18 01:09 PMRU Outcome: Education Outcome/Goals Demonstrates Skills Encourage Questions Progression Toward Outcome/Goals Progressing /GI-Improve/Maintain Start: 01/21/18 18:28 Freq: QSHIFT Status: Active Target: Protocol: Activity Type Activity Date Activity User E-Sign Co-Sign Detail Recorded Client Recorded Date Recorded By Document 02/05/18 01:09 [id number] [email or web address] 02/05/18 01:09 [id number] 02/05/18 01:09 PMRU Outcome: Genitourinary/ Gastrointestinal Genitourinary- Outcome/Goals Maintain/ Achieve Adequate Urinary Output Remain Free of Hospital- Acquired UTI Gastrointestinal-Outcome/Goals Maintain/ Achieve Bowel Regularity in Accordance with Pt's Baseline Prevent Constipation Laxatives as Ordered Progression Toward Outcome/Goals - Progressing Progression Toward Outcome/Goals - GI Progressing Outcome/Goals Met Comment pt up BR Metabolic Status- Improve/Maintain Start: 01/21/18 18:28 Freq: QSHIFT Status: Active Target: Protocol: Activity Type Activity Date Activity User E-Sign Co-Sign Detail Recorded Client Recorded Date Recorded By Document 02/05/18 01:09 [id number] 02/05/18 01:09 [id number] 02/05/18 01:09 PMRU Outcome: Metabolic Status Have Fingersticks Been Ordered Yes Fingerstick Order Frequency AC & HS Outcome/Goals Maintain/ Improve Metabolic Status Progression Toward Outcome/Goals Progressing Pain/Comfort- Improve/Maintain Start: 01/21/18 18:28 Freq: QSHIFT Status: Active Target: Protocol: Activity Type Activity Date Activity User E-Sign Co-Sign Detail Recorded Client Recorded Date Recorded By Document 02/05/18 01:09 [id number] [email or web address] 02/05/18 01:09 [id number] 02/05/18 01:09 PMRU Outcome: Pain/Comfort Outcome/Goals Demonstrates Knowledge and Use of Available Comfort Measures Achieves Acceptable Comfort/Pain Level as Determined by Patient/Condit Maintain Comfort Level Allowing Patient to Fully Participate in Rehab Progression Toward Outcome/Goals Progressing Outcome/Goals Met Comment pain medication given Respiratory - Improve/Maintain Start: 01/21/18 18:28 Freq: QSHIFT Status: Active Target: Protocol: Activity Type Activity Date Activity User E-Sign Co-Sign Detail Recorded Client Recorded Date Recorded By Document 02/05/18 01:09 [id number] 02/05/18 01:09 [id number] 02/05/18 01:09 PMRU Outcome: Respiratory Does Patient Have a Trach No Outcome/Goals Maintain/ Improve O2 Sat per MD Order Maintain/ Improve Baseline Respiratory Status Maintain/ Improve Activity Tolerance Prevent Pneumonia/ Atelectasis Progression Toward Outcome/Goals Progressing Safety- Improve/Maintain Start: 01/21/18 18:28 Freq: QSHIFT Status: Active Target: Protocol: Activity Type Activity Date Activity User E-Sign Co-Sign Detail Recorded Client Recorded Date Recorded By Document 02/05/18 01:09 [id number] [email or web address] 02/05/18 01:09 [id number] 02/05/18 01:09 PMRU Outcome: Safety Outcome/Goals Remain Free of Injury or Harm Cooperates with Safety Measures for Least Restrictive Environment Prevent Falls/ Injury Progression Toward Outcome/Goals Progressing Outcome/Goals Met Cooperates with Safety Measures for Least Restrictive Environment Medicine Note: Length of Stay: 3 days Anticipated Discharge Destination: Home Tentative Discharge Date: 02/08/18 Discharged to: Home
--- NOTE | 2018-02-05 14:44 | PN ---
Progress Note Date of Service: 02/05/18 Note: LUCY COSTA was visited. Therapy notes read and reviewed. She was discussed in interdisciplinary team rounds. She is doing quite well. Feel like she will be ready by Current Medications: Active Medications Generic Name Dose Route Start Last Admin Trade Name Freq PRN Reason Stop Dose Admin Acetaminophen 650 mg 01/21/18 15:47 02/05/18 06:26 Tylenol Tab* PO 650 mg Q6H PRN Administration FEVER/PAIN Hydrocodone Bitart/Acetaminophen 1 tab 01/25/18 10:54 02/03/18 21:08 [place] 5-325 Tab* PO 1 tab Q4H PRN Administration PAIN - MODERATE TO SEVERE Hydrocodone Bitart/Acetaminophen 2 tab 01/25/18 22:34 02/05/18 13:42 [place] 5-325 Tab* PO 2 tab Q4H PRN Administration PAIN Albuterol/Ipratropium 1 neb 01/21/18 15:54 Duoneb (Albuterol 2.5 Mg/Ipratropium 0.5 Mg) INH Q6H PRN SOB/WHEEZING Ascorbic Acid 500 mg 01/22/18 09:00 02/05/18 08:28 Vitamin C Tab* PO 500 mg Q48H WADE Administration Atorvastatin Calcium 10 mg 01/21/18 17:00 02/04/18 17:13 Lipitor* PO 10 mg 1700 WADE Administration Bisacodyl 10 mg 01/22/18 17:51 01/22/18 18:45 Dulcolax Supp* [place] 10 mg DAILY PRN Administration CONSTIPATION Cholecalciferol 1,000 units 01/22/18 09:00 02/05/18 08:28 Vitamin D Tab* PO 1,000 units DAILY WADE Administration Citalopram Hydrobromide 20 mg 01/22/18 09:00 02/05/18 08:28 Celexa Tab* PO 20 mg DAILY WADE Administration Dextrose 12.5 gm 01/21/18 16:04 D50w Syringe 50 Ml* IV PUSH .FOR FS < 60 - SS PRN FS < 60 Diltiazem HCl 180 mg 01/22/18 09:00 02/05/18 08:28 Cardizem Cd Cap* PO 180 mg DAILY WADE Administration Diphenhydramine HCl 25 mg 01/21/18 15:58 Benadryl Po* PO Q6H PRN ITCHING Docusate Sodium 100 mg 01/21/18 21:00 02/05/18 08:29 Colace Cap* PO 100 mg BID WADE Administration Insulin Glargine 25 units 01/22/18 09:00 02/05/18 08:29 Lantus(*) SUBCUT 25 unit Q24H WADE Administration Insulin Human Lispro 0 - 15 units 01/22/18 11:31 02/05/18 13:21 Humalog* SUBCUT 2 unit AC WADE Administration Protocol Lactulose 30 ml 01/21/18 16:57 01/28/18 15:22 Lactulose* PO 30 ml Q8H PRN Administration CONSTIPATION Levothyroxine Sodium 125 mcg 01/22/18 06:00 02/05/18 06:26 Synthroid Tab* PO 125 mcg DAILY@0600 WADE Administration Losartan Potassium 100 mg 01/22/18 09:00 02/05/18 08:29 Cozaar Tab* PO 100 mg DAILY WADE Administration Magnesium Hydroxide 30 ml 01/21/18 16:56 02/02/18 16:31 Milk Of Magnesia Liq* PO 30 ml Q6H PRN Administration CONSTIPATION Methocarbamol 750 mg 01/30/18 12:01 02/05/18 12:00 Robaxin Tab* PO 750 mg Q6H PRN Administration SPASMS Mometasone Furoate 2 puff 01/21/18 21:00 02/05/18 08:12 Asmanex 220 Mcg Mdi * INH 2 puff BID WADE Administration Protocol Prednisolone Acetate 1 drop 01/21/18 21:00 02/05/18 09:53 Pred Forte 1%* BOTH EYES 1 drp BID WADE Administration Rivaroxaban 20 mg 01/22/18 09:00 02/05/18 08:30 Xarelto(*) PO 20 mg DAILY WADE Administration Senna 2 tab 01/21/18 21:00 02/04/18 21:15 Senokot Tab* PO 2 tab BEDTIME WADE Administration Triamterene/HCTZ 1 cap 01/31/18 09:00 02/05/18 08:30 Dyazide Cap* PO 1 cap DAILY WADE Administration Vital Signs: Vital Signs Temp Pulse Resp BP Pulse Ox 97.9 F 88 16 128/56 90 02/05/18 06:25 02/05/18 08:09 02/05/18 13:42 02/05/18 06:25 02/05/18 08:09 Lab Results: Laboratory Results - last 24 hr 02/04/18 02/04/18 02/05/18 16:49 20:03 04:54 WBC 6.0 RBC 2.91 L Hgb 9.4 L Hct 27 L MCV 94 MCH 32 H MCHC 34 RDW 14 Plt Count 616 H MPV 6.2 L Neut % (Auto) 56.7 Lymph % (Auto) 25.7 [place] % (Auto) 14.0 Eos % (Auto) 2.7 Baso % (Auto) 0.9 Absolute Neuts (auto) 3.4 Absolute Lymphs (auto) 1.5 Absolute Monos (auto) 0.8 Absolute Eos (auto) 0.2 Absolute Basos (auto) 0.1 Absolute Nucleated RBC 0 Nucleated RBC % 0 Sodium Potassium Chloride Carbon Dioxide Anion Gap BUN Creatinine Est GFR ( Amer) Est GFR (Non-Af Amer) BUN/Creatinine Ratio Glucose POC Glucose (mg/dL) 285 H 98 Calcium Total Bilirubin AST ALT Alkaline Phosphatase Total Protein Albumin Globulin Albumin/Globulin Ratio 02/05/18 02/05/18 02/05/18 04:54 08:08 12:04 WBC RBC Hgb Hct MCV MCH MCHC RDW Plt Count MPV Neut % (Auto) Lymph % (Auto) [place] % (Auto) Eos % (Auto) Baso % (Auto) Absolute Neuts (auto) Absolute Lymphs (auto) Absolute Monos (auto) Absolute Eos (auto) Absolute Basos (auto) Absolute Nucleated RBC Nucleated RBC % Sodium 134 L Potassium 4.2 Chloride 97 L Carbon Dioxide 32 Anion Gap 5 BUN 12 Creatinine 0.57 Est GFR ( Amer) 123.5 Est GFR (Non-Af Amer) 102.1 BUN/Creatinine Ratio 21.1 H Glucose 106 H POC Glucose (mg/dL) 140 H 170 H Calcium 8.6 Total Bilirubin 0.70 AST 10 L ALT 8 Alkaline Phosphatase 74 Total Protein 6.6 Albumin 3.0 L Globulin 3.6 Albumin/Globulin Ratio 0.8 L Exam: GENERAL: No acute distress LUNGS: clear to auscultation bilaterally HEART: Regular rate and rhythm ABDOMEN: + bowel sounds, soft, non-tender, non-distended EXTREMITIES: Bilateral leg edema, worse on left. No calf pain. NEUROLOGIC: 5/5 BLE with limited testing of left hip/knee due to pain. Sensation intact. SKIN: No erythema. Assessment/Plan: 1. Left Hip Fracture: 50% WB LLE. X-rays 01/29 looked good. PT/OT. Removed manuel 2. Diabetes: On SSI/Lantus. Can restart Insulin pump when she feels ready, per Dr. Sesay 3. Atrial Fibrillation: Xarelto/Cardizem 4. COPD: Duoneb, Asmanex 5. Hypothyroidism: Synthroid 6. DVT Prophylaxis: Xarelto. Has chery's cyst. 7. Constipation: Lactulose. Dulcolax 8. CAD: Lipitor/Cozaar/Cardizem CD 9. Bilateral Edema: Re-started Dyazide 10. Advanced Directives: Full Code 02/05/18 14:45
[2018-02-05] MEDS: Atorvastatin* 10 MG TAB PO SCH (17:51)
[2018-02-05] MEDS: Magnesium Hydroxide LIQ* 30 ML UDC PO PRN (18:21)
[2018-02-05] MEDS: Senna TAB PO SCH (20:12)
[2018-02-05] MEDS ORDERED: Insulin LISPRO* 1 UNITS UNIT SUBCUT ONE (21:12)
[2018-02-06] MEDS: Levothyroxine TAB* 125 MCG TAB PO SCH (05:54)
[2018-02-06] MEDS: Insulin LISPRO* 1 UNITS UNIT SUBCUT SCH ×3 (08:23→16:54)
[2018-02-06] MEDS: HYDROcodone/ACETAMIN 5-325 MG* 1 TAB PO PRN ×3 (08:37→20:24)
[2018-02-06] MEDS: Insulin GLARGINE(*) 1 UNITS UNIT SUBCUT SCH (08:37)
[2018-02-06] MEDS: Mometasone 220 MCG MDI INH SCH ×2 (08:38→19:40)
[2018-02-06] MEDS: Citalopram TAB* 20 MG PO SCH (08:38)
[2018-02-06] MEDS: Cholecalciferol TAB* 1000 UNITS PO SCH (08:38)
[2018-02-06] MEDS: Diltiazem CD CAP* 180 MG PO SCH (08:38)
[2018-02-06] MEDS: Docusate CAP* 100 MG PO SCH ×2 (08:38→20:23)
[2018-02-06] MEDS: Losartan TAB* 25 MG PO SCH (08:38)
[2018-02-06] MEDS: Rivaroxaban TAB(*) 20 MG TAB PO SCH (08:40)
[2018-02-06] MEDS: prednisoLONE 1% OPHTH.SUSP* 5 ML OPHTH.SUSP BOTH EYES SCH ×2 (08:40→20:25)
[2018-02-06] MEDS: Triamterene/HCTZ 37.5-25 MG* CAP PO SCH (08:40)
[2018-02-06] MEDS: Magnesium Hydroxide LIQ* 30 ML UDC PO PRN (09:44)
--- NOTE | 2018-02-06 13:02 | PN ---
Progress Note Date of Service: 02/06/18 Note: LUCY COSTA was visited. Nursing notes read and reviewed. Looks good without complaints. Current Medications: Active Medications Generic Name Dose Route Start Last Admin Trade Name Freq PRN Reason Stop Dose Admin Acetaminophen 650 mg 01/21/18 15:47 02/05/18 06:26 Tylenol Tab* PO 650 mg Q6H PRN Administration FEVER/PAIN Hydrocodone Bitart/Acetaminophen 2 tab 01/25/18 22:34 02/06/18 08:37 [place] 5-325 Tab* PO 2 tab Q4H PRN Administration PAIN Albuterol/Ipratropium 1 neb 01/21/18 15:54 Duoneb (Albuterol 2.5 Mg/Ipratropium 0.5 Mg) INH Q6H PRN SOB/WHEEZING Ascorbic Acid 500 mg 01/22/18 09:00 02/05/18 08:28 Vitamin C Tab* PO 500 mg Q48H WADE Administration Atorvastatin Calcium 10 mg 01/21/18 17:00 02/05/18 17:51 Lipitor* PO 10 mg 1700 WADE Administration Bisacodyl 10 mg 01/22/18 17:51 01/22/18 18:45 Dulcolax Supp* [place] 10 mg DAILY PRN Administration CONSTIPATION Cholecalciferol 1,000 units 01/22/18 09:00 02/06/18 08:38 Vitamin D Tab* PO 1,000 units DAILY WADE Administration Citalopram Hydrobromide 20 mg 01/22/18 09:00 02/06/18 08:38 Celexa Tab* PO 20 mg DAILY WADE Administration Dextrose 12.5 gm 01/21/18 16:04 D50w Syringe 50 Ml* IV PUSH .FOR FS < 60 - SS PRN FS < 60 Diltiazem HCl 180 mg 01/22/18 09:00 02/06/18 08:38 Cardizem Cd Cap* PO 180 mg DAILY WADE Administration Diphenhydramine HCl 25 mg 01/21/18 15:58 Benadryl Po* PO Q6H PRN ITCHING Docusate Sodium 100 mg 01/21/18 21:00 02/06/18 08:38 Colace Cap* PO 100 mg BID WADE Administration Insulin Glargine 25 units 01/22/18 09:00 02/06/18 08:37 Lantus(*) SUBCUT 25 unit Q24H WADE Administration Insulin Human Lispro 0 - 15 units 01/22/18 11:31 02/06/18 08:23 Humalog* SUBCUT Not Given AC WADE Protocol Lactulose 30 ml 01/21/18 16:57 01/28/18 15:22 Lactulose* PO 30 ml Q8H PRN Administration CONSTIPATION Levothyroxine Sodium 125 mcg 01/22/18 06:00 02/06/18 05:54 Synthroid Tab* PO 125 mcg DAILY@0600 WADE Administration Losartan Potassium 100 mg 01/22/18 09:00 02/06/18 08:38 Cozaar Tab* PO 100 mg DAILY WADE Administration Magnesium Hydroxide 30 ml 01/21/18 16:56 02/06/18 09:44 Milk Of Magnesia Liq* PO 30 ml Q6H PRN Administration CONSTIPATION Methocarbamol 750 mg 01/30/18 12:01 02/05/18 12:00 Robaxin Tab* PO 750 mg Q6H PRN Administration SPASMS Mometasone Furoate 2 puff 01/21/18 21:00 02/06/18 08:38 Asmanex 220 Mcg Mdi * INH 2 puff BID WADE Administration Protocol Prednisolone Acetate 1 drop 01/21/18 21:00 02/06/18 08:40 Pred Forte 1%* BOTH EYES 1 drp BID WADE Administration Rivaroxaban 20 mg 01/22/18 09:00 02/06/18 08:40 Xarelto(*) PO 20 mg DAILY WADE Administration Senna 2 tab 01/21/18 21:00 02/05/18 20:12 Senokot Tab* PO 2 tab BEDTIME WADE Administration Triamterene/HCTZ 1 cap 01/31/18 09:00 02/06/18 08:40 Dyazide Cap* PO 1 cap DAILY WADE Administration Vital Signs: Vital Signs Temp Pulse Resp BP Pulse Ox 98.1 F 81 16 116/49 93 02/06/18 05:54 02/06/18 05:54 02/06/18 08:37 02/06/18 05:54 02/06/18 05:54 Lab Results: Laboratory Results - last 24 hr 02/05/18 02/05/18 02/05/18 12:04 16:39 20:17 POC Glucose (mg/dL) 170 H 110 H 250 H 02/06/18 02/06/18 07:22 11:46 POC Glucose (mg/dL) 90 208 H Exam: GENERAL: No acute distress LUNGS: clear to auscultation bilaterally HEART: Regular rate and rhythm ABDOMEN: + bowel sounds, soft, non-tender, non-distended EXTREMITIES: Bilateral leg edema, worse on left. No calf pain. NEUROLOGIC: 5/5 BLE with limited testing of left hip/knee due to pain. Sensation intact. SKIN: No erythema. Assessment/Plan: 1. Left Hip Fracture: 50% WB LLE. X-rays 01/29 looked good. PT/OT. [place] out 2. Diabetes: On SSI/Lantus. Can restart Insulin pump when she feels ready, per Dr. Sesay 3. Atrial Fibrillation: Xarelto/Cardizem 4. COPD: Duoneb, Asmanex 5. Hypothyroidism: Synthroid 6. DVT Prophylaxis: Xarelto. Has chery's cyst. 7. Constipation: Lactulose. Dulcolax 8. CAD: Lipitor/Cozaar/Cardizem CD 9. Bilateral Edema: Re-started Dyazide 10. Advanced Directives: Full Code 02/06/18 13:03
[2018-02-06] MEDS: Atorvastatin* 10 MG TAB PO SCH (16:57)
[2018-02-06] MEDS: Senna TAB PO SCH (20:26)
[2018-02-07] MEDS: HYDROcodone/ACETAMIN 5-325 MG* 1 TAB PO PRN ×3 (00:35→14:10)
[2018-02-07] MEDS: Levothyroxine TAB* 125 MCG TAB PO SCH (05:16)
[2018-02-07] MEDS: Mometasone 220 MCG MDI INH SCH ×2 (08:17→20:19)
[2018-02-07] MEDS: Diltiazem CD CAP* 180 MG PO SCH (09:18)
[2018-02-07] MEDS: Cholecalciferol TAB* 1000 UNITS PO SCH (09:18)
[2018-02-07] MEDS: Rivaroxaban TAB(*) 20 MG TAB PO SCH (09:18)
[2018-02-07] MEDS: Docusate CAP* 100 MG PO SCH ×2 (09:18→20:22)
[2018-02-07] MEDS: Triamterene/HCTZ 37.5-25 MG* CAP PO SCH (09:18)
[2018-02-07] MEDS: Ascorbic Acid TAB* 500 MG PO SCH (09:18)
[2018-02-07] MEDS: Citalopram TAB* 20 MG PO SCH (09:18)
[2018-02-07] MEDS: Losartan TAB* 25 MG PO SCH (09:19)
[2018-02-07] MEDS: prednisoLONE 1% OPHTH.SUSP* 5 ML OPHTH.SUSP BOTH EYES SCH ×2 (09:19→20:28)
[2018-02-07] MEDS: Insulin LISPRO* 1 UNITS UNIT SUBCUT SCH ×3 (09:22→16:58)
[2018-02-07] MEDS: Insulin GLARGINE(*) 1 UNITS UNIT SUBCUT SCH (10:39)
[2018-02-07] MEDS: Acetaminophen TAB* 325 MG PO PRN (12:36)
[2018-02-07] MEDS: Atorvastatin* 10 MG TAB PO SCH (17:10)
[2018-02-07] MEDS ORDERED: HYDROcodone/ACETAMIN 5-325 MG* 1 TAB PO PRN (18:04)
--- NOTE | 2018-02-07 18:06 | PN ---
Progress Note Date of Service: 02/07/18 - Note: LUCY COSTA was visited. Therapy notes read and reviewed. She is ready for discharge in the morning. She feels ready. Edema has gone down in feet Current Medications: Active Medications Generic Name Dose Route Start Last Admin Trade Name Freq PRN Reason Stop Dose Admin Acetaminophen 650 mg 01/21/18 15:47 02/07/18 12:36 Tylenol Tab* PO 650 mg Q6H PRN Administration FEVER/PAIN Hydrocodone Bitart/Acetaminophen 2 tab 01/25/18 22:34 02/07/18 14:10 [place] 5-325 Tab* PO 2 tab Q4H PRN Administration PAIN Hydrocodone Bitart/Acetaminophen 1 tab 02/07/18 18:04 [place] 5-325 Tab* PO Q4H PRN PAIN - MODERATE TO SEVERE Albuterol/Ipratropium 1 neb 01/21/18 15:54 Duoneb (Albuterol 2.5 Mg/Ipratropium 0.5 Mg) INH Q6H PRN SOB/WHEEZING Ascorbic Acid 500 mg 01/22/18 09:00 02/07/18 09:18 Vitamin C Tab* PO 500 mg Q48H WADE Administration Atorvastatin Calcium 10 mg 01/21/18 17:00 02/07/18 17:10 Lipitor* PO 10 mg 1700 WADE Administration Bisacodyl 10 mg 01/22/18 17:51 01/22/18 18:45 Dulcolax Supp* [place] 10 mg DAILY PRN Administration CONSTIPATION Cholecalciferol 1,000 units 01/22/18 09:00 02/07/18 09:18 Vitamin D Tab* PO 1,000 units DAILY WADE Administration Citalopram Hydrobromide 20 mg 01/22/18 09:00 02/07/18 09:18 Celexa Tab* PO 20 mg DAILY WADE Administration Dextrose 12.5 gm 01/21/18 16:04 D50w Syringe 50 Ml* IV PUSH .FOR FS < 60 - SS PRN FS < 60 Diltiazem HCl 180 mg 01/22/18 09:00 02/07/18 09:18 Cardizem Cd Cap* PO 180 mg DAILY WADE Administration Diphenhydramine HCl 25 mg 01/21/18 15:58 Benadryl Po* PO Q6H PRN ITCHING Docusate Sodium 100 mg 01/21/18 21:00 02/07/18 09:18 Colace Cap* PO 100 mg BID WADE Administration Insulin Human Lispro 0 - 15 units 01/22/18 11:31 02/07/18 16:58 Humalog* SUBCUT Not Given AC [facility] Protocol Lactulose 30 ml 01/21/18 16:57 02/06/18 14:05 Lactulose* PO 30 ml Q8H PRN Administration CONSTIPATION Levothyroxine Sodium 125 mcg 01/22/18 06:00 02/07/18 05:16 Synthroid Tab* PO 125 mcg DAILY@0600 WADE Administration Losartan Potassium 100 mg 01/22/18 09:00 02/07/18 09:19 Cozaar Tab* PO 100 mg DAILY WADE Administration Magnesium Hydroxide 30 ml 01/21/18 16:56 02/06/18 09:44 Milk Of Magnesia Liq* PO 30 ml Q6H PRN Administration CONSTIPATION Methocarbamol 750 mg 01/30/18 12:01 02/05/18 12:00 Robaxin Tab* PO 750 mg Q6H PRN Administration SPASMS Mometasone Furoate 2 puff 01/21/18 21:00 02/07/18 08:17 Asmanex 220 Mcg Mdi * INH 2 puff BID WADE Administration Protocol Prednisolone Acetate 1 drop 01/21/18 21:00 02/07/18 09:19 Pred Forte 1%* BOTH EYES 1 drp BID WADE Administration Rivaroxaban 20 mg 01/22/18 09:00 02/07/18 09:18 Xarelto(*) PO 20 mg DAILY WADE Administration Senna 2 tab 01/21/18 21:00 02/06/18 20:26 Senokot Tab* PO Not Given BEDTIME [facility] Triamterene/HCTZ 1 cap 01/31/18 09:00 02/07/18 09:18 Dyazide Cap* PO 1 cap DAILY WADE Administration Vital Signs: Vital Signs Temp Pulse Resp BP Pulse Ox 97.7 F 73 18 101/43 94 02/07/18 15:22 02/07/18 15:22 02/07/18 16:26 02/07/18 15:22 02/07/18 16:00 Lab Results: Laboratory Results - last 24 hr 02/06/18 02/07/18 02/07/18 21:32 07:33 12:20 POC Glucose (mg/dL) 203 H 72 239 H 02/07/18 16:41 POC Glucose (mg/dL) 97 Exam: GENERAL: No acute distress LUNGS: clear to auscultation bilaterally HEART: Regular rate and rhythm ABDOMEN: + bowel sounds, soft, non-tender, non-distended EXTREMITIES: Bilateral leg edema, worse on left, but improving. No calf pain. NEUROLOGIC: 5/5 BLE with limited testing of left hip/knee due to pain. Sensation intact. SKIN: No erythema. Assessment/Plan: 1. Left Hip Fracture: 50% WB LLE. X-rays 01/29 looked good. PT/OT. [place] out 2. Diabetes: On SSI/Lantus. Will d/c Lantus and restart Insulin pump tomorrow 3. Atrial Fibrillation: Xarelto/Cardizem 4. COPD: Duoneb, Asmanex 5. Hypothyroidism: Synthroid 6. DVT Prophylaxis: Xarelto. Has chery's cyst. 7. Constipation: Lactulose. Dulcolax 8. CAD: Lipitor/Cozaar/Cardizem CD 9. Bilateral Edema: Re-started Dyazide 10. Advanced Directives: Full Code 02/07/18 18:07
[2018-02-07] MEDS: Senna TAB PO SCH (20:14)
[2018-02-07] MEDS: Methocarbamol TAB* 500 MG PO PRN (21:49)
[2018-02-08] MEDS: HYDROcodone/ACETAMIN 5-325 MG* 1 TAB PO PRN ×2 (01:45→08:18)
[2018-02-08] MEDS: Levothyroxine TAB* 125 MCG TAB PO SCH (05:01)
[2018-02-08 05:18] VITALS: BP 120/51
[2018-02-08] MEDS: Insulin LISPRO* 1 UNITS UNIT SUBCUT SCH (08:14)
[2018-02-08] MEDS: Citalopram TAB* 20 MG PO SCH (08:16)
[2018-02-08] MEDS: Cholecalciferol TAB* 1000 UNITS PO SCH (08:16)
[2018-02-08] MEDS: Docusate CAP* 100 MG PO SCH (08:17)
[2018-02-08] MEDS: Diltiazem CD CAP* 180 MG PO SCH (08:17)
[2018-02-08] MEDS: Triamterene/HCTZ 37.5-25 MG* CAP PO SCH (08:17)
[2018-02-08] MEDS: Rivaroxaban TAB(*) 20 MG TAB PO SCH (08:17)
[2018-02-08] MEDS: prednisoLONE 1% OPHTH.SUSP* 5 ML OPHTH.SUSP BOTH EYES SCH (08:17)
[2018-02-08] MEDS: Losartan TAB* 25 MG PO SCH (08:17)
[2018-02-08] MEDS: Mometasone 220 MCG MDI INH SCH (08:49)
--- NOTE | 2018-02-08 22:05 | DS ---
CC: Dr. Marcelo Sesay; Dr. Fransico Saba* DISCHARGE SUMMARY: DATE OF ADMISSION: 01/21/18 DATE OF DISCHARGE: 02/08/18 DISCHARGE DIAGNOSES: 1. Left hip fracture. 2. Hematoma, left thigh. 3. Atrial fibrillation. 4. Diabetes mellitus. 5. Chronic obstructive pulmonary disease. 6. Acute blood loss anemia. 7. Sleep apnea. 8. Anxiety. HISTORY OF ILLNESS AND HOSPITAL COURSE: For complete history of the events leading up to her rehab stay, please see the history and physical dictated by me on 01/21/18. While on the rehab unit, the patient initially had a great deal of trouble with pain and swelling in her leg. She did have a Doppler of her left leg done on 01/26/18 which was negative for any DVT. It did show a Hernández cyst. It was felt that the swelling was caused by a hematoma. The patient had lot of pain in her left knee. She did have an x-ray on 01/29/18, roughly 10 days postop, which showed her hardware in good position. Otherwise, the patient slowly improved. She was restarted on the diuretic to help deal with some of the swelling in her feet. The patient did not feel that she was able to use her insulin pump for most of her rehab stay. She felt like she was too shaky from her pain medications. By the day of discharge, however, she was restarted on her insulin pump. Prior to that, the patient was kept on Lantus insulin with lispro sliding scale insulin coverage. The patient's hemoglobin and hematocrit gradually improved. It was 8.3 early in her stay and up to 9.4 and 27 closer to discharge. The patient was otherwise medically stable. The patient was seen by both Physical Therapy and Occupational Therapy and made good gains with both disciplines. With physical therapy at the time of admission, the patient required mod assist of 2 people to do transfers. She was min assist of 2 people to walk about 5 feet. She was obviously unable to do stairs. With occupational therapy at the time of admission, the patient required supervision for upper body dressing, total assist for lower body dressing, moderate amount of assistance of 2 people for bathing, toileting was mod to max assist of 2 people and toilet transfers were mod assist of 2 people. By the time of discharge, the patient was independent with lower body dressing , modified independent with toileting, toilet transfers, and bathing. With physical therapy by the time of discharge, the patient was independent ambulating 200 feet, independent transfers, independent bed mobility. The patient was discharged home on 02/08/18. DISCHARGE DIET: Consistent carbohydrate. DISCHARGE MEDICATIONS: 1. Vitamin C 500 mg every 48 hours. 2. Celexa 20 mg daily. 3. Cardizem CD 180 mg daily. 4. [place] 1 to 2 tablets every 4 hours as needed. 5. Synthroid 125 mcg daily. 6. Pred Forte 1 drop both eyes twice daily. 7. Xarelto 20 mg daily. 8. Flovent HFA 2 puffs every day. 9. Zocor 10 mg every day. 10. Dyazide 37.5/25 one tablet every day. SERVICES AFTER DISCHARGE: Through the visiting nurse service, the patient will have home nursing, home physical therapy, and home health aid. FOLLOWUP: Follow up with Dr. Marcelo Sesay, her primary care doctor, as well as with Dr. Fransico Saba, the Orthopedic surgeon, in 1 to 2 weeks. TIME SPENT: Time for this discharge was approximately 55 minutes, greater than half of that was spent face to face with the patient and her daughter explaining post-rehab therapies, pain control and medications. [id number]/[facility] #: [id number] MTDD
== END 2018-02-08 11:30 | disposition home health service (06) | DRG 560 ==
LOC: PMRU 15:18
PROVIDERS: ADMIT Physical Medicine & Rehabilitation; ATTEND Physical Medicine & Rehabilitation
PROC: F07Z5ZZ Bed Mobility Treatment (ICD-10-PCS; principal; 2018-01-21)
PROC: F07Z9ZZ Gait Training/Functional Ambulation Treatment (ICD-10-PCS; 2018-01-21)
PROC: F07Z8ZZ Transfer Training Treatment (ICD-10-PCS; 2018-01-21)
PROC: F08Z0ZZ Bathing/Showering Techniques Treatment (ICD-10-PCS; 2018-01-21)
PROC: F08Z1ZZ Dressing Techniques Treatment (ICD-10-PCS; 2018-01-21)
PROC: F08Z3ZZ Feeding/Eating Treatment (ICD-10-PCS; 2018-01-21)
DX: S72.142D Displaced intertrochanteric fracture of left femur, subsequent encounter for closed fracture with routine healing (principal); M96.840 Postprocedural hematoma of a musculoskeletal structure following a musculoskeletal system procedure; W00.2XXD Other fall from one level to another due to ice and snow, subsequent encounter; I48.91 Unspecified atrial fibrillation; E10.9 Type 1 diabetes mellitus without complications; Z96.41 Presence of insulin pump (external) (internal); J44.9 Chronic obstructive pulmonary disease, unspecified; G47.33 Obstructive sleep apnea (adult) (pediatric); F41.9 Anxiety disorder, unspecified; I25.10 Atherosclerotic heart disease of native coronary artery without angina pectoris; E03.9 Hypothyroidism, unspecified; M79.605 Pain in left leg; K59.00 Constipation, unspecified; R60.0 Localized edema; R33.9 Retention of urine, unspecified; Z88.8 Allergy status to other drugs, medicaments and biological substances; Z79.899 Other long term (current) drug therapy; Z88.1 Allergy status to other antibiotic agents; Z79.4 Long term (current) use of insulin; Z79.51 Long term (current) use of inhaled steroids; Z79.01 Long term (current) use of anticoagulants; Z79.891 Long term (current) use of opiate analgesic; Z86.711 Personal history of pulmonary embolism
CPT/HCPCS: 36415; 80053; 85025; 94640; A9270-GY

== ENCOUNTER 2018-03-03 22:24 | Emergency (ER) | payer MEDICARE, OTHER ==
--- OUTSIDE RECORDS SUMMARY | 2018-03-03 22:40 | XMS REPORT | Continuity of Care Document ---
:1935 External Reference #:[id number] Author Name Claudia Greer Care Team Providers Name Role Phone Marcelo Sesay MD Primary Care Physician Unavailable Payers Type Date Identification Numbers Payment Provider Subscriber Effective: 2002 Policy Number: [id number] Medicare Anusha Hudson PayID: [id number] [address] [place] [address] Policy Number: [id number] [facility] Angel Hudson Group Number: [id number] [address] PayID: [id number] [place] [address] Advance Directives Description No Information Available Problems Date Description Provider Status Onset: 01/23/2017 Lumbar spondylolisthesis Morgan Smith M.D. Active Onset: 01/23/2017 Lumbar radiculopathy Morgan Smith M.D. Active Family History Date Family Member(s) Problem(s) Comments General Cancer Mother Cancer Social History Type Date Description Comments Sex Unknown Lives With Occupation Retired ETOH Use Rarely consumes alcohol Tobacco Use Start: Unknown End: Patient is a former smoker Unknown Recreational Drug Use Denies Drug Use Smoking Status Reviewed: 02/21/18 Patient is a former smoker Exercise Type/Frequency Exercises sporadically Allergies, Adverse Reactions, Alerts Date Description Reaction Status Severity Comments 03/17/2016 Augmentin Active 03/17/2016 Lisinopril Active 03/17/2016 Prilosec Active Medications Medication Date Status Form Strength Qnty SIG Indications Ordering Provider [place] 02/21/ Active Tablets 5-325mg 30tabs 1 tab by Fransico 2019 mouth q6 F hours as Jayant, needed pain Humalog / Active Solution 100Unit/ML sliding Unknown 0000 scale Warfarin / Active Tablets 5mg take as Unknown Sodium 0000 directed Levothroid / Active Tablets 137mcg Unknown 0000 Avapro / Active Tablets 300mg 1 by mouth Unknown 0000 every day Diltiazem HCL 00/ Active Caps ER 180mg 1 by mouth Unknown ER 0000 24HR every day Simvastatin / Active Tablets 10mg take 1 Unknown 0000 tablet by mouth at bedtime Citalopram 00/ Active Tablets 20mg 1 by mouth Unknown Hydrobromide 0000 every day Dapsone / Active Tablets 25mg take one Unknown 0000 capsule/tab let twicedaily mouth Combivent / Active Aerosol 20-100mcg/ 1 puffs 4-6 Unknown Respimat 0000 Act times daily as needed Flovent HFA / Active Aerosol 220mcg/Act inhale two Unknown 0000 puffs by mouth twice a day Aspirin / Active Tablets DR 81mg 1 by mouth Unknown 0000 every day Refresh / Active Solution 1.4-0.6% use daily Unknown 0000 as needed for dry eyes Vitamin D3 / Active Tablets 2000Unit 1 by mouth Unknown 0000 every day Multi-Betic / Active Tablets Unknown Diabetes 0000 Alendronate / Hx Tablets 70mg 1 by mouth Unknown Sodium 0000 - weekly 2016 Lantus / Hx Solution 100Unit/ML Unknown Solostar 0000 - Pen-Inject 2016 Immunizations Description No Information Available Vital Signs Date Vital Result Comment 02/21/2018 2:19pm Height 65 inches 5'5" Weight 126.00 lb Heart Rate 84 /min BP Systolic 100 mmHg BP Diastolic 50 mmHg Respiratory Rate 18 /min Body Temperature 98.2 F Pain Level 3 BMI (Body Mass Index) 21.0 kg/m2 01/23/2017 3:01pm Height 65 inches 5'5" Weight 148.00 lb Heart Rate 82 /min BP Systolic Sitting 126 mmHg BP Diastolic Sitting 72 mmHg Pain Level 0 BMI (Body Mass Index) 24.6 kg/m2 03/21/2016 10:11am Height 65 inches 5'5" Weight 146.00 lb Heart Rate 72 /min BP Systolic 132 mmHg BP Diastolic 70 mmHg Respiratory Rate 16 /min Body Temperature 97.2 F BMI (Body Mass Index) 24.3 kg/m2 Results Description No Information Available Procedures Date Code Description Status 01/19/2018 56782 FX TX Inter/Analilia Or Sub Chanteric Femoral FX W/Implant Completed 01/19/2018 71355 FX TX Inter/Analilia Or Sub Chanteric Femoral FX W/Implant Completed 01/17/2018 10588 ECHO Transthorasic Realtime 2D W Doppler & Color Flow Hosp Completed 04/22/2012 01706 Polysomnography Sleep Staging 4+ Parameters W/Cpap Completed 03/29/2012 09453 Polysomnography Sleep Staging 4+ Parameters Completed 09/23/2008 23614 ECHO Transthoracic, Real-Time 2D With Doppler And Color Completed Flow 09/09/2008 76734 ECHO Stress Test Incl Perf Contiuous ekg Monitoring W/Phys Completed Superv 09/09/2008 41426 ECHO Stress Test Incl Perf Contiuous ekg Monitoring W/Phys Completed Superv Encounters Type Date Location Provider Dx Diagnosis Office Visit 01/17/2018 [facility] Esha Perkins, S72.112A Disp fx of 3:01p Of [facility] PA greater trochanter of left femur, init Office Visit 01/16/2018 [facility] Rachelle Rehman, S72.002A Fracture of unsp 11:27a Assoc,pc DO part of neck of Hospitalists left femur, init E10.9 Type 1 diabetes mellitus without complications [address] to single-family (private) house as place W00.0xxA Fall on same level due to ice and snow, initial encounter Office Visit 01/16/2018 3:00p Orthopedic Stephanie Davidson, W00.0xxA Fall on same Services Of M.D. level due to ice C.M.A. and snow, initial encounter S72.142A Displaced intertrochanteric fracture of left femur, init S72.112A Disp fx of greater trochanter of left femur, init Office Visit 01/23/2017 Neurosurgery Morgan M54.16 Radiculopathy, 3:00p [facility] Smith M.D. lumbar region M43.16 Spondylolisthesis, lumbar region Office Visit 03/21/2016 10:15a Surgical Genaro Myers, K40.91 Unilateral [facility], MATEO inguinal hernia, w/o obst or gangrene, recurrent K40.90 Unil inguinal hernia, w/o obst or gangr, not spcf as recur Office Visit 04/06/2012 3:02p Tyra Be 327.23 Obstructive Sleep Disorder [facility] Office Visit 03/02/2012 10:21a Tyra Be 786.09 Dyspnea & Disorder [facility] Abnormalities Other 780.79 Malaise And Fatigue Other 794.2 Pulmonary Study Abnormal Office Visit 09/09/2008 10:30a [facility]. 786.50 Pain Chest Mabel Moore Unspec 786.05 Shortness Of Breath Plan of Treatment Future Appointment(s):04/02/2018 3:00 pm - Fransico Saba MD at [facility].02/21/2018 - Fransico Saba, MDS72.142D Displaced intertrochanteric fracture of left femur, subsequeNew Therapy: Physical TherapyFollow up:Follow up: 6 weeks with xrays
[2018-03-03] MEDS ORDERED: Morphine VIAL* 4 MG/ML VIAL (1 ml vial) IV ONE ×2 (22:53→23:49)
[2018-03-03] MEDS ORDERED: Ondansetron INJ* 2 MG/ML VIAL IV ONE (22:54)
--- NOTE | 2018-03-03 23:14 | ED ---
Lower Extremity - HPI Summary HPI Summary: The pt is a 82 year old female who is presenting to the [facility] with a chief complaint of left knee pain. She is accompanied by 1 male and 1 female sample display preparer. Onset of the pain was 1 week ago and the pain is constant. Other symptom reported includes a swelling at her left knee as well as ecchymosis. The pain was worse tonight. Prior to onset of current symptoms, the patient had suffered a fall which had broken her left femur and required surgery. Physical therapy for the leg had began 2 weeks ago but she was unable to attend PT the past week due to the pain. The patient is unable to ambulate without pain and she normally uses a walker to assist her. Patient denies fevers and chills. Symptoms are aggravated by movement and alleviated by nothing. She has taken pain medication ([place]). She has also previously been on Eliquis for her atrial fibrillation. - History of Current Complaint Chief Complaint: EDExtremityLower Stated Complaint: LT LEG SWOLLEN Time Seen by Provider: 03/03/18 22:45 Hx Obtained From: Patient Severity Initially: Severe Severity Currently: Severe Pain Intensity: 10 Pain Scale Used: 0-10 Numeric Location: Is Discrete @ - Left knee Associated Signs And Symptoms: Positive: Swelling, Bruising Aggravating Factor(s): Movement Alleviating Factor(s): Nothing Able to Bear Weight: No - Allergies/Home Medications Allergies/Adverse Reactions: Allergies Allergy/AdvReac Type Severity Reaction Status Date / Time amoxicillin [From Augmentin] Allergy Rash Verified 03/03/18 22:31 clavulanic acid Allergy Rash Verified 03/03/18 22:31 [From Augmentin] lisinopril Allergy Coughing Verified 03/03/18 22:31 metronidazole Allergy Rash Verified 03/03/18 22:31 omeprazole [From Prilosec] Allergy Diarrhea Verified 03/03/18 22:31 PMH/Surg Hx/FS Hx/Imm Hx Endocrine/Hematology History: Reports: Hx Anticoagulant Therapy - coumadin, Hx Diabetes - DM I with insulin pump, Hx Thyroid Disease, Hx Anemia Cardiovascular History: Reports: Hx Deep Vein Thrombosis, Hx Hypercholesterolemia, Hx Hypertension, Other Cardiovascular Problems/Disorders - A Fib Denies: Hx Pacemaker/ICD Respiratory History: Reports: 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, Hx Pulmonary Embolism - secondary to control pills, Hx Sleep Apnea - hold on CPAP d/t eye surgery, Other Respiratory Problems/Disorders - ex- smoker QUIT 16 YEARS AGO; Patient uses oxygen at night Denies: Hx Asthma GI History: Reports: Other GI Disorders - s/p appendectomy Denies: Hx Jaundice History: Reports: Other Problems/Disorders - hematuria Denies: Hx Dialysis, Hx Kidney Stones, Hx Renal Disease Musculoskeletal History: Reports: Hx Arthritis - knees, hand, Hx Back Problems - lower back disc problems, Hx Osteoporosis Sensory History: Reports: Hx Cataracts - hx of, had surgery, Hx Contacts or Glasses, Hx Glaucoma, Other Sensory Impairments - bilateral corneal transplants Denies: Hx Hearing Aid Opthamlomology History: Reports: Hx Cataracts - hx of, had surgery, Hx Contacts or Glasses, Hx Glaucoma, Other Sensory Impairments - bilateral corneal transplants Neurological History: Denies: Hx Headaches, Hx Migraine, Hx Seizures Psychiatric History: Reports: Hx Anxiety, Hx Depression Denies: Hx Panic Disorder - Cancer History Cancer Type, Location and Year: BASAL CELL Hx Chemotherapy: No Hx Radiation Therapy: No - Surgical History Surgery Procedure, Year, and Place: 1971 thyroidectomy,. basal cell carcinoma removed (left) cruz, basal cell carcinoma removed scalp,. X2,. & 12/18 cornea transplant,. [place] [facility] [place],. 2008 retina detachment & repair (right) eye-42 BAND SCLERAL BUCKLE-SILICONE -OK UP TO 3T- INFO IN OTH OP REPORTS. HERNIA REPAIR Hx Anesthesia Reactions: No Infectious Disease History: No Infectious Disease History: Denies: Traveled Outside the [place] in Last 30 Days - Family History Known Family History: Negative: Blood Disorder Family History: Reviewed and Noncontributory - Social History Occupation: Retired Alcohol Use: Rare Alcohol Amount: 1-2 glasses of wine a night every day Substance Use Type: Reports: None Hx Tobacco Use: Yes Smoking Status (MU): Former Smoker Have You Smoked in the Last Year: No Review of Systems Negative: Fever, Chills Eyes: Negative ENT: Negative Cardiovascular: Negative Respiratory: Negative Gastrointestinal: Negative Genitourinary: Negative Musculoskeletal: Other - Left Knee pain Positive: Edema - Left Knee Positive: Bruising Neurological: Negative Psychological: Normal All Other Systems Reviewed And Are Negative: Yes Physical Exam - Summary Physical Exam Summary: VITAL SIGNS: Reviewed. GENERAL: Patient is a well-developed and nourished (FEMALE) who is lying comfortable in the stretcher. Patient is not in any acute respiratory distress. HEAD AND FACE: No signs of trauma. No ecchymosis, hematomas or skull depressions. No sinus tenderness. EYES: PERRLA, EOMI x 2, No injected conjunctiva, no nystagmus. EARS: Hearing grossly intact. Ear canals and tympanic membranes are within normal limits. MOUTH: Oropharynx within normal limits. NECK: Supple, trachea is midline, no adenopathy, no JVD, no carotid bruit, no c- spine tenderness, neck with full ROM. CHEST: Symmetric, no tenderness at palpation LUNGS: Clear to auscultation bilaterally. No wheezing or crackles. CVS: Regular rate and rhythm, S1 and S2 present, no murmurs or gallops appreciated, Plus 2 dorsalis pedis pulses ABDOMEN: Soft, non-tender. No signs of distention. No rebound no guarding, and no masses palpated. Bowel sounds are normal. EXTREMITIES: Left knee swollen; ; Decreased ROM because of pain Tender in the Left Knee NEURO: Alert and oriented x 3. No acute neurological deficits. Speech is normal and follows commands, Neurovascular intact distally SKIN: Mildly ecchymotic Left Knee Triage Information Reviewed: Yes Vital Signs On Initial Exam: Initial Vitals Temp Pulse Resp BP Pulse Ox 98.6 F 89 16 137/72 94 03/03/18 22:25 03/03/18 22:25 03/03/18 22:25 03/03/18 22:25 03/03/18 22:25 Vital Signs Reviewed: Yes Procedures - Procedure Summary Procedure Summary: Knee Joint Aspiration -- Arthrocentesis Used 2% Lidocaine for local anesthesia Left Knee joint space was entered medially We were not able to aspirate fluid Dry Tap Diagnostics - Vital Signs Vital Signs Temp Pulse Resp BP Pulse Ox 03/03/18 22:25 98.6 F 89 16 137/72 94 - Laboratory Result Diagrams: 03/03/18 23:38 03/03/18 23:38 Lab Statement: Any lab studies that have been ordered have been reviewed, and results considered in the medical decision making process. - Radiology Knee X-ray Radiology Interpretation Completed By: ED Physician Summary of Radiographic Findings: Knee X-ray revealed narrrowing joint space and no fractures as per ED Physician report. - CT Lower Extremity CT CT Interpretation Completed By: Radiologist Summary of CT Findings: CT Lower Extremity reveals as per radiologist 1. Intramedullary nail in the left femur and the distal interlocking screw has. backed out by 23 mm with respect to the lateral cortex of the distal femur. 2. Small calcific density in the proximal fibers of the medial collateral. ligament, which is compatible with a Sana-Stieda lesion that is the. sequela of an injury to the medial collateral ligament. 3. Small to moderate left knee joint effusion. 4. 1.8 cm x 3.1 cm x 3.6 cm left popliteal cyst. 5. Subcutaneous edema predominantly in the anterior aspect of the left knee. The ED Physician has reviewed this radiology report. - Ultrasound No standard instances Ultrasound Interpretation Completed By: Radiologist Summary of Ultrasound Findings: Venous Doppler Study reveals No acute findings. No evidence of deep vein thrombosis as per radiologist. The ED Physician has reviewed this radiology report. Lower Extremity Course/Dx - Course Course Of Treatment: The pt is a 82 year old female who is presenting to the [facility] with a chief complaint of Left knee pain. She had received a surgery to her left leg due to a fall which broke her femur bone. The patient received in the Venous Doppler Study, CT Lower Extremity and Knee X-ray in the [facility]. A left knee joint aspiration was done in the [facility] and we were not able to aspirate any fluid ([place]ry [place]). We discussed the case with Dr. Strauss and he recommends follow up with him on Monday. The patient will be discharged home with pain medication (percocet). The dx will be Left knee osteoarthritis, Left knee pain, and left knee popliteal cyst. - Diagnoses Provider Diagnoses: Left knee pain, Osteoarthritis of left knee, Synovial cyst of popliteal space [ Hernández], left knee - Physician Notifications Discussed Care Of Patient With: Marcial Montoya - Sign-Out/Discharge Documenting (check all that apply): Patient Departure - Discharge Home - Discharge Plan Condition: Stable Disposition: HOME Prescriptions: oxyCODONE/Acetamin 5/325 MG* [Percocet 5/325 TAB*] 1 tab PO Q6H PRN #14 tab MDD 4 PRN Reason: Pain Patient Education Materials: Osteoarthritis (ED), Bakers Cyst (ED), Knee Pain ( ED) Referrals: Delroy Camp MD [Medical Doctor] - Additional Instructions: RETURN TO THE EMERGENCY DEPARTMENT FOR CHANGING OR WORSENING SYMPTOMS. FOLLOW UP WITH Dr. Camp ON MONDAY. - Attestation Statements Document Initiated by Marilynnibe: Yes Documenting Scribe: Andrew Newton Provider For Whom Marilynnibelvin is Documenting (Include Credential): Dr. Ivet Yi Scribelvin Attestation: IAndrew, scribed for Dr. Ivet Yi on 03/04/18 at 0116. Status of Scribe Document: Ready
[2018-03-03] MEDS ORDERED: Lidocaine 2% PF * 5 ML VIAL ONE ×2 (23:34)
[2018-03-03 23:53] LABS: Activated Partial Thrombo Time 51.5 seconds (26.0-36.3); INR 2.16 (0.77-1.02)
[2018-03-03 23:57] LABS: ABS Basophils 0.1 10^3/ul (0-0.2); ABS Eosinophils 0.2 10^3/ul (0-0.6); ABS Lymphocytes 2.1 10^3/ul (1.0-4.8); ABS Neutrophils 5.7 10^3/ul (1.5-7.7); ABS Nucleated RBC 0 10^3/ul; Eosinophil % 2.1 %; Hematocrit 29 % (35-47); Hemoglobin 9.8 g/dl (12.0-16.0); Lymphocyte % 23.2 %; Mean Corpuscular HGB Conc 34 g/dl (31-36); Mean Corpuscular Hemoglobin 31 pg (27-31); Mean Corpuscular Volume 91 fL (80-97); Mean Platelet Volume 6.7 fL (7.4-10.4); Nucleated Red Blood Cells % 0; Platelet Count 424 10^3/ul (150-450); Red Blood Count 3.13 10^6/ul (4.00-5.40); Red Cell Distribution Width 14 % (10.5-15); White Blood Count 9.1 10^3/ul (3.5-10.8)
[2018-03-04 00:02] LABS: Albumin 3.5 g/dL (3.2-5.2); Albumin/Globulin Ratio 0.8 (1-3); C Reactive Protein 116.05 mg/L (<8.01); Calcium 9.2 mg/dL (8.6-10.3); EGFR Non-African American 59.5 (>60); Globulin 4.3 g/dL (2-4); Potassium 4.3 mmol/L (3.5-5.0); Total Bilirubin 0.5 mg/dL (0.2-1.0); Total Protein 7.8 g/dL (6.4-8.9)
[2018-03-04] MEDS ORDERED: Morphine VIAL* 4 MG/ML VIAL (1 ml vial) IV ONE (01:13)
[2018-03-04 01:54] VITALS: BP 121/64
== END 2018-03-04 01:54 | disposition home or self-care (01) ==
LOC: ED 22:24
DX: M25.562 Pain in left knee (principal); M17.12 Unilateral primary osteoarthritis, left knee; M71.22 Synovial cyst of popliteal space [Baker], left knee; I48.91 Unspecified atrial fibrillation; Z79.01 Long term (current) use of anticoagulants; E10.8 Type 1 diabetes mellitus with unspecified complications; Z96.41 Presence of insulin pump (external) (internal); Z86.718 Personal history of other venous thrombosis and embolism; Z88.1 Allergy status to other antibiotic agents; Z88.0 Allergy status to penicillin; Z88.8 Allergy status to other drugs, medicaments and biological substances; Z87.891 Personal history of nicotine dependence
CPT/HCPCS: 20610; 36415; 80053; 85025; 85610; 85730; 86140; 96374; 96375; 96376; 99283; J2270; J2405

== ENCOUNTER 2018-03-07 14:35 | Observation (INO) | payer MEDICARE, OTHER ==
[~2018-03-07 14:35] MED LIST: Acetaminophen TAB* 325 MG PO ONE; Buffered Lidocaine 1% SYRIN* 1 ML/SYRINGE INTRADERM ONE; Lactated Ringers 1000 ML Bag* 1,000 ML IV SCH
[2018-03-07] MEDS ORDERED: Acetaminophen TAB* 325 MG ONE (15:27)
[2018-03-07] MEDS ORDERED: Buffered Lidocaine 1% SYRIN* 1 ML/SYRINGE INTRADERM ONE (15:27)
[2018-03-07] MEDS ORDERED: Lidocaine 2% PF * 5 ML VIAL ONE (17:45)
[2018-03-07] MEDS ORDERED: fentaNYL* 50 MCG/ML 2 ML VIAL (100 MCG VIAL) ONE (17:45)
[2018-03-07] MEDS ORDERED: Propofol* 10 MG/ML 20 ML BTL ONE (17:45)
[2018-03-07] MEDS ORDERED: Ondansetron INJ* 2 MG/ML VIAL ONE (17:45)
[2018-03-07] MEDS ORDERED: Famotidine IV* 10 MG/ML 2 ML (20 mg) ONE (17:48)
[2018-03-07] MEDS ORDERED: ceFAZolin 2 GM PREMIX in ORs 0 GM/0 ML BAG IVPB ONE (17:52)
[2018-03-07] MEDS ORDERED: Clindamycin 900 MG/D5W BAG(*) 900 MG/50 ML BAG IVPB ONE (17:55)
[2018-03-07] MEDS ORDERED: diPHENhydraMINE IV* 50 MG/ML 1 ml VIAL (BENADRYL) IV PRN ×2 (17:56→19:24)
[2018-03-07] MEDS ORDERED: Acetaminophen TAB* 325 MG PO PRN (17:56)
[2018-03-07] MEDS ORDERED: Naloxone* 0.4 MG/ML 1 ML VIAL IV PRN (17:56)
[2018-03-07] MEDS ORDERED: DiMENhydriNATE IV* 50 MG/ML VIAL IV PUSH PRN (17:56)
[2018-03-07] MEDS ORDERED: PROCHLORPERAZINE INJ 5 MG/ML 2 ML VIAL IV PRN (17:56)
[2018-03-07] MEDS ORDERED: Levalbuterol 0.63MG/3ML NEB* UNIT OF USE INH PRN (17:56)
[2018-03-07] MEDS ORDERED: fentaNYL* 50 MCG/ML 2 ML VIAL (100 MCG VIAL) IV PRN (17:56)
[2018-03-07] MEDS ORDERED: EPHEDrine (Pressors)* 50 MG/ML VIAL ONE (18:26)
[2018-03-07] MEDS ORDERED: Magnesium Hydroxide LIQ* 30 ML UDC PO PRN (19:17)
[2018-03-07] MEDS ORDERED: Bisacodyl SUPP* 10 MG SUPP PR PRN (19:24)
[2018-03-07] MEDS ORDERED: diPHENhydraMINE PO* 25 MG PO PRN (19:24)
[2018-03-07] MEDS ORDERED: Temazepam CAP* 15 MG PO PRN (19:24)
[2018-03-07] MEDS ORDERED: Polyethylene Glycol 3350* 17 GM PACKET PO PRN (19:24)
[2018-03-07] MEDS ORDERED: Ondansetron INJ* 2 MG/ML VIAL IV PRN (19:24)
[2018-03-07] MEDS ORDERED: Ondansetron ODT TAB* 4 MG PO PRN (19:24)
[2018-03-07] MEDS ORDERED: Mometasone 220 MCG MDI INH PRN (19:31)
[2018-03-07] MEDS ORDERED: COMBIVENT RESPIMAT PO PRN (19:31)
--- NOTE | 2018-03-07 19:45 | CONSULT ---
Subjective Date of Service: 03/07/18 Interval History: Primary Care Provider: Dr. Sesay Reason for Consultation: Medical management HPI: This is an 82 year old Female with Past medical history of Diabetes on insulin pump, Atrial fibrillation on chronic anticoagulation, COPD, with Oxygen at nightime, who now is in the hospital for having left femur hardware removal and replacement. Medical consultation was requested to manage her medical problems. She uses insulin pump to manage her Diabetes- she did bring the insulin pump with her. Currently she does not have any fever, no chills, no abdominal pain, no nausea, no vomiting. Her diabetes is controlled with the insulin pump. Currently no shortness of breath, no chest pain, no palpitations. She does have constipation, last BM was 4 days ago. Family History: Findings - Mother: cancer Social History: Findings - Lives at home with her , Former smoker, drinks wine with dinner Past Medical History: Findings - Diabetes on insulin pump, COPD, sleep apnea on night time Oxygen, Graves disease now post surgical hypothyroidism, atrial fibrillation Hyperlipidemia, remote history of DVT, surgeries include thyroidectomy, left femur fracture a month ago, appendectomy Review of Systems - Measurements Intake and Output: Intake and Output Last 24 Hours 03/05/18 03/06/18 03/07/18 03/08/18 06:59 06:59 06:59 06:59 Weight 190 lb - Review of Systems Constitutional Symptoms: Negative: Weight Loss, Fatigue, Fever Dermatology: Negative: Rash HEENT: Negative: Change in Hearing Eyes: Negative: Change in Vision, Double Vision Thyroid: Positive: Constipation Negative: Heat Intolerance, Palpitations Pulmonary: Positive: COPD, Home Oxygen Negative: Sputum, Wheezing Cardiology: Negative: Chest Pain, Shortness of Breath, Palpitations Gastroenterology: Positive: Constipation Negative: Abdominal Pain, Nausea, Vomiting Genital - Urinary: Negative: Dysuria, Hematuria Musculoskeletal: Positive: Low Back Pain Endocrinology: Positive: Thyroid Problems, Diabetes Mellitus Hematologic/Lymphatic: Positive: Use of Anticoagulant Neurology: Negative: Change in Coordination, Change in Memory Psychiatry: Positive: Depression - controlled on medications Negative: Anxiety, Depressed Mood Objective Active Medications: Acetaminophen (Tylenol Tab*) 650 mg PO ONCE ONE Stop: 03/07/18 11:11 Last Admin: 03/07/18 15:29 Dose: 650 mg Acetaminophen (Tylenol Tab*) 650 mg PO ONCE PRN PRN Reason: PAIN - MILD Acetaminophen (Tylenol Tab*) 975 mg PO Q8H [facility] Hydrocodone Bitart/Acetaminophen ([place] 5-325 Tab*) 1 - 2 tab PO Q4H PRN PRN Reason: PAIN Bisacodyl (Dulcolax Supp*) 10 mg NC DAILY PRN PRN Reason: constipation Citalopram Hydrobromide (Celexa Tab*) 20 mg PO DAILY [facility] Diltiazem HCl (Cardizem Cd Cap*) 180 mg PO DAILY [facility] Dimenhydrinate (Dramamine Iv*) 12.5 mg IV PUSH ONCE PRN PRN Reason: NAUSEA/VOMITING Diphenhydramine HCl (Benadryl Iv*) 12.5 mg IV ONCE PRN PRN Reason: ITCHING Diphenhydramine HCl (Benadryl Iv*) 25 mg IV Q6H PRN PRN Reason: itching Diphenhydramine HCl (Benadryl Po*) 25 mg PO Q6H PRN PRN Reason: itching Docusate Sodium (Colace Cap*) 100 mg PO BID [facility] Fentanyl Citrate (Fentanyl*) 25 mcg IV Q5M PRN PRN Reason: PAIN - MODERATE Fluticasone Propionate (Flovent Hfa 220 Mcg(Nf)) 2 puff .SEE ORDER DAILY PRN PRN Reason: SOB/WHEEZING Lactated Ringer's (Lactated Ringers 1000 Ml Bag*) 1,000 mls @ 125 mls/hr IV PER RATE [facility] Last Admin: 03/07/18 15:29 Dose: 125 mls/hr Lactated Ringer's (Lactated Ringers 1000 Ml Bag*) 1,000 mls @ 100 mls/hr IV PER RATE [facility] Lactulose (Lactulose*) 30 ml PO Q6H PRN PRN Reason: constipation Levalbuterol HCl (Xopenex 0.63mg/3ml Neb*) 0.63 mg INH ONCE PRN PRN Reason: SOB/WHEEZING Levothyroxine Sodium (Synthroid Tab*) 125 mcg PO QAM [facility] Lidocaine/Sodium Bicarbonate (Buffered Lidocaine 1% Syrin*) 0.2 ml INTRADERM ONCE ONE Stop: 03/07/18 11:11 Last Admin: 03/07/18 15:29 Dose: 0.2 ml Magnesium Hydroxide (Milk Of Magnesia Liq*) 30 ml PO Q6H PRN PRN Reason: constipation Naloxone HCl (Narcan*) 0.08 mg IV Q2M PRN PRN Reason: severe induced resp depression Non-Formulary Medication (Combivent Respimat (Nf)) 2 puff PO Q4H PRN PRN Reason: SOB/WHEEZING Non-Formulary Medication (Subcutaneous Insulin Pump [[place] 2020]) 1 kit SUBCUT QID [facility] Ondansetron HCl (Zofran Inj*) 4 mg IV Q6H PRN PRN Reason: nausea Ondansetron HCl (Zofran Odt Tab*) 4 mg PO Q6H PRN PRN Reason: NAUSEA Polyethylene Glycol/Electrolytes (Miralax*) 17 gm PO DAILY PRN PRN Reason: Constipation Prochlorperazine Edisylate (Compazine Inj*) 2.5 mg IV ONCE PRN PRN Reason: NAUSEA/VOMITING Rivaroxaban (Xarelto(*)) 20 mg PO DAILY [facility] Simvastatin (Zocor(Nf)) 10 mg PO QPM [facility] Temazepam (Restoril Cap*) 15 mg PO BEDTIME PRN PRN Reason: INSOMNIA Tramadol HCl (Ultram*) 50 mg PO Q6H PRN PRN Reason: PAIN Triamterene/HCTZ (Dyazide Cap*) 1 cap PO DAILY [facility] Vital Signs - 8 hr 03/07/18 03/07/18 03/07/18 15:20 19:17 19:20 Temperature 97.7 F Pulse Rate 95 84 84 Respiratory 12 11 14 Rate Blood Pressure 119/65 135/86 140/65 (mmHg) O2 Sat by Pulse 96 99 99 Oximetry 03/07/18 19:25 Temperature Pulse Rate 85 Respiratory 14 Rate Blood Pressure 139/64 (mmHg) O2 Sat by Pulse 98 Oximetry Oxygen Devices in Use Now: Nasal Cannula Appearance: Elderly female lying in the PACU stretcher in no distress. Eyes: PERRLA, - - No nystagmus, Ears/Nose/Mouth/Throat: - - oral mucosa is dry. Neck: Trachea Midline Respiratory: Symmetrical Chest Expansion and Respiratory Effort, Clear to Auscultation, - - minimal end expiratory wheezing. Cardiovascular: - - No chest wall tenderness, irregulary irregular, Abdominal: NL Sounds; No Tenderness; No Distention, No Hepatosplenomegaly Extremities: No Edema, - - Left leg- dressing intact, able to wiggle toes bilaterally, sensation intact, feet are warm. Neurological: Alert and Oriented x 3, - - tongue midline, speech clear and coherent. Assessment/Plan - Billing Plan By Medical Problem: 1. Type 1 Diabetes: Managed with insulin pump, have asked the patient to resume the insulin pump when she gets to the regular room, discussed with the nurse as well, monitor fingersticks 2. Constipation: bowel regimen. 3. COPD: stable, continue home regimen, changed combivent to duonebs 4. Sleep apnea: Oxygen at night 5. Paroxysmal Atrial fibrillation: rate control, and continue anticoagulation w / xarelto- okay w/ ortho 6. Post surgical hypothyroidism: continue levothyroxine 7. DVT PPX: xarelto okayed with ortho Thank you for involving us in the care of Ms. Anusha Hudson. Diet: Diabetic Code Status: Full Code Medications/Allergies Medications: Home Medications Medication Instructions Recorded Confirmed Type Aspirin [Aspir-81] 81 mg PO DAILY 04/05/12 03/07/18 History Fluticasone HFA 220 mcg(NF) 2 puff .SEE ORDER DAILY PRN 04/05/12 03/07/18 History [Flovent Hfa 220 Mcg(NF)] Levothyroxine TAB* [Synthroid 137 125 mcg PO QAM 04/05/12 03/03/18 History MCG TAB*] Multivit-Mins/FA/Lycop/Lut/Ala 1 tab PO DAILY 04/05/12 03/03/18 History [Multi-Betic] Simvastatin 10 mg PO QPM 04/05/12 03/07/18 History Subcutaneous Insulin Pump [Insulin 1 kit SUBCUT QID 04/05/12 03/07/18 History Pump [id number] Black] prednisoLONE 1% OPHTH.SUSP* [Pred 1 drop .SEE ORDER BID 04/05/12 03/07/18 History Forte 1%*] Citalopram TAB* [Celexa TAB*] 20 mg PO DAILY tab 02/07/18 03/07/18 Rx Diltiazem CD CAP* [Cardizem CD 180 mg PO DAILY cap.cd 02/07/18 03/07/18 Rx CAP*] HYDROcodone/ACETAMIN 5-325 MG* 1 - 2 tab PO Q4H PRN #90 tab MDD 6 02/07/1803/07 Rx [[place] 5-325 TAB*] Rivaroxaban TAB(*) [Xarelto 20 mg] 20 mg PO DAILY #30 tab 02/07/18 03/03/18 Rx Triamterene/HCTZ 37.5-25 MG* 1 cap PO DAILY #30 cap 02/07/18 03/07/18 Rx [Dyazide CAP*] oxyCODONE/Acetamin 5/325 MG* 1 tab PO Q6H PRN #14 tab MDD 4 03/04/18 03/07/18 Rx [Percocet 5/325 TAB*] Cholecalciferol (Vitamin D3) 2,000 units PO DAILY 03/07/18 03/07/18 History Combivent Respimat (NF) 2 puff PO Q4H PRN 03/07/18 03/07/18 History Irbesartan 150 mg PO QAM 03/07/18 03/07/18 History Allergies/Adverse Reactions: Allergies Allergy/AdvReac Type Severity Reaction Status Date / Time amoxicillin [From Augmentin] Allergy Rash Verified 03/03/18 22:31 clavulanic acid Allergy Rash Verified 03/03/18 22:31 [From Augmentin] lisinopril Allergy Coughing Verified 03/03/18 22:31 metronidazole Allergy Rash Verified 03/03/18 22:31 omeprazole [From Prilosec] Allergy Diarrhea Verified 03/03/18 22:31
[2018-03-07] MEDS ORDERED: Albuterol/Ipratropium NEB.SOL* Albuterol 2.5 MG/Ipratropium 0.5 MG 3 ML INH PRN (19:53)
[2018-03-07] MEDS ORDERED: Lactated Ringers 1000 ML Bag* 1,000 ML IV SCH (20:00)
[2018-03-07] MEDS ORDERED: SUBCUTANEOUS INSULIN PUMP SUBCUT SCH (21:00)
[2018-03-07] MEDS: Docusate CAP* 100 MG PO SCH (21:51)
[2018-03-07] MEDS: Acetaminophen TAB* 325 MG PO SCH (21:51)
[2018-03-07] MEDS: traMADol TAB* 50 MG PO PRN (21:54)
[2018-03-08] MEDS: HYDROcodone/ACETAMIN 5-325 MG* 1 TAB PO PRN ×2 (01:10→10:58)
[2018-03-08] MEDS ORDERED: Insulin LISPRO* FOR INSULIN PUMP SUBCUT SCH (03:00)
[2018-03-08] MEDS: Acetaminophen TAB* 325 MG PO SCH ×2 (05:20→10:59)
[2018-03-08] MEDS: traMADol TAB* 50 MG PO PRN (05:21)
[2018-03-08] MEDS ORDERED: Levothyroxine TAB* 125 MCG TAB PO SCH (06:00)
[2018-03-08 06:35] LABS: Hematocrit 28 % (35-47); Hemoglobin 9.6 g/dl (12.0-16.0); Mean Platelet Volume 6.6 fL (7.4-10.4); Platelet Count 405 10^3/ul (150-450)
[2018-03-08 06:53] LABS: BUN/Creatinine Ratio 21.1 (8-20); Calcium 8.7 mg/dL (8.6-10.3); EGFR African American 88.6 (>60); EGFR Non-African American 73.2 (>60); Potassium 4.3 mmol/L (3.5-5.0)
--- NOTE | 2018-03-08 08:08 | PN ---
Subjective - Subjective Reason for Note: Progress Note History: I reviewed the events of the last couple of weeks with the patient. 01/19/18 she had a fracture of her left hip and open reduction and internal fixation, this was followed by an extensive period of inpatient and out patient rehabilitation. She has had pain in her knee and the hardware was found to be loose in her left femur. She has had hyperglycemia because of the pain. She has been constipated for 5 days due to pain medication. Yesterday, Dr. Fransico Saba took her to the OR and removed the hardware and replaced it. Today, she feels more sore than she expected. She continues to be constipated. She has yet to eat a meal. She has her insulin pump in situ. She is due to change her infusion set and resevoir today. Otherwise, no focal symptoms Active Problems: Active Problems Anemia (Acute) D64.9 Status post closed fracture of left femur (Acute) Z87.81 Uncontrolled type 1 diabetes mellitus (Acute) E10.65 Anxiety disorder (Chronic) F41.9 Atrial fibrillation (Chronic) I48.91 COPD (chronic obstructive pulmonary disease) (Chronic) J44.9 Charcot's arthropathy (Chronic) M14.60 Diabetic retinopathy (Chronic) E11.319 Emphysema of lung (Chronic) J43.9 Essential hypertension (Chronic) I10 History of falling (Chronic) Z91.81 Hypercholesteremia (Chronic) E78.00 Insulin pump status (Chronic) Z96.41 Osteoarthritis (Chronic) M19.90 Primary hypothyroidism (Chronic) E03.9 Psoriasis (Chronic) L40.9 Sleep apnea (Chronic) G47.30 Type 1 diabetes, uncontrolled, with retinopathy (Chronic) E10.319, E10.65 Current Medications: Current Medications Acetaminophen (Tylenol Tab*) 975 mg PO Q8H [facility] Last Admin: 03/08/18 05:20 Dose: 975 mg Hydrocodone Bitart/Acetaminophen (Richmond 5-325 Tab*) 1 tab PO Q4H PRN PRN Reason: PAIN Last Admin: 03/08/18 01:10 Dose: 1 tab Albuterol/Ipratropium (Duoneb (Albuterol 2.5 Mg/Ipratropium 0.5 Mg)) 1 neb INH Q4H PRN PRN Reason: SOB/WHEEZING Atorvastatin Calcium (Lipitor*) 5 mg PO QPM [facility] Bisacodyl (Dulcolax Supp*) 10 mg HI DAILY PRN PRN Reason: constipation Citalopram Hydrobromide (Celexa Tab*) 20 mg PO DAILY [facility] Diltiazem HCl (Cardizem Cd Cap*) 180 mg PO DAILY [facility] Diphenhydramine HCl (Benadryl Iv*) 25 mg IV Q6H PRN PRN Reason: itching Diphenhydramine HCl (Benadryl Po*) 25 mg PO Q6H PRN PRN Reason: itching Docusate Sodium (Colace Cap*) 100 mg PO BID [facility] Last Admin: 03/07/18 21:51 Dose: 100 mg Lactated Ringer's (Lactated Ringers 1000 Ml Bag*) 1,000 mls @ 100 mls/hr IV PER RATE [facility] Last Admin: 03/07/18 21:58 Dose: 100 mls/hr Insulin Human Lispro (Humalog*) 0 units SUBCUT .SEE PROTOCOL WADE; Protocol Lactulose (Lactulose*) 30 ml PO Q6H PRN PRN Reason: constipation Levalbuterol HCl (Xopenex 0.63mg/3ml Neb*) 0.63 mg INH ONCE PRN PRN Reason: SOB/WHEEZING Levothyroxine Sodium (Synthroid Tab*) 125 mcg PO 0600 [facility] Last Admin: 03/08/18 05:21 Dose: 125 mcg Magnesium Hydroxide (Milk Of Magnesia Liq*) 30 ml PO Q6H PRN PRN Reason: constipation Mometasone Furoate (Asmanex 220 Mcg Mdi *) 2 puff INH DAILY PRN PRN Reason: SOB/WHEEZING Ondansetron HCl (Zofran Inj*) 4 mg IV Q6H PRN PRN Reason: nausea Ondansetron HCl (Zofran Odt Tab*) 4 mg PO Q6H PRN PRN Reason: NAUSEA Polyethylene Glycol/Electrolytes (Miralax*) 17 gm PO DAILY PRN PRN Reason: Constipation Rivaroxaban (Xarelto(*)) 20 mg PO DAILY [facility] Temazepam (Restoril Cap*) 15 mg PO BEDTIME PRN PRN Reason: INSOMNIA Tramadol HCl (Ultram*) 50 mg PO Q6H PRN PRN Reason: PAIN Last Admin: 01/24/19 05:21 Dose: 50 mg Triamterene/HCTZ (Dyazide Cap*) 1 cap PO DAILY WADE - Review of Systems Constitutional Symptoms: No: Fever Pulmonary: Negative: Cough, Sputum, Hemoptysis, Respiratory Distress, Shortness of Breath Cardiology: Negative: Chest Pain, Palpitations, Swelling of Ankles Gastroenterology: Positive: Constipation Negative: Abdominal Pain, Vomiting Home Medications: Home Medications Medication Instructions Recorded Confirmed Type Aspirin [Aspir-81] 81 mg PO DAILY 04/05/12 03/07/18 History Fluticasone HFA 220 mcg(NF) 2 puff .SEE ORDER DAILY PRN 04/05/12 03/07/18 History [Flovent Hfa 220 Mcg(NF)] Levothyroxine TAB* [Synthroid 137 125 mcg PO QAM 04/05/12 03/03/18 History MCG TAB*] Multivit-Mins/FA/Lycop/Lut/Ala 1 tab PO DAILY 04/05/12 03/03/18 History [Multi-Betic] Simvastatin 10 mg PO QPM 04/05/12 03/07/18 History Subcutaneous Insulin Pump [Insulin 1 kit SUBCUT QID 04/05/12 03/07/18 History Pump [id number] Black] prednisoLONE 1% OPHTH.SUSP* [Pred 1 drop .SEE ORDER BID 04/05/12 03/07/18 History Forte 1%*] Citalopram TAB* [Celexa TAB*] 20 mg PO DAILY tab 02/07/18 03/07/18 Rx Diltiazem CD CAP* [Cardizem CD 180 mg PO DAILY cap.cd 02/07/18 03/07/18 Rx CAP*] HYDROcodone/ACETAMIN 5-325 MG* 1 - 2 tab PO Q4H PRN #90 tab MDD 6 02/07/1803/07 Rx [Richmond 5-325 TAB*] Rivaroxaban TAB(*) [Xarelto 20 mg] 20 mg PO DAILY #30 tab 02/07/18 03/03/18 Rx Triamterene/HCTZ 37.5-25 MG* 1 cap PO DAILY #30 cap 02/07/18 03/07/18 Rx [Dyazide CAP*] oxyCODONE/Acetamin 5/325 MG* 1 tab PO Q6H PRN #14 tab MDD 4 03/04/18 03/07/18 Rx [Percocet 5/325 TAB*] Cholecalciferol (Vitamin D3) 2,000 units PO DAILY 03/07/18 03/07/18 History Combivent Respimat (NF) 2 puff PO Q4H PRN 03/07/18 03/07/18 History Irbesartan 150 mg PO QAM 03/07/18 03/07/18 History Allergies: Allergies Allergy/AdvReac Type Severity Reaction Status Date / Time amoxicillin [From Augmentin] Allergy Rash Verified 03/03/18 22:31 clavulanic acid Allergy Rash Verified 03/03/18 22:31 [From Augmentin] lisinopril Allergy Coughing Verified 03/03/18 22:31 metronidazole Allergy Rash Verified 03/03/18 22:31 omeprazole [From Prilosec] Allergy Diarrhea Verified 03/03/18 22:31 Objective - Vital Signs Vital Signs: Vital Signs 03/07/18 03/07/18 03/07/18 15:20 19:17 19:20 Temperature 97.7 F 98.2 F Pulse Rate 95 84 84 Respiratory 12 11 14 Rate Blood Pressure 119/65 135/86 140/65 (mmHg) O2 Sat by Pulse 96 99 99 Oximetry 03/07/18 03/07/18 03/07/18 19:25 19:30 19:35 Temperature Pulse Rate 85 84 82 Respiratory 14 20 18 Rate Blood Pressure 139/64 121/66 136/62 (mmHg) O2 Sat by Pulse 98 100 100 Oximetry 03/07/18 03/07/18 03/07/18 19:45 20:00 20:15 Temperature 98.4 F Pulse Rate 81 80 82 Respiratory 20 17 18 Rate Blood Pressure 130/68 131/67 128/60 (mmHg) O2 Sat by Pulse 100 99 99 Oximetry 03/07/18 03/07/18 03/07/18 20:28 21:36 21:54 Temperature 98.0 F 98.4 F Pulse Rate 83 83 Respiratory 16 16 18 Rate Blood Pressure 120/58 117/68 (mmHg) O2 Sat by Pulse 100 100 Oximetry 03/07/18 03/07/18 03/07/18 22:05 23:12 23:51 Temperature 98.4 F Pulse Rate 84 Respiratory 16 18 16 Rate Blood Pressure 122/52 (mmHg) O2 Sat by Pulse 99 Oximetry 03/08/18 03/08/18 03/08/18 01:05 01:10 03:40 Temperature 98.1 F 97.6 F Pulse Rate 85 85 Respiratory 17 16 17 Rate Blood Pressure 118/53 116/55 (mmHg) O2 Sat by Pulse 99 100 Oximetry 03/08/18 03/08/18 03/08/18 03:48 04:07 05:21 Temperature Pulse Rate 85 Respiratory 16 16 16 Rate Blood Pressure (mmHg) O2 Sat by Pulse 100 Oximetry 03/08/18 07:32 Temperature Pulse Rate Respiratory 18 Rate Blood Pressure (mmHg) O2 Sat by Pulse Oximetry - Intake and Output Intake and Output: Intake & Output 03/05/18 03/06/18 03/07/18 03/08/18 11:59 11:59 11:59 11:59 Intake Total 1300 Output Total 1000 Balance 300 Weight 190 lb Intake: IV Fluids 700 LR 700 Oral 600 Output: Urine 1000 ADLs: Meal Record Start: 03/07/18 20: 30 Freq: Status: Active Protocol: Created 03/07/18 20:30 [id number] (Rec: 03/07/18 20:30 [id number]) Intake and Output Start: 03/07/18 19: 19 Freq: 06,14,2200 Status: Active Protocol: Created 03/07/18 19:34 [id number] (Rec: 03/07/18 19:34 BKG [id number]) Document 03/07/18 22:30 [id number] (Rec: 03/07/18 22:31 [id number] U-M18) Document 03/08/18 02:19 [id number] (Rec: 03/08/18 02:19 [id number] SSU-L02) Document 03/08/18 06:00 [id number] (Rec: 03/08/18 06:19 [id number] U-M18) Document 03/08/18 06:50 [id number] (Rec: 03/08/18 06:50 [id number] [id number]) Intake and Output Start: 03/07/18 20: 30 Freq: DAILY@0600,1400,2200 Status: Active Protocol: Created 03/07/18 20:30 [id number] (Rec: 03/07/18 20:30 [id number] U-M07) Document 03/07/18 22:30 [id number] (Rec: 03/07/18 22:31 [id number] U-M18) Document 03/08/18 02:19 (Rec: 03/08/18 02:19 SSU-L02) Document 03/08/18 06:00 [id number] (Rec: 03/08/18 06:19 [id number] U-M18) Document 03/08/18 06:50 [id number] (Rec: 03/08/18 06:50 [id number] U-M18) - Physical Exam General Physical Exam Comment: She is conversation, in no distress, fully alert and oriented with normal speech General: No Cyanosis, Yes Anemia, No Jaundice, No Clubbing Lungs and Chest: Yes: Chest Expansion Full, Chest Expansion Symetrica. No: Percussion Note Resonant - hyper-resonant, Vessicular Breath Sounds, Crackles, Wheezes, Respiratory Distress Heart Rate and Rhythm: Regular Additional Cardiovascular: Yes: Normal Heart Sounds. No: Heart Murmur, Pedal Edema Abdominal Exam: Yes: Soft, Bowel Sounds Present. No: Distention, Abdominal Mass , Abdominal Tenderness - Extremities Cranial Nerves II-XII Intact: Yes Limbs: Normal Power - Neuro Orientation: A/O x3 Speech: Normal Results - Results Lab Results: Laboratory Results - last 24 hr 03/07/18 03/07/18 03/07/18 15:42 19:26 21:57 Hgb Hct Plt Count MPV Sodium Potassium Chloride Carbon Dioxide Anion Gap BUN Creatinine Est GFR ( Amer) Est GFR (Non-Af Amer) BUN/Creatinine Ratio Glucose POC Glucose (mg/dL) 238 H 164 H 151 H Calcium 03/08/18 03/08/18 05:56 05:56 Hgb 9.6 L Hct 28 L Plt Count 405 MPV 6.6 L Sodium 132 L Potassium 4.3 Chloride 95 L Carbon Dioxide 30 Anion Gap 7 BUN 16 Creatinine 0.76 Est GFR ( Amer) 88.6 Est GFR (Non-Af Amer) 73.2 BUN/Creatinine Ratio 21.1 H Glucose 201 H POC Glucose (mg/dL) Calcium 8.7 Assessment - Problem List Assessment: Patient Problems Anemia (Acute) Status post closed fracture of left femur (Acute) Uncontrolled type 1 diabetes mellitus (Acute) Anxiety disorder (Chronic) Atrial fibrillation (Chronic) COPD (chronic obstructive pulmonary disease) (Chronic) Charcot's arthropathy (Chronic) Diabetic retinopathy (Chronic) Emphysema of lung (Chronic) Essential hypertension (Chronic) History of falling (Chronic) Hypercholesteremia (Chronic) Insulin pump status (Chronic) Osteoarthritis (Chronic) Primary hypothyroidism (Chronic) Psoriasis (Chronic) Sleep apnea (Chronic) Type 1 diabetes, uncontrolled, with retinopathy (Chronic) Plan: Status post closed fracture of left femur (Acute) 1 day post replacement of hardware. She is to have OT/PT today. She would like to go home, but she needs to have a safe discharge and given the lengthy rehabilitation required last time, we need to determine her requirements on this occasion. I await the operative note to determine if she had an arthroplasty. Uncontrolled type 1 diabetes mellitus (Acute) Insulin pump status (Chronic)Type 1 diabetes, uncontrolled, with retinopathy (Chronic) She has had one mild hypoglycemic episode of 61 mg/dl yesterday. Her glucose levels are a little high. I think she needs to start eating and we will adjust her basal rate/ bolus according to need. She is fully capable of this. Anemia (Acute) We are following along with the surgeons - no requirement at this time for a transfusion Anxiety disorder (Chronic) she is calm Atrial fibrillation (Chronic) She has restarted xarelto COPD (chronic obstructive pulmonary disease) (Chronic)Emphysema of lung (Chronic ) stable Charcot's arthropathy (Chronic) No problems with her feet Diabetic retinopathy (Chronic) secondary diagnosis Essential hypertension (Chronic) BP on target History of falling (Chronic) We need to assure her safety in ambulation before discharge Hypercholesteremia (Chronic) secondary diagnosis Osteoarthritis (Chronic) secondary diagnosis Primary hypothyroidism (Chronic) secondary diagnosis Psoriasis (Chronic) secondary diagnosis Sleep apnea (Chronic) secondary diagnosis I discussed the above with the patient. She is highly motivated to go home. I will help her with her constipation and also ensure her general medical status is stable.
[2018-03-08] MEDS ORDERED: Magnesium Hydroxide LIQ* 30 ML UDC PO PRN (08:22)
[2018-03-08] MEDS ORDERED: Lactated Ringers 1000 ML Bag* 1,000 ML IV SCH (08:28)
[2018-03-08] MEDS: Docusate CAP* 100 MG PO SCH (08:37)
[2018-03-08 08:43] VITALS: BP 118/56
[2018-03-08] MEDS ORDERED: Diltiazem CD CAP* 180 MG PO SCH (09:00)
[2018-03-08] MEDS ORDERED: Citalopram TAB* 20 MG PO SCH (09:00)
[2018-03-08] MEDS ORDERED: Triamterene/HCTZ 37.5-25 MG* CAP PO SCH (09:00)
[2018-03-08] MEDS ORDERED: Rivaroxaban TAB(*) 20 MG TAB PO SCH (09:00)
--- NOTE | 2018-03-08 10:57 | PN ---
Progress Note - Progress Note Date of Service: 03/08/18 SOAP: Subjective: []Pt seen and examined at bedside. She feels well without CP, SOB, dizziness, nausea. LLE pain is well controlled Objective: []General: Well appearing, NAD LLE: left hip dressing CDI, Thigh is soft, DF/PF intact, sensation intact to light touch distally, DP2+ Calves supple and nontender without erythema, edema or palpable cords Assessment: []Left femur screw removal, new screw placement Plan: []WBAT PT/OT Xarelto home dose restarted FU Dr Saba 10-14 days Medically and orthopedically ready for DC home, discussed with Dr Sesay as well as pt and family. Uses O2 at home at night Vital Signs Temp 97.6 F 03/08/18 03:40 Pulse 79 03/08/18 07:40 Resp 18 03/08/18 08:00 BP 118/56 03/08/18 07:40 Pulse Ox 98 03/08/18 08:00 Intake & Output 03/07/18 03/08/18 03/08/18 18:59 06:59 18:59 Intake Total 1300 987 Output Total 1000 0 Balance 300 987 Weight 190 lb Intake: IV Fluids 700 987 LR 700 Oral 600 Output: Urine 1000 0 Laboratory Last Values Hgb 9.6 g/dl (12.0-16.0) L 03/08/18 05:56 Hct 28 % (35-47) L 03/08/18 05:56 Plt Count 405 10^3/ul (150-450) 03/08/18 05:56 MPV 6.6 fL (7.4-10.4) L 03/08/18 05:56 Sodium 132 mmol/L (135-145) L 03/08/18 05:56 Potassium 4.3 mmol/L (3.5-5.0) 03/08/18 05:56 Chloride 95 mmol/L (101-111) L 03/08/18 05:56 Carbon Dioxide 30 mmol/L (22-32) 03/08/18 05:56 Anion Gap 7 mmol/L (2-11) 03/08/18 05:56 BUN 16 mg/dL (6-24) 03/08/18 05:56 Creatinine 0.76 mg/dL (0.51-0.95) 03/08/18 05:56 Est GFR ( Amer) 88.6 (>60) 03/08/18 05:56 Est GFR (Non-Af Amer) 73.2 (>60) 03/08/18 05:56 BUN/Creatinine Ratio 21.1 (8-20) H 03/08/18 05:56 Glucose 201 mg/dL (70-100) H 03/08/18 05:56 POC Glucose (mg/dL) 175 mg/dL (70-100) H 03/08/18 08:42 Calcium 8.7 mg/dL (8.6-10.3) 03/08/18 05:56
[2018-03-08] MEDS ORDERED: Atorvastatin* 10 MG TAB PO SCH (18:00)
--- NOTE | 2018-03-08 20:51 | DS ---
DISCHARGE SUMMARY: DATE OF ADMISSION: 03/07/18 DATE OF DISCHARGE: 03/08/18 ATTENDING ORTHOPEDICS PROVIDER: Fransico Saba MD * (DICTATED BY MARY NICK) PREOPERATIVE DIAGNOSIS: Left femur hardware failure. OPERATIVE PROCEDURE: Left femur hardware exchange. HISTORY: Ms. Hudson is an 82-year-old female who is status post gamma nail of her left femur. She had significantly increased pain since 02/23/18. CT scan of the left lower extremity showed the distal screw of the gamma nail backing out with plan for a wire for screw exchange. HOSPITAL COURSE: The patient was admitted to [facility] on . She underwent a screw exchange of the distal screw of the left gamma nail without complication. Postoperative day 1, she was well appearing, in no acute distress. Left hip dressing was clean, dry, and intact. Thigh was soft. Dorsiflexion and plantarflexion intact. Sensation intact to light touch distally. DP pulse 2+. Calf is supple and nontender without erythema, edema or palpable cords. Vital Signs: Temperature 97.6, pulse 79, respiratory rate 18, blood pressure 118/56, pulse ox 98%. The patient was deemed to be medically and orthopedically stable for discharge to home to her daughter's house. DISCHARGE MEDICATIONS: Include: 1. Insulin pump. 2. . 3. Fluticasone 220 mcg 2 puffs per order. 4. Simvastatin 10 mg p.o. q.p.m. 5. Prednisone 1% ophthalmic solution 1 drop b.i.d. per order. 6. Levothyroxine 125 p.o. q.a.m. 7. Aspirin 81 mg daily. 8. Citalopram 20 mg p.o. every day. 9. Diltiazem 100 mg p.o. daily. 10. Union 5/325, 1 to 2 tabs every 4 hours as needed for pain. 11. Xarelto 20 mg daily. 12. Dyazide 37.5/25, 1 cap daily. 13. Irbesartan 150 mg p.o. daily. 14. Vitamin D3 of 2000 units daily. 15. Combivent Respimat 2 puffs p.o. q.4 hours p.r.n. 16. Acetaminophen 975 mg p.o. q.8 hours p.r.n. 17. Docusate 100 mg p.o. b.i.d. DISCHARGE PLAN: The patient will be weightbearing as tolerated. Start dressing changes 03/09/18 with sterile gauze and tape. Okay to shower 3 days after surgery, which will be 03/10/18. Do not submerge the wound. Regular diet can be resumed which would be carb consistent with attention to sugars for this patient. DVT prophylaxis, home dose of Xarelto 20 mg daily. Pain control Union 5/325 mg 1 tab every 4 hours as needed for pain, hold for sedation, max of 6 tabs per day. Follow up with Dr. Saba within 2 weeks. Call for appointment. Romina will be removed at this point. Patient is discharged to home at her daughter's house. MARY MACIEL [id number]/[facility] #: [id number] DEANGELO
--- NOTE | 2018-03-11 23:47 | OP ---
DATE OF OPERATION: 03/07/18 - ROOM #334 DATE OF : 39 SURGEON: Fransico Saba MD SLAG DUMPER: MARY Diggs. A physician assistant professor of marine biology was required for the length of the procedure for help with positioning, knee manipulation, retraction , and closure. ANESTHESIOLOGIST: Mik Alford MD ANESTHESIA: General anesthesia. PRE-OP DIAGNOSES: 1. Painful hardware, left thigh. 2. Status post 01/19/18 open reduction internal fixation left hip intertrochanteric fracture with subtrochanteric extension with a long intramedullary nail and cerclage wire. POST-OP DIAGNOSES: 1. Painful hardware, left thigh. 2. Status post 01/19/18 open reduction internal fixation left hip intertrochanteric fracture with subtrochanteric extension with a long intramedullary nail and cerclage wire. OPERATIVE PROCEDURE: 1. Open removal of hardware, deep, left thigh. 2. Unlisted procedure, femur, with exchange of screws, with placement of a new screw in a different distal interlocking hole in an intramedullary nail left femur. ANTIBIOTICS: Clindamycin 900 mg IV. IV FLUIDS: 700 cc crystalloid. TOURNIQUET TIME AND [id number] TIME: Approximately 25 minutes. Exact time not recorded. RADIATION: C-arm utilized. COMPLICATIONS: None. ESTIMATED BLOOD LOSS: Minimal. SPECIMEN: A 5-mm Synthes screw was removed from the left thigh. IMPLANTS: A new 5-mm screw was placed in the distal aspect of the gamma nail, intramedullary. INDICATIONS FOR PROCEDURE: The patient is an 82-year-old woman, just over 6 weeks from 01/19/18 open reduction internal fixation left hip intertrochanteric subtrochanteric fracture with long intramedullary nail and cerclage wire. The patient's first procedure was uncomplicated. Excellent reduction. Excellent fixation. I limited the patient's weightbearing for 2 weeks and then after that allowed pain to limit her weightbearing. I saw the patient in the office on 02/21/18. X-rays showed bone well reduced, hardware well placed. The patient was only 4 weeks and 5 days, so not surprisingly still had some discomfort. She was taking [place] as needed for pain. The patient saw me in clinic on 03/06/18. She had had a significant change in the prior week. She had developed pain about the left knee and distal thigh. She had also noted some swelling. She had been to the emergency room over the weekend and had x-rays and a CT scan which showed the significant backing out of a locking screw in the distal femur. I reviewed all imaging obtained on this patient's nail with its interlocking screws. As can best be seen in some postoperative x-rays taken by Dr. Quinones when the patient was in the [facility], that distal interlocking screw was placed bi- cortically, just beyond the second cortex of bone in excellent position. When I saw the patient in clinic, screw may have backed out a millimeter or less and then the films from the past week show the screw to be half backed out essentially. Screw was at an angle and clearly causing pain and swelling. I spoke to the family about removal of this painful screw. I told her and her daughter that the screw head was likely tenting up the iliotibial band causing significant pain and leading to swelling. I discussed 2 possible treatment options; one was removal of the screw, the other would be removal of the screw and placement of a new screw. Advantage of simple screw removal would be no possibility of a future screw backout here distally. Advantage of placing a new screw would be to lend some additional stability to this fixation. The patient was already 6 weeks postoperative with no loss of reduction proximally and nails can certainly be used without distal fixation, this was a very unstable subtrochanteric fracture and I believed that the possible benefit of additional fixation outweigh the risk of future backout again of a locking screw. I discussed this rationale with the patient's family and they understood. Therefore, I decided preoperatively that I would place a new screw. The first distal interlocking screw placed during the first procedure had been placed through the static hole. I decided that I would use a different hole, the dynamic hole more distally, and then I would place the screw into the proximal most extent of this dynamic aperture to essentially place the screw statically. Study of the literature or lack thereof on locking screw backout and discussed with the rep from the [employer]. No good information on the incidence of this problem which I have not seen occur previously. The patient opted for the procedure. Discussed risks and potential complications including screw backing out again. DESCRIPTION OF PROCEDURE: The patient had her procedure scheduled the day after this clinic visit with me, at which time we discovered this screw backout. In preoperative holding, the patient signed a written consent. Operative extremity was marked in preoperative holding. The patient was taken back to the operating room and placed supine on operating room table. The patient was sedated and intubated. A tourniquet was placed about the left proximal thigh. Bone film was placed under the left lower extremity. Left lower extremity was prepped and then draped. A surgical time-out was called. Esmarch was applied and tourniquet was elevated to 250 mmHg. I could visualize the prior surgical skin incision scar along the lateral aspect of the distal thigh. I thought I could palpate the screw head much more proximal than this. I brought mini C-arm in for an image that confirmed the location of the screw head and showed that the screw had backed out even more in the preceding day. I made a longitudinal short skin incision approximately 3 cm in length. I dissected down to the iliotibial band. There was no defect in the iliotibial band. I incised the iliotibial band longitudinally and found the screw head. I removed the screw head and the remainder of the screw in 1 piece. Irrigation of that wound. I brought in a large C-arm. Using the perfect [place] technique, I placed a new 5- mm screw in the proximal most aspect of the more distal of the 2 screw holes , the dynamic screw hole. While placing my screw, I noted that the bone cortex quality was very poor and osteopenic. The screw head could go through the cortex. This informed me that likely this backout from the first procedure was secondary to poor quality bone , osteopenic bone. I liked my screw placement distally. It was nicely bi- cortical. Irrigation of both wounds. Closure of iliotibial band through each of my 2 incision sites was done with a [id number]-[id number] stitch using Vicryl 0 suture. Closure of the subcutaneous tissue with buried simple stitches using Vicryl 2-0 suture. Closure of the skin with manuel. Xeroform, 4x4s, ABD, sterile Webril, [place] bandage. DISPOSITION: The patient was admitted postoperatively given that this case was in the late afternoon and the patient has diabetes and significant pulmonary hypertension so that she could get close medical monitoring. She was to be weightbearing as tolerated. She was to continue physical therapy. Pain medicine as needed. Followup with me in clinic in 2 weeks. The patient is on Xarelto, so no additional anticoagulation would be utilized for DVT prophylaxis. [id number]/[facility] #: [id number] [facility]
== END 2018-03-08 12:40 | disposition home or self-care (01) ==
LOC: OR 14:35 → SSU 20:33
PROVIDERS: ADMIT Orthopaedic Surgery; ATTEND Orthopaedic Surgery
DX: T84.195A Other mechanical complication of internal fixation device of left femur, initial encounter (principal); S72.142D Displaced intertrochanteric fracture of left femur, subsequent encounter for closed fracture with routine healing; M79.662 Pain in left lower leg; Z79.82 Long term (current) use of aspirin; I48.91 Unspecified atrial fibrillation; E10.9 Type 1 diabetes mellitus without complications; E05.00 Thyrotoxicosis with diffuse goiter without thyrotoxic crisis or storm; E03.9 Hypothyroidism, unspecified; Z86.718 Personal history of other venous thrombosis and embolism; E78.5 Hyperlipidemia, unspecified; I10 Essential (primary) hypertension; J44.9 Chronic obstructive pulmonary disease, unspecified; G47.33 Obstructive sleep apnea (adult) (pediatric); M54.5 Low back pain; M81.0 Age-related osteoporosis without current pathological fracture; Z88.0 Allergy status to penicillin
CPT/HCPCS: 36415; 76000; 80048; 85014; 85018; 85049; 88300; 96374; 96375; A9270-GY; C1713; G0378; J0690; J2405; J2704; J3010

== ENCOUNTER 2018-09-27 19:30 | Emergency (ER) | payer MEDICARE, OTHER ==
[2018-09-27] MEDS ORDERED: Morphine 4 MG/ML VIAL (1 ml) 4 MG/ML VIAL IV ONE ×2 (19:54→20:27)
[2018-09-27] MEDS ORDERED: Ondansetron INJ* 2 MG/ML VIAL IV ONE (19:55)
--- NOTE | 2018-09-27 20:56 | ED ---
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 States she felt a "pop" and is concerned that her shoulder may be dislocated. Reports severe pain with any type of movement. Denies any numbness of tingling. - History of Current Complaint Chief Complaint: EDExtremityUpper Stated Complaint: RT ARM PAIN PER PT Time Seen by Provider: 09/27/18 20:34 Hx Obtained From: Patient - Allergies/Home Medications Allergies/Adverse Reactions: Allergies Allergy/AdvReac Type Severity Reaction Status Date / Time amoxicillin [From Augmentin] Allergy Rash Verified 09/27/18 19:37 clavulanic acid Allergy Rash Verified 09/27/18 19:37 [From Augmentin] lisinopril Allergy Coughing Verified 09/27/18 19:37 metronidazole Allergy Rash Verified 09/27/18 19:37 omeprazole [From Prilosec] Allergy Diarrhea Verified 09/27/18 19:37 PMH/Surg Hx/FS Hx/Imm Hx Endocrine/Hematology History: Reports: Hx Anticoagulant Therapy - coumadin, Hx Diabetes, Hx Thyroid Disease, Hx Anemia Cardiovascular History: Reports: Hx Deep Vein Thrombosis, Hx Hypercholesterolemia, Hx Hypertension, Other Cardiovascular Problems/Disorders - A Fib Denies: Hx Pacemaker/ICD Respiratory History: Reports: 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, Hx Pulmonary Embolism - secondary to control pills, Hx Sleep Apnea - hold on CPAP d/t eye surgery, Other Respiratory Problems/Disorders - ex- smoker QUIT 16 YEARS AGO; Patient uses oxygen at night Denies: Hx Asthma GI History: Reports: Other GI Disorders - s/p appendectomy Denies: Hx Jaundice History: Reports: Other Problems/Disorders - hematuria Denies: Hx Dialysis, Hx Kidney Stones, Hx Renal Disease Musculoskeletal History: Reports: Hx Arthritis - knees, hand, Hx Back Problems - lower back disc problems, Hx Osteoporosis Sensory History: Reports: Hx Cataracts - hx of, had surgery, Hx Contacts or Glasses, Hx Glaucoma, Other Sensory Impairments - bilateral corneal transplants Denies: Hx Hearing Aid Opthamlomology History: Reports: Hx Cataracts - hx of, had surgery, Hx Contacts or Glasses, Hx Glaucoma, Other Sensory Impairments - bilateral corneal transplants Neurological History: Denies: Hx Headaches, Hx Migraine, Hx Seizures Psychiatric History: Reports: Hx Depression - controlled on medications Denies: Hx Anxiety, Hx Panic Disorder - Cancer History Cancer Type, Location and Year: BASAL CELL Hx Chemotherapy: No Hx Radiation Therapy: No - Surgical History Surgery Procedure, Year, and Place: 1971 thyroidectomy,. basal cell carcinoma removed (left) cruz, basal cell carcinoma removed scalp,. X2,. & 12/18 cornea transplant,. 12/21 [facility]- lap appendectomy,. 2008 retina detachment & repair (right) eye-42 BAND SCLERAL BUCKLE-SILICONE -OK UP TO 3T- INFO IN OTH OP REPORTS. HERNIA REPAIR Hx Anesthesia Reactions: No Infectious Disease History: No Infectious Disease History: Denies: Traveled Outside the [place] in Last 30 Days - Family History Known Family History: Positive: Other - positive: cancer - mother Negative: Blood Disorder Family History: Reviewed and Noncontributory - Social History Occupation: Retired Lives: With Family Alcohol Use: Occasionally Alcohol Amount: wine Substance Use Type: Reports: None Hx Tobacco Use: Yes Smoking Status (MU): Former Smoker Have You Smoked in the Last Year: No Review of Systems Constitutional: Negative Cardiovascular: Negative Respiratory: Negative Gastrointestinal: Negative Genitourinary: Negative Musculoskeletal: Other - See HPI Negative: Bruising Neurological: Negative All Other Systems Reviewed And Are Negative: Yes Physical Exam - Summary Physical Exam Summary: GENERAL APPEARANCE: Alert and cooperative older adult female who appears to be uncomfortable splinting her RUE against her body and refusing to move it. NECK: Neck supple, non-tender. CARDIAC: Normal S1 and S2. No S3, S4 or murmurs. Rhythm is regular. There is no peripheral edema, cyanosis or pallor. Extremities are warm and well perfused. Capillary refill is less than 2 seconds. Peripheral pulses intact. LUNGS: Clear to auscultation without rales, rhonchi, wheezing or diminished breath sounds. ABDOMEN: Positive bowel sounds. Soft, nondistended, nontender. MUSKULOSKELETAL: Normal muscular development. Normal gait. EXTREMITIES: Generalized anterolateral right shoulder tenderness without gross deformity, edema, or eccchymosis. Patient refuses to range the shoulder due to pain. Circulation and sensation intact. SKIN: Skin normal color, texture and turgor for age. Triage Information Reviewed: Yes Vital Signs On Initial Exam: Initial Vitals Temp Pulse Resp BP Pulse Ox 99.0 F 86 16 171/90 96 09/27/18 19:30 09/27/18 19:30 09/27/18 19:30 09/27/18 19:30 09/27/18 19:30 Vital Signs Reviewed: Yes Diagnostics - Vital Signs Vital Signs Temp Pulse Resp BP Pulse Ox 09/27/18 20:41 16 09/27/18 20:03 16 09/27/18 19:30 99.0 F 86 16 171/90 96 - Laboratory Lab Statement: Any lab studies that have been ordered have been reviewed, and results considered in the medical decision making process. - Radiology No standard instances Radiology Interpretation Completed By: ED Physician Summary of Radiographic Findings: No acute fracture or dislocation. Course/Dx - Course Course Of Treatment: 83-year-old female presents with family reporting sudden onset of right shoulder pain at approximately 6:30 pm this evening while pouring water into toolmaker grade three. States she felt a "pop" and is concerned that her shoulder may be dislocated. Reports severe pain with any type of movement. Denies any numbness or tingling. Afebrile. Hypertensive otherwise VSS. On evaluation the patient appeared to be uncomfortable splinting her RUE against her body and refusing to move it, had generalized anterolateral right shoulder tenderness without gross deformity, edema, or eccchymosis, she refused to range the shoulder due to pain, but circulation and sensation were intact. Remainder of exam was unremarkable. Patient was given a total of 4 mg of IV morphine for pain with good response. X-ray showed no acute fracture or dislocation. Patient was evaluated in consultation with Dr. Saba, orthopedic surgery, who felt that she likely had a rotator cuff injury and recommended conservative treatment at this time. Patient was placed in asling for support which she is to utilize for the next 3-4 days. Gentle ROM exercises were demonstrated to the patient. She is to use acetaminophen according to directions for pain and was provided a short course of hydrocodone-acetaminophen 5 mg/325 mg 1 tab q6h as needed for severe pain. She is to follow up with orthopedic surgery in 5-7 days if symptoms are not improving. Anticipatory guidance and warning symptoms were reviewed with the patient. Verbalizes understanding and agrees with POC. - Diagnoses Differential Diagnosis/HQI/PQRI: Positive: Arthritis, Bursitis, Fracture (Closed ), Sprain, Other - Dislocation Provider Diagnoses: Injury of tendon of right rotator cuff Discharge - Sign-Out/Discharge Documenting (check all that apply): Patient Departure Patient Received Moderate/Deep Sedation with Procedure: No - Discharge Plan Condition: Stable Disposition: HOME Prescriptions: Hydrocodone/Acetaminophen [Hydrocodone-Acetamin 5-325 mg] 1 each PO Q6HR PRN # 12 tablet MDD 4 PRN Reason: Pain - Severe Patient Education Materials: Rotator Cuff Injury (ED) Referrals: Marcelo Sesay MD [Primary Care Provider] - Fransico Saba MD [Medical Doctor] - 5 Days (If no improvement. Call for appointment) Additional Instructions: The x-ray performed in the clinic today showed no evidence of a dislocation. It appears that you may have an injury to the rotator cuff. Rest the shoulder as much as possible. Use the sling that was applied in the emergency room for support for the next 3-4 days. You should remove your arm from the sling every couple of hours and perform some gentle range of motion exercises. Apply ice, heat, or alternate ice then heat to the affected area for 15-20 minutes at least 4 times a day to help with the pain. Take acetaminophen (Tylenol) according to directions as needed for pain. Take hydrocodone-acetaminophen 5 mg/325 mg 1 tablet every 4 hours as needed for severe pain. This medication will cause drowsiness. Follow up with orthopedic surgery in 5-7 days if symptoms do not improve. Seek immediate medical attention if you have severe pain not managed with pain medication, you lose function of the arm, develop numbness or tingling in the arm, hand, or fingers, or have any worsening of symptoms. - Billing Disposition and Condition Condition: STABLE Disposition: Home - Attestation Statements Provider Attestation: the patient was seen by the midlevel provider, it was determined by them that it was not necessary for me to see the patient, I was available for consult during the patient's visit in the ED. I did not establish and patient-physician relationship. The chart however has been reviewed and I am signing in an administrative capacity.
[2018-09-27 22:01] VITALS: BP 136/62
--- NOTE | 2018-09-27 22:19 | CONS ---
CONSULTATION REPORT: DATE OF CONSULT: 09/27/18 - EMERGENCY DEPT REASON FOR CONSULTATION: Possible right shoulder dislocation. HISTORY OF PRESENT ILLNESS: The patient is an 83-year-old woman, right hand dominant, well known to me because of a left hip fracture treated by me operatively, who presented to the emergency room today with sudden right shoulder pain today, possible right shoulder dislocation. Prior to today, the patient notes no prior history of right shoulder pain, instability, diagnosis. At around 6:30 to 7 p.m. 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 She was doing so with her left hand. She felt sudden significant pain about the right shoulder, felt that it is popped and may have popped out of place. Afterwards she was guarding her right upper extremity against her torso, unwilling to move it. The patient's family thought that she had dislocated her shoulder. Severe pain. Of note, recently the patient was to have bilateral inguinal hernia repair surgery, however, this was delayed because of some medical clearance, optimization issues. Of note, the patient had a long intramedullary nail, left, placed for an intertroch subtrochanteric fracture. There is some lucency about the proximal aspect of the nail, which I have been treating for now with vitamin D supplementation and bone stimulator, although if the patient does not improve, I was to consider CT scan left hip. The patient describes no new numbness and tingling since the incident this evening. However, she has had some tingling in the right fingers for some time. PAST MEDICAL HISTORY: Diabetes mellitus type 1 managed with an insulin pump; atrial fibrillation, on Xarelto; COPD; Graves' disease, now with postsurgical hypothyroidism; hyperlipidemia; obstructive sleep apnea; remote history of DVT. PAST SURGICAL HISTORY: Thyroidectomy; open reduction internal fixation of left intertrochanteric subtrochanteric fracture, with subsequent exchange of distal locking screws; appendectomy. MEDICATIONS: As of February 2018, the patient's outpatient home medications were : 1. Acetaminophen. 2. Aspirin 81 mg p.o. daily. 3. Cholecalciferol 2000 units p.o. daily. 4. Citalopram. 5. Combivent p.r.n. 6. Colace. 7. Flovent p.r.n. 8. Irbesartan. 9. Levothyroxine. 10. Multivitamin. 11. Prednisone eye drops. 12. Xarelto. 13. Simvastatin. 14. Insulin pump. 15. Triamterene/hydrochlorothiazide. ALLERGIES: AMOXICILLIN, METRONIDAZOLE (rash), LISINOPRIL (cough), OMEPRAZOLE ( diarrhea). FAMILY HISTORY: Noncontributory. SOCIAL HISTORY: The patient quit smoking 20 years but smoking 2 packs a day for 45 years. The patient lives with her daughter and her . REVIEW OF SYSTEMS: The patient describes numbness and tingling at the right finger tips for several months. No new tingling after incident today. No prior history of right shoulder pain. PHYSICAL EXAM: No acute distress; alert and oriented; appropriate mood and affect; appropriate dress and hygiene; non-antalgic gait; well-coordinated bilateral upper and lower extremities. Afebrile. Vital signs stable with the exception of blood pressure elevated to 171/90. Pulse was 86. Respiratory rate 16, O2 sat 96% on room air, and body temperature 99.0 degrees Fahrenheit. The patient is guarding right upper extremity to her chest. Initially, she held in a internally rotated position. She resisted any type of passive range of motion in the right shoulder whatsoever. Sensation intact throughout the right upper extremity. Warm and well perfused. I reevaluated the patient after she had received some IV morphine. I slowly passively ranged the patient' s right shoulder and I was actually able to move it to approximately 150 degrees of forward flexion, 90 degrees external rotation and 70 degrees of internal rotation. The more I slowly moved it in pendulum shaped motions, I was able to get her to a reasonably pain-free passive range of motion with the above mentioned limits. There was no clunk. No significant mechanical resistance appreciated. DIAGNOSTIC STUDIES/LAB DATA: Four x-ray views of the right shoulder obtained in the emergency room tonight show what appears to be a well located glenohumeral joint. There is perhaps some subtle humeral head elevation. While the acromiohumeral height to distance was 9.1 mm, I would say that the humeral head appears slightly elevated compared to the glenoid. There is an area of decreased bone density about the medial humeral head consistent with possible acute compression fracture or avascular necrosis. Otherwise, the x- ray shows AC joint narrowing osteophytes and subchondral cyst of the AC joint. ASSESSMENT: 1. Acute right shoulder pain. 2. Possible right shoulder rotator cuff tear. 3. Possible avascular necrosis humeral head with acute compression fracture or subchondral bone collapse. 4. No clear instability event, right glenohumeral joint shoulder. PLAN: 1. I told the patient to remain in sling right upper extremity for 3 to 4 days to rest the shoulder. 2. The patient can take Tylenol as needed for pain control. 3. The patient will follow up with me in clinic in the next several weeks. At that point, we can address her right shoulder as well as her left hip. 4. With regard to restrictions, I told the patient not to lift anything heavy with the right upper extremity, especially away from her body; otherwise, no restrictions. [id number]/[facility] #: [id number] MTDD
== END 2018-09-27 22:00 | disposition home or self-care (01) ==
LOC: ED 19:30
DX: S46.001A Unspecified injury of muscle(s) and tendon(s) of the rotator cuff of right shoulder, initial encounter (principal); X58.XXXA Exposure to other specified factors, initial encounter; Y92.009 Unspecified place in unspecified non-institutional (private) residence as the place of occurrence of the external cause; E11.9 Type 2 diabetes mellitus without complications; E07.9 Disorder of thyroid, unspecified; D64.9 Anemia, unspecified; I48.91 Unspecified atrial fibrillation; I10 Essential (primary) hypertension; E78.00 Pure hypercholesterolemia, unspecified; Z86.718 Personal history of other venous thrombosis and embolism; J44.9 Chronic obstructive pulmonary disease, unspecified; F32.9 Major depressive disorder, single episode, unspecified; Z87.891 Personal history of nicotine dependence; Z79.899 Other long term (current) drug therapy; Z79.01 Long term (current) use of anticoagulants; Z96.41 Presence of insulin pump (external) (internal); Z79.4 Long term (current) use of insulin; Z88.1 Allergy status to other antibiotic agents; Z88.8 Allergy status to other drugs, medicaments and biological substances
CPT/HCPCS: 96374; 96375; 96376; 99284; J2270; J2405

== ENCOUNTER → 2018-10-30 05:33 | Day surgery (SDC) | payer MEDICARE, OTHER ==
--- NOTE | 2018-10-16 09:15 | HP ---
CC: Dr. Marcelo Sesay* ADMISSION HISTORY AND PHYSICAL: DATE OF ADMISSION: 10/30/18 ATTENDING SURGEON: Dr. Genaro Myers* (dictated by MARY Cole). CHIEF COMPLAINT: Bilateral inguinal hernias. HISTORY OF PRESENT ILLNESS: This is an 83-year-old female with multiple medical problems who has had a longstanding left inguinal hernia, which has become increasingly symptomatic in the past year following a left hip fracture. She had had a prior open right inguinal herniorrhaphy in the distant past. She had been evaluated by Dr. Myers in 2017, at which time he recommended laparoscopic repair of bilateral inguinal hernias with mesh. She has had increasing swelling and discomfort in the left inguinal area particularly at night. She has also had increased urinary symptoms at night that Dr. Myers did not feel were related to the hernia. On his exam on 07/13/18, there were bilateral reducible inguinal hernias, left greater than right. She has not been symptomatic regarding the right side and I will discuss with him the plan for bilateral versus left side only repair. The patient understands the indications for repair, risks, benefits, and alternatives and at this point is prepared to proceed as scheduled with open repair of bilateral inguinal hernias with mesh. Her daughter accompanies her today for her preoperative history and physical. PAST MEDICAL HISTORY: Type 1 diabetes (on insulin pump), COPD, hypothyroidism, osteoarthritis, obstructive sleep apnea (I did not inquire of her regarding CPAP ), glaucoma, history of bleeding peptic ulcer disease, past history of atrial fibrillation (on chronic anticoagulation, which was stopped earlier this year related to the GI bleed), past history of DVT/PE (while smoking and on oral contraceptives with no history of recurrence). She has been having problems with urinary incontinence of late. She was also seen in the ED on 09/27/18 for right shoulder pain unrelated to a fall, though possibly related to rotator cuff injury. She is in an arm sling at present. She is also utilizing a bone stimulator for 3 hours daily for poor healing of her left hip fracture from January 2018. PAST SURGICAL HISTORY: Previous surgeries include ORIF of left hip fracture in January 2018 with revision of hardware in February 2018, right inguinal herniorrhaphy remotely (the patient is unsure about prior possible left inguinal herniorrhaphy), thyroid lobectomy for benign disease, appendectomy remotely, bilateral corneal transplants, bilateral cataract extraction, bilateral saphenous vein closure with RFA, bilateral glaucoma surgery. CURRENT MEDICATIONS: 1. Humalog via pump with additional insulin p.r.n. based on carbohydrate count at mealtimes (the patient's medical office note seems to indicate that her basal rate of her pump is programmed at 0.4 units per hour. She does not adjust this and I indicated to her that this should be fine during the perioperative period). 2. Pantoprazole 40 mg once daily. 3. Citalopram 20 mg once daily. 4. Diltiazem extended release 180 mg once daily. 5. Levothyroxine 137 mcg once daily. 6. Simvastatin 10 mg once daily. 7. Tramadol 50 mg once daily. 8. Tylenol p.r.n. 9. Prednisolone 1% eye drops 1 drop each eye b.i.d. 10. Multivitamin once daily. 11. Vitamin C and vitamin D daily. 12. Combivent inhaler p.r.n. (uses rarely). DRUG ALLERGIES: AUGMENTIN (the patient does not recall reaction), LISINOPRIL ( cough), METRONIDAZOLE (the patient does not recall reaction), PRILOSEC (diarrhea ). FAMILY HISTORY: Negative for anesthesia problems, bleeding or clotting disorders. SOCIAL HISTORY: The patient is and lives with her . Her daughter lives upstairs. She is a former smoker, who quit 20 years ago. She denies use of alcohol or recreational drugs. REVIEW OF SYSTEMS: General: No recent constitutional symptoms or acute illnesses other than described in the HPI. Her primary difficulties have been long recovery from her hip fracture in January last year, but she has been gradually improving in terms of pain and mobility. She has regular followups with Dr. Saba. Recent right shoulder pain as noted above. HEENT: Full upper and lower dentures. No other additional problems reported. Cardiovascular: She is treated for hypertension. She is not aware of past history of murmur, though it is noted in her medical clearance note, an EKG done that same date apparently showed normal sinus rhythm. Respiratory: No recent exacerbations of her COPD. No chronic cough or shortness of breath. GI : As above. No additions. : As above. No additions. Musculoskeletal: No additions to above. Endocrine: Diabetes as noted. She is on thyroid replacement. PHYSICAL EXAMINATION GENERAL: Somewhat thin and chronically-ill appearing female, in no acute distress. She is in a right arm sling. VITAL SIGNS: Height 5 feet 6 inches, weight 130 pounds. Temperature 98.3, blood pressure 140/70, pulse 84, respirations 16. HEENT: EOMs intact. No conjunctival pallor. Oropharynx: Mucous membranes moist. Full upper and lower dentures. No intraoral lesions. NECK: No definite lymphadenopathy or thyromegaly. There is a well-healed surgical incision from prior hemithyroidectomy. No masses. LUNGS: Clear to auscultation. A few inspiratory wheezes. HEART: Regular rate and rhythm. There is a soft systolic murmur heard at both left and right sternal borders. It does not appear to radiate. BREASTS: Not examined. ABDOMEN: Multiple well-healed surgical scars including right groin, Pfannenstiel incision, and umbilical incision. Soft, nontender to palpation. No palpable masses or organomegaly with the exception of both groins demonstrate reducible mildly tender masses particularly in the standing position , left greater than right. GENITALIA: Not done. RECTAL: Not done. BACK: No spinous process or CVA tenderness. EXTREMITIES: Trace bilateral lower extremity edema. NEUROLOGICAL: Grossly intact. SKIN: Warm and dry. No suspicious rashes or lesions noted, though full skin survey not performed. IMPRESSION: Bilateral inguinal hernias. PLAN: Open repair of bilateral inguinal hernias with mesh (I will discuss the possibility of left side only repair with Dr. Myers; therefore, her consent may need to be modified). Addendum: Case was discussed with Dr. Myers. His plan is to proceed with surgery as scheduled: open repair of bilateral inguinal hernias with mesh. MARY COLE [id number]/[facility] #: [id number] DEANGELO
[~2018-10-30 05:33] MED LIST changes: -Acetaminophen TAB* 325 MG PO ONE; +Bupivacaine 0.5% W/EPI SDV* 10 ML VIAL INJ ONE; +Famotidine IV* 10 MG/ML 2 ML (20 mg) IV ONE; +Famotidine IV* 10 MG/ML 2 ML (20 mg) ONE; +Heparin VIAL(*) 5000 UNITS/ML VIAL (FIVE THOUSAND) ONE; +Lidocaine 1% INJ* 10 MG/ML 30 ML SDV ONE; +Midazolam* 1 MG/ML 2 ML VIAL (2 MG) ONE; +Naloxone* 0.4 MG/ML 1 ML VIAL IV PRN; +Propofol* 10 MG/ML 20 ML BTL ONE; +ceFAZolin 2 GM PREMIX in ORs 2 GM/50 ML BAG ONE; +fentaNYL* 50 MCG/ML 2 ML VIAL (100 MCG VIAL) ONE
--- NOTE | 2018-10-30 09:44 | BRIEFOPN ---
Brief Operative/Procedure Note - Operation Details Pre-Op Diagnosis: bilateral inguinal hernias Post-Op Diagnosis: same (Left indirect; Right femoral) Procedures: open repair bilateral inguinal hernias w/ mesh Surgeon(s)/Proceduralists: Louis. Assist: MARY Wilkerson Anesthesia: local MAC Estimated Blood Loss: none; IVF: 400 ml RL Findings: as above Specimen(s)/Culture(s) Description: none Complications: none
[2018-10-30 10:22] VITALS: BP 165/87
--- NOTE | 2018-10-31 10:30 | OP ---
CC: Marcelo Sesay MD * DATE OF OPERATION: 10/30/18 - SDS DATE OF : 39 SURGEON: Genaro Myers MD DIRECTOR OF PHILANTHROPY: MARY Cole ANESTHESIOLOGIST: Dr. Culver. ANESTHESIA: Local MAC. PRE-OPERATIVE DIAGNOSIS: Bilateral inguinal hernias. POST-OPERATIVE DIAGNOSIS: Indirect left inguinal hernia and right femoral hernia. OPERATIVE PROCEDURE: Left inguinal hernia repair with mesh and right femoral hernia repair with mesh. ESTIMATED BLOOD LOSS: Minimal. IV FLUIDS: Crystalloids. SPECIMEN: None. DRAINS: None. COMPLICATIONS: None. COUNTS: Needle, instrument, and sponge counts were correct. DESCRIPTION OF PROCEDURE: The patient was brought to the operating room and placed on the table supine. Sequential compression devices were placed on both extremities. The patient was administered intravenous sedation. She was prepped and draped in usual sterile fashion and timeout was performed. Local anesthetic was infiltrated in the left groin as a field block and an oblique incision was created and the subcutaneous tissues were divided with cautery. The aponeurosis of the external oblique was identified and infiltrated beneath this with additional aspect and opened along the line of its fibers through the superficial ring. The contents of the inguinal canal were inspected, there was an indirect inguinal hernia sac that was dissected free from the round ligament. What was thought to be the ilioinguinal nerve was divided and ligated with a 4-0 Vicryl. The sac was opened to ensure that there was no sliding component and then it was twisted upon itself and suture ligated with a 2-0 Vicryl. Repair was then performed with the Covidien ProGrip mesh. The mesh was positioned around the round ligament and was trimmed to accommodate the space, laterally the mesh was tucked beneath the external oblique aponeurosis. After showing good position of the mesh the external oblique aponeurosis was run close with 2-0 Vicryl. Alyson's was closed with 3- 0 Vicryl and skin was closed with 4-0 Monocryl in a subcuticular fashion. The attention was then turned to the right side. The patient had a scar that was crossing the crease as well as a scar from the Pfannenstiel was used for this side. After infiltrating anesthetic skin was incised, subcutaneous tissues were divided with cautery, crossing vein was encountered. This was divided between clamps and ligated with 4-0 absorbable ties. External oblique was inspected. The external oblique was infiltrated with the anesthetic, and opened along the line of its fibers to the superficial ring. There was evidence of prior hernia repair with Prolene sutures. There was no evidence of recurrent hernia at this site. Further inspection revealed that the patient did have a femoral hernia. The sac was dissected free and it was reduced. Repair was then performed with a piece of polypropylene mesh that was rolled as a plug to fill the space and this was sutured to itself with 2-0 Prolene. The plug was placed into the femoral space and then the lacunar ligament was sutured to the inferior of the inguinal ligament to secure this taking a bite through the mesh. Subsequently, the site was closed using 2-0 Vicryl to re- approximate the external oblique aponeurosis and again Alyson's was closed with 3-0 Vicryl and skin closed with 4-0 Monocryl. Steri-Strips was applied to both sides. The patient tolerated the procedure well, was transferred to recovery room in stable condition. [id number]/[facility] #: [id number] DEANGELO
== END | disposition home or self-care (01) ==
LOC: OR 05:33
PROVIDERS: ATTEND Surgery
DX: K40.90 Unilateral inguinal hernia, without obstruction or gangrene, not specified as recurrent (principal); K41.90 Unilateral femoral hernia, without obstruction or gangrene, not specified as recurrent; E10.9 Type 1 diabetes mellitus without complications; Z96.41 Presence of insulin pump (external) (internal); Z79.4 Long term (current) use of insulin; J44.9 Chronic obstructive pulmonary disease, unspecified; E03.9 Hypothyroidism, unspecified; M19.90 Unspecified osteoarthritis, unspecified site; G47.33 Obstructive sleep apnea (adult) (pediatric); I48.91 Unspecified atrial fibrillation; Z86.718 Personal history of other venous thrombosis and embolism; Z86.711 Personal history of pulmonary embolism; Z87.11 Personal history of peptic ulcer disease
CPT/HCPCS: C1781; J0690; J1644; J2250; J2704; J3010

== ENCOUNTER 2019-02-05 12:56 | Emergency (ER) | payer MEDICARE, OTHER ==
--- OUTSIDE RECORDS SUMMARY | 2019-02-05 13:01 | XMS REPORT | Continuity of Care Document ---
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 Onset: 01/23/2017 Lumbar spondylolisthesis Morgan Smith M.D. Onset: 01/23/2017 Social History Type Date Description Comments Sex Unknown Cigarette Use Pack Years - 42 Cigarette Use Quit 22 Years Ago ETOH Use Rarely consumes alcohol Tobacco Use Start: Unknown End: Patient is a former smoker Unknown Recreational Drug Use Denies Drug Use Smoking Status Reviewed: 01/24/19 Patient is a former smoker Exercise Type/Frequency Exercises sporadically Allergies, Adverse Reactions, Alerts Active Allergies Reaction Severity Comments Date Augmentin unknown 03/17/2016 Lisinopril unknown 03/17/2016 Prilosec unknown 03/17/2016 Medications Active Medications SIG Qnty Indications Ordering Date Provider Bone Stimulator use as directed S72.142K Fransico Fuller 08/24/2018 for fracture gap [facility] of 5mm Tramadol HCL 1 tab every day as 30tabs S72.142D Fransico Fuller 07/31/2018 50mg needed for pain MD [facility] Tablets [place] 1 tab by mouth q12 20tabs Fransico Fuller 02/21/2018 5-325mg Tablets hours as needed MD [facility] pain Prednisolone Acetate 1 gtt both eyes Unknown 1% twice daily Suspension Triamterene/Hydrochlo (on hold)1 tablet Marcelo Sesay MD rothiazide po daily Morning ( 37.5-25mg Med change On Hold Tablets as of 04/04/[address] Sesay) Vitamin C 500mg 1 po daily Unknown Gabapentin 1 cap po daily at Unknown 300mg bedtime Capsules Pantoprazole Sodium 1 tablet po daily Unknown 40mg Tablets Multi-Betic Diabetes 1 tab daily Unknown Tablets Vitamin D3 1 by mouth every Unknown 2000Unit day Tablets Refresh use daily as Unknown 1.4-0.6% needed for dry Solution eyes Flovent HFA inhale two puffs Unknown 220mcg/Act by mouth twice a Aerosol day Combivent Respimat 1 puffs 4-6 times Unknown daily as needed 20-100mcg/Act Aerosol Citalopram 1 by mouth every Unknown Hydrobromide day 20mg Tablets Simvastatin take 1 tablet by Unknown 10mg mouth at bedtime Tablets Diltiazem HCL ER 1 by mouth every Unknown 180mg day Caps ER 24HR Avapro Irbesartan 1 tab Unknown 300mg Tablets daily Levothroid 1 tablet po daily Unknown 137mcg Tablets Humalog insulin pump Unknown 100Unit/ML Solution Immunizations Description No Information Available Vital Signs Date Vital Result Comment 01/24/2019 2:16pm Heart Rate 59 /min BP Systolic 102 mmHg BP Diastolic 68 mmHg Respiratory Rate 16 /min Body Temperature 98.0 F Pain Level 8 11/08/2018 2:26pm Heart Rate 80 /min BP Systolic 122 mmHg BP Diastolic 68 mmHg Respiratory Rate 16 /min Body Temperature 97.7 F Results Test Acquired Date Facility Test Result H/L Range Note Laboratory test 10/30/2018 [facility] Point of 214 mg/dL High 70-100 [address] [place] [address] [phone] Laboratory test 10/30/2018 [facility] Point of 246 mg/dL High 70-100 [address] [place] [address] [phone] Laboratory test 10/30/2018 [facility] Point of 262 mg/dL High 70-100 [address] [place] [address] [phone] Laboratory test 08/23/2018 [facility] Vitamin D 47.4 ng/mL Normal 20-50 [address] [facility] [address]) [place], [place] [id number] [phone] TSH (Thyroid Stim Horm) 3.05 mcIU/mL Normal 0.34-5.60 1 Motorcycle Deliverer: [id number] 2 Motorcycle Deliverer: [id number] 3 Motorcycle Deliverer: [id number] 4 Total 25-Hydroxyvitamin D2 and D3 (25-OH-VitD) <10 ng/mL (severe deficiency) 10-19 ng/mL (mild to moderate deficiency) 20-50 ng/mL (optimum levels) 51-80 ng/mL (increased risk of hypercalciuria) >80 ng/mL (toxicity possible) Procedures Date Code Description Status 10/30/2018 29051 Repair Hernia Femoral Initial, Reducible Completed 10/30/2018 76061 Repair Hernia Femoral Initial, Reducible Completed 10/30/2018 35951 Repair Hernia Inguinal > 5Yrs, Reducible Completed 10/30/2018 55935 Repair Hernia Inguinal > 5Yrs, Reducible Completed Medical Devices Description No Information Available Encounters Type Date Location Provider Dx Diagnosis Office Visit 10/25/2018 [facility] Fransico Fuller S46.011D Strain of 11:30a at [facility] Saba MD musc/tend the rotator cuff of right shoulder, subs S72.142G Displ intertroch fx l femur, subs for clos fx w delay heal Office Visit 09/27/2018 [facility] Fransico Jonny M25.511 Pain in right 9:40a Orthopedics at MD [facility] shoulder [place] Office Visit 08/23/2018 Italo Fuller S72.142K Displaced 2:15p Orthopedics at [facility] intertroch fx l [place] femur, subs for clos fx w nonunion T84.195A [facility] compl of internal fixation device of left femur, init Office Visit 07/31/2018 Italo Fuller S72.142D Displ intertroch 3:15p Orthopedics at [facility] fx l femur, subs [place] for clos fx w routn heal Assessments Date Code Description Provider 01/24/2019 S72.142G Displaced intertrochanteric fracture of Fransico Saba MD left femur, subsequent encounter for closed fracture with delayed healing 11/08/2018 K40.90 Unilateral inguinal hernia, without Genaro Myers MD, FACS obstruction or gangrene, not specified as recurrent 11/08/2018 K41.90 Unilateral femoral hernia, without Genaro Myers MD, FACS obstruction or gangrene, not specified as recurrent 10/30/2018 K40.90 Unilateral inguinal hernia, without Donis Wilkerson, PA obstruction or gangrene, not specified as recurrent 10/30/2018 K40.90 Unilateral inguinal hernia, without Genaro Myers MD, FACS obstruction or gangrene, not specified as recurrent 10/30/2018 K41.90 Unilateral femoral hernia, without Genaro Myers MD, FACS obstruction or gangrene, not specified as recurrent 10/30/2018 K41.90 Unilateral femoral hernia, without Donis Wilkerson, PA obstruction or gangrene, not specified as recurrent 10/25/2018 S46.011D Strain of muscle(s) and tendon(s) of the Fransico Saba MD rotator cuff of right shoulder, subsequent encounter 10/25/2018 S72.142G Displaced intertrochanteric fracture of Fransico Saba MD left femur, subsequent encounter for closed fracture with delayed healing 10/01/2018 K40.20 Bilateral inguinal hernia, without Donis Wilkerson, PA obstruction or gangrene, 10/01/2018 Z01.818 Encounter for other preprocedural Donis Wilkerson PA examination 09/27/2018 M25.511 Pain in right shoulder Fransico Saba MD 09/05/2018 K40.20 Bilateral inguinal hernia, without Genaro Myers MD, FACS obstruction or gangrene, 09/04/2018 K40.20 Bilateral inguinal hernia, without Genaro Myers MD, FACS obstruction or gangrene, 08/23/2018 S72.142K Displaced intertroch fx l femur, subs for Fransico Saba MD clos fx w nonunion 08/23/2018 T84.195A [facility] compl of internal fixation device of Fransico Saba MD left femur, init 07/31/2018 S72.142D Displaced intertrochanteric fracture of Fransico Saba MD left femur, subseque Plan of Treatment 01/24/2019 - Fransico F [facility], MDS72.142G Displaced intertrochanteric fracture of left femur, subsequent encounter for closed fracture with delayed healingNew Xrays:Shoulder Right 2+ VWS, Ordered: 01/24/19Femur Left, Ordered: CT Extremity Lower Left Wo, Ordered: 01/24/19Follow up:Follow up: after CT Functional Status Description No Information Available Mental Status Description No Information Available Referrals Description No Information Available
[2019-02-05 13:16] VITALS: BP 128/79
[2019-02-05] MEDS ORDERED: Ondansetron ODT TAB* 4 MG PO ONE (13:35)
--- NOTE | 2019-02-05 13:50 | UC ---
Nausea/Vomiting/Diarrhea HPI - HPI Summary HPI Summary: PATIENT AWOKE FROM SLEEP AT 4 AM THIS MORNING WITH SUDDEN ONSET OF NAUSEA/ VOMITING AND WATERY DIARRHEA. SYMPTOMS HAVE BEEN PERSISTENT ALL DAY. SHE CHECKED HER SUGAR AT THAT TIME AND IT WAS ALMOST 300. SHE HAS A HISTORY OF UNCONTROLLED DIABETES. STATES HER LAST A1C WAS MORE THAN 9. SHE WAS ALSO FOUND TO HAVE FEVER AND TACHYCARDIA HERE IN THE URGENT CARE. - History of Current Complaint Chief Complaint: UCGeneralIllness Stated Complaint: ABDOMINAL COMPLAINT Time Seen by Provider: 02/05/19 13:20 Hx Obtained From: Patient, Family/Call Center Analyst - DAUGHTER Onset/Duration: Sudden Onset, Lasting Hours, Still Present Timing: Constant Severity Initially: Moderate Severity Currently: Moderate Pain Intensity: 0 Pain Scale Used: 0-10 Numeric Location: Diffuse Character: Cramping Aggravating Factor(s): Nothing Alleviating Factor(s): Nothing Nausea/Vomiting Presence: Nauseated, Vomiting Diarrhea Presence: Yes Diarrhea Characteristics: Watery - Allergies/Home Medications Allergies/Adverse Reactions: Allergies Allergy/AdvReac Type Severity Reaction Status Date / Time omeprazole [From Prilosec] Allergy Severe Diarrhea Verified 02/05/19 13:10 amoxicillin [From Augmentin] Allergy Intermediate Rash Verified 02/05/19 13:10 clavulanic acid Allergy Intermediate Rash Verified 02/05/19 13:10 [From Augmentin] lisinopril Allergy Intermediate Coughing Verified 02/05/19 13:10 metronidazole Allergy Intermediate Rash Verified 02/05/19 13:10 PMH/Surg Hx/FS Hx/Imm Hx Endocrine History: Diabetes, Hypothyroidism Cardiovascular History: Hypertension Respiratory History: COPD Other Cancer History: BASAL CELL CANCER Other History Of: Anticoagulant Therapy - coumadin - Surgical History Surgical History: Yes Surgery Procedure, Year, and Place: 1971 thyroidectomy,. basal cell carcinoma removed (left) cru[place], basal cell carcinoma removed scalp,. X2,. & 12/18 cornea transplant,. 12/21 [facility]- lap appendectomy,. 2008 retina detachment & repair (right) eye-42 BAND SCLERAL BUCKLE-SILICONE -OK UP TO 3T- INFO IN OTH OP REPORTS. HERNIA REPAIR. left hip rodding to left knee 01/19/18, revision soon after - Family History Known Family History: Positive: Other - positive: cancer - mother Negative: Blood Disorder Family History: Reviewed and Noncontributory - Social History Alcohol Use: Occasionally Alcohol Amount: wine Substance Use Type: None Smoking Status (MU): Former Smoker Amount Used/How Often: 2PPD 40 YRS Have You Smoked in the Last Year: No When Did the Patient Quit Smoking/Using Tobacco: 20 years ago - Immunization History Most Recent Influenza Vaccination: 2018 Most Recent Pneumonia Vaccination: 2011 Review of Systems All Other Systems Reviewed And Are Negative: Yes Constitutional: Positive: Fever, Chills, Fatigue ENT: Positive: Negative Respiratory: Positive: Negative Cardiovascular: Positive: Negative Gastrointestinal: Positive: Abdominal Pain, Vomiting, Diarrhea, Nausea Genitourinary: Positive: Negative Physical Exam Triage Information Reviewed: Yes Appearance: No Pain Distress, Ill-Appearing - PALE, FATIGUED Vital Signs: Initial Vital Signs Temp 101.9 F 02/05/19 13:10 Pulse 104 02/05/19 13:10 Resp 20 02/05/19 13:10 BP 128/79 02/05/19 13:10 Pulse Ox 96 02/05/19 13:10 Eyes: Positive: Conjunctiva Clear ENT: Positive: Hearing grossly normal Neck: Positive: Supple Respiratory Exam: Normal Cardiovascular: Positive: Tachycardia, Murmur:Sys:Grade _?_/ - 2/6 SYSTOLIC MURMUR Abdomen Description: Positive: Nontender, Soft Bowel Sounds: Positive: Present Musculoskeletal: Positive: No Edema Neurological: Positive: Alert Psychological: Positive: Normal Response To Family, Age Appropriate Behavior Skin: Negative: Rashes Naus/Vom/Diarrhea Course/Dx - Course Course Of Treatment: 83-YEAR-OLD PATIENT PRESENTING WITH A CONCERNING CONSTELLATION OF SYMPTOMS INCLUDING NAUSEA/VOMITING, DIARRHEA, FEVER AND TACHYCARDIA IN THE SETTING OF UNCONTROLLED DIABETES. PATIENT REQUIRES A MORE EXTENSIVE WORKUP THAN WHAT IS AVAILABLE IN THE URGENT CARE. 4MG ZOFRAN GIVEN PRIOR TO LEAVING BY PRIVATE CAR. PT OFFERED TRANSPORT TO THE ER BY AMBULANCE BUT DECLINES. ADVISED THAT BY NOT TRAVELING IN A MONITORED SETTING SHE COULD BE RISKING WORSENING OF HER CONDITION THAT COULD POSE A THREAT TO HER LIFE, HEALTH AND MEDICAL SAFETY. SHE VERBALIZES UNDERSTANDING AND CONTINUES TO DECLINE AMBULANCE TRANSFER. - Differential Dx/Diagnosis Provider Diagnosis: Nausea & vomiting, Fever Condition At Discharge: Stable Discharge ED - Sign-Out/Discharge Documenting (check all that apply): Patient Departure All imaging exams completed and their final reports reviewed: No Studies - Discharge Plan Condition: Stable Disposition: TRANS [facility] Patient Education Materials: Fever in Adults (ED), Acute Nausea and Vomiting ( ED) Referrals: Marcelo Sesay MD [Primary Care Provider] - Additional Instructions: YOUR CONSTELLATION OF SYMPTOMS INCLUDING ACUTE NAUSEA/VOMITING, DIARRHEA AND FEVER IN THE SETTING OF UNCONTROLLED DIABETES IS CONCERNING. YOU REQUIRE A HIGHER LEVEL OF SERVICE THAN WHAT IS AVAILABLE IN THE URGENT CARE. GO DIRECTLY TO THE [facility] ER FROM HERE FOR FURTHER EVALUATION. YOU HAVE DECLINED TRANSFER TO THE ER BY AMBULANCE. BE ADVISED THAT BY NOT TRAVELING IN A MONITORED SETTING YOU COULD BE RISKING WORSENING OF YOUR CONDITION THAT COULD POSE A THREAT TO YOUR LIFE, HEALTH AND MEDICAL SAFETY. - Billing Disposition and Condition Condition: STABLE Disposition: Trans Higher Lvl of Care Fac
== END 2019-02-05 13:48 | disposition short-term general hospital (02) ==
LOC: UCEAST 12:56
DX: R11.2 Nausea with vomiting, unspecified (principal); R50.9 Fever, unspecified; R10.9 Unspecified abdominal pain; R19.7 Diarrhea, unspecified; R00.0 Tachycardia, unspecified; R53.83 Other fatigue; E11.9 Type 2 diabetes mellitus without complications; I10 Essential (primary) hypertension; Z79.01 Long term (current) use of anticoagulants; Z85.828 Personal history of other malignant neoplasm of skin; Z87.891 Personal history of nicotine dependence; Z88.1 Allergy status to other antibiotic agents; Z88.8 Allergy status to other drugs, medicaments and biological substances; Z88.0 Allergy status to penicillin; J44.9 Chronic obstructive pulmonary disease, unspecified; E03.9 Hypothyroidism, unspecified; D64.9 Anemia, unspecified; E78.00 Pure hypercholesterolemia, unspecified; I48.91 Unspecified atrial fibrillation; F32.9 Major depressive disorder, single episode, unspecified; E86.0 Dehydration; Z79.899 Other long term (current) drug therapy
CPT/HCPCS: 99212; A9270-GY; G0463

== ENCOUNTER 2019-02-05 13:58 | Emergency (ER) | payer MEDICARE, OTHER ==
--- NOTE | 2019-02-05 15:24 | ED ---
GI/ HPI - HPI Summary HPI Summary: This pt is an 83 y/o female presenting to [facility] c/o vomiting and diarrhea since 0400 today. Pt describes nonbloody emesis and nonbloody stools. She states she has not had anything to eat or drink since last night. Denies any pain, abd pain , chest pain. Denies cough or runny nose. Denies any sick contacts at home. Pt has not taken any medications today. Pt presents to the ED with a fever of 101.5 F. Pt did receive the flu shot this year. PMHx: HTN, DM, COPD, thyroid. Her PCP is Dr. Sesay. PSHx: appendectomy, bleeding ulcer last year. Pt is a former smoker. NKDA. Medications reviewed. Allergies noted. - History of Current Complaint Chief Complaint: EDNauseaVomitDiarrh Time Seen by Provider: 02/05/19 15:18 Stated Complaint: GENERAL ILLNESS PER PT Hx Obtained From: Patient Onset/Duration: Started Hours Ago, Still Present Timing: Lasting Hours Severity: Moderate Pain Intensity: 0 - denies any pain Associated Signs and Symptoms: Positive: Nausea, Vomiting, Fever. Negative: Abdominal Pain, Cough, Chest Pain Aggravating Factor(s): Nothing Alleviating Factor(s): Nothing - Additional Pertinent History Primary Care Physician: [id number] - Allergy/Home Medications Allergies/Adverse Reactions: Allergies Allergy/AdvReac Type Severity Reaction Status Date / Time omeprazole [From Prilosec] Allergy Severe Diarrhea Verified 02/05/19 14:09 amoxicillin [From Augmentin] Allergy Intermediate Rash Verified 02/05/19 14:09 clavulanic acid Allergy Intermediate Rash Verified 02/05/19 14:09 [From Augmentin] lisinopril Allergy Intermediate Coughing Verified 02/05/19 14:09 metronidazole Allergy Intermediate Rash Verified 02/05/19 14:09 Home Medications: Home Medications Albuterol/Ipratropium RESP(NF) [Combivent Respimat(NF)] 2 puff INH DAILY PRN [History Confirmed 02/05/19] Ascorbic Acid TAB* [Vitamin C TAB*] 500 mg PO DAILY 02/05/19 [History Confirmed 02/05/19] Cholecalciferol TAB* [Vitamin D TAB*] 1,000 unit PO DAILY 02/05/19 [History Confirmed 02/05/19] Irbesartan (NF) [Avapro (NF)] 300 mg PO QPM 02/05/19 [History Confirmed 02/05/19 ] PMH/Surg Hx/FS Hx/Imm Hx Endocrine/Hematology History: Reports: Hx Anticoagulant Therapy - coumadin, Hx Diabetes, Hx Thyroid Disease, Hx Anemia Cardiovascular History: Reports: Hx Deep Vein Thrombosis, Hx Hypercholesterolemia, Hx Hypertension, Other Cardiovascular Problems/Disorders - A Fib Denies: Hx Pacemaker/ICD Respiratory History: Reports: 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, Hx Pulmonary Embolism - secondary to control pills, Hx Sleep Apnea - hold on CPAP d/t eye surgery, Other Respiratory Problems/Disorders - ex- smoker QUIT 16 YEARS AGO; Patient uses oxygen at night Denies: Hx Asthma GI History: Reports: Hx Ulcer - 2018, BLEEDING, SURGERY DONE, STATES OK NOW WITH DAILY MEDS, Other GI Disorders - s/p appendectomy Denies: Hx Jaundice History: Reports: Other Problems/Disorders - hematuria Denies: Hx Dialysis, Hx Kidney Stones, Hx Renal Disease Musculoskeletal History: Reports: Hx Arthritis - knees, hand, Hx Back Problems - lower back disc problems, Hx Osteoporosis Sensory History: Reports: Hx Cataracts - hx of, had surgery, Hx Contacts or Glasses, Hx Glaucoma, Other Sensory Impairments - bilateral corneal transplants Denies: Hx Hearing Aid Opthamlomology History: Reports: Hx Cataracts - hx of, had surgery, Hx Contacts or Glasses, Hx Glaucoma, Other Sensory Impairments - bilateral corneal transplants Neurological History: Denies: Hx Headaches, Hx Migraine, Hx Seizures Psychiatric History: Reports: Hx Depression - controlled on medications Denies: Hx Anxiety, Hx Panic Disorder - Cancer History Cancer Type, Location and Year: BASAL CELL Hx Chemotherapy: No Hx Radiation Therapy: No - Surgical History Surgery Procedure, Year, and Place: 1971 thyroidectomy,. basal cell carcinoma removed (left) cruz, basal cell carcinoma removed scalp,. X2,. & 12/18 cornea transplant,. 12/21 [facility] [place] appendectomy,. 2008 retina detachment & repair (right) eye-42 BAND SCLERAL BUCKLE-SILICONE -OK UP TO 3T- INFO IN OTH OP REPORTS. HERNIA REPAIR. left hip rodding to left knee 01/19/18, revision soon after Hx Anesthesia Reactions: No Infectious Disease History: No Infectious Disease History: Reports: Hx Hepatitis Denies: Traveled Outside the [place] in Last 30 Days - Family History Known Family History: Positive: Other - positive: cancer - mother Negative: Blood Disorder - Social History Alcohol Use: Occasionally Alcohol Amount: wine Substance Use Type: Reports: None Hx Tobacco Use: Yes Smoking Status (MU): Former Smoker Amount Used/How Often: 2PPD 40 YRS Have You Smoked in the Last Year: No Review of Systems Negative: Fever, Chills Negative: Nasal Discharge Negative: Chest Pain Negative: Cough Positive: Vomiting, Diarrhea, Nausea. Negative: Abdominal Pain All Other Systems Reviewed And Are Negative: Yes Physical Exam - Summary Physical Exam Summary: Constitutional: Well-developed, Well-nourished, Alert. (-) Distressed Skin: Warm, Dry HENT: Normocephalic; Atraumatic. Dry oral mucosa. Eyes: Conjunctiva normal Neck: Musculoskeletal ROM normal neck. (-) JVD, (-) Stridor, (-) Tracheal deviation Cardio: Rhythm regular, rate normal, Heart sounds normal; Intact distal pulses; The pedal pulses are 2+ and symmetric. Radial pulses are 2+ and symmetric. (-) Murmur Pulmonary/Chest wall: Effort normal. (-) Respiratory distress, (-) Wheezes, (-) Rales Abd: Soft, (-) tenderness, (-) Distension, (-) Guarding, (-) Rebound Musculoskeletal: (-) Edema Lymph: (-) Cervical adenopathy Neuro: Alert, Oriented x3 Psych: Mood and affect Normal Triage Information Reviewed: Yes Vital Signs On Initial Exam: Initial Vitals Temp Pulse Resp BP Pulse Ox 101.5 F 99 16 150/84 93 02/05/19 14:07 02/05/19 14:07 02/05/19 14:07 02/05/19 14:07 02/05/19 14:07 Vital Signs Reviewed: Yes Procedures - Sedation Patient Received Moderate/Deep Sedation with Procedure: No Diagnostics - Vital Signs Vital Signs Temp Pulse Resp BP Pulse Ox 02/05/19 15:11 98.4 F 97 16 148/65 96 02/05/19 14:07 101.5 F 99 16 150/84 93 - Laboratory Result Diagrams: 02/05/19 15:30 02/05/19 15:30 Lab Statement: Any lab studies that have been ordered have been reviewed, and results considered in the medical decision making process. - EKG 15:12 Cardiac Rate: NL - at 99 bpm EKG Rhythm: Sinus Rhythm Summary of EKG Findings: EKG at 1512 shows sinus rhythm at a rate of 99 bpm. No abnormalities. Re-Evaluation - Re-Evaluation First Eval Re-Evaluation Time: 17:56 Change: Improved Comment: Pt is able to tolerate PO. GIGU Course/Dx - Course Course Of Treatment: Patient is here with roughly 1 day of vomiting and diarrhea. Patient's had no abdominal pain and did not develop any abdominal pain on the ED. Patient was febrile and tachycardic upon arrival. Patient's fever and tachycardia improved with IV fluids, Tylenol, Motrin, by mouth fluids. Patient had her performed which was overall grossly unremarkable. She was influenza negative. Patient was given Zofran at [facility] and this improved her symptoms greatly. Patient did feel much better by the time of discharge. Patient and daughter were given very strict return precautions and to come back if anything is getting worse. Patient was sent home with a prescription for Zofran and 3 tablets dispensed here for home as tomorrow is [place] and her pharmacy is closed. - Diagnoses Provider Diagnoses: Vomiting, Diarrhea, Dehydration, Fever Discharge ED - Sign-Out/Discharge Documenting (check all that apply): Patient Departure - Discharge home - Discharge Plan Condition: Stable Disposition: HOME Prescriptions: Ondansetron TAB* [Zofran 4 MG Tab*] 4 mg PO Q8HR PRN #8 tab PRN Reason: Vomiting Patient Education Materials: Dehydration (ED), Acute Nausea and Vomiting (ED), Acute Diarrhea (ED) Referrals: Marcelo Sesay MD [Primary Care Provider] - Additional Instructions: Take medications for nausea. PLEASE RETURN TO EMERGENCY DEPARTMENT FOR ANY ABDOMINAL PAIN, UNABLE TO TOLERATE LIQUIDS, UNABLE TO URINATE FOR 12-24 HOURS, OR ANY OTHER CONCERNING SYMPTOMS. Please follow up with your primary care physician in 1-3 days. - Billing Disposition and Condition Condition: STABLE Disposition: Home - Attestation Statements Document Initiated by Scribe: Yes Documenting Scribe: Alicia Enriquez Provider For Whom Marilynnibe is Documenting (Include Credential): Vance Cano MD Scribe Attestation: Alicia Palma, scribed for Vance Cano MD on 02/05/19 at 1851. Scribe Documentation Reviewed: Yes Provider Attestation: The documentation as recorded by the scribe, Alicia Enriquez accurately reflects the service I personally performed and the decisions made by me, Vance Cano MD Status of Scribe Document: Viewed
[2019-02-05] MEDS ORDERED: NS 0.9% 1000 ML** 1,000 ML IV ONE (15:25)
[2019-02-05 15:39] LABS: ABS Lymphocytes 0.4 10^3/ul (1.0-4.8); ABS Monocytes 0.2 10^3/ul (0-0.8); ABS Neutrophils 6.5 10^3/ul (1.5-7.7); Hematocrit 35 % (35-47); Hemoglobin 11.9 g/dL (12.0-16.0); Lymphocyte % 5.3 %; Mean Corpuscular HGB Conc 34 g/dL (31-36); Mean Corpuscular Hemoglobin 31 pg (27-31); Mean Corpuscular Volume 91 fL (80-97); Mean Platelet Volume 6.8 fL (7.4-10.4); Platelet Count 388 10^3/uL (150-450); Red Blood Count 3.91 10^6 /uL (3.70-4.87); Red Cell Distribution Width 14 % (10-15); White Blood Count 7.1 10^3/uL (3.5-10.8)
[2019-02-05 15:56] LABS: ALT 17 U/L (7-52); AST 17 U/L (13-39); Albumin/Globulin Ratio 0.9 (1-3); Alkaline Phosphatase 110 U/L (34-104); Anion Gap 8 mmol/L (2-11); Blood Urea Nitrogen 18 mg/dL (6-24); CO2 Carbon Dioxide 30 mmol/L (22-32); Calcium 8.8 mg/dL (8.6-10.3); Chloride 97 mmol/L (101-111); EGFR African American 94.1 (>60); EGFR Non-African American 77.7 (>60); Globulin 4.4 g/dL (2-4); Glucose 187 mg/dL (70-100); Potassium 4.2 mmol/L (3.5-5.0); Sodium 135 mmol/L (135-145); Total Protein 8.4 g/dL (6.4-8.9)
[2019-02-05 16:18] LABS: Influenza A Molecular NEGATIVE (Negative); Influenza B Molecular NEGATIVE (Negative)
[2019-02-05] MEDS ORDERED: Acetaminophen TAB* 325 MG PO ONE (17:04)
[2019-02-05] MEDS ORDERED: Ondansetron ODT TAB* 4 MG SL ONE (17:17)
[2019-02-05 17:20] LABS: Urine Appearance Cloudy; Urine Bilirubin Negative (Negative); Urine Blood Negative (Negative); Urine Color Yellow; Urine Glucose 1+(50 mg/dL) (Negative); Urine Ketones 1+ (Negative); Urine Nitrite Negative (Negative); Urine Protein Negative (Negative); Urine Specific Gravity 1.019 (1.010-1.030); Urine Urobilinogen Negative (Negative)
[2019-02-05] MEDS ORDERED: Ibuprofen TAB* 600 MG PO ONE (18:11)
[2019-02-05 18:47] VITALS: BP 131/67
== END 2019-02-05 18:46 | disposition home or self-care (01) ==
LOC: ED 13:58
DX: R11.10 Vomiting, unspecified (principal); R19.7 Diarrhea, unspecified; E86.0 Dehydration; R50.9 Fever, unspecified; I10 Essential (primary) hypertension; E11.9 Type 2 diabetes mellitus without complications; J44.9 Chronic obstructive pulmonary disease, unspecified; E03.9 Hypothyroidism, unspecified; D64.9 Anemia, unspecified; E78.00 Pure hypercholesterolemia, unspecified; I48.91 Unspecified atrial fibrillation; F32.9 Major depressive disorder, single episode, unspecified; Z85.828 Personal history of other malignant neoplasm of skin; Z87.891 Personal history of nicotine dependence; Z79.01 Long term (current) use of anticoagulants; Z79.899 Other long term (current) drug therapy; Z88.1 Allergy status to other antibiotic agents; Z88.0 Allergy status to penicillin; Z88.8 Allergy status to other drugs, medicaments and biological substances
CPT/HCPCS: 36415; 80053; 81003; 82803; 83605; 83690; 85025; 87040; 93005; 96360; 99284; A9270-GY

== ENCOUNTER 2020-07-10 17:07 | Inpatient (IN) ==
[2020-07-10 20:03] LABS: ABS Basophils 0.1 10^3/ul (0-0.2); ABS Eosinophils 0.2 10^3/ul (0-0.6); ABS Monocytes 0.6 10^3/ul (0-0.8); ABS Neutrophils 6.6 10^3/ul (1.5-7.7); Eosinophil % 2.2 %; Hematocrit 32 % (35-47); Hemoglobin 10.9 g/dL (12.0-16.0); Lymphocyte % 21.2 %; Mean Corpuscular HGB Conc 34 g/dL (31-36); Mean Corpuscular Hemoglobin 30 pg (27-31); Mean Corpuscular Volume 89 fL (80-97); Mean Platelet Volume 6.6 fL (7.4-10.4); Platelet Count 582 10^3/uL (150-450); Red Blood Count 3.64 10^6 /uL (3.70-4.87); Red Cell Distribution Width 15 % (10-15); White Blood Count 9.5 10^3/uL (3.5-10.8)
[2020-07-10] MEDS ORDERED: Vancomycin 1,000 MG in NS 0.9% 250 ml 250 ML IVPB ONE (20:15)
[2020-07-10] MEDS ORDERED: Piperacillin/Tazobac ADVAN 3.375 GM in NS 0.9% 100 ml BAG 100 ML IV ONE (20:16)
[2020-07-10] MEDS ORDERED: Fluticasone HFA 220 mcg(NF) MDI INH PRN (20:21)
[2020-07-10 20:23] LABS: Albumin 3.5 g/dL (3.2-5.2); Albumin/Globulin Ratio 0.8 (1-3); Calcium 8.9 mg/dL (8.6-10.3); EGFR African American 85.6 (>60); EGFR Non-African American 70.7 (>60); Globulin 4.2 g/dL (2-4); Potassium 4.1 mmol/L (3.5-5.0); Total Bilirubin 0.3 mg/dL (0.2-1.0); Total Protein 7.7 g/dL (6.4-8.9)
[2020-07-10] MEDS ORDERED: Senna TAB 8.6 mg TAB PO PRN (20:24)
[2020-07-10] MEDS ORDERED: Vancomycin per Pharmacy 1 EA NOTE FOLLOW UP SCH (21:00)
[2020-07-10] MEDS ORDERED: Zosyn per Pharmacy NOTE FOLLOW UP SCH (21:00)
[2020-07-11] MEDS: prednisoLONE 1% OPHTH.SUSP 5 ML OPHTH.SUSP BOTH EYES SCH ×3 (00:46→21:58)
[2020-07-11] MEDS: ZOSYN 3.375 GM Q8H per EXTENDED INFUSION IV SCH ×3 (02:07→22:50)
[2020-07-11 04:55] LABS: INR 1.25 (0.82-1.09)
[2020-07-11] MEDS: NS 0.9% 1000 ml BAG 1,000 ML IV SCH (05:26)
[2020-07-11] MEDS: Cholecalciferol (VIT D3) 1,000 unit TAB PO SCH (08:27)
[2020-07-11] MEDS: Vancomycin 750 MG in NS 0.9% 250 ML IVPB SCH ×2 (11:00→21:58)
[2020-07-11] MEDS ORDERED: Tobramycin POWDER 1.2 GM VIAL ONE (12:00)
[2020-07-11] MEDS ORDERED: Dextrose 50% Syringe 50 ml 25 GM/50 ML SYRINGE IV PUSH PRN ×2 (13:55→20:19)
[2020-07-11] MEDS ORDERED: Bupivacaine 0.25% EPI 200,000 30 ML SDV ONE (15:15)
[2020-07-11] MEDS ORDERED: Vancomycin 1,000 MG VIAL ONE (15:15)
[2020-07-11] MEDS ORDERED: Propofol 10 mg/ml 100 ML BTL 100 ML ONE (15:47)
[2020-07-11] MEDS ORDERED: Rocuronium 50 mg VIAL 10 mg/ml 5 ml VIAL (50 mg) ONE (15:52)
[2020-07-11] MEDS ORDERED: Clindamycin 900 MG/D5W BAG 900 MG/50 ML BAG IVPB ONE (15:57)
[2020-07-11] MEDS ORDERED: Gentamicin ADULT 40 MG/ML VIAL (2 ML VIAL = 80 MG) ONE (16:51)
[2020-07-11] MEDS ORDERED: Ondansetron 4 mg VIAL 2 MG/ML 2 ml VIAL IV PRN (18:14)
[2020-07-11] MEDS ORDERED: HYDROmorphone 1 MG/1 ML SYRINGE IV PRN (18:14)
[2020-07-11] MEDS ORDERED: Naloxone 0.4 mg VIAL 0.4 mg/ml 1 ml VIAL IV PRN (18:14)
[2020-07-11] MEDS ORDERED: HYDROmorphone 1 MG/1 ML SYRINGE ONE (19:27)
[2020-07-11] MEDS ORDERED: Ondansetron 4 mg VIAL 2 MG/ML 2 ml VIAL ONE (19:47)
[2020-07-11] MEDS ORDERED: Morphine 2 MG/ML SYRINGE IV PRN (21:29)
[2020-07-12] MEDS: ZOSYN 3.375 GM Q8H per EXTENDED INFUSION IV SCH ×3 (00:10→15:48)
[2020-07-12 04:54] LABS: ABS Lymphocytes 1.1 10^3/ul (1.0-4.8); ABS Neutrophils 13.8 10^3/ul (1.5-7.7); Hematocrit 27 % (35-47); Hemoglobin 8.7 g/dL (12.0-16.0); Mean Corpuscular HGB Conc 33 g/dL (31-36); Mean Corpuscular Hemoglobin 29 pg (27-31); Mean Corpuscular Volume 90 fL (80-97); Mean Platelet Volume 6.7 fL (7.4-10.4); Platelet Count 532 10^3/uL (150-450); Red Blood Count 2.99 10^6 /uL (3.70-4.87); Red Cell Distribution Width 15 % (10-15)
[2020-07-12 05:14] LABS: Albumin/Globulin Ratio 0.9 (1-3); C Reactive Protein 67.99 mg/L (<8.01); EGFR African American 58.1 (>60); EGFR Non-African American 48.1 (>60); Globulin 3.4 g/dL (2-4); Magnesium 1.5 mg/dL (1.9-2.7); Potassium 4.4 mmol/L (3.5-5.0); Total Bilirubin 0.5 mg/dL (0.2-1.0); Total Protein 6.4 g/dL (6.4-8.9)
[2020-07-12] MEDS: NS 0.9% 1000 ml BAG 1,000 ML IV SCH (05:25)
[2020-07-12] MEDS: Cholecalciferol (VIT D3) 1,000 unit TAB PO SCH (07:58)
[2020-07-12] MEDS: prednisoLONE 1% OPHTH.SUSP 5 ML OPHTH.SUSP BOTH EYES SCH ×2 (08:00→19:37)
[2020-07-12] MEDS ORDERED: Vancomycin Trough Check NOTE FOLLOW UP ONE (09:30)
[2020-07-12 10:37] LABS: EGFR African American 53.1 (>60); EGFR Non-African American 43.9 (>60)
[2020-07-12] MEDS: Vancomycin 750 MG in NS 0.9% 250 ML IVPB SCH (12:20)
[2020-07-12] MEDS: Vancomycin 1000 MG in NS 0.9% 250 ML IVPB SCH (12:31)
[2020-07-12] MEDS ORDERED: Mometasone 220 MCG MDI INH PRN (15:00)
[2020-07-12] MEDS ORDERED: Insulin GLARGINE 100 un/ml 10 ml VIAL SUBCUT ONE (17:54)
[2020-07-12] MEDS ORDERED: Dextrose 50% Syringe 50 ml 25 GM/50 ML SYRINGE IV PUSH PRN (17:56)
[2020-07-12] MEDS ORDERED: Ondansetron 4 mg VIAL 2 MG/ML 2 ml VIAL IV PRN (17:58)
[2020-07-13] MEDS: Vancomycin 1000 MG in NS 0.9% 250 ML IVPB SCH ×2 (00:45→13:38)
[2020-07-13] MEDS: ZOSYN 3.375 GM Q8H per EXTENDED INFUSION IV SCH ×3 (02:10→16:11)
[2020-07-13] MEDS: Cholecalciferol (VIT D3) 1,000 unit TAB PO SCH (08:29)
[2020-07-13 08:33] LABS: ABS Basophils 0.1 10^3/ul (0-0.2); ABS Eosinophils 0.1 10^3/ul (0-0.6); ABS Lymphocytes 1.5 10^3/ul (1.0-4.8); ABS Monocytes 1.2 10^3/ul (0-0.8); ABS Neutrophils 7.1 10^3/ul (1.5-7.7); Eosinophil % 1.1 %; Hematocrit 22 % (35-47); Hemoglobin 7.4 g/dL (12.0-16.0); Lymphocyte % 14.8 %; Mean Corpuscular HGB Conc 34 g/dL (31-36); Mean Corpuscular Hemoglobin 31 pg (27-31); Mean Corpuscular Volume 90 fL (80-97); Mean Platelet Volume 6.4 fL (7.4-10.4); Platelet Count 448 10^3/uL (150-450); Red Cell Distribution Width 15 % (10-15); White Blood Count 9.9 10^3/uL (3.5-10.8)
[2020-07-13] MEDS: NS 0.9% 1000 ml BAG 1,000 ML IV SCH (08:45)
[2020-07-13 08:49] LABS: C Reactive Protein 140.44 mg/L (<8.01); EGFR African American 83.1 (>60); EGFR Non-African American 68.7 (>60)
[2020-07-13] MEDS: prednisoLONE 1% OPHTH.SUSP 5 ML OPHTH.SUSP BOTH EYES SCH ×2 (08:49→21:29)
[2020-07-13 08:50] LABS: Calcium 8.1 mg/dL (8.6-10.3); EGFR African American 84.3 (>60); EGFR Non-African American 69.7 (>60); Potassium 3.9 mmol/L (3.5-5.0)
[2020-07-13 14:47] LABS: Hematocrit 23 % (35-47); Hemoglobin 7.7 g/dL (12.0-16.0)
[2020-07-13] MEDS ORDERED: Insulin GLARGINE 100 un/ml 10 ml VIAL SUBCUT SCH ×2 (16:00)
[2020-07-13] MEDS ORDERED: Dextrose 50% Syringe 50 ml 25 GM/50 ML SYRINGE IV PUSH PRN (16:45)
[2020-07-14] MEDS: Vancomycin 1000 MG in NS 0.9% 250 ML IVPB SCH ×2 (00:35→14:28)
[2020-07-14] MEDS: ZOSYN 3.375 GM Q8H per EXTENDED INFUSION IV SCH ×2 (02:21→08:19)
[2020-07-14 06:23] LABS: ABS Basophils 0.1 10^3/ul (0-0.2); ABS Eosinophils 0.4 10^3/ul (0-0.6); ABS Lymphocytes 1.4 10^3/ul (1.0-4.8); ABS Neutrophils 5.2 10^3/ul (1.5-7.7); Eosinophil % 4.5 %; Hematocrit 23 % (35-47); Hemoglobin 7.5 g/dL (12.0-16.0); Lymphocyte % 17.5 %; Mean Corpuscular HGB Conc 33 g/dL (31-36); Mean Corpuscular Hemoglobin 30 pg (27-31); Mean Corpuscular Volume 89 fL (80-97); Mean Platelet Volume 6.7 fL (7.4-10.4); Platelet Count 448 10^3/uL (150-450); Red Blood Count 2.52 10^6 /uL (3.70-4.87); Red Cell Distribution Width 15 % (10-15)
[2020-07-14 06:41] LABS: C Reactive Protein 132.69 mg/L (<8.01); EGFR African American 84.3 (>60); EGFR Non-African American 69.7 (>60)
[2020-07-14] MEDS: prednisoLONE 1% OPHTH.SUSP 5 ML OPHTH.SUSP BOTH EYES SCH ×2 (08:20→20:18)
[2020-07-14] MEDS: Cholecalciferol (VIT D3) 1,000 unit TAB PO SCH (08:20)
[2020-07-14] MEDS ORDERED: Vancomycin Trough Check NOTE FOLLOW UP ONE (12:30)
[2020-07-14] MEDS ORDERED: Dextrose 50% Syringe 50 ml 25 GM/50 ML SYRINGE IV PUSH PRN (14:53)
[2020-07-14] MEDS ORDERED: cefTRIAXone 2 GM ADDV.VIAL 2 GM in NS 0.9% 100 ml BAG 100 ML IV SCH (16:00)
[2020-07-14] MEDS ORDERED: Insulin GLARGINE 100 un/ml 10 ml VIAL SUBCUT SCH ×2 (16:00)
[2020-07-15] MEDS: Vancomycin 1000 MG in NS 0.9% 250 ML IVPB SCH ×2 (01:21→13:40)
[2020-07-15 05:33] LABS: ABS Basophils 0.1 10^3/ul (0-0.2); ABS Eosinophils 0.4 10^3/ul (0-0.6); ABS Lymphocytes 1.7 10^3/ul (1.0-4.8); ABS Monocytes 0.9 10^3/ul (0-0.8); ABS Neutrophils 5.2 10^3/ul (1.5-7.7); Eosinophil % 4.7 %; Hematocrit 23 % (35-47); Hemoglobin 7.6 g/dL (12.0-16.0); Lymphocyte % 20.7 %; Mean Corpuscular HGB Conc 34 g/dL (31-36); Mean Corpuscular Hemoglobin 30 pg (27-31); Mean Corpuscular Volume 89 fL (80-97); Mean Platelet Volume 6.8 fL (7.4-10.4); Platelet Count 462 10^3/uL (150-450); Red Blood Count 2.55 10^6 /uL (3.70-4.87); Red Cell Distribution Width 15 % (10-15); White Blood Count 8.2 10^3/uL (3.5-10.8)
[2020-07-15 05:57] LABS: Albumin 2.8 g/dL (3.2-5.2); Albumin/Globulin Ratio 0.9 (1-3); C Reactive Protein 125.61 mg/L (<8.01); Calcium 8.2 mg/dL (8.6-10.3); EGFR African American 103.7 (>60); EGFR Non-African American 85.7 (>60); Globulin 3.2 g/dL (2-4); Potassium 4.2 mmol/L (3.5-5.0); Total Bilirubin 0.4 mg/dL (0.2-1.0)
[2020-07-15] MEDS: Cholecalciferol (VIT D3) 1,000 unit TAB PO SCH (08:30)
[2020-07-15] MEDS: prednisoLONE 1% OPHTH.SUSP 5 ML OPHTH.SUSP BOTH EYES SCH ×2 (08:31→21:32)
[2020-07-15] MEDS ORDERED: Dextrose 50% Syringe 50 ml 25 GM/50 ML SYRINGE IV PUSH PRN ×2 (13:03→18:46)
[2020-07-15] MEDS ORDERED: Insulin GLARGINE 100 un/ml 10 ml VIAL SUBCUT SCH (16:00)
[2020-07-16] MEDS: Vancomycin 1000 MG in NS 0.9% 250 ML IVPB SCH (00:15)
[2020-07-16 05:47] LABS: ABS Basophils 0.1 10^3/ul (0-0.2); ABS Eosinophils 0.4 10^3/ul (0-0.6); ABS Lymphocytes 1.6 10^3/ul (1.0-4.8); ABS Monocytes 0.9 10^3/ul (0-0.8); ABS Neutrophils 5.7 10^3/ul (1.5-7.7); Eosinophil % 4.3 %; Hematocrit 22 % (35-47); Hemoglobin 7.6 g/dL (12.0-16.0); Lymphocyte % 18.8 %; Mean Corpuscular HGB Conc 35 g/dL (31-36); Mean Corpuscular Hemoglobin 31 pg (27-31); Mean Corpuscular Volume 89 fL (80-97); Mean Platelet Volume 6.5 fL (7.4-10.4); Platelet Count 486 10^3/uL (150-450); Red Blood Count 2.48 10^6 /uL (3.70-4.87); Red Cell Distribution Width 15 % (10-15); White Blood Count 8.7 10^3/uL (3.5-10.8)
[2020-07-16 06:13] LABS: C Reactive Protein 96.99 mg/L (<8.01); Calcium 8.1 mg/dL (8.6-10.3); EGFR African American 115.8 (>60); EGFR Non-African American 95.7 (>60); Potassium 3.8 mmol/L (3.5-5.0)
[2020-07-16 07:26] VITALS: BP 148/74
[2020-07-16] MEDS: Cholecalciferol (VIT D3) 1,000 unit TAB PO SCH (08:55)
[2020-07-16] MEDS: prednisoLONE 1% OPHTH.SUSP 5 ML OPHTH.SUSP BOTH EYES SCH (08:56)
[2020-07-16] MEDS ORDERED: Vancomycin Trough Check NOTE FOLLOW UP ONE (12:30)
== END 2020-07-16 10:15 | DRG 481 ==
LOC: ED 17:07 → SSU 20:18
PROVIDERS: ADMIT Student in an Organized Health Care Education/Training Program; ATTEND Internal Medicine

== ENCOUNTER 2020-07-16 08:26 | Inpatient (IN) ==
[2020-07-16] MEDS ORDERED: Magnesium Hydroxide LIQ 30 ML UDC PO PRN (13:20)
[2020-07-16] MEDS ORDERED: Senna TAB 8.6 mg TAB PO PRN (13:20)
[2020-07-16] MEDS ORDERED: Dextrose 50% Syringe 50 ml 25 GM/50 ML SYRINGE IV PUSH PRN (13:28)
[2020-07-16] MEDS ORDERED: Vancomycin per Pharmacy 1 EA NOTE FOLLOW UP PRN (13:45)
[2020-07-16] MEDS ORDERED: Insulin GLARGINE 100 un/ml 10 ml VIAL SUBCUT SCH (16:00)
[2020-07-16] MEDS: Vancomycin 1000 MG in NS 0.9% 250 ML IVPB SCH (18:30)
[2020-07-16] MEDS: prednisoLONE 1% OPHTH.SUSP 5 ML OPHTH.SUSP BOTH EYES SCH (20:54)
[2020-07-17 05:32] LABS: ABS Basophils 0.1 10^3/ul (0-0.2); ABS Eosinophils 0.4 10^3/ul (0-0.6); ABS Lymphocytes 1.9 10^3/ul (1.0-4.8); ABS Neutrophils 6.4 10^3/ul (1.5-7.7); Eosinophil % 3.7 %; Hematocrit 23 % (35-47); Hemoglobin 7.5 g/dL (12.0-16.0); Lymphocyte % 19.6 %; Mean Corpuscular HGB Conc 33 g/dL (31-36); Mean Corpuscular Hemoglobin 30 pg (27-31); Mean Corpuscular Volume 90 fL (80-97); Mean Platelet Volume 6.7 fL (7.4-10.4); Platelet Count 510 10^3/uL (150-450); Red Blood Count 2.54 10^6 /uL (3.70-4.87); Red Cell Distribution Width 15 % (10-15); White Blood Count 9.8 10^3/uL (3.5-10.8)
[2020-07-17 05:45] LABS: Albumin 2.8 g/dL (3.2-5.2); Albumin/Globulin Ratio 0.8 (1-3); C Reactive Protein 94.44 mg/L (<8.01); Calcium 8.2 mg/dL (8.6-10.3); EGFR African American 113.6 (>60); EGFR Non-African American 93.9 (>60); Globulin 3.3 g/dL (2-4); Potassium 3.6 mmol/L (3.5-5.0); Total Bilirubin 0.5 mg/dL (0.2-1.0); Total Protein 6.1 g/dL (6.4-8.9)
[2020-07-17] MEDS: Vancomycin 1000 MG in NS 0.9% 250 ML IVPB SCH ×2 (06:21→19:53)
[2020-07-17] MEDS: Cholecalciferol (VIT D3) 1,000 unit TAB PO SCH (09:38)
[2020-07-17] MEDS: prednisoLONE 1% OPHTH.SUSP 5 ML OPHTH.SUSP BOTH EYES SCH ×2 (09:39→21:30)
[2020-07-17] MEDS: Insulin GLARGINE 100 un/ml 10 ml VIAL SUBCUT SCH (16:30)
[2020-07-18] MEDS: Vancomycin 1000 MG in NS 0.9% 250 ML IVPB SCH ×2 (06:42→17:35)
[2020-07-18] MEDS: Cholecalciferol (VIT D3) 1,000 unit TAB PO SCH (09:02)
[2020-07-18] MEDS: prednisoLONE 1% OPHTH.SUSP 5 ML OPHTH.SUSP BOTH EYES SCH ×2 (09:03→20:56)
[2020-07-18 16:08] LABS: Urine Appearance Clear; Urine Bilirubin Negative (Negative); Urine Blood Negative (Negative); Urine Color Yellow; Urine Glucose 3+(>=500 mg/dL) (Negative); Urine Ketones Negative (Negative); Urine Nitrite Negative (Negative); Urine Protein Negative (Negative); Urine Specific Gravity 1.007 (1.002-1.030); Urine Urobilinogen Negative (Negative)
[2020-07-18 16:18] LABS: Urine Bacteria Absent (Absent); Urine Red Blood Cell 1+(3-5/hpf) (Absent); Urine Squamous Epithelial Cell Present (Absent); Urine White Blood Cell Trace(0-5/hpf) (Absent)
[2020-07-18] MEDS: Insulin GLARGINE 100 un/ml 10 ml VIAL SUBCUT SCH (17:36)
[2020-07-18] MEDS: Nystatin TOP POWDER 15 GM BTL TOPICAL SCH (21:03)
[2020-07-19] MEDS ORDERED: Vancomycin Trough Check NOTE FOLLOW UP ONE (06:00)
[2020-07-19] MEDS: Vancomycin 1000 MG in NS 0.9% 250 ML IVPB SCH ×2 (06:48→18:03)
[2020-07-19] MEDS: Nystatin TOP POWDER 15 GM BTL TOPICAL SCH ×3 (07:30→20:59)
[2020-07-19] MEDS: prednisoLONE 1% OPHTH.SUSP 5 ML OPHTH.SUSP BOTH EYES SCH ×2 (08:36→20:58)
[2020-07-19] MEDS: Cholecalciferol (VIT D3) 1,000 unit TAB PO SCH (08:36)
[2020-07-19] MEDS ORDERED: INSULIN LISPRO SUBCUT SCH (12:00)
[2020-07-19] MEDS: [UNRECOGNIZED DRUG - REMARK] SUBCUT SCH (17:22)
[2020-07-20] MEDS: Vancomycin 1000 MG in NS 0.9% 250 ML IVPB SCH ×2 (05:40→18:16)
[2020-07-20] MEDS: Nystatin TOP POWDER 15 GM BTL TOPICAL SCH ×3 (08:51→20:10)
[2020-07-20] MEDS: Cholecalciferol (VIT D3) 1,000 unit TAB PO SCH (10:18)
[2020-07-20] MEDS: prednisoLONE 1% OPHTH.SUSP 5 ML OPHTH.SUSP BOTH EYES SCH ×2 (10:18→20:10)
[2020-07-20] MEDS: [UNRECOGNIZED DRUG - REMARK] SUBCUT SCH ×3 (10:20→18:15)
[2020-07-21] MEDS: [UNRECOGNIZED DRUG - REMARK] SUBCUT SCH ×3 (01:16→16:14)
[2020-07-21] MEDS: Vancomycin 1000 MG in NS 0.9% 250 ML IVPB SCH ×2 (06:24→18:29)
[2020-07-21 06:34] LABS: ABS Basophils 0.1 10^3/ul (0-0.2); ABS Eosinophils 0.4 10^3/ul (0-0.6); ABS Monocytes 0.9 10^3/ul (0-0.8); ABS Neutrophils 5.6 10^3/ul (1.5-7.7); Eosinophil % 4.6 %; Hematocrit 25 % (35-47); Hemoglobin 8.3 g/dL (12.0-16.0); Mean Corpuscular HGB Conc 33 g/dL (31-36); Mean Corpuscular Hemoglobin 30 pg (27-31); Mean Corpuscular Volume 91 fL (80-97); Mean Platelet Volume 6.5 fL (7.4-10.4); Platelet Count 512 10^3/uL (150-450); Red Cell Distribution Width 16 % (10-15)
[2020-07-21] MEDS: prednisoLONE 1% OPHTH.SUSP 5 ML OPHTH.SUSP BOTH EYES SCH ×2 (08:58→21:34)
[2020-07-21] MEDS: Cholecalciferol (VIT D3) 1,000 unit TAB PO SCH (08:58)
[2020-07-21] MEDS: Nystatin TOP POWDER 15 GM BTL TOPICAL SCH ×3 (08:58→21:34)
[2020-07-22] MEDS: [UNRECOGNIZED DRUG - REMARK] SUBCUT SCH ×3 (00:08→16:33)
[2020-07-22] MEDS ORDERED: Vancomycin Trough Check NOTE FOLLOW UP ONE (06:00)
[2020-07-22 06:49] LABS: EGFR African American 115.8 (>60); EGFR Non-African American 95.7 (>60)
[2020-07-22 07:06] LABS: Vancomycin Trough 13.7 mcg/mL
[2020-07-22] MEDS: Vancomycin 1000 MG in NS 0.9% 250 ML IVPB SCH ×2 (07:25→18:54)
[2020-07-22] MEDS: Nystatin TOP POWDER 15 GM BTL TOPICAL SCH ×3 (10:19→20:57)
[2020-07-22] MEDS: prednisoLONE 1% OPHTH.SUSP 5 ML OPHTH.SUSP BOTH EYES SCH ×2 (10:19→20:57)
[2020-07-22] MEDS: Cholecalciferol (VIT D3) 1,000 unit TAB PO SCH (10:19)
[2020-07-23] MEDS: [UNRECOGNIZED DRUG - REMARK] SUBCUT SCH ×3 (00:49→17:16)
[2020-07-23] MEDS: Vancomycin 1000 MG in NS 0.9% 250 ML IVPB SCH ×2 (06:57→18:09)
[2020-07-23] MEDS: Nystatin TOP POWDER 15 GM BTL TOPICAL SCH ×3 (10:17→20:49)
[2020-07-23] MEDS: Cholecalciferol (VIT D3) 1,000 unit TAB PO SCH (10:17)
[2020-07-23] MEDS: prednisoLONE 1% OPHTH.SUSP 5 ML OPHTH.SUSP BOTH EYES SCH ×2 (10:17→20:57)
[2020-07-24] MEDS: [UNRECOGNIZED DRUG - REMARK] SUBCUT SCH ×4 (00:30→23:30)
[2020-07-24 05:32] LABS: ABS Basophils 0.1 10^3/ul (0-0.2); ABS Eosinophils 0.5 10^3/ul (0-0.6); ABS Lymphocytes 2.1 10^3/ul (1.0-4.8); ABS Monocytes 1.2 10^3/ul (0-0.8); ABS Neutrophils 7.1 10^3/ul (1.5-7.7); Eosinophil % 4.4 %; Hematocrit 26 % (35-47); Hemoglobin 8.7 g/dL (12.0-16.0); Lymphocyte % 18.9 %; Mean Corpuscular HGB Conc 34 g/dL (31-36); Mean Corpuscular Hemoglobin 31 pg (27-31); Mean Corpuscular Volume 90 fL (80-97); Mean Platelet Volume 6.6 fL (7.4-10.4); Platelet Count 498 10^3/uL (150-450); Red Blood Count 2.84 10^6 /uL (3.70-4.87); Red Cell Distribution Width 17 % (10-15)
[2020-07-24 05:55] LABS: Albumin 3.3 g/dL (3.2-5.2); Albumin/Globulin Ratio 0.8 (1-3); C Reactive Protein 86.69 mg/L (<8.01); Calcium 8.6 mg/dL (8.6-10.3); EGFR African American 107.5 (>60); EGFR Non-African American 88.8 (>60); Globulin 4.1 g/dL (2-4); Potassium 3.2 mmol/L (3.5-5.0); Total Bilirubin 0.6 mg/dL (0.2-1.0); Total Protein 7.4 g/dL (6.4-8.9)
[2020-07-24] MEDS: Vancomycin 1000 MG in NS 0.9% 250 ML IVPB SCH ×2 (06:05→17:57)
[2020-07-24] MEDS: Cholecalciferol (VIT D3) 1,000 unit TAB PO SCH (08:25)
[2020-07-24] MEDS: Nystatin TOP POWDER 15 GM BTL TOPICAL SCH ×3 (09:50→20:03)
[2020-07-24] MEDS: prednisoLONE 1% OPHTH.SUSP 5 ML OPHTH.SUSP BOTH EYES SCH (20:03)
[2020-07-25] MEDS: Vancomycin 1000 MG in NS 0.9% 250 ML IVPB SCH ×2 (06:19→18:32)
[2020-07-25] MEDS: Cholecalciferol (VIT D3) 1,000 unit TAB PO SCH (08:46)
[2020-07-25] MEDS: [UNRECOGNIZED DRUG - REMARK] SUBCUT SCH ×3 (08:46→23:43)
[2020-07-25] MEDS: prednisoLONE 1% OPHTH.SUSP 5 ML OPHTH.SUSP BOTH EYES SCH ×2 (08:47→20:46)
[2020-07-25] MEDS: Nystatin TOP POWDER 15 GM BTL TOPICAL SCH ×3 (10:06→20:45)
[2020-07-25] MEDS: Potassium Chlor 20 meq TAB.ER PO SCH (20:44)
[2020-07-26] MEDS: Vancomycin 1000 MG in NS 0.9% 250 ML IVPB SCH ×2 (06:02→18:36)
[2020-07-26 06:21] LABS: ABS Basophils 0.2 10^3/ul (0-0.2); ABS Eosinophils 0.5 10^3/ul (0-0.6); ABS Monocytes 0.7 10^3/ul (0-0.8); ABS Neutrophils 4.3 10^3/ul (1.5-7.7); Eosinophil % 5.9 %; Hematocrit 25 % (35-47); Hemoglobin 8.7 g/dL (12.0-16.0); Mean Corpuscular HGB Conc 35 g/dL (31-36); Mean Corpuscular Hemoglobin 31 pg (27-31); Mean Corpuscular Volume 90 fL (80-97); Mean Platelet Volume 6.7 fL (7.4-10.4); Nucleated Red Blood Cells % 0.1; Platelet Count 497 10^3/uL (150-450); Red Blood Count 2.81 10^6 /uL (3.70-4.87); Red Cell Distribution Width 16 % (10-15); White Blood Count 7.7 10^3/uL (3.5-10.8)
[2020-07-26] MEDS: Potassium Chlor 20 meq TAB.ER PO SCH ×2 (07:55→20:17)
[2020-07-26] MEDS: prednisoLONE 1% OPHTH.SUSP 5 ML OPHTH.SUSP BOTH EYES SCH ×2 (07:55→20:18)
[2020-07-26] MEDS: Cholecalciferol (VIT D3) 1,000 unit TAB PO SCH (07:55)
[2020-07-26] MEDS: Nystatin TOP POWDER 15 GM BTL TOPICAL SCH ×3 (07:57→20:17)
[2020-07-26] MEDS: [UNRECOGNIZED DRUG - REMARK] SUBCUT SCH ×2 (08:05→15:36)
[2020-07-27] MEDS: [UNRECOGNIZED DRUG - REMARK] SUBCUT SCH ×3 (00:25→16:46)
[2020-07-27] MEDS ORDERED: Vancomycin Trough Check NOTE FOLLOW UP ONE (06:00)
[2020-07-27 06:44] LABS: Calcium 8.8 mg/dL (8.6-10.3); EGFR African American 96.9 (>60); EGFR Non-African American 80.1 (>60); Potassium 3.9 mmol/L (3.5-5.0)
[2020-07-27 06:55] LABS: Vancomycin Trough 14.2 mcg/mL
[2020-07-27] MEDS: Vancomycin 1000 MG in NS 0.9% 250 ML IVPB SCH ×2 (07:17→18:41)
[2020-07-27] MEDS: Cholecalciferol (VIT D3) 1,000 unit TAB PO SCH (07:46)
[2020-07-27] MEDS: Potassium Chlor 20 meq TAB.ER PO SCH ×2 (07:46→20:11)
[2020-07-27] MEDS: Nystatin TOP POWDER 15 GM BTL TOPICAL SCH ×3 (09:15→21:28)
[2020-07-27] MEDS: prednisoLONE 1% OPHTH.SUSP 5 ML OPHTH.SUSP BOTH EYES SCH ×2 (09:30→20:12)
[2020-07-27 12:08] LABS: C Reactive Protein 68.97 mg/L (<8.01)
[2020-07-28] MEDS: [UNRECOGNIZED DRUG - REMARK] SUBCUT SCH ×2 (00:10→08:27)
[2020-07-28 05:33] VITALS: BP 143/64
[2020-07-28] MEDS: Vancomycin 1000 MG in NS 0.9% 250 ML IVPB SCH (06:13)
[2020-07-28 07:20] LABS: ABS Basophils 0.1 10^3/ul (0-0.2); ABS Eosinophils 0.5 10^3/ul (0-0.6); ABS Lymphocytes 1.6 10^3/ul (1.0-4.8); ABS Monocytes 0.7 10^3/ul (0-0.8); ABS Neutrophils 3.3 10^3/ul (1.5-7.7); Eosinophil % 7.5 %; Hematocrit 26 % (35-47); Hemoglobin 8.7 g/dL (12.0-16.0); Lymphocyte % 25.3 %; Mean Corpuscular HGB Conc 33 g/dL (31-36); Mean Corpuscular Hemoglobin 30 pg (27-31); Mean Corpuscular Volume 90 fL (80-97); Mean Platelet Volume 6.5 fL (7.4-10.4); Nucleated Red Blood Cells % 0.1; Platelet Count 449 10^3/uL (150-450); Red Blood Count 2.92 10^6 /uL (3.70-4.87); Red Cell Distribution Width 16 % (10-15); White Blood Count 6.1 10^3/uL (3.5-10.8)
[2020-07-28] MEDS: Cholecalciferol (VIT D3) 1,000 unit TAB PO SCH (08:26)
[2020-07-28] MEDS: Potassium Chlor 20 meq TAB.ER PO SCH (08:27)
[2020-07-28] MEDS: Nystatin TOP POWDER 15 GM BTL TOPICAL SCH (08:27)
[2020-07-28] MEDS ORDERED: Alteplase (CATHFLO) 2 MG VIAL IV ONE (09:30)
[2020-07-28] MEDS: prednisoLONE 1% OPHTH.SUSP 5 ML OPHTH.SUSP BOTH EYES SCH (09:33)
== END 2020-07-28 12:00 | disposition home health service (06) ==
LOC: PMRU 11:07
PROVIDERS: ADMIT Physical Medicine & Rehabilitation; ATTEND Physical Medicine & Rehabilitation

== ENCOUNTER 2020-11-21 16:55 | Inpatient (IN) ==
[2020-11-21] MEDS ORDERED: Morphine 2 MG/ML SYRINGE IV ONE ×2 (17:22→21:15)
[2020-11-21 17:57] LABS: ABS Basophils 0.1 10^3/ul (0-0.2); ABS Eosinophils 0.1 10^3/ul (0-0.6); ABS Lymphocytes 1.5 10^3/ul (1.0-4.8); ABS Monocytes 0.6 10^3/ul (0-0.8); ABS Neutrophils 5.5 10^3/ul (1.5-7.7); Eosinophil % 1.3 %; Hematocrit 33 % (35-47); Hemoglobin 11.5 g/dL (12.0-16.0); Lymphocyte % 19.1 %; Mean Corpuscular HGB Conc 35 g/dL (31-36); Mean Corpuscular Hemoglobin 31 pg (27-31); Mean Corpuscular Volume 89 fL (80-97); Mean Platelet Volume 7.5 fL (7.4-10.4); Platelet Count 280 10^3/uL (150-450); Red Blood Count 3.74 10^6 /uL (3.70-4.87); Red Cell Distribution Width 16 % (10-15); White Blood Count 7.8 10^3/uL (3.5-10.8)
[2020-11-21 18:18] LABS: INR 1.12 (0.86-1.15)
[2020-11-21 18:19] LABS: Activated Partial Thrombo Time 33.2 seconds (26.0-38.0)
[2020-11-21 18:22] LABS: Albumin 4.2 g/dL (3.2-5.2); Albumin/Globulin Ratio 1.2 (1-3); Calcium 9.6 mg/dL (8.6-10.3); Globulin 3.6 g/dL (2-4); Total Bilirubin 0.6 mg/dL (0.2-1.0); Total Protein 7.8 g/dL (6.4-8.9)
[2020-11-21 18:24] LABS: Troponin I 0.02 ng/mL (<0.03)
[2020-11-21 18:30] LABS: Potassium 5.3 mmol/L (3.5-5.0)
[2020-11-21 19:43] LABS: Rapid COVID-19 Molecular Undetected (Undetected)
[2020-11-21] MEDS ORDERED: Heparin 5000 UNITS/ML 1 mL VIAL SUBCUT ONE (21:33)
[2020-11-21] MEDS ORDERED: Dextrose 50% Syringe 50 ml 25 GM/50 ML SYRINGE IV PUSH PRN (21:37)
[2020-11-21] MEDS ORDERED: Lactated Ringers 1000 ml BAG 1,000 ML IV SCH (22:00)
[2020-11-22] MEDS: Ondansetron 4 mg VIAL 2 MG/ML 2 ml VIAL IV PRN ×3 (00:24→17:46)
[2020-11-22] MEDS: Morphine 2 MG/ML SYRINGE IV PRN ×4 (00:24→11:27)
[2020-11-22 06:14] LABS: ABS Lymphocytes 1.5 10^3/ul (1.0-4.8); ABS Monocytes 0.8 10^3/ul (0-0.8); Hematocrit 32 % (35-47); Hemoglobin 10.5 g/dL (12.0-16.0); Lymphocyte % 16.1 %; Mean Corpuscular HGB Conc 33 g/dL (31-36); Mean Corpuscular Hemoglobin 30 pg (27-31); Mean Corpuscular Volume 89 fL (80-97); Platelet Count 275 10^3/uL (150-450); Red Blood Count 3.55 10^6 /uL (3.70-4.87); Red Cell Distribution Width 16 % (10-15); White Blood Count 9.3 10^3/uL (3.5-10.8)
[2020-11-22 06:28] LABS: Calcium 9.4 mg/dL (8.6-10.3); Magnesium 1.8 mg/dL (1.9-2.7)
[2020-11-22 06:33] LABS: Potassium 6.1 mmol/L (3.5-5.0)
[2020-11-22] MEDS ORDERED: Furosemide 20 mg/2 ml IV VIAL IV SLOW PU ONE (06:44)
[2020-11-22] MEDS ORDERED: CALCIUM GLUCONATE 1GM/50ML NS 1 GM/50 ML BAG IV ONE (06:46)
[2020-11-22] MEDS ORDERED: NS 0.9% 1000 ml BAG 1,000 ML IV ONE (06:46)
[2020-11-22] MEDS ORDERED: SODIUM ZIRCONIUM CYCLOSILICATE 10 GM PACKET PO ONE (06:50)
[2020-11-22] MEDS: Albuterol/Ipratropium NEB.SOL (2.5/0.5 MG) 3 ML NEB.SOLN INH SCH ×2 (07:44→19:38)
[2020-11-22] MEDS ORDERED: Perflutren Lipid Microsphere 3 ML VIAL ONE (07:49)
[2020-11-22] MEDS ORDERED: Insulin GLARGINE 100 un/ml 10 ml VIAL SUBCUT SCH (09:00)
[2020-11-22 10:53] LABS: Urine Appearance Clear; Urine Bilirubin Negative (Negative); Urine Blood 2+ (Negative); Urine Color Straw; Urine Glucose Negative (Negative); Urine Ketones Negative (Negative); Urine Nitrite Negative (Negative); Urine Protein Negative (Negative); Urine Specific Gravity 1.006 (1.002-1.030); Urine Urobilinogen Negative (Negative)
[2020-11-22 10:56] LABS: Urine Bacteria Absent (Absent); Urine Red Blood Cell 1+(3-5/hpf) (Absent); Urine White Blood Cell Trace(0-5/hpf) (Absent)
[2020-11-22] MEDS: CMCS: Solifenacin 5 mg TAB (NF) PO SCH (11:10)
[2020-11-22 11:53] LABS: Calcium 9.4 mg/dL (8.6-10.3)
[2020-11-22 11:56] LABS: Potassium 5.1 mmol/L (3.5-5.0)
[2020-11-22] MEDS ORDERED: Lidocaine 1% w EPI 1:100,000 MDV 20 ML VIAL ONE (12:41)
[2020-11-22] MEDS ORDERED: ceFAZolin 2 GM in NS PREMIX 2 GM/100 ML BAG IVPB ONE (12:51)
[2020-11-22] MEDS ORDERED: Rocuronium 50 mg VIAL 10 mg/ml 5 ml VIAL (50 mg) ONE (12:55)
[2020-11-22] MEDS ORDERED: Phenylephrine 40 mcg/mL 10mL (400mcg) SYRINGE ONE (13:06)
[2020-11-22] MEDS ORDERED: Propofol 10 MG/ML 20 ML BTL ONE (13:06)
[2020-11-22] MEDS ORDERED: fentaNYL 100 mcg/2 ml 50 MCG/ML VIAL ONE (13:06)
[2020-11-22] MEDS ORDERED: HYDROcodone/ACETAMIN 5/325 mg TAB PO PRN (16:44)
[2020-11-22] MEDS ORDERED: Dextrose 50% Syringe 50 ml 25 GM/50 ML SYRINGE IV PUSH PRN ×2 (16:50→23:39)
[2020-11-22] MEDS ORDERED: Albuterol HFA INHALER 8 gm MDI INH PRN (17:38)
[2020-11-22] MEDS: Mometasone/Formoter 100/5 MDI INH SCH (19:35)
[2020-11-22] MEDS ORDERED: Mometasone 220 MCG MDI INH SCH (21:00)
[2020-11-22] MEDS ORDERED: Prochlorperazine 5 mg/ml 2 ml VIAL (10 mg) IV PRN (22:35)
[2020-11-22] MEDS: ceFAZolin 1 GM X 3 DOSES POST-OP Q8H (AddVan) IVPB SCH (22:42)
[2020-11-22] MEDS ORDERED: Lactated Ringers 1000 ml BAG 1,000 ML IV SCH (23:00)
[2020-11-22 23:42] LABS: Calcium 9.2 mg/dL (8.6-10.3)
[2020-11-23 00:01] LABS: Potassium 6.4 mmol/L (3.5-5.0)
[2020-11-23] MEDS ORDERED: Insulin GLARGINE 100 un/ml 10 ml VIAL SUBCUT ONE ×3 (00:05→09:00)
[2020-11-23] MEDS ORDERED: CALCIUM GLUCONATE 1GM/50ML NS 1 GM/50 ML BAG IV ONE (00:06)
[2020-11-23] MEDS ORDERED: SODIUM ZIRCONIUM CYCLOSILICATE 10 GM PACKET PO ONE (00:07)
[2020-11-23 00:41] LABS: PCO2 Arterial 33 mmHg (35-45); PO2 Arterial 93 mmHg (80-100)
[2020-11-23] MEDS ORDERED: Lactated Ringers 1000 ml BAG 1,000 ML IV SCH (01:00)
[2020-11-23 01:31] LABS: Urine Appearance Cloudy; Urine Bilirubin Negative (Negative); Urine Blood Negative (Negative); Urine Color Yellow; Urine Glucose 3+(>=500 mg/dL) (Negative); Urine Ketones 1+ (Negative); Urine Nitrite Negative (Negative); Urine Protein 1+(30 mg/dL) (Negative); Urine Specific Gravity 1.014 (1.002-1.030); Urine Urobilinogen Negative (Negative)
[2020-11-23 01:44] LABS: Urine Bacteria 1+ (Absent); Urine Red Blood Cell Trace(0-2/hpf) (Absent); Urine Squamous Epithelial Cell Present (Absent); Urine White Blood Cell 2+(11-20/hpf) (Absent)
[2020-11-23] MEDS ORDERED: Insulin Infusion 100unit/100mL 100 UNIT/100 ML BAG IV SCH (02:00)
[2020-11-23 02:09] LABS: Albumin 3.5 g/dL (3.2-5.2); Albumin/Globulin Ratio 1.1 (1-3); Calcium 9.4 mg/dL (8.6-10.3); Globulin 3.1 g/dL (2-4); Total Bilirubin 0.5 mg/dL (0.2-1.0); Total Protein 6.6 g/dL (6.4-8.9)
[2020-11-23 04:44] LABS: Venous Bicarbonate HCO3 22.2 mmol/L (24-28)
[2020-11-23 04:57] LABS: Calcium 8.8 mg/dL (8.6-10.3); Potassium 4.6 mmol/L (3.5-5.0)
[2020-11-23 05:03] LABS: ABS Lymphocytes 1.1 10^3/ul (1.0-4.8); ABS Monocytes 0.6 10^3/ul (0-0.8); ABS Neutrophils 8.1 10^3/ul (1.5-7.7); Eosinophil % 0.1 %; Hematocrit 25 % (35-47); Hemoglobin 8.4 g/dL (12.0-16.0); Lymphocyte % 11.6 %; Mean Corpuscular HGB Conc 34 g/dL (31-36); Mean Corpuscular Hemoglobin 30 pg (27-31); Mean Corpuscular Volume 89 fL (80-97); Mean Platelet Volume 7.5 fL (7.4-10.4); Platelet Count 230 10^3/uL (150-450); Red Blood Count 2.77 10^6 /uL (3.70-4.87); Red Cell Distribution Width 17 % (10-15); White Blood Count 9.9 10^3/uL (3.5-10.8)
[2020-11-23] MEDS: ceFAZolin 1 GM X 3 DOSES POST-OP Q8H (AddVan) IVPB SCH ×2 (05:53→13:28)
[2020-11-23] MEDS: Albuterol/Ipratropium NEB.SOL (2.5/0.5 MG) 3 ML NEB.SOLN INH SCH (07:46)
[2020-11-23] MEDS: Mometasone/Formoter 100/5 MDI INH SCH ×2 (07:47→19:22)
[2020-11-23] MEDS: Enoxaparin 30 MG/0.3 ML SYR SUBCUT SCH (08:48)
[2020-11-23] MEDS ORDERED: D5LR 1000 ml BAG 1,000 ML IV SCH (09:00)
[2020-11-23] MEDS: Ondansetron 4 mg VIAL 2 MG/ML 2 ml VIAL IV PRN (09:27)
[2020-11-23 10:24] LABS: Hematocrit 25 % (35-47); Hemoglobin 8.3 g/dL (12.0-16.0)
[2020-11-23 10:36] LABS: Calcium 9.1 mg/dL (8.6-10.3); Magnesium 1.7 mg/dL (1.9-2.7); Phosphorus 3.8 mg/dL (2.5-5.0); Potassium 4.4 mmol/L (3.5-5.0)
[2020-11-23] MEDS ORDERED: Senna TAB 8.6 mg TAB PO PRN (10:58)
[2020-11-23] MEDS ORDERED: Magnesium Sulfate IV 3 GM in NS 0.9% 100 ml BAG 100 ML IVPB ONE (11:00)
[2020-11-23] MEDS ORDERED: Albuterol/Ipratropium NEB.SOL (2.5/0.5 MG) 3 ML NEB.SOLN INH PRN (11:46)
[2020-11-23] MEDS: CMCS: Solifenacin 5 mg TAB (NF) PO SCH (11:56)
[2020-11-23] MEDS ORDERED: Lactated Ringers 500 ml BAG 500 ML IV ONE (15:34)
[2020-11-23 20:21] LABS: Hematocrit 26 % (35-47); Hemoglobin 8.7 g/dL (12.0-16.0)
[2020-11-23] MEDS: prednisoLONE 1% OPHTH.SUSP 5 ML OPHTH.SUSP BOTH EYES SCH (20:59)
[2020-11-23] MEDS ORDERED: Calcium Carb (TUMS) 500 mg CHEW TAB PO PRN (21:25)
[2020-11-24] MEDS: HYDROcodone/ACETAMIN 5/325 mg TAB PO PRN ×2 (00:52→16:45)
[2020-11-24 05:35] LABS: ABS Lymphocytes 1.3 10^3/ul (1.0-4.8); ABS Neutrophils 7.1 10^3/ul (1.5-7.7); Eosinophil % 0.3 %; Hematocrit 24 % (35-47); Hemoglobin 8.3 g/dL (12.0-16.0); Mean Corpuscular HGB Conc 34 g/dL (31-36); Mean Corpuscular Hemoglobin 30 pg (27-31); Mean Corpuscular Volume 90 fL (80-97); Mean Platelet Volume 7.6 fL (7.4-10.4); Platelet Count 224 10^3/uL (150-450); Red Blood Count 2.72 10^6 /uL (3.70-4.87); Red Cell Distribution Width 17 % (10-15); White Blood Count 9.4 10^3/uL (3.5-10.8)
[2020-11-24 05:57] LABS: ALT 9 U/L (7-52); AST 24 U/L (13-39); Albumin 3.1 g/dL (3.2-5.2); Alkaline Phosphatase 59 U/L (35-149); Anion Gap 7 mmol/L (2-11); Blood Urea Nitrogen 41 mg/dL (6-24); CO2 Carbon Dioxide 26 mmol/L (22-32); Calcium 9.1 mg/dL (8.6-10.3); Chloride 98 mmol/L (101-111); Globulin 3.1 g/dL (2-4); Glucose 259 mg/dL (70-100); Magnesium 2.3 mg/dL (1.9-2.7); Phosphorus 3.2 mg/dL (2.5-5.0); Potassium 4.6 mmol/L (3.5-5.0); Sodium 131 mmol/L (135-145); Total Protein 6.2 g/dL (6.4-8.9)
[2020-11-24] MEDS ORDERED: Lactated Ringers 1000 ml BAG 500 ML IV ONE (06:06)
[2020-11-24] MEDS: Morphine 2 MG/ML SYRINGE IV PRN (06:35)
[2020-11-24 06:57] LABS: Troponin I 0.69 ng/mL (<0.03)
[2020-11-24] MEDS ORDERED: Lactated Ringers 1000 ml BAG 1,000 ML IV SCH ×2 (07:00→16:56)
[2020-11-24] MEDS ORDERED: Digoxin IV 0.5 MG/2 ML AMP (0.25 MG/ML) IV SLOW PU ONE ×2 (08:33→13:13)
[2020-11-24] MEDS ORDERED: Digoxin IV 0.5 MG/2 ML AMP (0.25 MG/ML) ONE (08:49)
[2020-11-24] MEDS: prednisoLONE 1% OPHTH.SUSP 5 ML OPHTH.SUSP BOTH EYES SCH ×2 (08:53→20:48)
[2020-11-24] MEDS: Enoxaparin 30 MG/0.3 ML SYR SUBCUT SCH (09:08)
[2020-11-24] MEDS: CMCS: Solifenacin 5 mg TAB (NF) PO SCH (09:14)
[2020-11-24 09:29] LABS: Troponin I 0.44 ng/mL (<0.03)
[2020-11-24] MEDS: Mometasone/Formoter 100/5 MDI INH SCH ×2 (10:33→20:48)
[2020-11-24 12:17] LABS: Troponin I 0.54 ng/mL (<0.03)
[2020-11-24] MEDS ORDERED: Insulin GLARGINE 100 un/ml 10 ml VIAL SUBCUT ONE (12:41)
[2020-11-24] MEDS ORDERED: Insulin GLARGINE 100 un/ml 10 ml VIAL ONE (12:42)
[2020-11-24 15:34] LABS: Troponin I 0.62 ng/mL (<0.03)
[2020-11-24 15:52] LABS: ABS Eosinophils 0.1 10^3/ul (0-0.6); ABS Lymphocytes 1.2 10^3/ul (1.0-4.8); ABS Monocytes 0.9 10^3/ul (0-0.8); ABS Neutrophils 5.4 10^3/ul (1.5-7.7); Eosinophil % 0.7 %; Hematocrit 27 % (35-47); Hemoglobin 9.3 g/dL (12.0-16.0); Lymphocyte % 15.6 %; Mean Corpuscular HGB Conc 34 g/dL (31-36); Mean Corpuscular Hemoglobin 31 pg (27-31); Mean Corpuscular Volume 90 fL (80-97); Mean Platelet Volume 7.5 fL (7.4-10.4); Platelet Count 206 10^3/uL (150-450); Red Blood Count 3.06 10^6 /uL (3.70-4.87); Red Cell Distribution Width 16 % (10-15); White Blood Count 7.6 10^3/uL (3.5-10.8)
[2020-11-24 21:15] LABS: Troponin I 0.65 ng/mL (<0.03)
[2020-11-25 00:47] LABS: Troponin I 0.64 ng/mL (<0.03)
[2020-11-25] MEDS: Morphine 2 MG/ML SYRINGE IV PRN (02:00)
[2020-11-25 06:16] LABS: ABS Eosinophils 0.1 10^3/ul (0-0.6); ABS Lymphocytes 1.5 10^3/ul (1.0-4.8); ABS Monocytes 0.7 10^3/ul (0-0.8); ABS Neutrophils 3.8 10^3/ul (1.5-7.7); Hematocrit 28 % (35-47); Hemoglobin 9.6 g/dL (12.0-16.0); Lymphocyte % 23.9 %; Mean Corpuscular HGB Conc 34 g/dL (31-36); Mean Corpuscular Hemoglobin 31 pg (27-31); Mean Corpuscular Volume 90 fL (80-97); Mean Platelet Volume 7.4 fL (7.4-10.4); Platelet Count 219 10^3/uL (150-450); Red Blood Count 3.13 10^6 /uL (3.70-4.87); Red Cell Distribution Width 16 % (10-15); White Blood Count 6.2 10^3/uL (3.5-10.8)
[2020-11-25 06:32] LABS: Calcium 8.9 mg/dL (8.6-10.3); Magnesium 1.8 mg/dL (1.9-2.7); Phosphorus 2.2 mg/dL (2.5-5.0); Potassium 4.9 mmol/L (3.5-5.0)
[2020-11-25] MEDS ORDERED: Insulin GLARGINE 100 un/ml 10 ml VIAL SUBCUT SCH (09:00)
[2020-11-25] MEDS: CMCS: Solifenacin 5 mg TAB (NF) PO SCH (09:13)
[2020-11-25] MEDS: Insulin GLARGINE 100 un/ml 10 ml VIAL SUBCUT SCH (09:18)
[2020-11-25] MEDS: Enoxaparin 30 MG/0.3 ML SYR SUBCUT SCH (09:19)
[2020-11-25] MEDS: prednisoLONE 1% OPHTH.SUSP 5 ML OPHTH.SUSP BOTH EYES SCH ×2 (09:20→21:31)
[2020-11-25] MEDS: Mometasone/Formoter 100/5 MDI INH SCH ×2 (09:49→20:53)
[2020-11-25] MEDS ORDERED: Magnesium Sulfate 2 gm BAG 2 GM/50 ML BAG IVPB ONE (09:56)
[2020-11-25 10:44] LABS: TSH Ultra Thyroid Stim Horm 1.95 mcIU/mL (0.34-5.60)
[2020-11-25 10:46] LABS: Free T4 1.16 ng/dL (0.61-1.12)
[2020-11-25] MEDS ORDERED: Diltiazem IV push/loading dose 5 MG/ML 5 ML vial (25 mg) IV SLOW PU ONE ×2 (12:45→14:57)
[2020-11-25] MEDS: HYDROcodone/ACETAMIN 5/325 mg TAB PO PRN (17:50)
[2020-11-26] MEDS: HYDROcodone/ACETAMIN 5/325 mg TAB PO PRN ×2 (00:51→09:30)
[2020-11-26 05:33] LABS: Hematocrit 29 % (35-47); Hemoglobin 9.7 g/dL (12.0-16.0); Mean Corpuscular HGB Conc 34 g/dL (31-36); Mean Corpuscular Hemoglobin 30 pg (27-31); Mean Corpuscular Volume 90 fL (80-97); Mean Platelet Volume 7.6 fL (7.4-10.4); Platelet Count 210 10^3/uL (150-450); Red Blood Count 3.18 10^6 /uL (3.70-4.87); Red Cell Distribution Width 16 % (10-15); White Blood Count 6.7 10^3/uL (3.5-10.8)
[2020-11-26 05:41] LABS: INR 1.08 (0.86-1.15)
[2020-11-26 05:50] LABS: Calcium 8.4 mg/dL (8.6-10.3); Potassium 4.6 mmol/L (3.5-5.0)
[2020-11-26] MEDS: Mometasone/Formoter 100/5 MDI INH SCH (08:02)
[2020-11-26] MEDS: prednisoLONE 1% OPHTH.SUSP 5 ML OPHTH.SUSP BOTH EYES SCH (08:26)
[2020-11-26] MEDS: Insulin GLARGINE 100 un/ml 10 ml VIAL SUBCUT SCH (08:27)
[2020-11-26] MEDS: CMCS: Solifenacin 5 mg TAB (NF) PO SCH (08:29)
[2020-11-26 09:13] LABS: Magnesium 1.8 mg/dL (1.9-2.7)
[2020-11-26] MEDS ORDERED: Dextrose 50% Syringe 50 ml 25 GM/50 ML SYRINGE IV PUSH PRN (09:27)
[2020-11-26] MEDS ORDERED: Magnesium Sulfate IV 3 GM in NS 0.9% 100 ml BAG 100 ML IVPB ONE (09:32)
[2020-11-26] MEDS ORDERED: Polyethylene Glycol 3350 17 GM PACKET PO PRN (10:47)
[2020-11-26] MEDS ORDERED: Magnesium CITRATE LIQ 300 ML BTL PO ONE (10:49)
[2020-11-26 12:04] LABS: Glucose Confirmatory 451 mg/dL (70-100)
[2020-11-26 15:25] VITALS: BP 109/46
[2020-11-26] MEDS ORDERED: Insulin GLARGINE 100 un/ml 10 ml VIAL SUBCUT SCH (21:00)
[2020-11-27] MEDS ORDERED: Insulin GLARGINE 100 un/ml 10 ml VIAL SUBCUT SCH (09:00)
== END 2020-11-26 14:57 | DRG 480 ==
LOC: ED 16:55 → SUATTDRO 21:16 → SSU 21:16 → ICU 11-23 02:10 → MEDTELE 11-24 20:03
PROVIDERS: ADMIT Internal Medicine; ATTEND Internal Medicine

== ENCOUNTER 2020-11-26 13:52 | Inpatient (IN) ==
[2020-11-26] MEDS ORDERED: Dextrose 50% Syringe 50 ml 25 GM/50 ML SYRINGE IV PUSH PRN (15:55)
[2020-11-26] MEDS: HYDROcodone/ACETAMIN 5/325 mg TAB PO PRN ×2 (17:06→20:52)
[2020-11-26] MEDS: Magnesium Hydroxide LIQ 30 ML UDC PO PRN (20:47)
[2020-11-26] MEDS: Senna TAB 8.6 mg TAB PO PRN (20:47)
[2020-11-26] MEDS: Mometasone/Formoter 100/5 MDI INH SCH (20:48)
[2020-11-26] MEDS: prednisoLONE 1% OPHTH.SUSP 5 ML OPHTH.SUSP BOTH EYES SCH (21:00)
[2020-11-27] MEDS: HYDROcodone/ACETAMIN 5/325 mg TAB PO PRN ×4 (02:52→20:00)
[2020-11-27 07:03] LABS: ABS Eosinophils 0.3 10^3/ul (0-0.6); ABS Lymphocytes 1.6 10^3/ul (1.0-4.8); ABS Monocytes 0.8 10^3/ul (0-0.8); ABS Neutrophils 4.3 10^3/ul (1.5-7.7); Hematocrit 29 % (35-47); Hemoglobin 9.8 g/dL (12.0-16.0); Lymphocyte % 22.6 %; Mean Corpuscular HGB Conc 34 g/dL (31-36); Mean Corpuscular Hemoglobin 31 pg (27-31); Mean Corpuscular Volume 90 fL (80-97); Mean Platelet Volume 7.4 fL (7.4-10.4); Nucleated Red Blood Cells % 0.1; Platelet Count 262 10^3/uL (150-450); Red Blood Count 3.18 10^6 /uL (3.70-4.87); Red Cell Distribution Width 16 % (10-15); White Blood Count 6.9 10^3/uL (3.5-10.8)
[2020-11-27 07:19] LABS: Calcium 8.3 mg/dL (8.6-10.3); Globulin 2.9 g/dL (2-4); Total Bilirubin 0.7 mg/dL (0.2-1.0); Total Protein 5.9 g/dL (6.4-8.9)
[2020-11-27 07:20] LABS: Potassium 5.1 mmol/L (3.5-5.0)
[2020-11-27] MEDS: Insulin GLARGINE 100 un/ml 10 ml VIAL SUBCUT SCH (08:54)
[2020-11-27] MEDS: prednisoLONE 1% OPHTH.SUSP 5 ML OPHTH.SUSP BOTH EYES SCH ×2 (08:55→20:02)
[2020-11-27] MEDS: Mometasone/Formoter 100/5 MDI INH SCH ×2 (08:55→20:07)
[2020-11-27] MEDS: CMC:Solifenacin 5 mg TAB (NF) PO SCH (08:56)
[2020-11-27] MEDS: CMC:Simvastatin 10 mg TAB (NF) PO SCH (16:48)
[2020-11-27] MEDS: Senna TAB 8.6 mg TAB PO PRN (20:00)
[2020-11-27] MEDS: Magnesium Hydroxide LIQ 30 ML UDC PO PRN (20:02)
[2020-11-28] MEDS: HYDROcodone/ACETAMIN 5/325 mg TAB PO PRN ×3 (01:11→18:44)
[2020-11-28] MEDS: Insulin GLARGINE 100 un/ml 10 ml VIAL SUBCUT SCH (09:40)
[2020-11-28] MEDS: prednisoLONE 1% OPHTH.SUSP 5 ML OPHTH.SUSP BOTH EYES SCH ×2 (09:42→20:58)
[2020-11-28] MEDS: Mometasone/Formoter 100/5 MDI INH SCH ×2 (09:43→20:56)
[2020-11-28] MEDS: CMC:Solifenacin 5 mg TAB (NF) PO SCH (09:43)
[2020-11-28] MEDS: CMC:Simvastatin 10 mg TAB (NF) PO SCH (17:05)
[2020-11-28] MEDS: Magnesium Hydroxide LIQ 30 ML UDC PO PRN (18:02)
[2020-11-28] MEDS: Senna TAB 8.6 mg TAB PO PRN (20:54)
[2020-11-29] MEDS: HYDROcodone/ACETAMIN 5/325 mg TAB PO PRN ×4 (04:22→21:48)
[2020-11-29] MEDS: CMC:Solifenacin 5 mg TAB (NF) PO SCH (09:07)
[2020-11-29] MEDS: Mometasone/Formoter 100/5 MDI INH SCH ×2 (09:08→21:49)
[2020-11-29] MEDS: prednisoLONE 1% OPHTH.SUSP 5 ML OPHTH.SUSP BOTH EYES SCH ×2 (09:08→22:18)
[2020-11-29] MEDS: Insulin GLARGINE 100 un/ml 10 ml VIAL SUBCUT SCH (09:19)
[2020-11-29] MEDS: CMC:Simvastatin 10 mg TAB (NF) PO SCH (17:05)
[2020-11-30] MEDS: HYDROcodone/ACETAMIN 5/325 mg TAB PO PRN ×5 (01:46→21:34)
[2020-11-30] MEDS: prednisoLONE 1% OPHTH.SUSP 5 ML OPHTH.SUSP BOTH EYES SCH ×2 (08:09→19:57)
[2020-11-30] MEDS: CMC:Solifenacin 5 mg TAB (NF) PO SCH (08:09)
[2020-11-30] MEDS: Insulin GLARGINE 100 un/ml 10 ml VIAL SUBCUT SCH (08:10)
[2020-11-30] MEDS: Mometasone/Formoter 100/5 MDI INH SCH ×2 (08:10→19:56)
[2020-11-30] MEDS: CMC:Simvastatin 10 mg TAB (NF) PO SCH (17:09)
[2020-12-01] MEDS: HYDROcodone/ACETAMIN 5/325 mg TAB PO PRN ×5 (03:57→21:11)
[2020-12-01] MEDS: Insulin GLARGINE 100 un/ml 10 ml VIAL SUBCUT SCH (09:34)
[2020-12-01] MEDS: CMC:Solifenacin 5 mg TAB (NF) PO SCH (09:37)
[2020-12-01] MEDS: Mometasone/Formoter 100/5 MDI INH SCH ×2 (09:38→21:02)
[2020-12-01] MEDS: prednisoLONE 1% OPHTH.SUSP 5 ML OPHTH.SUSP BOTH EYES SCH ×2 (09:42→21:04)
[2020-12-01] MEDS: CMC:Simvastatin 10 mg TAB (NF) PO SCH (16:50)
[2020-12-01] MEDS: Senna TAB 8.6 mg TAB PO PRN (21:11)
[2020-12-02] MEDS: HYDROcodone/ACETAMIN 5/325 mg TAB PO PRN ×5 (02:26→20:38)
[2020-12-02] MEDS: CMC:Solifenacin 5 mg TAB (NF) PO SCH (09:24)
[2020-12-02] MEDS: Insulin GLARGINE 100 un/ml 10 ml VIAL SUBCUT SCH (09:25)
[2020-12-02] MEDS: Mometasone/Formoter 100/5 MDI INH SCH ×2 (09:27→20:28)
[2020-12-02] MEDS: prednisoLONE 1% OPHTH.SUSP 5 ML OPHTH.SUSP BOTH EYES SCH ×2 (09:28→20:29)
[2020-12-02] MEDS: Magnesium Hydroxide LIQ 30 ML UDC PO PRN (16:12)
[2020-12-02] MEDS: CMC:Simvastatin 10 mg TAB (NF) PO SCH (16:56)
[2020-12-02] MEDS: Senna TAB 8.6 mg TAB PO PRN (20:26)
[2020-12-03] MEDS: HYDROcodone/ACETAMIN 5/325 mg TAB PO PRN ×4 (00:44→13:47)
[2020-12-03] MEDS: CMC:Solifenacin 5 mg TAB (NF) PO SCH (09:00)
[2020-12-03] MEDS: prednisoLONE 1% OPHTH.SUSP 5 ML OPHTH.SUSP BOTH EYES SCH ×2 (09:03→21:29)
[2020-12-03] MEDS: Mometasone/Formoter 100/5 MDI INH SCH ×2 (09:05→21:28)
[2020-12-03] MEDS: Insulin GLARGINE 100 un/ml 10 ml VIAL SUBCUT SCH (09:05)
[2020-12-03] MEDS: CMC:Simvastatin 10 mg TAB (NF) PO SCH (17:37)
[2020-12-04 07:34] LABS: ABS Basophils 0.1 10^3/ul (0-0.2); ABS Eosinophils 0.1 10^3/ul (0-0.6); ABS Lymphocytes 1.5 10^3/ul (1.0-4.8); ABS Neutrophils 5.8 10^3/ul (1.5-7.7); Eosinophil % 1.3 %; Hematocrit 26 % (35-47); Hemoglobin 8.9 g/dL (12.0-16.0); Lymphocyte % 17.5 %; Mean Corpuscular HGB Conc 34 g/dL (31-36); Mean Corpuscular Hemoglobin 31 pg (27-31); Mean Corpuscular Volume 92 fL (80-97); Mean Platelet Volume 6.1 fL (7.4-10.4); Platelet Count 549 10^3/uL (150-450); Red Blood Count 2.86 10^6 /uL (3.70-4.87); Red Cell Distribution Width 16 % (10-15); White Blood Count 8.5 10^3/uL (3.5-10.8)
[2020-12-04 07:56] LABS: Albumin 3.1 g/dL (3.2-5.2); Albumin/Globulin Ratio 1.1 (1-3); Calcium 8.4 mg/dL (8.6-10.3); Globulin 2.9 g/dL (2-4); Potassium 4.5 mmol/L (3.5-5.0); Total Bilirubin 0.7 mg/dL (0.2-1.0)
[2020-12-04] MEDS: CMC:Solifenacin 5 mg TAB (NF) PO SCH (08:50)
[2020-12-04] MEDS: prednisoLONE 1% OPHTH.SUSP 5 ML OPHTH.SUSP BOTH EYES SCH ×2 (08:50→21:43)
[2020-12-04] MEDS: Mometasone/Formoter 100/5 MDI INH SCH ×2 (10:54→21:41)
[2020-12-04] MEDS: Insulin GLARGINE 100 un/ml 10 ml VIAL SUBCUT SCH ×2 (10:54→12:04)
[2020-12-04] MEDS: CMC:Simvastatin 10 mg TAB (NF) PO SCH (17:49)
[2020-12-04] MEDS: Senna TAB 8.6 mg TAB PO SCH (21:44)
[2020-12-05 07:18] LABS: ABS Eosinophils 0.3 10^3/ul (0-0.6); ABS Lymphocytes 1.3 10^3/ul (1.0-4.8); ABS Monocytes 0.8 10^3/ul (0-0.8); ABS Neutrophils 7.1 10^3/ul (1.5-7.7); Eosinophil % 2.7 %; Hematocrit 27 % (35-47); Hemoglobin 9.2 g/dL (12.0-16.0); Lymphocyte % 13.7 %; Mean Corpuscular HGB Conc 34 g/dL (31-36); Mean Corpuscular Hemoglobin 31 pg (27-31); Mean Corpuscular Volume 92 fL (80-97); Mean Platelet Volume 6.2 fL (7.4-10.4); Platelet Count 495 10^3/uL (150-450); Red Blood Count 2.95 10^6 /uL (3.70-4.87); Red Cell Distribution Width 17 % (10-15); White Blood Count 9.5 10^3/uL (3.5-10.8)
[2020-12-05] MEDS: Insulin GLARGINE 100 un/ml 10 ml VIAL SUBCUT SCH (09:23)
[2020-12-05] MEDS: CMC:Solifenacin 5 mg TAB (NF) PO SCH (09:24)
[2020-12-05] MEDS: prednisoLONE 1% OPHTH.SUSP 5 ML OPHTH.SUSP BOTH EYES SCH ×2 (09:24→22:36)
[2020-12-05] MEDS: Mometasone/Formoter 100/5 MDI INH SCH ×2 (09:25→22:38)
[2020-12-05] MEDS: Polyethylene Glycol 3350 17 GM PACKET PO PRN (09:31)
[2020-12-05] MEDS: CMC:Simvastatin 10 mg TAB (NF) PO SCH (17:36)
[2020-12-05] MEDS: Senna TAB 8.6 mg TAB PO SCH (22:34)
[2020-12-05] MEDS: Magnesium Hydroxide LIQ 30 ML UDC PO PRN (22:40)
[2020-12-06] MEDS: Polyethylene Glycol 3350 17 GM PACKET PO PRN (09:38)
[2020-12-06] MEDS: Mometasone/Formoter 100/5 MDI INH SCH ×2 (09:39→21:10)
[2020-12-06] MEDS: Insulin GLARGINE 100 un/ml 10 ml VIAL SUBCUT SCH (09:40)
[2020-12-06] MEDS: prednisoLONE 1% OPHTH.SUSP 5 ML OPHTH.SUSP BOTH EYES SCH ×2 (09:41→21:10)
[2020-12-06] MEDS: CMC:Solifenacin 5 mg TAB (NF) PO SCH (09:41)
[2020-12-06] MEDS: CMC:Simvastatin 10 mg TAB (NF) PO SCH (17:04)
[2020-12-06] MEDS: Magnesium Hydroxide LIQ 30 ML UDC PO PRN (17:08)
[2020-12-06] MEDS: Senna TAB 8.6 mg TAB PO SCH (21:06)
[2020-12-07] MEDS: Insulin GLARGINE 100 un/ml 10 ml VIAL SUBCUT SCH (09:03)
[2020-12-07] MEDS: CMC:Solifenacin 5 mg TAB (NF) PO SCH (09:03)
[2020-12-07] MEDS: Mometasone/Formoter 100/5 MDI INH SCH ×2 (09:05→21:04)
[2020-12-07] MEDS: prednisoLONE 1% OPHTH.SUSP 5 ML OPHTH.SUSP BOTH EYES SCH ×2 (09:05→21:03)
[2020-12-07] MEDS: Polyethylene Glycol 3350 17 GM PACKET PO PRN (09:06)
[2020-12-07] MEDS: CMC:Simvastatin 10 mg TAB (NF) PO SCH (17:47)
[2020-12-07] MEDS: Senna TAB 8.6 mg TAB PO SCH (21:01)
[2020-12-08] MEDS: Insulin GLARGINE 100 un/ml 10 ml VIAL SUBCUT SCH (08:30)
[2020-12-08] MEDS: CMC:Solifenacin 5 mg TAB (NF) PO SCH (08:31)
[2020-12-08] MEDS: Mometasone/Formoter 100/5 MDI INH SCH ×2 (08:32→21:05)
[2020-12-08] MEDS: prednisoLONE 1% OPHTH.SUSP 5 ML OPHTH.SUSP BOTH EYES SCH ×2 (08:35→21:08)
[2020-12-08] MEDS: CMC:Simvastatin 10 mg TAB (NF) PO SCH (17:39)
[2020-12-08] MEDS: Senna TAB 8.6 mg TAB PO SCH (21:05)
[2020-12-09] MEDS: CMC:Solifenacin 5 mg TAB (NF) PO SCH (08:19)
[2020-12-09] MEDS: Mometasone/Formoter 100/5 MDI INH SCH ×2 (08:20→20:59)
[2020-12-09] MEDS: prednisoLONE 1% OPHTH.SUSP 5 ML OPHTH.SUSP BOTH EYES SCH ×2 (08:20→20:59)
[2020-12-09] MEDS: Insulin GLARGINE 100 un/ml 10 ml VIAL SUBCUT SCH (08:21)
[2020-12-09] MEDS: CMC:Simvastatin 10 mg TAB (NF) PO SCH (18:18)
[2020-12-09] MEDS: Senna TAB 8.6 mg TAB PO SCH (20:58)
[2020-12-10] MEDS: CMC:Solifenacin 5 mg TAB (NF) PO SCH (08:59)
[2020-12-10] MEDS: Mometasone/Formoter 100/5 MDI INH SCH ×2 (09:09→20:44)
[2020-12-10] MEDS: Insulin GLARGINE 100 un/ml 10 ml VIAL SUBCUT SCH (10:37)
[2020-12-10] MEDS: prednisoLONE 1% OPHTH.SUSP 5 ML OPHTH.SUSP BOTH EYES SCH ×2 (10:37→20:44)
[2020-12-10] MEDS: CMC:Simvastatin 10 mg TAB (NF) PO SCH (18:09)
[2020-12-10] MEDS: Magnesium Hydroxide LIQ 30 ML UDC PO PRN (18:18)
[2020-12-10] MEDS: Senna TAB 8.6 mg TAB PO SCH (20:43)
[2020-12-11 06:10] LABS: ABS Basophils 0.1 10^3/ul (0-0.2); ABS Eosinophils 0.2 10^3/ul (0-0.6); ABS Lymphocytes 1.1 10^3/ul (1.0-4.8); ABS Monocytes 0.8 10^3/ul (0-0.8); ABS Neutrophils 3.5 10^3/ul (1.5-7.7); Eosinophil % 3.6 %; Hematocrit 26 % (35-47); Hemoglobin 8.9 g/dL (12.0-16.0); Lymphocyte % 19.2 %; Mean Corpuscular HGB Conc 34 g/dL (31-36); Mean Corpuscular Hemoglobin 31 pg (27-31); Mean Corpuscular Volume 92 fL (80-97); Mean Platelet Volume 6.2 fL (7.4-10.4); Nucleated Red Blood Cells % 0.1; Platelet Count 521 10^3/uL (150-450); Red Blood Count 2.87 10^6 /uL (3.70-4.87); Red Cell Distribution Width 17 % (10-15); White Blood Count 5.7 10^3/uL (3.5-10.8)
[2020-12-11 06:24] LABS: Albumin 3.1 g/dL (3.2-5.2); Globulin 3.2 g/dL (2-4); Potassium 4.6 mmol/L (3.5-5.0); Total Bilirubin 0.4 mg/dL (0.2-1.0); Total Protein 6.3 g/dL (6.4-8.9)
[2020-12-11] MEDS: CMC:Solifenacin 5 mg TAB (NF) PO SCH (08:47)
[2020-12-11] MEDS: prednisoLONE 1% OPHTH.SUSP 5 ML OPHTH.SUSP BOTH EYES SCH ×2 (08:49→20:18)
[2020-12-11] MEDS: Mometasone/Formoter 100/5 MDI INH SCH ×2 (08:49→20:17)
[2020-12-11] MEDS: CMC:Simvastatin 10 mg TAB (NF) PO SCH (16:02)
[2020-12-11] MEDS: Senna TAB 8.6 mg TAB PO SCH (20:19)
[2020-12-12] MEDS: CMC:Solifenacin 5 mg TAB (NF) PO SCH (09:44)
[2020-12-12] MEDS: Mometasone/Formoter 100/5 MDI INH SCH ×2 (09:45→21:13)
[2020-12-12] MEDS: prednisoLONE 1% OPHTH.SUSP 5 ML OPHTH.SUSP BOTH EYES SCH ×2 (09:45→21:12)
[2020-12-12] MEDS: CMC:Simvastatin 10 mg TAB (NF) PO SCH (17:16)
[2020-12-12] MEDS: Senna TAB 8.6 mg TAB PO SCH (21:10)
[2020-12-13] MEDS: CMC:Solifenacin 5 mg TAB (NF) PO SCH (09:18)
[2020-12-13] MEDS: prednisoLONE 1% OPHTH.SUSP 5 ML OPHTH.SUSP BOTH EYES SCH ×2 (09:20→20:05)
[2020-12-13] MEDS: Mometasone/Formoter 100/5 MDI INH SCH ×2 (09:23→20:04)
[2020-12-13] MEDS ORDERED: Insulin LISPRO* FOR INSULIN PUMP SUBCUT SCH (16:50)
[2020-12-13] MEDS: CMC:Simvastatin 10 mg TAB (NF) PO SCH (17:01)
[2020-12-13] MEDS: Magnesium Hydroxide LIQ 30 ML UDC PO PRN (18:07)
[2020-12-13] MEDS: Senna TAB 8.6 mg TAB PO SCH (20:08)
[2020-12-14 04:14] VITALS: BP 138/67
[2020-12-14] MEDS: CMC:Solifenacin 5 mg TAB (NF) PO SCH (07:42)
[2020-12-14] MEDS: Mometasone/Formoter 100/5 MDI INH SCH (07:46)
[2020-12-14] MEDS: prednisoLONE 1% OPHTH.SUSP 5 ML OPHTH.SUSP BOTH EYES SCH (07:46)
== END 2020-12-14 13:30 | disposition home health service (06) | DRG 561 ==
LOC: MEDTELE 14:58 → PMRU 17:45
PROVIDERS: ADMIT Physical Medicine & Rehabilitation; ATTEND Physical Medicine & Rehabilitation

== ENCOUNTER 2020-12-16 13:27 | Inpatient (IN) ==
[2020-12-16] MEDS ORDERED: oxyCODONE SR 10 mg TAB PO ONE (19:09)
[2020-12-16 20:28] LABS: ABS Eosinophils 0.1 10^3/ul (0-0.6); ABS Lymphocytes 0.9 10^3/ul (1.0-4.8); ABS Monocytes 0.8 10^3/ul (0-0.8); ABS Neutrophils 7.1 10^3/ul (1.5-7.7); Eosinophil % 0.9 %; Hematocrit 30 % (35-47); Lymphocyte % 10.1 %; Mean Corpuscular HGB Conc 34 g/dL (31-36); Mean Corpuscular Hemoglobin 32 pg (27-31); Mean Corpuscular Volume 93 fL (80-97); Mean Platelet Volume 6.4 fL (7.4-10.4); Nucleated Red Blood Cells % 0.1; Platelet Count 445 10^3/uL (150-450); Red Blood Count 3.16 10^6 /uL (3.70-4.87); Red Cell Distribution Width 16 % (10-15); White Blood Count 8.9 10^3/uL (3.5-10.8)
[2020-12-16 20:42] LABS: Rapid COVID-19 Molecular Undetected (Undetected)
[2020-12-16 20:44] LABS: INR 1.61 (0.86-1.15)
[2020-12-16 20:46] LABS: Albumin 3.4 g/dL (3.2-5.2); Albumin/Globulin Ratio 0.9 (1-3); Calcium 8.5 mg/dL (8.6-10.3); Globulin 3.6 g/dL (2-4); Potassium 4.3 mmol/L (3.5-5.0); Total Bilirubin 0.9 mg/dL (0.2-1.0)
[2020-12-16] MEDS ORDERED: Morphine 2 MG/ML SYRINGE IV PRN (22:45)
[2020-12-16] MEDS: Mometasone 220 MCG MDI INH SCH (23:56)
[2020-12-17] MEDS: prednisoLONE 1% OPHTH.SUSP 5 ML OPHTH.SUSP BOTH EYES SCH ×3 (00:19→21:14)
[2020-12-17 02:29] LABS: Urine Appearance Cloudy; Urine Bilirubin Negative (Negative); Urine Blood Negative (Negative); Urine Color Yellow; Urine Glucose Negative (Negative); Urine Ketones Negative (Negative); Urine Nitrite Negative (Negative); Urine Protein Negative (Negative); Urine Specific Gravity 1.008 (1.002-1.030); Urine Urobilinogen Negative (Negative)
[2020-12-17 02:38] LABS: Urine Bacteria Absent (Absent); Urine Red Blood Cell 2+(6-10/hpf) (Absent); Urine Squamous Epithelial Cell Present (Absent); Urine White Blood Cell 3+(>20/hpf) (Absent); Urine Yeast Present (Absent)
[2020-12-17 06:37] LABS: ABS Eosinophils 0.4 10^3/ul (0-0.6); ABS Lymphocytes 1.1 10^3/ul (1.0-4.8); ABS Monocytes 0.5 10^3/ul (0-0.8); ABS Neutrophils 3.6 10^3/ul (1.5-7.7); Eosinophil % 6.4 %; Hematocrit 27 % (35-47); Hemoglobin 9.2 g/dL (12.0-16.0); Mean Corpuscular HGB Conc 33 g/dL (31-36); Mean Corpuscular Hemoglobin 32 pg (27-31); Mean Corpuscular Volume 94 fL (80-97); Mean Platelet Volume 6.6 fL (7.4-10.4); Platelet Count 383 10^3/uL (150-450); Red Blood Count 2.92 10^6 /uL (3.70-4.87); Red Cell Distribution Width 16 % (10-15); White Blood Count 5.6 10^3/uL (3.5-10.8)
[2020-12-17 06:51] LABS: Potassium 4.2 mmol/L (3.5-5.0)
[2020-12-17] MEDS: Polyethylene Glycol 3350 17 GM PACKET PO PRN (10:21)
[2020-12-17] MEDS: Cholecalciferol (VIT D3) 1,000 unit TAB PO SCH (10:23)
[2020-12-17] MEDS: CMC:Solifenacin 5 mg TAB (NF) PO SCH (10:25)
[2020-12-17] MEDS: CMC:Simvastatin 10 mg TAB (NF) PO SCH (17:19)
[2020-12-17] MEDS: Mometasone 220 MCG MDI INH SCH (20:01)
[2020-12-18 06:07] LABS: ABS Eosinophils 0.4 10^3/ul (0-0.6); ABS Lymphocytes 0.9 10^3/ul (1.0-4.8); ABS Monocytes 0.7 10^3/ul (0-0.8); ABS Neutrophils 4.9 10^3/ul (1.5-7.7); Eosinophil % 6.2 %; Hematocrit 28 % (35-47); Lymphocyte % 13.3 %; Mean Corpuscular HGB Conc 33 g/dL (31-36); Mean Corpuscular Hemoglobin 31 pg (27-31); Mean Corpuscular Volume 93 fL (80-97); Mean Platelet Volume 6.5 fL (7.4-10.4); Platelet Count 375 10^3/uL (150-450); Red Blood Count 2.96 10^6 /uL (3.70-4.87); Red Cell Distribution Width 16 % (10-15)
[2020-12-18 06:26] LABS: Anion Gap 6 mmol/L (2-11); Blood Urea Nitrogen 12 mg/dL (6-24); CO2 Carbon Dioxide 28 mmol/L (22-32); Chloride 99 mmol/L (101-111); Glucose 147 mg/dL (70-100); Potassium 3.9 mmol/L (3.5-5.0); Sodium 133 mmol/L (135-145)
[2020-12-18] MEDS: Polyethylene Glycol 3350 17 GM PACKET PO PRN (08:43)
[2020-12-18] MEDS: Cholecalciferol (VIT D3) 1,000 unit TAB PO SCH (08:45)
[2020-12-18] MEDS: CMC:Solifenacin 5 mg TAB (NF) PO SCH (08:47)
[2020-12-18] MEDS: prednisoLONE 1% OPHTH.SUSP 5 ML OPHTH.SUSP BOTH EYES SCH ×2 (08:47→22:08)
[2020-12-18 15:48] LABS: % Iron Saturation 8 % (15-55); Iron 21 ug/dL (50-212); Total Iron Binding Capacity 263 mcg/dL (250-450); Transferrin 188 mg/dL (203-362); Unsaturated Iron Binding < 248 ug/dL
[2020-12-18 16:07] LABS: Ferritin 148.4 ng/mL (11-307)
[2020-12-18 16:11] LABS: Folate > 20.00 ng/mL (5.90-24.80)
[2020-12-18 16:14] LABS: Vitamin B12 396 pg/mL (180-914)
[2020-12-18] MEDS: CMC:Simvastatin 10 mg TAB (NF) PO SCH (17:59)
[2020-12-18] MEDS: Mometasone 220 MCG MDI INH SCH (20:24)
[2020-12-19 06:02] LABS: ABS Basophils 0.1 10^3/ul (0-0.2); ABS Eosinophils 0.6 10^3/ul (0-0.6); ABS Lymphocytes 1.4 10^3/ul (1.0-4.8); ABS Monocytes 0.8 10^3/ul (0-0.8); ABS Neutrophils 3.7 10^3/ul (1.5-7.7); Eosinophil % 8.9 %; Hematocrit 28 % (35-47); Hemoglobin 9.3 g/dL (12.0-16.0); Lymphocyte % 22.1 %; Mean Corpuscular HGB Conc 33 g/dL (31-36); Mean Corpuscular Hemoglobin 32 pg (27-31); Mean Corpuscular Volume 95 fL (80-97); Mean Platelet Volume 6.9 fL (7.4-10.4); Platelet Count 349 10^3/uL (150-450); Red Blood Count 2.93 10^6 /uL (3.70-4.87); Red Cell Distribution Width 16 % (10-15); White Blood Count 6.5 10^3/uL (3.5-10.8)
[2020-12-19 08:17] LABS: Urine Appearance Turbid; Urine Bilirubin Negative (Negative); Urine Blood 3+ (Negative); Urine Color Yellow; Urine Glucose 2+(150 mg/dL) (Negative); Urine Ketones Negative (Negative); Urine Nitrite Negative (Negative); Urine Protein 1+(30 mg/dL) (Negative); Urine Specific Gravity 1.012 (1.002-1.030); Urine Urobilinogen Negative (Negative)
[2020-12-19 08:31] LABS: Urine Bacteria Absent (Absent); Urine Red Blood Cell 3+(>10/hpf) (Absent); Urine Squamous Epithelial Cell Present (Absent); Urine White Blood Cell 3+(>20/hpf) (Absent); Urine Yeast Present (Absent)
[2020-12-19] MEDS: CMC:Solifenacin 5 mg TAB (NF) PO SCH (09:17)
[2020-12-19] MEDS: prednisoLONE 1% OPHTH.SUSP 5 ML OPHTH.SUSP BOTH EYES SCH ×2 (09:19→21:39)
[2020-12-19] MEDS: Cholecalciferol (VIT D3) 1,000 unit TAB PO SCH (09:24)
[2020-12-19] MEDS: Polyethylene Glycol 3350 17 GM PACKET PO PRN ×2 (09:24→21:32)
[2020-12-19] MEDS: Senna TAB 8.6 mg TAB PO SCH ×2 (10:31→21:35)
[2020-12-19] MEDS ORDERED: cefTRIAXone 1 gm/50 mL NS BAG 1 GM/50 ML BAG IVPB SCH (14:00)
[2020-12-19] MEDS: CMC:Simvastatin 10 mg TAB (NF) PO SCH (17:36)
[2020-12-19] MEDS: Mometasone 220 MCG MDI INH SCH (19:19)
[2020-12-20 04:10] LABS: ABS Basophils 0.1 10^3/ul (0-0.2); ABS Eosinophils 0.5 10^3/ul (0-0.6); ABS Lymphocytes 1.7 10^3/ul (1.0-4.8); ABS Monocytes 0.7 10^3/ul (0-0.8); ABS Neutrophils 3.2 10^3/ul (1.5-7.7); Eosinophil % 7.6 %; Hematocrit 27 % (35-47); Hemoglobin 9.1 g/dL (12.0-16.0); Lymphocyte % 27.8 %; Mean Corpuscular HGB Conc 34 g/dL (31-36); Mean Corpuscular Hemoglobin 31 pg (27-31); Mean Corpuscular Volume 93 fL (80-97); Mean Platelet Volume 6.9 fL (7.4-10.4); Platelet Count 347 10^3/uL (150-450); Red Blood Count 2.92 10^6 /uL (3.70-4.87); Red Cell Distribution Width 16 % (10-15); White Blood Count 6.1 10^3/uL (3.5-10.8)
[2020-12-20 04:27] LABS: Calcium 8.1 mg/dL (8.6-10.3); Potassium 4.2 mmol/L (3.5-5.0)
[2020-12-20] MEDS: prednisoLONE 1% OPHTH.SUSP 5 ML OPHTH.SUSP BOTH EYES SCH ×2 (08:30→20:22)
[2020-12-20] MEDS: Polyethylene Glycol 3350 17 GM PACKET PO PRN (08:31)
[2020-12-20] MEDS: Cholecalciferol (VIT D3) 1,000 unit TAB PO SCH (08:32)
[2020-12-20] MEDS: Senna TAB 8.6 mg TAB PO SCH ×2 (08:32→20:20)
[2020-12-20] MEDS: CMC:Solifenacin 5 mg TAB (NF) PO SCH (08:32)
[2020-12-20] MEDS: cefTRIAXone 1 gm/50 mL NS BAG 1 GM/50 ML BAG IVPB SCH (12:07)
[2020-12-20] MEDS: CMC:Simvastatin 10 mg TAB (NF) PO SCH (17:01)
[2020-12-20] MEDS: Mometasone 220 MCG MDI INH SCH (19:40)
[2020-12-21 05:26] LABS: ABS Basophils 0.1 10^3/ul (0-0.2); ABS Eosinophils 0.4 10^3/ul (0-0.6); ABS Lymphocytes 1.4 10^3/ul (1.0-4.8); ABS Monocytes 0.8 10^3/ul (0-0.8); ABS Neutrophils 3.8 10^3/ul (1.5-7.7); Eosinophil % 6.8 %; Hematocrit 29 % (35-47); Hemoglobin 9.5 g/dL (12.0-16.0); Lymphocyte % 21.9 %; Mean Corpuscular HGB Conc 33 g/dL (31-36); Mean Corpuscular Hemoglobin 31 pg (27-31); Mean Corpuscular Volume 94 fL (80-97); Mean Platelet Volume 6.7 fL (7.4-10.4); Nucleated Red Blood Cells % 0.1; Platelet Count 372 10^3/uL (150-450); Red Blood Count 3.07 10^6 /uL (3.70-4.87); Red Cell Distribution Width 16 % (10-15); White Blood Count 6.5 10^3/uL (3.5-10.8)
[2020-12-21 05:45] LABS: Calcium 8.2 mg/dL (8.6-10.3); Potassium 4.3 mmol/L (3.5-5.0)
[2020-12-21] MEDS: CMC:Solifenacin 5 mg TAB (NF) PO SCH (08:41)
[2020-12-21] MEDS: Cholecalciferol (VIT D3) 1,000 unit TAB PO SCH (08:41)
[2020-12-21] MEDS: Senna TAB 8.6 mg TAB PO SCH ×2 (08:42→21:03)
[2020-12-21] MEDS: prednisoLONE 1% OPHTH.SUSP 5 ML OPHTH.SUSP BOTH EYES SCH ×2 (08:42→21:22)
[2020-12-21] MEDS: cefTRIAXone 1 gm/50 mL NS BAG 1 GM/50 ML BAG IVPB SCH (14:27)
[2020-12-21] MEDS: CMC:Simvastatin 10 mg TAB (NF) PO SCH (16:50)
[2020-12-21] MEDS: Mometasone 220 MCG MDI INH SCH (19:33)
[2020-12-22 06:48] LABS: ABS Basophils 0.1 10^3/ul (0-0.2); ABS Eosinophils 0.1 10^3/ul (0-0.6); ABS Lymphocytes 1.6 10^3/ul (1.0-4.8); ABS Neutrophils 4.6 10^3/ul (1.5-7.7); Hematocrit 27 % (35-47); Hemoglobin 9.1 g/dL (12.0-16.0); Lymphocyte % 21.6 %; Mean Corpuscular HGB Conc 34 g/dL (31-36); Mean Corpuscular Hemoglobin 32 pg (27-31); Mean Corpuscular Volume 93 fL (80-97); Mean Platelet Volume 7.2 fL (7.4-10.4); Platelet Count 374 10^3/uL (150-450); Red Blood Count 2.88 10^6 /uL (3.70-4.87); Red Cell Distribution Width 16 % (10-15); White Blood Count 7.4 10^3/uL (3.5-10.8)
[2020-12-22 07:03] LABS: Calcium 8.2 mg/dL (8.6-10.3); Potassium 4.1 mmol/L (3.5-5.0)
[2020-12-22 09:15] LABS: Rapid COVID-19 Molecular Undetected (Undetected)
[2020-12-22] MEDS: CMC:Solifenacin 5 mg TAB (NF) PO SCH (09:18)
[2020-12-22] MEDS: Cholecalciferol (VIT D3) 1,000 unit TAB PO SCH (09:19)
[2020-12-22] MEDS: Senna TAB 8.6 mg TAB PO SCH (09:20)
[2020-12-22] MEDS: prednisoLONE 1% OPHTH.SUSP 5 ML OPHTH.SUSP BOTH EYES SCH (09:21)
[2020-12-22 11:57] VITALS: BP 122/49
== END 2020-12-22 15:00 | DRG 536 ==
LOC: SSU 13:27 → ED 13:27 → SUATTDRO 20:34 → SSU 23:25 → SUATTDRO 12-17 18:28
PROVIDERS: ADMIT Internal Medicine; ATTEND Internal Medicine

== ENCOUNTER 2024-02-12 21:19 | Inpatient (IN) ==
[2024-02-12 22:49] LABS: ABS Basophils 0.1 10^3/uL (0.0-0.1); ABS Lymphocytes 2.2 10^3/uL (1.0-4.8); ABS Monocytes 1.2 10^3/uL (0.0-0.9); ABS Neutrophils 11.6 10^3/uL (1.5-7.6); ABS Nucleated RBC 0.01 10^3/ul; Eosinophil % 0.2 %; Hematocrit 37.7 % (35-45); Hemoglobin 12.2 g/dL (11.5-14.3); Lymphocyte % 14.4 %; Mean Corpuscular Hemoglobin 30.7 pg (27-33); Mean Corpuscular Hgb Conc 32.4 g/dL (31-36); Mean Corpuscular Volume 94.7 fL (80-97); Mean Platelet Volume 8.7 fL (7.5-11.2); Platelet Count 218 10^3/uL (150-450); Red Blood Count 3.98 10^6/uL (3.63-4.92); Red Cell Distribution Width 14.9 % (12-17); White Blood Count 15.1 10^3/uL (3.8-11.8)
[2024-02-12 23:09] LABS: Urine Appearance Clear; Urine Bilirubin Negative (Negative); Urine Blood Negative (Negative); Urine Color Yellow; Urine Glucose 3+ (>=300 mg/dL) (Negative); Urine Ketones 1+ (Negative); Urine Nitrite Negative (Negative); Urine Protein Trace (Negative); Urine Specific Gravity 1.025 (1.002-1.030); Urine Urobilinogen 1+ (Negative)
[2024-02-12 23:15] LABS: Urine Bacteria Absent /HPF (Absent); Urine Red Blood Cell 1+(3-5/hpf) /HPF (0-Trace); Urine Squamous Epithelial Cell Present /HPF (Absent); Urine White Blood Cell Trace(0-5/hpf) /HPF (0-Trace)
[2024-02-12 23:48] LABS: Albumin 3.9 g/dL (3.5-5.7); Albumin/Globulin Ratio 1.2 (1-3); Calcium 8.8 mg/dL (8.6-10.3); Creatinine, Serum 2.75 mg/dL (0.51-0.95); Globulin 3.3 g/dL (2-4); Magnesium 1.7 mg/dL (1.9-2.7); Potassium 4.9 mmol/L (3.5-5.0); Total Bilirubin 0.6 mg/dL (0.2-1.0); Total Protein 7.2 g/dL (6.4-8.9); eGFR CKD-EPI 16.3 (>60)
[2024-02-13 00:02] LABS: TSH Ultra Thyroid Stim Horm 0.35 mcIU/mL (0.34-5.60)
[2024-02-13] MEDS: cefTRIAXone 1 gm/50 mL D5W 1 GM/50 ML BAG IV ONE (00:07)
[2024-02-13 00:18] LABS: High Sensitivity Troponin 1 Hr 1318 pg/mL (<15)
[2024-02-13] MEDS: Lactated Ringers 1000 ml BAG 1,000 ML IV ONE (01:24)
[2024-02-13] MEDS: Azithromycin 500 mg/250 ml NS 500 MG/250 ML BAG IVPB ONE (01:24)
[2024-02-13] MEDS ORDERED: Sulfur Hexaflouride MICROSPHR 25 MG VIAL IV PRN (06:01)
[2024-02-13] MEDS: NS 0.9% 1000 ml BAG 1,000 ML IV SCH (06:04)
[2024-02-13] MEDS: Magnesium Sulfate 2 gm BAG 2 GM/50 ML BAG IVPB ONE ×2 (06:04→08:59)
[2024-02-13] MEDS ORDERED: Dextrose 50% Syringe 50 ml 25 GM/50 ML SYRINGE IV PUSH PRN (06:31)
[2024-02-13 06:35] LABS: ABS Basophils 0.1 10^3/uL (0.0-0.1); ABS Lymphocytes 2.3 10^3/uL (1.0-4.8); ABS Monocytes 1.1 10^3/uL (0.0-0.9); ABS Neutrophils 10.9 10^3/uL (1.5-7.6); ABS Nucleated RBC 0.02 10^3/ul; Hematocrit 34.9 % (35-45); Hemoglobin 11.2 g/dL (11.5-14.3); Lymphocyte % 16.1 %; Mean Corpuscular Hemoglobin 30.6 pg (27-33); Mean Corpuscular Hgb Conc 32.2 g/dL (31-36); Mean Corpuscular Volume 95.1 fL (80-97); Mean Platelet Volume 9.2 fL (7.5-11.2); Nucleated Red Blood Cells % 0.1 %/100WBC (0.0-0.8); Platelet Count 223 10^3/uL (150-450); Red Blood Count 3.67 10^6/uL (3.63-4.92); Red Cell Distribution Width 15.5 % (12-17); White Blood Count 14.3 10^3/uL (3.8-11.8)
[2024-02-13] MEDS ORDERED: LORazepam 2 MG/ML 1 mL Syringe IV PRN (07:11)
[2024-02-13 07:15] LABS: Anion Gap 12 mmol/L (2-16); Blood Urea Nitrogen 48 mg/dL (6-24); CO2 Carbon Dioxide 20 mmol/L (22-32); Calcium 6.9 mg/dL (8.6-10.3); Chloride 105 mmol/L (101-111); Creatinine, Serum 1.85 mg/dL (0.51-0.95); Glucose 225 mg/dL (70-100); Magnesium 1.4 mg/dL (1.9-2.7); Sodium 137 mmol/L (135-145); eGFR CKD-EPI 26.2 (>60)
[2024-02-13] MEDS ORDERED: LORazepam 2 mg VIAL 1 ml ONE (07:32)
[2024-02-13 07:35] LABS: Osmolality Serum 309 mOsm/kg (275-295)
[2024-02-13] MEDS: LORazepam 2 mg VIAL 1 ml IV PUSH PRN (07:36)
[2024-02-13] MEDS: Magnesium Sulfate IV 1GM/100ML 1 GM/100 ML BAG IV ONE (08:04)
[2024-02-13] MEDS: Insulin GLARGINE 100 un/ml 10 ml VIAL SUBCUT SCH (08:09)
[2024-02-13 09:23] LABS: Erythrocyte Sed Rate 11 mm/Hr (0-29)
[2024-02-13 10:24] LABS: C Reactive Protein 51.48 mg/L (<8.01)
[2024-02-13] MEDS ORDERED: Lorazepam PYXIS KEY PRN (12:17)
[2024-02-13] MEDS: Mometasone/Formoter 100/5 MDI INH SCH (19:45)
[2024-02-13] MEDS: prednisoLONE 1% OPHTH.SUSP 5 ML OPHTH.SUSP BOTH EYES SCH (19:45)
[2024-02-13] MEDS: Sodium Chloride 5% OPTH OINT 3.5 gm TUBE LEFT EYE SCH (23:01)
[2024-02-14 05:59] LABS: ABS Eosinophils 0.1 10^3/uL (0.0-0.5); ABS Lymphocytes 1.5 10^3/uL (1.0-4.8); ABS Monocytes 0.7 10^3/uL (0.0-0.9); ABS Neutrophils 5.9 10^3/uL (1.5-7.6); Eosinophil % 1.2 %; Hematocrit 34.1 % (35-45); Hemoglobin 11.5 g/dL (11.5-14.3); Lymphocyte % 17.7 %; Mean Corpuscular Hemoglobin 31.9 pg (27-33); Mean Corpuscular Hgb Conc 33.7 g/dL (31-36); Mean Corpuscular Volume 94.6 fL (80-97); Platelet Count 175 10^3/uL (150-450); Red Cell Distribution Width 15.4 % (12-17); White Blood Count 8.3 10^3/uL (3.8-11.8)
[2024-02-14 06:44] LABS: Albumin 3.4 g/dL (3.5-5.7); Albumin/Globulin Ratio 1.2 (1-3); Calcium 8.5 mg/dL (8.6-10.3); Creatinine, Serum 0.9 mg/dL (0.51-0.95); Globulin 2.9 g/dL (2-4); Magnesium 2.4 mg/dL (1.9-2.7); Potassium 4.7 mmol/L (3.5-5.0); Total Bilirubin 0.5 mg/dL (0.2-1.0); Total Protein 6.3 g/dL (6.4-8.9); eGFR CKD-EPI 62.3 (>60)
[2024-02-14 15:55] LABS: Urine Osmo 601 mOsm/kg (150-1150)
[2024-02-14 17:15] LABS: C Reactive Protein 49.64 mg/L (<8.01)
[2024-02-14] MEDS: Azithromycin 500 mg/250 ml NS 500 MG/250 ML BAG IVPB SCH (17:44)
[2024-02-14] MEDS ORDERED: Albuterol/Ipratropium NEB.SOL (2.5/0.5 MG) 3 ML NEB.SOLN INH SCH (18:00)
[2024-02-14] MEDS: cefTRIAXone 1 gm/50 mL D5W 1 GM/50 ML BAG IV SCH (19:24)
[2024-02-14] MEDS: Albuterol/Ipratropium NEB.SOL (2.5/0.5 MG) 3 ML NEB.SOLN INH SCH (21:18)
[2024-02-15 06:44] LABS: ABS Eosinophils 0.2 10^3/uL (0.0-0.5); ABS Lymphocytes 1.8 10^3/uL (1.0-4.8); ABS Monocytes 0.6 10^3/uL (0.0-0.9); ABS Neutrophils 3.5 10^3/uL (1.5-7.6); ABS Nucleated RBC 0.01 10^3/ul; Eosinophil % 2.6 %; Hematocrit 33.2 % (35-45); Hemoglobin 11.6 g/dL (11.5-14.3); Lymphocyte % 29.1 %; Mean Corpuscular Hemoglobin 32.8 pg (27-33); Mean Corpuscular Volume 93.9 fL (80-97); Mean Platelet Volume 8.3 fL (7.5-11.2); Nucleated Red Blood Cells % 0.1 %/100WBC (0.0-0.8); Platelet Count 168 10^3/uL (150-450); Red Blood Count 3.53 10^6/uL (3.63-4.92); Red Cell Distribution Width 15.3 % (12-17); White Blood Count 6.1 10^3/uL (3.8-11.8)
[2024-02-15 07:03] LABS: Calcium 8.3 mg/dL (8.6-10.3); Creatinine, Serum 0.64 mg/dL (0.51-0.95); Magnesium 1.8 mg/dL (1.9-2.7); Potassium 4.4 mmol/L (3.5-5.0)
[2024-02-15] MEDS ORDERED: Albuterol/Ipratropium NEB.SOL (2.5/0.5 MG) 3 ML NEB.SOLN INH PRN (07:40)
[2024-02-15] MEDS: Furosemide 40 mg/4 ml IV VIAL IV ONE (09:05)
[2024-02-15] MEDS: Magnesium Sulfate 2 gm BAG 2 GM/50 ML BAG IVPB ONE (09:05)
[2024-02-15] MEDS: Ondansetron 4 mg VIAL 2 MG/ML 2 ml VIAL IV ONE (20:05)
[2024-02-15] MEDS: cefTRIAXone 1 GM Q24H (ADVAN) IVPB SCH (20:22)
[2024-02-16 06:28] LABS: ABS Eosinophils 0.3 10^3/uL (0.0-0.5); ABS Lymphocytes 1.9 10^3/uL (1.0-4.8); ABS Monocytes 0.6 10^3/uL (0.0-0.9); ABS Neutrophils 2.9 10^3/uL (1.5-7.6); ABS Nucleated RBC 0.01 10^3/ul; Hematocrit 33.8 % (35-45); Hemoglobin 11.3 g/dL (11.5-14.3); Lymphocyte % 33.4 %; Mean Corpuscular Hemoglobin 31.5 pg (27-33); Mean Corpuscular Hgb Conc 33.3 g/dL (31-36); Mean Corpuscular Volume 94.4 fL (80-97); Mean Platelet Volume 8.2 fL (7.5-11.2); Nucleated Red Blood Cells % 0.2 %/100WBC (0.0-0.8); Platelet Count 185 10^3/uL (150-450); Red Blood Count 3.58 10^6/uL (3.63-4.92); Red Cell Distribution Width 15.3 % (12-17); White Blood Count 5.8 10^3/uL (3.8-11.8)
[2024-02-16 07:01] LABS: Calcium 7.8 mg/dL (8.6-10.3); Creatinine, Serum 0.66 mg/dL (0.51-0.95); Magnesium 1.6 mg/dL (1.9-2.7); eGFR CKD-EPI 85.4 (>60)
[2024-02-16 09:53] VITALS: BP 129/57
[2024-02-16] MEDS: Pentoxifylline CR 400 mg TAB 400 MG PO SCH (09:53)
[2024-02-16] MEDS: Azithromycin 500 mg/250 ml NS 500 MG/250 ML BAG IVPB ONE (11:00)
[2024-02-16] MEDS: Magnesium CITRATE LIQ 300 ML BTL PO ONE (12:39)
== END 2024-02-16 14:10 | DRG 91 ==
LOC: ED 21:19 → EDHOLD 21:19 → SUATTDRO 02-13 03:40 → MEDTELE 02-13 11:40 → SUATTDRO 02-14 10:00
PROVIDERS: ADMIT Internal Medicine; ATTEND Internal Medicine